=== PATIENT | male | born 1990 | race Asian ===

== ENCOUNTER 2022-02-07 11:39 | Emergency (ER) | payer MEDICARE, SELFPAY ==
--- NOTE | ~2022-02-07 | XR_ITS ---
EXAMINATION: XR CHEST CLINICAL INFORMATION: [place]. COMPARISON: 11/11/2019 chest radiograph. TECHNIQUE: 2 views of the chest were obtained. FINDINGS: No significant abnormality is noted involving the heart, lungs, mediastinum, bony thorax or soft tissues. XR/XR chest 2V IMPRESSION: No acute cardiopulmonary process.
[2022-02-07 11:44] VITALS: BP 101/69; PULSE 67; RESP 18; TEMP 36.8; O2SAT 98; BMI 16.4
--- NOTE | 2022-02-07 11:44 | ED_ITS ---
HPI - General Adult General Chief complaint: Upper Respiratory Symptoms <SALLY Coppola - Last Filed: 02/07/22 11:50> Stated complaint: fever, cough, headache <SALLY Coppola - Last Filed: 02/07/22 11:50> Time Seen by Provider: 02/07/22 12:08 <SALLY Coppola - Last Filed: 02/07/22 11:50> Source: patient and family <Chelsie Stover CNP - Last Filed: 02/07/22 14:05> Mode of arrival: wheelchair <Chelsie Stover CNP - Last Filed: 02/07/22 14:05> Limitations: physical limitation <Chelsie Stover CNP - Last Filed: 02/07/22 1 4:05> History of Present Illness HPI narrative: Patient is a 31-year-old male wheelchair bound nonverbal patient presenting for evaluation of intermittent fevers, cough, chest congestion over the past week. He was evaluated by primary care provider 2 days ago and prescribed Bactrim and benzonatate. Father reporting that he does not have the strength or ability to cough out phlegm. After coughing spells other ports that he has a small amount of emesis, is described as clear/yellow in nature. Reports that he has been urinating and moving his bowels normally. Was seen at urgent care and advised to come to the emergency department to rule out aspiration pneumonia. States for past 2 days patient has been prescribed Bactrim and benzonatate without significant improvement. <Chelsie Stover CNP - Last Filed: 02/07/22 14:05> Related Data Home medications: Previous Rx's Medication Instructions Recorded guaifenesin 1,200 mg tablet, 1,200 mg PO Q12H #14 tabs 02/07/22 extended release 12 hr (Mucus Relief ER) <SALLY Coppola Last Filed: 02/07/22 11:50> Allergies/adverse reactions: Allergies Allergy/AdvReac Type Severity Reaction Status Date / Time No Known Allergies Allergy Unverified 12/07/19 18:07 <SALLY Coppola Last Filed: 02/07/22 11:50> Review of Systems Review of Systems: Yes Unobtainable due to mental status <Chelsie Stover CNP - Last Filed: 02/07/22 14:05> [facility] Past Medical History Attestation statement: The following information was validated with the patient. <Chelsie Stover CNP - Last Filed: 02/07/22 14:05> Source: old records reviewed <Chelsie Stover CNP - Last Filed: 02/07/22 14:05> Social History Social History: Social History Advance Directives: No Advance Directives Information Provided: No <SALLY Coppola - Last Filed: 02/07/22 11:50> Physical Exam ED Vital Signs: Vital Signs - 24 hr 02/07/22 11:44 Temperature 98.2 F Pulse Rate 67 Respiratory Rate 18 Blood Pressure 101/69 Pulse Oximetry 98 Oxygen Delivery Method Room Air BMI result Body Mass Index 16.4 <SALLY Coppola - Last Filed: 02/07/22 11:50> Vital Signs - 24 hr 02/07/22 11:44 Temperature 98.2 F Pulse Rate 67 Respiratory Rate 18 Blood Pressure 101/69 Pulse Oximetry 98 Oxygen Delivery Method Room Air BMI result Body Mass Index 16.4 <Chelsie Stover CNP - Last Filed: 02/07/22 14:05> Appearance: Alert.? Unable to assess orientation, nonverbal. ?Normal affect. Eyes: Pupils equal, round and reactive to light.? ENT: Pharynx normal.?? Neck: Normal inspection.? Neck supple.?? CVS: Heart sounds normal. Normal heart rate and rhythm.? Pulses normal.?? Respiratory: No respiratory distress.? Lung sounds with rhonchi bilaterally, congested cough Abdomen: Soft and non-tender. Normoactive bowel sounds. ? Skin: Skin warm and dry.? Normal skin color.? Extremities: No lower extremity edema.? Neuro: No focal neuro deficits. Nonambulatory. Noted to be moving all extremities spontaneously. <Chelsie Stover CNP - Last Filed: 02/07/22 14:05> Course Course Course Narrative: RME--31yo wheelchair bound, nonverbal, sent in from for ?aspiration PNA, pt c/o cough and fever x 1 week with post tussive emesis. Denies recent travel. Afebrile, nontoxic appearing. EKG, Labs, Lactic/Blood Cx, CXR, COVID-19/influenza/RSV testing ordered in triage <SALLY Coppola - Last Filed: 02/07/22 11:50> Reevaluation(s) Reevaluation #1: Patient is a 31-year-old male with a past medical history of neuromuscular disorder, father is unable to tell me what condition he has, he is wheelchair bound nonverbal. Was evaluated at urgent care and advised to come to the emerg ency department to rule out aspiration pneumonia. COVID-19, influenza, and RSV testing are all negative. CBC reveals no leukocytosis, no anemia. CMP is overall unremarkable. BNP not detectable. Lactic acid 0.7. EKG reveals normal sinus rhythm, no acute ischemic findings. Chest x-ray with no acute cardiopulmonary process. Patient is well-appearing, nontoxic, afebrile without tachycardia tachypnea or hypoxia. Abdominal examination is benign. No apparent respiratory distress. Discussed plan of care with father, patient to be discharged home, continued use of benzonatate, and Bactrim as previously prescribed, will additionally sent prescription to pharmacy for Mucinex to aid in expectorant. Discussed worrisome signs and symptoms to return back to the emergency department for. Advised outpatient follow-up with primary care provider within 3 days. All questions answered. Discharged in stable condition with father. <Chelsie Stover CNP - Last Filed: 02/07/22 14:05> Time: 14:01 <Chelsie Stover CNP - Last Filed: 02/07/22 14:05> Medical Decision Making Medical Records Medical records reviewed: Yes I reviewed the patient's medical records. <Chelsie Stover CNP - Last Filed: 02/07/22 14:05> Lab Data Lab results reviewed: Yes I reviewed the patient's lab results. <Chelsie Stover CNP - Last Filed: 02/07/22 14:05> Result diagrams: : 02/07/22 12:05 02/07/22 12:05 <SALLY Coppola - Last Filed: 02/07/22 11:50> Labs: Lab Results 02/07/22 02/07/22 02/07/22 Range/Units 11:52 12:04 12:05 WBC 5.4 (4.8-10.8) X10*3/uL RBC 5.66 (4.60-5.80) X10*6/uL Hgb 14.5 (14.0-18.0) g/dl Hct 44.2 (42.0-52.0) % MCV 78.1 L (80.0-98.0) fL MCH 25.6 L (27.0-33.0) pg MCHC 32.8 (31.0-36.0) g/dl RDW 13.1 (11.0-16.0) % Plt Count 302 (160-400) X10*3/uL MPV 9.2 L (9.4-12.4) fL Immature Gran % (Auto) 0.2 (0.0-0.4) % Neut % (Auto) 51.9 (45-73) % Lymph % (Auto) 38.1 (20-40) % Trigg % (Auto) 5.9 (2-11) % Eos % (Auto) 3.5 (0-4) % Baso % (Auto) 0.4 (0-2) % Lymph # (Auto) 2.1 (1.2-4.9) X10*3/uL Trigg # (Auto) 0.3 (0.1-1.2) X10*3/uL Eos # (Auto) 0.2 (0.0-0.4) X10*3/uL Baso # (Auto) 0.0 (0.0-0.2) X10*3/uL Abs Immat Gran (auto) 0.01 (0.00-0.03) X10*3/uL Absolute Neuts (auto) 2.8 (2.0-8.3) x10*3/uL Absolute Nucleated RBC 0.000 (0.0-0.012) X10*3/uL Nucleated RBC % (auto) 0.0 (0.0-0.2) /100WBC Sodium (135-145) mmol/L Potassium (3.3-5.1) mmol/L Chloride (96-108) mmol/L Carbon Dioxide (22-29) mmol/L Anion Gap (12-20) BUN (9-16) mg/dL Creatinine (0.5-1.4) mg/dL Estim Creat Clear Calc Estimated GFR Random Glucose (60-115) mg/dL Lactic Acid 0.7 (0.5-2.0) mmol/L Calcium (8.4-10.2) mg/dL Magnesium (1.6-2.6) mg/dL Total Bilirubin (0.0-1.0) mg/dL Direct Bilirubin (0.0-0.5) mg/dL AST (5-37) U/L ALT (0-40) U/L Alkaline Phosphatase (39-117) U/L B-Natriuretic Peptide (<100) pg/mL Total Protein (6.5-8.0) g/dL Albumin (3.5-5.0) g/dL Influenza Type A (PCR) NEGATIVE (Negative) Influenza Type B (PCR) NEGATIVE (Negative) RSV RNA Qual (PCR) NEGATIVE (Negative) SARS-CoV-2 RNA (RT-PCR) NEGATIVE (Negative) 02/07/22 02/07/22 Range/Units 12:05 12:05 WBC (4.8-10.8) X10*3/uL RBC (4.60-5.80) X10*6/uL Hgb (14.0-18.0) g/dl Hct (42.0-52.0) % MCV (80.0-98.0) fL MCH (27.0-33.0) pg MCHC (31.0-36.0) g/dl RDW (11.0-16.0) % Plt Count (160-400) X10*3/uL MPV (9.4-12.4) fL Immature Gran % (Auto) (0.0-0.4) % Neut % (Auto) (45-73) % Lymph % (Auto) (20-40) % Trigg % (Auto) (2-11) % Eos % (Auto) (0-4) % Baso % (Auto) (0-2) % Lymph # (Auto) (1.2-4.9) X10*3/uL Trigg # (Auto) (0.1-1.2) X10*3/uL Eos # (Auto) (0.0-0.4) X10*3/uL Baso # (Auto) (0.0-0.2) X10*3/uL Abs Immat Gran (auto) (0.00-0.03) X10*3/uL Absolute Neuts (auto) (2.0-8.3) x10*3/uL Absolute Nucleated RBC (0.0-0.012) X10*3/uL Nucleated RBC % (auto) (0.0-0.2) /100WBC Sodium 139 (135-145) mmol/L Potassium 4.1 (3.3-5.1) mmol/L Chloride 105 (96-108) mmol/L Carbon Dioxide 22 (22-29) mmol/L Anion Gap 16 (12-20) BUN 14 (9-16) mg/dL Creatinine 0.98 (0.5-1.4) mg/dL Estim Creat Clear Calc 72.8 Estimated GFR > 60 Random Glucose 82 (60-115) mg/dL Lactic Acid (0.5-2.0) mmol/L Calcium 9.7 (8.4-10.2) mg/dL Magnesium 2.1 (1.6-2.6) mg/dL Total Bilirubin 0.5 (0.0-1.0) mg/dL Direct Bilirubin 0.2 (0.0-0.5) mg/dL AST 23 (5-37) U/L ALT 19 (0-40) U/L Alkaline Phosphatase 86 (39-117) U/L B-Natriuretic Peptide < 10 (<100) pg/mL Total Protein 8.7 H (6.5-8.0) g/dL Albumin 4.6 (3.5-5.0) g/dL Influenza Type A (PCR) (Negative) Influenza Type B (PCR) (Negative) RSV RNA Qual (PCR) (Negative) SARS-CoV-2 RNA (RT-PCR) (Negative) <SALLY Coppola - Last Filed: 02/07/22 11:50> Lab Results 02/07/22 02/07/22 02/07/22 Range/Units 11:52 12:04 12:05 WBC 5.4 (4.8-10.8) X10*3/uL RBC 5.66 (4.60-5.80) X10*6/uL Hgb 14.5 (14.0-18.0) g/dl Hct 44.2 (42.0-52.0) % MCV 78.1 L (80.0-98.0) fL MCH 25.6 L (27.0-33.0) pg MCHC 32.8 (31.0-36.0) g/dl RDW 13.1 (11.0-16.0) % Plt Count 302 (160-400) X10*3/uL MPV 9.2 L (9.4-12.4) fL Immature Gran % (Auto) 0.2 (0.0-0.4) % Neut % (Auto) 51.9 (45-73) % Lymph % (Auto) 38.1 (20-40) % Trigg % (Auto) 5.9 (2-11) % Eos % (Auto) 3.5 (0-4) % Baso % (Auto) 0.4 (0-2) % Lymph # (Auto) 2.1 (1.2-4.9) X10*3/uL Trigg # (Auto) 0.3 (0.1-1.2) X10*3/uL Eos # (Auto) 0.2 (0.0-0.4) X10*3/uL Baso # (Auto) 0.0 (0.0-0.2) X10*3/uL Abs Immat Gran (auto) 0.01 (0.00-0.03) X10*3/uL Absolute Neuts (auto) 2.8 (2.0-8.3) x10*3/uL Absolute Nucleated RBC 0.000 (0.0-0.012) X10*3/uL Nucleated RBC % (auto) 0.0 (0.0-0.2) /100WBC Sodium (135-145) mmol/L Potassium (3.3-5.1) mmol/L Chloride (96-108) mmol/L Carbon Dioxide (22-29) mmol/L Anion Gap (12-20) BUN (9-16) mg/dL Creatinine (0.5-1.4) mg/dL Estim Creat Clear Calc Estimated GFR Random Glucose (60-115) mg/dL Lactic Acid 0.7 (0.5-2.0) mmol/L Calcium (8.4-10.2) mg/dL Magnesium (1.6-2.6) mg/dL Total Bilirubin (0.0-1.0) mg/dL Direct Bilirubin (0.0-0.5) mg/dL AST (5-37) U/L ALT (0-40) U/L Alkaline Phosphatase (39-117) U/L B-Natriuretic Peptide (<100) pg/mL Total Protein (6.5-8.0) g/dL Albumin (3.5-5.0) g/dL Influenza Type A (PCR) NEGATIVE (Negative) Influenza Type B (PCR) NEGATIVE (Negative) RSV RNA Qual (PCR) NEGATIVE (Negative) SARS-CoV-2 RNA (RT-PCR) NEGATIVE (Negative) 02/07/22 02/07/22 Range/Units 12:05 12:05 WBC (4.8-10.8) X10*3/uL RBC (4.60-5.80) X10*6/uL Hgb (14.0-18.0) g/dl Hct (42.0-52.0) % MCV (80.0-98.0) fL MCH (27.0-33.0) pg MCHC (31.0-36.0) g/dl RDW (11.0-16.0) % Plt Count (160-400) X10*3/uL MPV (9.4-12.4) fL Immature Gran % (Auto) (0.0-0.4) % Neut % (Auto) (45-73) % Lymph % (Auto) (20-40) % Trigg % (Auto) (2-11) % Eos % (Auto) (0-4) % Baso % (Auto) (0-2) % Lymph # (Auto) (1.2-4.9) X10*3/uL Trigg # (Auto) (0.1-1.2) X10*3/uL Eos # (Auto) (0.0-0.4) X10*3/uL Baso # (Auto) (0.0-0.2) X10*3/uL Abs Immat Gran (auto) (0.00-0.03) X10*3/uL Absolute Neuts (auto) (2.0-8.3) x10*3/uL Absolute Nucleated RBC (0.0-0.012) X10*3/uL Nucleated RBC % (auto) (0.0-0.2) /100WBC Sodium 139 (135-145) mmol/L Potassium 4.1 (3.3-5.1) mmol/L Chloride 105 (96-108) mmol/L Carbon Dioxide 22 (22-29) mmol/L Anion Gap 16 (12-20) BUN 14 (9-16) mg/dL Creatinine 0.98 (0.5-1.4) mg/dL Estim Creat Clear Calc 72.8 Estimated GFR > 60 Random Glucose 82 (60-115) mg/dL Lactic Acid (0.5-2.0) mmol/L Calcium 9.7 (8.4-10.2) mg/dL Magnesium 2.1 (1.6-2.6) mg/dL Total Bilirubin 0.5 (0.0-1.0) mg/dL Direct Bilirubin 0.2 (0.0-0.5) mg/dL AST 23 (5-37) U/L ALT 19 (0-40) U/L Alkaline Phosphatase 86 (39-117) U/L B-Natriuretic Peptide < 10 (<100) pg/mL Total Protein 8.7 H (6.5-8.0) g/dL Albumin 4.6 (3.5-5.0) g/dL Influenza Type A (PCR) (Negative) Influenza Type B (PCR) (Negative) RSV RNA Qual (PCR) (Negative) SARS-CoV-2 RNA (RT-PCR) (Negative) <Chelsie Stover CNP - Last Filed: 02/07/22 14:05> Imaging Data Chest x-ray: Radiologist's impression: XR/XR chest 2V IMPRESSION: No acute cardiopulmonary process. <Chelsie Stover CNP - Last Filed: 02/07/22 14:05> ECG Data Attestation: I personally reviewed and interpreted this ECG as follows: <Chelsie Stover CNP - Last Filed: 02/07/22 14:05> Prior ECG tracings: available for review <Chelsie Stover CNP - Last Filed: 02/07/22 14:05> Interpretation: Rate: 68 Rhythm:? Normal sinus rhythm [place]:? Normal Normal P waves.? Normal [place].?? Normal QRS complex.?? ST T wave :??No ST elevation, no ST depression, no T-wave inversion qTC: 401 prior studies:? October 2019 The study has been interpreted contemporaneously by me. <Chelsie Stover CNP - Last Filed: 02/07/22 14:05> Discharge Plan Discharge Clinical Impression: Upper respiratory infection <SALLY Coppola - Last Filed: 02/07/22 11:50> Patient Disposition: Home, Self-Care <SALLY Coppola - Last Filed: 02/07/22 11:50> Instructions: Upper Respiratory Infection (ED) <SALLY Coppola - Last Filed: 02/07/22 11:50> Additional Instructions: Be sure to encourage lots of oral fluids Continue taking medications as prescribed by primary care provider In addition, take Mucinex to help expectorate the phlegm Return to the emergency department any new or worsening symptoms or concerns. Tylenol/ibuprofen may be used as needed for fever or signs of pain Follow-up with primary care provider within 3 days. <SALLY Coppola - Last Filed: 02/07/22 11:50> Prescriptions: New Mucus Relief ER 1,200 mg tablet extended release 12hr 1,200 mg PO Q12H Qty: 14 0RF <SALLY Coppola - Last Filed: 02/07/22 11:50> Referrals: Physician,Unknown J [Primary Care Provider] - <SALLY Coppola - Last Filed: 02/07/22 11:50>
--- NOTE | 2022-02-07 11:47 | ECG_ITS ---
Test Reason : CHEST CONGESTION Blood Pressure : / mmHG Vent. Rate : 068 BPM Atrial Rate : 068 BPM P-R Int : 172 ms QRS Dur : 080 ms QT Int : 378 ms P-R-T Axes : 077 061 072 degrees QTc Int : 401 ms Normal sinus rhythm with sinus arrhythmia Normal ECG When compared with ECG of 11-NOV-2019 16:48, No significant change was found Referred By: Malka Rascon Electronically Signed By:STEPH VALLADARES MD
[2022-02-07 12:12] LABS: MANUAL DIFF FLAG NO
[2022-02-07 12:21] LABS: Basophils Percent Auto 0.4 % (0-2); Eosinophils Absolute Auto 0.2 X10*3/uL (0.0-0.4); Eosinophils Percent Auto 3.5 % (0-4); Hematocrit 44.2 % (42.0-52.0); Hemoglobin 14.5 g/dl (14.0-18.0); Imm Gran Abs Auto 0.01 X10*3/uL (0.00-0.03); Imm Gran Pct Auto 0.2 % (0.0-0.4); Lymphocytes Absolute Auto 2.1 X10*3/uL (1.2-4.9); Lymphocytes Percent Auto 38.1 % (20-40); Mean Corpuscular HGB Conc 32.8 g/dl (31.0-36.0); Mean Corpuscular Hemoglobin 25.6 pg (27.0-33.0); Mean Corpuscular Volume 78.1 fL (80.0-98.0); Mean Platelet Volume 9.2 fL (9.4-12.4); Monocytes Absolute Auto 0.3 X10*3/uL (0.1-1.2); Monocytes Percent Auto 5.9 % (2-11); Neutrophils Absolute Auto 2.8 x10*3/uL (2.0-8.3); Neutrophils Percent Auto 51.9 % (45-73); Platelet Count 302 X10*3/uL (160-400); Red Blood Count 5.66 X10*6/uL (4.60-5.80); Red Cell Distribution Width 13.1 % (11.0-16.0); White Blood Count 5.4 X10*3/uL (4.8-10.8)
[2022-02-07 12:26] LABS: Lactic Acid 0.7 mmol/L (0.5-2.0)
[2022-02-07 12:30] LABS: Alanine Aminotransferase 19 U/L (0-40); Albumin Level 4.6 g/dL (3.5-5.0); Alkaline Phosphatase 86 U/L (39-117); Anion Gap 16 (12-20); Aspartate Amino Transferase 23 U/L (5-37); Bilirubin Direct 0.2 mg/dL (0.0-0.5); Bilirubin Total 0.5 mg/dL (0.0-1.0); Blood Urea Nitrogen 14 mg/dL (9-16); Calcium 9.7 mg/dL (8.4-10.2); Carbon Dioxide 22 mmol/L (22-29); Chloride 105 mmol/L (96-108); Creatinine Clr Calc Pharmacy 72.8; Estimated Glomerular Filt Rate > 60; Glucose Random 82 mg/dL (60-115); Magnesium 2.1 mg/dL (1.6-2.6); Potassium 4.1 mmol/L (3.3-5.1); Sodium 139 mmol/L (135-145); Total Protein 8.7 g/dL (6.5-8.0)
[2022-02-07 12:36] LABS: B Type Natriuretic Peptide < 10 pg/mL (<100)
[2022-02-07 12:58] LABS: Influenza A PCR NEGATIVE (Negative); Influenza B PCR NEGATIVE (Negative); Resp Syncy Virus RNA Qual PCR NEGATIVE (Negative); SARS COV2 PCR INHOUSE NEGATIVE (Negative)
== END 2022-02-07 14:10 | disposition home or self-care (01) ==
PROVIDERS: Physician Assistant; Emergency Provider Emergency Medicine Emergency Medical Services
DX: J06.9 Acute upper respiratory infection, unspecified (principal); R50.9 Fever, unspecified; Z20.822 Contact with and (suspected) exposure to COVID-19
CPT/HCPCS: 0241U; 36415; 71046; 80048; 80076; 83605; 83735; 83880; 85025; 87040; 93005; 99283

== ENCOUNTER 2024-01-20 15:06 | Inpatient (IN) | payer MEDICARE, SELFPAY ==
[2024-01-20] VITALS (13 sets, daily range): BP systolic 94–121; BP diastolic 66–83; PULSE 96–165; RESP 12–26; TEMP 37.8–40.5; O2SAT 76–98; BMI 23.9
--- NOTE | ~2024-01-20 | CT_ITS ---
EXAMINATION: CT ANGIOGRAM CHEST CLINICAL INFORMATION: Hypoxia COMPARISON: None available. TECHNIQUE: Multiple axial images were obtained through the chest after the administration of 50 mL of Omnipaque 350 intravenous contrast. Extensive vascular post-processing including two-dimensional and three-dimensional reformatted images were created and reviewed on an independent workstation. This CT examination was performed using dose optimization techniques as appropriate, variously including the following: *Automated exposure control *Adjustment of mA and/or kV according to patient size (this includes techniques or standardized protocols for targeted exams where dose is matched to indication/reason for exam; i.e. extremities or head) *Use of iterative reconstruction technique DLP: 258 mGy-cm FINDINGS: Bibasilar broncho-pneumonia pattern. No parapneumonic effusion. No central endobronchial lesion. Imaging of the pulmonary arteries demonstrate no evidence of any pulmonary emboli. No evidence of a right heart strain. No mediastinal mass or lymphadenopathy. Thoracic aorta grossly normal. Reactive appearing bilateral hilar lymph nodes. Mild subcarinal adenopathy likely reactive. The visualized upper upper abdominal organs are notable for hepatomegaly. CT/CT angio chest PE protocol IMPRESSION: No evidence for acute or chronic pulmonary embolism. Bilateral lower lobe pneumonia. Fleischner guidelines were followed. Electronically signed by: Emir Olmos MD 01/20/2024 06:50 PM EDT
--- NOTE | ~2024-01-20 | XR_ITS ---
EXAMINATION: XR CHEST CLINICAL INFORMATION: Hypoxia. COMPARISON: February 07, 2022. TECHNIQUE: Portable AP view of the chest was obtained. FINDINGS: The study is limited by portable technique. Examination demonstrates mild, diffuse, bilateral, predominantly perihilar interstitial prominence with possible minimal [place] B lines, raising the possibility of mild pulmonary edema. Findings suggest superimposed left basilar focal airspace disease, suggesting focal infiltrate (for example, pneumonia) and/or atelectasis. No effusion or pneumothorax is seen. The cardiovascular structures, mediastinum, diaphragm, bones, and soft tissues appear unremarkable. XR/XR chest 1V IMPRESSION: Findings as above. Electronically signed by: Delvin Esposito MD 01/20/2024 05:50 PM EDT
--- NOTE | 2024-01-20 15:23 | ED.GENADULT ---
HPI - General Adult General Chief complaint: Dyspnea Stated complaint: fever-mouth infection-unable to eat or drink Time Seen by Provider: 01/20/24 15:28 Related Data Home Medications ?Medication ?Instructions ?Recorded ?Confirmed acetaminophen 160 mg/5 mL oral 480 mg PO Q6H PRN fever 01/20/24 01/20/24 liquid (Children's Acetaminophen) Previous Rx's ?Medication ?Instructions ?Recorded amoxicillin 400 mg-potassium 10 ml PO BID #100 mL 01/25/24 clavulanate 57 mg/5 mL oral suspension fluconazole 100 mg tablet 100 mg feeding tube BEDTIME #10 01/25/24 tabs Allergies Allergy/AdvReac Type Severity Reaction Status Date / Time No Known Allergies Allergy Unverified 01/20/24 15:31 [facility] Social History Social History Household Members: Family Housing: House Are you a primary auto care center manager to a significant other at home: No Do you presently have visiting nurse or other home services: Yes Comment: Family member bedside Patient Tobacco Use Status: Never used Tobacco Smoked in Last 30 Days: No Second Hand Smoke Exposure: No Use of substances other than those prescribed or required for medical reasons: No Currently Displaying Signs/Symptoms of Drug Intoxication Withdrawal: No Have you been hit, kicked, punched, or otherwise hurt by someone within the past year? If so, by whom?: No Do you feel safe in your current relationship?: No Current Relationship Is there a partner from a previous relationship who is making you feel unsafe now?: No Are you made to feel afraid or neglected: No Are you DNR?: No Advance Directives: Yes Advance Directives Information Provided: No Advance Directives on File: Yes Advance Directives Date on File: 01/20/24 Do you have a plan to hurt others: No Plan Recently lost weight without trying: Unsure Eating poorly because of decreased appetite: No Nutrition Risks: Dental problems and On aspiration precautions Poor oral hygiene: Yes service: No Physical Exam ED Vital Signs: Vital Signs - 24 hr 01/20/24 15:22 01/20/24 15:30 01/20/24 15:53 Temperature 105 F H Pulse Rate 165 H 145 H 144 H Respiratory Rate 26 H 21 H 25 H Blood Pressure 121/83 110/77 113/80 Pulse Oximetry 76 L 88 L 89 L Oxygen Delivery Method Room Air Oxymask Oxymask Oxygen Flow Rate 10 10 01/20/24 16:10 Temperature 103.3 F H Pulse Rate 133 H Respiratory Rate 20 Blood Pressure 119/78 Pulse Oximetry 89 L Oxygen Delivery Method Oxymask Oxygen Flow Rate 10 BMI result Body Mass Index 23.9 Course Course Course Narrative: RME, this is a rapid medical exam performed by Real [place] please refer to primary provider for complete H&P- 33-year-old male with history of cerebral palsy, wheelchair-bound presents for evaluation of a mouth infection. He is nonverbal. He is hypoxic a 70% in triage with a heart rate of 160, patient brought straight back to the ER, blood cultures, lactic acid ordered, EKG ordered. Medications Administered Generic Name Dose Route Start Last Admin Trade Name Freq PRN Reason Stop Dose Admin Enoxaparin Sodium 40 mg 01/20/24 21:00 01/22/24 21:12 Enoxaparin Sodium 40 Mg/0.4 Ml Syringe SUBCUT 40 mg Q24H SHARLA Administration Fluconazole 100 mg 01/25/24 21:00 01/26/24 19:58 Fluconazole 100 Mg Tablet G-TUBE 100 mg BEDTIME SHARLA Administration Piperacillin Sod/Tazobactam 100 mls @ 200 mls/hr 01/21/24 08:15 01/27/24 01:30 Sod 4.5 gm/ Sodium Chloride IV 200 mls/hr Q6H SHARLA Administration Dextrose 250 mls @ 750 mls/hr 01/22/24 07:53 01/25/24 07:05 D10 IV Infused Q15M PRN Infusion per Hypoglycemia Standing Ord. Sodium Chloride 3 ml 01/21/24 00:00 01/26/24 19:58 0.9 % Sodium Chloride Flush 3 Ml Syringe IVFLUSH 3 ml QSHIFT SHARLA Administration Discontinued Medications Generic Name Dose Route Start Last Admin Trade Name Freq PRN Reason Stop Dose Admin Acetaminophen 650 mg 01/20/24 15:33 01/20/24 15:40 Acetaminophen Supp 650 Mg Supp.Rect MA 01/20/24 15:34 650 mg ONCE ONE Administration Sodium Chloride 1,000 mls @ 999 mls/hr 01/20/24 15:30 01/20/24 17:30 Ns IV 01/20/24 16:30 Infused .Q1H1M SHARLA Infusion Sodium Chloride 1,000 mls @ 999 mls/hr 01/20/24 15:30 01/20/24 17:45 Ns IV 01/20/24 16:30 Infused .Q1H1M SHARLA Infusion Cefepime HCl 1 gm/ Sodium 50 mls @ 100 mls/hr 01/20/24 15:30 01/20/24 16:36 Chloride IV 01/20/24 15:59 Infused ONCE ONE Infusion Vancomycin HCl 1,000 mg/ 270 mls @ 270 mls/hr 01/20/24 15:33 01/20/24 17:32 Sodium Chloride IV 01/20/24 16:32 Infused ONCE ONE Infusion Cefepime HCl 2 gm in 50 mls @ 100 mls/hr 01/21/24 04:00 01/21/24 06:07 Maxipime IV Infused Q12H SHARLA Infusion Lactated Ringer's 1,000 mls @ 100 mls/hr 01/20/24 21:00 01/22/24 07:53 Lr IVCONT Infused .Q10H SHARLA Infusion Fluconazole 100 mg/ IV 50 mls @ 50 mls/hr 01/20/24 21:30 01/24/24 23:50 Miscellaneous Supplies IV Infused Q24H SHARLA Infusion Vancomycin HCl 750 mg/ Sodium 265 mls @ 265 mls/hr 01/21/24 04:00 01/21/24 06:07 Chloride IV Infused Q12H SHARLA Infusion Lactated Ringer's 1,000 mls @ 999 mls/hr 01/21/24 08:15 01/21/24 10:41 Lr IV 01/21/24 09:15 Infused .Q1H1M SHARLA Infusion Vancomycin HCl 750 mg/ Sodium 265 mls @ 265 mls/hr 01/21/24 16:00 01/23/24 10:51 Chloride IV Infused Q8H SHARLA Infusion Acetaminophen 1,000 mg in 100 mls @ 400 mls/hr 01/22/24 04:45 01/22/24 23:43 Ofirmev IV 01/22/24 22:59 Infused Q6H SHARLA Infusion Dextrose/Lactated Ringer's 1,000 mls @ 80 mls/hr 01/22/24 08:00 01/23/24 08:42 D5lr IVCONT Infused .[id number] SHARLA Infusion Potassium Chloride 10 meq in 100 mls @ 100 mls/hr 01/23/24 07:45 01/23/24 11:16 Potassium Chloride/H20 IV 01/23/24 09:44 Infused Q1H SHARLA Infusion Lactated Ringer's 1,000 mls @ 80 mls/hr 01/23/24 07:45 01/25/24 07:19 Lr IVCONT Infused .[id number] SHARLA Infusion Lactated Ringer's 1,000 mls @ 50 mls/hr 01/24/24 13:15 01/24/24 13:45 Lr IVCONT Not Given .Q20H SHARLA Dextrose/Sodium Chloride 1,000 mls @ 100 mls/hr 01/25/24 06:30 01/25/24 13:13 D5ns IVCONT Infused .Q10H SHARLA Infusion Iohexol 100 ml 01/20/24 18:26 01/20/24 18:27 Iohexol 350 Mg/Ml 100 Ml Infus..Btl IV 01/20/24 18:27 65 ml ONCE ONE Administration Ketorolac Tromethamine 30 mg 01/20/24 20:42 01/20/24 20:47 Ketorolac Tromethamine 30 Mg/Ml Vial IVPUSH 01/20/24 20:43 30 mg ONCE STA Administration Morphine Sulfate 1 mg 01/21/24 17:07 01/25/24 20:51 Morphine Sulfate 2 Mg/Ml Cartridge IVPUSH 1 mg Q4H PRN Administration Pain, Severe (Pain Scale 7-10) Protocol Medical Decision Making Lab Data 01/26/24 05:41 01/26/24 05:41 Labs: Lab Results 01/20/24 01/20/24 01/20/24 Range/Units 15:53 16:00 16:04 WBC 16.9 H (4.8-10.8) X10*3/uL RBC 5.39 (4.60-5.80) X10*6/uL Hgb 14.0 (14.0-18.0) g/dl Hct 43.1 (42.0-52.0) % MCV 80.0 (80.0-98.0) fL MCH 26.0 L (27.0-33.0) pg MCHC 32.5 (31.0-36.0) g/dl RDW 14.5 (11.0-16.0) % Plt Count 334 (160-400) X10*3/uL MPV 10.8 (9.4-12.4) fL Immature Gran % (Auto) 0.4 (0.0-0.4) % Neut % (Auto) 88.7 H (45-73) % Lymph % (Auto) 5.7 L (20-40) % [place] % (Auto) 4.0 (2-11) % Eos % (Auto) 0.5 (0-4) % Baso % (Auto) 0.7 (0-2) % Lymph # (Auto) 1.0 L (1.2-4.9) X10*3/uL [place] # (Auto) 0.7 (0.1-1.2) X10*3/uL Eos # (Auto) 0.1 (0.0-0.4) X10*3/uL Baso # (Auto) 0.1 (0.0-0.2) X10*3/uL Abs Immat Gran (auto) 0.07 H (0.00-0.03) X10*3/uL Absolute Neuts (auto) 15.0 H (2.0-8.3) x10*3/uL Absolute Nucleated RBC 0.000 (0.0-0.012) X10*3/uL Nucleated RBC % (auto) 0.0 (0.0-0.2) /100WBC Neutrophils % (Manual) (45-73) % Band Neutrophils % (3-5) % Lymphocytes % (Manual) (20-40) % Monocytes % (Manual) (2-11) % Metamyelocytes % % Myelocytes % % Abs Neuts (Manual) (2.0-8.3) X10*3/uL Lymphocytes # (Manual) (1.2-4.9) X10*3/uL Monocytes # (Manual) (0.1-1.2) X10*3/uL Metamyelocytes # X10*3/uL Myelocytes # X10*/uL Toxic Granulation Toxic Vacuolation Dohle Bodies Platelet Estimate (NORMAL) Plt Morphology Comment RBC Morphology Polychromasia /OIF PT (10.9-12.4) SEC INR (0.9-1.1) D-Dimer High Sensitivty NG/ML VBG pH 7.53 H (7.32-7.43) VBG pCO2 25 mmHg VBG pO2 100 mmHg VBG HCO3 21 L (22-26) mmol/L VBG O2 Saturation 98.0 % VBG Base Excess 0.8 mmol/L Sodium (135-145) mmol/L Potassium (3.3-5.1) mmol/L Chloride (96-108) mmol/L Carbon Dioxide (22-29) mmol/L Anion Gap (12-20) BUN (9-16) mg/dL Creatinine (0.5-1.4) mg/dL Estim Creat Clear Calc Estimated GFR Random Glucose (60-115) mg/dL Lactic Acid 2.8 H* (0.5-2.0) mmol/L Lactic Acid F/U @ 2Hr (0.5-2.0) mmol/L Calcium (8.4-10.2) mg/dL Total Bilirubin Cancelled Direct Bilirubin Cancelled AST Cancelled ALT Cancelled Alkaline Phosphatase Cancelled Troponin I High Sens 11.7 (<3.5-35.0) ng/L B-Natriuretic Peptide 46 (<100) pg/mL Total Protein Cancelled Albumin Cancelled Lipase (8-78) U/L Urine Color Dark Yellow Urine Appearance Cloudy Urine pH 5.5 (5.0-9.0) Ur Specific [place] >= 1.030 H (1.005-1.025) Urine Protein 300 (3+) H (Neg-Trace) mg/dL Urine Glucose (UA) Negative (Negative) mg/dL Urine Ketones 15 (Negative) mg/dL Urine Blood Large (3+) H (Negative) Urine Nitrite Negative (Negative) Ur Leukocyte Esterase Trace H (Negative) Urine RBC >20 H (0-2) /HPF Urine WBC 21-50 H (0-5) /HPF Ur Squamous Epith Cells 11-20 (0-2) /HPF Urine Bacteria 1+ (None Seen) Hyaline Casts 11-20 (0-2) /LPF Influenza Type A (PCR) NEGATIVE (Negative) Influenza Type B (PCR) NEGATIVE (Negative) RSV RNA Qual (PCR) NEGATIVE (Negative) SARS-CoV-2 RNA (RT-PCR) NEGATIVE (Negative) S. pyogenes GrpA RYAN Negative (Negative) 01/20/24 01/20/24 01/20/24 Range/Units 17:00 17:28 18:11 WBC 11.7 H (4.8-10.8) X10*3/uL RBC 4.89 (4.60-5.80) X10*6/uL Hgb 12.7 L (14.0-18.0) g/dl Hct 39.1 L (42.0-52.0) % MCV 80.0 (80.0-98.0) fL MCH 26.0 L (27.0-33.0) pg MCHC 32.5 (31.0-36.0) g/dl RDW 14.1 (11.0-16.0) % Plt Count 294 (160-400) X10*3/uL MPV 9.8 (9.4-12.4) fL Immature Gran % (Auto) Cancelled (0.0-0.4) % Neut % (Auto) Cancelled (45-73) % Lymph % (Auto) Cancelled (20-40) % [place] % (Auto) Cancelled (2-11) % Eos % (Auto) Cancelled (0-4) % Baso % (Auto) Cancelled (0-2) % Lymph # (Auto) Cancelled (1.2-4.9) X10*3/uL [place] # (Auto) Cancelled (0.1-1.2) X10*3/uL Eos # (Auto) Cancelled (0.0-0.4) X10*3/uL Baso # (Auto) Cancelled (0.0-0.2) X10*3/uL Abs Immat Gran (auto) Cancelled (0.00-0.03) X10*3/uL Absolute Neuts (auto) Cancelled (2.0-8.3) x10*3/uL Absolute Nucleated RBC 0.000 (0.0-0.012) X10*3/uL Nucleated RBC % (auto) 0.0 (0.0-0.2) /100WBC Neutrophils % (Manual) 70 (45-73) % Band Neutrophils % 22 H (3-5) % Lymphocytes % (Manual) 3 L (20-40) % Monocytes % (Manual) 3 (2-11) % Metamyelocytes % 1 % Myelocytes % 1 % Abs Neuts (Manual) 10.8 H (2.0-8.3) X10*3/uL Lymphocytes # (Manual) 0.4 L (1.2-4.9) X10*3/uL Monocytes # (Manual) 0.4 (0.1-1.2) X10*3/uL Metamyelocytes # 0.1 X10*3/uL Myelocytes # 0.1 X10*/uL Toxic Granulation PRESENT Toxic Vacuolation PRESENT Dohle Bodies PRESENT Platelet Estimate NORMAL (NORMAL) Plt Morphology Comment NORMAL RBC Morphology NOTED Polychromasia 1+ (0-2) /OIF PT 17.6 H (10.9-12.4) SEC INR 1.5 H (0.9-1.1) D-Dimer High Sensitivty 1034 NG/ML VBG pH (7.32-7.43) VBG pCO2 mmHg VBG pO2 mmHg VBG HCO3 (22-26) mmol/L VBG O2 Saturation % VBG Base Excess mmol/L Sodium 145 (135-145) mmol/L Potassium 3.8 (3.3-5.1) mmol/L Chloride 117 H (96-108) mmol/L Carbon Dioxide 19 L (22-29) mmol/L Anion Gap 13 (12-20) BUN 23 H (9-16) mg/dL Creatinine 0.81 (0.5-1.4) mg/dL Estim Creat Clear Calc 50.2 Estimated GFR > 60 Random Glucose 115 (60-115) mg/dL Lactic Acid (0.5-2.0) mmol/L Lactic Acid F/U @ 2Hr 1.6 (0.5-2.0) mmol/L Calcium 8.3 L D (8.4-10.2) mg/dL Total Bilirubin 0.8 Direct Bilirubin 0.3 AST 22 ALT 6 Alkaline Phosphatase 57 Troponin I High Sens (<3.5-35.0) ng/L B-Natriuretic Peptide (<100) pg/mL Total Protein 7.2 Albumin 3.1 L Lipase 9 (8-78) U/L Urine Color Yellow Urine Appearance Cloudy Urine pH 5.5 (5.0-9.0) Ur Specific [place] >= 1.030 H (1.005-1.025) Urine Protein 100 (2+) H (Neg-Trace) mg/dL Urine Glucose (UA) Negative (Negative) mg/dL Urine Ketones Trace (Negative) mg/dL Urine Blood Moderate (2+) H (Negative) Urine Nitrite Negative (Negative) Ur Leukocyte Esterase Negative (Negative) Urine RBC 6-10 H (0-2) /HPF Urine WBC 0-5 (0-5) /HPF Ur Squamous Epith Cells 6-10 (0-2) /HPF Urine Bacteria None Seen (None Seen) Hyaline Casts 3-5 (0-2) /LPF Influenza Type A (PCR) (Negative) Influenza Type B (PCR) (Negative) RSV RNA Qual (PCR) (Negative) SARS-CoV-2 RNA (RT-PCR) (Negative) S. pyogenes GrpA RYAN (Negative) Discharge Plan Discharge Clinical Impression: Multifocal pneumonia, Hypoxia Patient Disposition: Admitted As Inpatient Interventions: Admission Worksheet (ED) Last Done: 01/21/24 02:49 Discharge Date/Time: 01/21/24 03:47
--- NOTE | 2024-01-20 15:29 | ECG_ITS ---
Test Reason : sob Blood Pressure : / mmHG Vent. Rate : 120 BPM Atrial Rate : 120 BPM P-R Int : 144 ms QRS Dur : 064 ms QT Int : 302 ms P-R-T Axes : 081 065 085 degrees QTc Int : 426 ms Sinus tachycardia Anteroseptal infarct (cited on or before 20-JAN-2024) Abnormal ECG When compared with ECG of 20-JAN-2024 16:21, No significant changes seen Referred By: Cristela James Electronically Signed By:DEWAYNE PINEDA
[2024-01-20] MEDS: 0.9 % Sodium Chloride 1,000 ML 999 ML IV ×2 (15:35→16:01)
--- NOTE | 2024-01-20 15:37 | ED_ITS ---
HPI - SOB/Dyspnea General Chief Complaint: Dyspnea Stated Complaint: fever-mouth infection-unable to eat or drink Time Seen by Provider: 01/20/24 15:28 History of Present Illness ED Provider: Dr. Cristela James HPI Narrative: Patient is a 33-year-old male with a history of cerebral palsy. Presented today with decreased p.o. intake generalized malaise. Having soreness to the throat. Unable to take p.o.. Has a history of aspiration in the past. Baseline nonverbal. Patient baseline contracted. He is a full code. Was at [facility] a few months ago at that time had aspiration. Related Data Previous Rx's ?Medication ?Instructions ?Recorded guaifenesin 1,200 mg tablet, 1,200 mg PO Q12H #14 tabs 02/07/22 extended release 12 hr (Mucus Relief ER) Allergies Allergy/AdvReac Type Severity Reaction Status Date / Time No Known Allergies Allergy Unverified 01/20/24 15:31 Review of Systems 2 Review of Systems: Positive decreased p.o. intake Unable to obtain full review of systems secondary to patient's condition. What is obtained is through patient's father. COUNT INCLUDES THE [facility] Past Medical History Attestation statement: The following information was validated with the patient. Medical History (Updated 01/20/24 @ 21:22 by Cristela James MD) Cerebral palsy Social History Social History Smoked in Last 30 Days: No Use of substances other than those prescribed or required for medical reasons: No Advance Directives: No Advance Directives Information Provided: No Do you have a plan to hurt others: No Plan Physical Exam 2 Vital Signs: Vital Signs: Last Vital Signs Temp 101.5 F H 01/20/24 20:41 Pulse 107 H 01/20/24 20:41 Resp 21 H 01/20/24 20:41 BP 105/69 01/20/24 20:41 Pulse Ox 95 01/20/24 20:41 O2 Del Method Oxymask 01/20/24 20:41 O2 Flow Rate 15 01/20/24 20:41 BMI result Body Mass Index 23.9 Appearance: Sick appearing male staring into space Eyes: Pupils equal, round and reactive to light. ENT: Mucous membrane is extremely dry. In the posterior pharynx there is what seems like fungal material. Neck: Trachea is midline there is no retraction noted CVS: Tachycardic but regular Respiratory: Increased work of breathing Abdomen: Soft nontender Skin: Skin warm and dry. Normal skin color. Normal skin turgor. Extremities: No lower extremity edema. Neurovascular intact to all extremities. No Lacerations. No Rash Neuro: Contracted nonverbal Medications Administered Generic Name Dose Route Start Last Admin Trade Name Freq PRN Reason Stop Dose Admin Enoxaparin Sodium 40 mg 01/20/24 21:00 01/20/24 21:07 Enoxaparin Sodium 40 Mg/0.4 Ml Syringe SUBCUT 40 mg Q24H SHARLA Administration Lactated Ringer's 1,000 mls @ 150 mls/hr 01/20/24 21:00 01/20/24 21:05 Lr IVCONT 150 mls/hr .Q6H40M SHARLA Administration Discontinued Medications Generic Name Dose Route Start Last Admin Trade Name Freq PRN Reason Stop Dose Admin Acetaminophen 650 mg 01/20/24 15:33 01/20/24 15:40 Acetaminophen Supp 650 Mg Supp.Rect [place] 01/20/24 15:34 650 mg ONCE ONE Administration Sodium Chloride 1,000 mls @ 999 mls/hr 01/20/24 15:30 01/20/24 17:30 Ns IV 01/20/24 16:30 Infused .Q1H1M SHARLA Infusion Sodium Chloride 1,000 mls @ 999 mls/hr 01/20/24 15:30 01/20/24 17:45 Ns IV 01/20/24 16:30 Infused .Q1H1M SHARLA Infusion Cefepime HCl 1 gm/ Sodium 50 mls @ 100 mls/hr 01/20/24 15:30 01/20/24 16:36 Chloride IV 01/20/24 15:59 Infused ONCE ONE Infusion Vancomycin HCl 1,000 mg/ 270 mls @ 270 mls/hr 01/20/24 15:33 01/20/24 17:32 Sodium Chloride IV 01/20/24 16:32 Infused ONCE ONE Infusion Iohexol 100 ml 01/20/24 18:26 01/20/24 18:27 Iohexol 350 Mg/Ml 100 Ml Infus..Btl IV 01/20/24 18:27 65 ml ONCE ONE Administration Ketorolac Tromethamine 30 mg 01/20/24 20:42 01/20/24 20:47 Ketorolac Tromethamine 30 Mg/Ml Vial IVPUSH 01/20/24 20:43 30 mg ONCE STA Administration Medical Decision Making Medical Decision Making [facility] Narrative: Patient had a temperature 105 degrees. Had a heart rate of 160. Grossly appear septic. Septic workup was ordered. Patient ordered over 30 cc/kilos of IV fluids. Lactate culture, COVID was ordered. VBG was ordered. Mcgee was ordered to monitor patient's urine output. Will start patient on cefepime and vancomycin as patient appears emaciated. In critical condition placed on monitor. Will require admission. Discussed with family. Patient is a full code. -my interpretation of labs: Patient's white blood cell count 16.9, after IV fluids 11.7. However, patient looks significantly ill. As mentioned above, patient already got treated with 2 L of fluid, vancomycin and ceftazidime. D- dimer 1034. Venous blood gases show a pCO2 25, slightly elevated pH 7.53. Lactic acid 1.6. Patient febrile, tachycardic, no episodes of hypotension. -my interpretation of chest x-ray, left lower lobe pneumonia. Even though the patient does have pneumonia, patient is bed-bound, significantly hypoxic. Using up to 10-15 L of oxygen on OxyMask to keep an oxygen saturation in the low 90s. Pulmonary embolism needs to be ruled out. D-dimer was elevated -a CT scan was done to rule out a pulmonary embolism, negative, CT shows bilateral pneumonia. -I discussed the patient with Dr. Carrington, patient being admitted. Differential Diagnosis Differential Diagnoses: The differential diagnosis associated with the presentation includes Sepsis, urinary tract infection, pneumonia Admission/Observation Consideration of admission/observation: Escalation of care including admission/observation considered Patient will require admission Lab Data [facility] Lab Attestation statement: I reviewed the patient's lab results. 01/20/24 17:00 01/20/24 17:00 Labs: Lab Results 01/20/24 01/20/24 01/20/24 Range/Units 15:53 16:00 16:04 WBC 16.9 H (4.8-10.8) X10*3/uL RBC 5.39 (4.60-5.80) X10*6/uL Hgb 14.0 (14.0-18.0) g/dl Hct 43.1 (42.0-52.0) % MCV 80.0 (80.0-98.0) fL MCH 26.0 L (27.0-33.0) pg MCHC 32.5 (31.0-36.0) g/dl RDW 14.5 (11.0-16.0) % Plt Count 334 (160-400) X10*3/uL MPV 10.8 (9.4-12.4) fL Immature Gran % (Auto) 0.4 (0.0-0.4) % Neut % (Auto) 88.7 H (45-73) % Lymph % (Auto) 5.7 L (20-40) % [place] % (Auto) 4.0 (2-11) % Eos % (Auto) 0.5 (0-4) % Baso % (Auto) 0.7 (0-2) % Lymph # (Auto) 1.0 L (1.2-4.9) X10*3/uL [place] # (Auto) 0.7 (0.1-1.2) X10*3/uL Eos # (Auto) 0.1 (0.0-0.4) X10*3/uL Baso # (Auto) 0.1 (0.0-0.2) X10*3/uL Abs Immat Gran (auto) 0.07 H (0.00-0.03) X10*3/uL Absolute Neuts (auto) 15.0 H (2.0-8.3) x10*3/uL Absolute Nucleated RBC 0.000 (0.0-0.012) X10*3/uL Nucleated RBC % (auto) 0.0 (0.0-0.2) /100WBC Neutrophils % (Manual) (45-73) % Band Neutrophils % (3-5) % Lymphocytes % (Manual) (20-40) % Monocytes % (Manual) (2-11) % Metamyelocytes % % Myelocytes % % Abs Neuts (Manual) (2.0-8.3) X10*3/uL Lymphocytes # (Manual) (1.2-4.9) X10*3/uL Monocytes # (Manual) (0.1-1.2) X10*3/uL Metamyelocytes # X10*3/uL Myelocytes # X10*/uL Toxic Granulation Toxic Vacuolation Dohle Bodies Platelet Estimate (NORMAL) Plt Morphology Comment RBC Morphology Polychromasia /OIF PT (10.9-12.4) SEC INR (0.9-1.1) D-Dimer High Sensitivty NG/ML VBG pH 7.53 H (7.32-7.43) VBG pCO2 25 mmHg VBG pO2 100 mmHg VBG HCO3 21 L (22-26) mmol/L VBG O2 Saturation 98.0 % VBG Base Excess 0.8 mmol/L Sodium (135-145) mmol/L Potassium (3.3-5.1) mmol/L Chloride (96-108) mmol/L Carbon Dioxide (22-29) mmol/L Anion Gap (12-20) BUN (9-16) mg/dL Creatinine (0.5-1.4) mg/dL Estim Creat Clear Calc Estimated GFR Random Glucose (60-115) mg/dL Lactic Acid 2.8 H* (0.5-2.0) mmol/L Lactic Acid F/U @ 2Hr (0.5-2.0) mmol/L Calcium (8.4-10.2) mg/dL Total Bilirubin Cancelled Direct Bilirubin Cancelled AST Cancelled ALT Cancelled Alkaline Phosphatase Cancelled Troponin I High Sens 11.7 (<3.5-35.0) ng/L B-Natriuretic Peptide 46 (<100) pg/mL Total Protein Cancelled Albumin Cancelled Lipase (8-78) U/L Urine Color Dark Yellow Urine Appearance Cloudy Urine pH 5.5 (5.0-9.0) Ur Specific [place] >= 1.030 H (1.005-1.025) Urine Protein 300 (3+) H (Neg-Trace) mg/dL Urine Glucose (UA) Negative (Negative) mg/dL Urine Ketones 15 (Negative) mg/dL Urine Blood Large (3+) H (Negative) Urine Nitrite Negative (Negative) Ur Leukocyte Esterase Trace H (Negative) Urine RBC >20 H (0-2) /HPF Urine WBC 21-50 H (0-5) /HPF Ur Squamous Epith Cells 11-20 (0-2) /HPF Urine Bacteria 1+ (None Seen) Hyaline Casts 11-20 (0-2) /LPF Influenza Type A (PCR) NEGATIVE (Negative) Influenza Type B (PCR) NEGATIVE (Negative) RSV RNA Qual (PCR) NEGATIVE (Negative) SARS-CoV-2 RNA (RT-PCR) NEGATIVE (Negative) S. pyogenes GrpA RYAN Negative (Negative) 01/20/24 01/20/24 01/20/24 Range/Units 17:00 17:28 18:11 WBC 11.7 H (4.8-10.8) X10*3/uL RBC 4.89 (4.60-5.80) X10*6/uL Hgb 12.7 L (14.0-18.0) g/dl Hct 39.1 L (42.0-52.0) % MCV 80.0 (80.0-98.0) fL MCH 26.0 L (27.0-33.0) pg MCHC 32.5 (31.0-36.0) g/dl RDW 14.1 (11.0-16.0) % Plt Count 294 (160-400) X10*3/uL MPV 9.8 (9.4-12.4) fL Immature Gran % (Auto) Cancelled (0.0-0.4) % Neut % (Auto) Cancelled (45-73) % Lymph % (Auto) Cancelled (20-40) % [place] % (Auto) Cancelled (2-11) % Eos % (Auto) Cancelled (0-4) % Baso % (Auto) Cancelled (0-2) % Lymph # (Auto) Cancelled (1.2-4.9) X10*3/uL [place] # (Auto) Cancelled (0.1-1.2) X10*3/uL Eos # (Auto) Cancelled (0.0-0.4) X10*3/uL Baso # (Auto) Cancelled (0.0-0.2) X10*3/uL Abs Immat Gran (auto) Cancelled (0.00-0.03) X10*3/uL Absolute Neuts (auto) Cancelled (2.0-8.3) x10*3/uL Absolute Nucleated RBC 0.000 (0.0-0.012) X10*3/uL Nucleated RBC % (auto) 0.0 (0.0-0.2) /100WBC Neutrophils % (Manual) 70 (45-73) % Band Neutrophils % 22 H (3-5) % Lymphocytes % (Manual) 3 L (20-40) % Monocytes % (Manual) 3 (2-11) % Metamyelocytes % 1 % Myelocytes % 1 % Abs Neuts (Manual) 10.8 H (2.0-8.3) X10*3/uL Lymphocytes # (Manual) 0.4 L (1.2-4.9) X10*3/uL Monocytes # (Manual) 0.4 (0.1-1.2) X10*3/uL Metamyelocytes # 0.1 X10*3/uL Myelocytes # 0.1 X10*/uL Toxic Granulation PRESENT Toxic Vacuolation PRESENT Dohle Bodies PRESENT Platelet Estimate NORMAL (NORMAL) Plt Morphology Comment NORMAL RBC Morphology NOTED Polychromasia 1+ (0-2) /OIF PT 17.6 H (10.9-12.4) SEC INR 1.5 H (0.9-1.1) D-Dimer High Sensitivty 1034 NG/ML VBG pH (7.32-7.43) VBG pCO2 mmHg VBG pO2 mmHg VBG HCO3 (22-26) mmol/L VBG O2 Saturation % VBG Base Excess mmol/L Sodium 145 (135-145) mmol/L Potassium 3.8 (3.3-5.1) mmol/L Chloride 117 H (96-108) mmol/L Carbon Dioxide 19 L (22-29) mmol/L Anion Gap 13 (12-20) BUN 23 H (9-16) mg/dL Creatinine 0.81 (0.5-1.4) mg/dL Estim Creat Clear Calc 50.2 Estimated GFR > 60 Random Glucose 115 (60-115) mg/dL Lactic Acid (0.5-2.0) mmol/L Lactic Acid F/U @ 2Hr 1.6 (0.5-2.0) mmol/L Calcium 8.3 L D (8.4-10.2) mg/dL Total Bilirubin 0.8 Direct Bilirubin 0.3 AST 22 ALT 6 Alkaline Phosphatase 57 Troponin I High Sens (<3.5-35.0) ng/L B-Natriuretic Peptide (<100) pg/mL Total Protein 7.2 Albumin 3.1 L Lipase 9 (8-78) U/L Urine Color Yellow Urine Appearance Cloudy Urine pH 5.5 (5.0-9.0) Ur Specific [place] >= 1.030 H (1.005-1.025) Urine Protein 100 (2+) H (Neg-Trace) mg/dL Urine Glucose (UA) Negative (Negative) mg/dL Urine Ketones Trace (Negative) mg/dL Urine Blood Moderate (2+) H (Negative) Urine Nitrite Negative (Negative) Ur Leukocyte Esterase Negative (Negative) Urine RBC 6-10 H (0-2) /HPF Urine WBC 0-5 (0-5) /HPF Ur Squamous Epith Cells 6-10 (0-2) /HPF Urine Bacteria None Seen (None Seen) Hyaline Casts 3-5 (0-2) /LPF Influenza Type A (PCR) (Negative) Influenza Type B (PCR) (Negative) RSV RNA Qual (PCR) (Negative) SARS-CoV-2 RNA (RT-PCR) (Negative) S. pyogenes GrpA RYAN (Negative) Critical Care Time Critical Care Time Critical Care Time: Yes Total Critical Care Time: 60 Attestation: I have personally provided critical care time. Time includes review of lab data, radiology results, discussion with consultants, and monitoring for potential decompensation. Intervention performed as documented. Discharge Plan Discharge Clinical Impression: Multifocal pneumonia, Hypoxia Patient Disposition: Home, Self-Care Instructions: Hypoxia (ED), Pneumonia (ED) Prescriptions: No Action Mucus Relief ER 1,200 mg tablet extended release 12hr 1,200 mg PO Q12H Qty: 14 0RF Print Language: Divehi
[2024-01-20] MEDS: Acetaminophen Supp 650 MG SUPP.RECT PR (15:40)
[2024-01-20] MEDS: cefEPime HCl 1 GM in 0.9 % Sodium Chloride 50 ML IV (15:57)
[2024-01-20 16:05] LABS: MANUAL DIFF FLAG NO
[2024-01-20] MEDS: vancomycin HCL 1,000 MG in 0.9 % Sodium Chloride 250 ML 270 MG IV (16:07)
[2024-01-20 16:09] LABS: VBG Base Excess 0.8 mmol/L; VBG HCO3 21 mmol/L (22-26); VBG pCO2 25 mmHg; VBG pH 7.53 (7.32-7.43); VBG pO2 100 mmHg
[2024-01-20 16:10] LABS: Basophils Absolute Auto 0.1 X10*3/uL (0.0-0.2); Basophils Percent Auto 0.7 % (0-2); Eosinophils Absolute Auto 0.1 X10*3/uL (0.0-0.4); Eosinophils Percent Auto 0.5 % (0-4); Hematocrit 43.1 % (42.0-52.0); Imm Gran Abs Auto 0.07 X10*3/uL (0.00-0.03); Imm Gran Pct Auto 0.4 % (0.0-0.4); Lymphocytes Percent Auto 5.7 % (20-40); Mean Corpuscular HGB Conc 32.5 g/dl (31.0-36.0); Mean Platelet Volume 10.8 fL (9.4-12.4); Monocytes Absolute Auto 0.7 X10*3/uL (0.1-1.2); Neutrophils Percent Auto 88.7 % (45-73); Platelet Count 334 X10*3/uL (160-400); Red Blood Count 5.39 X10*6/uL (4.60-5.80); Red Cell Distribution Width 14.5 % (11.0-16.0); Venous Blood Gas Refer to POC result; White Blood Count 16.9 X10*3/uL (4.8-10.8)
[2024-01-20 16:15] LABS: Appearance Urine Cloudy; Color Urine Dark Yellow; Glucose Urine UA Negative (Negative); Leukocyte Esterase Urine Trace (Negative); Nitrite Urine Negative (Negative); PH 5.5 (5.0-9.0); Specific Gravity - Urine >= 1.030 (1.005-1.025); UMIC TRIGGER UACC YES; Urine Blood Large (3+) (Negative); Urine Ketones 15 mg/dL (Negative); Urine Protein 300 (3+) mg/dL (Neg-Trace)
--- NOTE | 2024-01-20 16:16 | PC.NURSE ---
patient continues to be hypoxic on 10L oxymask, made aware, patient sat up in bed, per MD vital O2 saturation is OK
--- NOTE | 2024-01-20 16:17 | PC.NURSE ---
late charting due to patient care, patient brought back immediately from triage with cc of feeling unwell, upon doing VS in triage patient was noted to be hypoxic and tachycardic. upon putting patient on monitor patient noted to be at 78% on room air, placed on 10L oxymask with improvement to 88%, MD aware of saturation, no additional intervention for oxygen at this time, patient also noted to be tachycardic in the 160s. patient rolled to inspect skin, skin felt hot to touch, rectal temp read 105, MD dick aware, patient medicated with rectal tylenol. 18g PIV placed in right forearm, second 18g IV placed in RAC, third 18g IV placed in R bicep. patient to recieve 2L NS per MAR and IV abx. temp sensing hackett catheter placed, with small amount of urine draining. family states pt with hx of cerebral palsy, is a full code, and he noticed the patient started not feeling well today, denies cough, or recent sick contacts. plan of care is ongoing for pt.
[2024-01-20 16:27] LABS: IDNOW Serial# 58CA691E; Strep A Nucleic Acid Negative (Negative)
[2024-01-20 16:35] LABS: B Type Natriuretic Peptide 46 pg/mL (<100)
[2024-01-20 16:36] LABS: Lactic Acid 2.8 mmol/L (0.5-2.0); Troponin-I High Sensitivity 11.7 ng/L (<3.5-35.0)
[2024-01-20 16:40] LABS: Bacteria Urine 1+ (None Seen); RBC Urine >20 /HPF (0-2); UACC Culture Trigger YES; WBC Urine 21-50 /HPF (0-5)
[2024-01-20 16:52] LABS: Influenza A PCR NEGATIVE (Negative); Influenza B PCR NEGATIVE (Negative); Resp Syncy Virus RNA Qual PCR NEGATIVE (Negative); SARS COV2 PCR INHOUSE NEGATIVE (Negative)
[2024-01-20 17:16] LABS: Hematocrit 39.1 % (42.0-52.0); Hemoglobin 12.7 g/dl (14.0-18.0); Mean Corpuscular HGB Conc 32.5 g/dl (31.0-36.0); Mean Platelet Volume 9.8 fL (9.4-12.4); Platelet Count 294 X10*3/uL (160-400); Red Blood Count 4.89 X10*6/uL (4.60-5.80); Red Cell Distribution Width 14.1 % (11.0-16.0); White Blood Count 11.7 X10*3/uL (4.8-10.8)
[2024-01-20 17:21] LABS: INTERNATIONAL NORM RATIO 1.5 (0.9-1.1); Prothrombin Time 17.6 SEC (10.9-12.4)
[2024-01-20 17:24] LABS: Alanine Aminotransferase 6 U/L (0-40); Albumin Level 3.1 g/dL (3.5-5.0); Alkaline Phosphatase 57 U/L (39-117); Anion Gap 13 (12-20); Aspartate Amino Transferase 22 U/L (5-37); Bilirubin Direct 0.3 mg/dL (0.0-0.5); Bilirubin Total 0.8 mg/dL (0.0-1.0); Blood Urea Nitrogen 23 mg/dL (9-16); Calcium 8.3 mg/dL (8.4-10.2); Carbon Dioxide 19 mmol/L (22-29); Chloride 117 mmol/L (96-108); Creatinine Clr Calc Pharmacy 50.2; Estimated Glomerular Filt Rate > 60; Glucose Random 115 mg/dL (60-115); Lipase 9 U/L (8-78); Potassium 3.8 mmol/L (3.3-5.1); Sodium 145 mmol/L (135-145); Total Protein 7.2 g/dL (6.5-8.0)
--- NOTE | 2024-01-20 17:33 | PC.NURSE ---
delay in IV fluids due to patient being contracted, slow flowing, IV sites changed and fluid bolus almost complete, IV abx completed at this time xray at bedside
[2024-01-20 17:35] LABS: Appearance Urine Cloudy; Color Urine Yellow; Glucose Urine UA Negative (Negative); Leukocyte Esterase Urine Negative (Negative); Nitrite Urine Negative (Negative); PH 5.5 (5.0-9.0); Specific Gravity - Urine >= 1.030 (1.005-1.025); UMIC TRIGGER UACC YES; Urine Blood Moderate (2+) (Negative); Urine Ketones Trace mg/dL (Negative); Urine Protein 100 (2+) mg/dL (Neg-Trace)
[2024-01-20 17:38] LABS: Venous Blood Gas Refer to POC result
[2024-01-20 18:00] LABS: Neutrophils Percent Manual 70 % (45-73)
[2024-01-20 18:03] LABS: Reflex Lactate? Lactic Acid Added
[2024-01-20 18:04] LABS: Band Neutrophils Percent 22 % (3-5); Lymphocytes Absolute Manual 0.4 X10*3/uL (1.2-4.9); Lymphocytes Percent Manual 3 % (20-40); Metamyelocytes Absolute 0.1 X10*3/uL; Metamyelocytes Percent 1 %; Monocytes Absolute Manual 0.4 X10*3/uL (0.1-1.2); Monocytes Percent Manual 3 % (2-11); Myelocytes Absolute 0.1 X10*/uL; Myelocytes Percent 1 %; Neutrophils Absolute Manual 10.8 X10*3/uL (2.0-8.3)
[2024-01-20 18:06] LABS: Dohle Bodies PRESENT; Platelet Estimate NORMAL (NORMAL); Platelet Morphology Comment NORMAL; Polychromasia 1+ (0-2) /OIF; RBC Morphology NOTED
[2024-01-20 18:07] LABS: Toxic Granulation PRESENT; Toxic Vacuolation PRESENT
--- NOTE | 2024-01-20 18:15 | PC.NURSE ---
repeat lactic drawn and sent to lab by this RN
[2024-01-20 18:21] LABS: Bacteria Urine None Seen (None Seen); WBC Urine 0-5 /HPF (0-5)
[2024-01-20 18:26] LABS: ~Lactic Acid-LAB USE ONLY 1.6 mmol/L (0.5-2.0)
[2024-01-20] MEDS: iohexoL 350 MG/ML 100 ML INFUS..BTL IV (18:27)
[2024-01-20 18:29] LABS: D Dimer High Sensitivity 1034 NG/ML
--- NOTE | 2024-01-20 19:17 | MHC.EDTECH ---
This tech took over care of patient at 1900,rounded and introduced self to patient,vitals taken, patient's core temp is 101.5, HR 116,RN made aware,patient repositioned to comfort,family at bedside call hogan in reach
--- NOTE | 2024-01-20 20:43 | MHC.EDTECH ---
Vitals taken,RN aware
[2024-01-20] MEDS: Ketorolac Tromethamine 30 MG/ML VIAL IVPUSH (20:47)
--- NOTE | 2024-01-20 20:48 | P.HPHOSP_ITS ---
History of Present Illness Date of Service: 01/20/24 Attending physician on admission: Aury Garcia Chief Complaint: Poor appetite Anthony Morales this is a 33 years old man with past medical history significant for cerebral palsy, nonverbal and aspiration who was brought to the emergency department via EMS accompanied by his father who was at bedside due to poor appetite over the last 3 days. His father is a poor historian walked mentioned that he noted that patient has some sort infection in his throat and has been having problem swallowing. No vomiting or diarrhea noted. In the ED, he was found to have tachycardia fever and tachypnea. He is currently requiring supplemental oxygen via mask 15 L/min. Blood workup was remarkable for leukocytosis of 16.9 with a lactic acidosis. Differential showed toxic vacuolation, toxic granulation and bandemia of 22%. Urinalysis consistent with urinary tract infection. Viral testing for COVID-19, RSV and influenza is negative. Chest CTA showed no evidence of PE but showed bilateral lower lobe pneumonia. ECG showed sinus tachycardia with a heart rate 120 bpm without concern for ischemic changes. ED tx: NS 2 L bolus, Cefepime 1 g IV, vancomycin 1 g IV, acetaminophen 650 mg RI Review of Systems 2 Review of Systems: Yes Unobtainable due to mental condition [facility] Medical History (Updated 01/20/24 @ 21:19 by Aury Garcia MD) Cerebral palsy Social History Smoked in Last 30 Days: No Use of substances other than those prescribed or required for medical reasons: No Advance Directives: No Advance Directives Information Provided: No Do you have a plan to hurt others: No Plan Meds Allergies Allergy/AdvReac Type Severity Reaction Status Date / Time No Known Allergies Allergy Unverified 01/20/24 15:31 Active Medications: Current Medications Acetaminophen (Acetaminophen Supp 650 Mg Supp.Rect) 650 mg RI Q6H PRN PRN Reason: Fever >100.4 Enoxaparin Sodium (Enoxaparin Sodium 40 Mg/0.4 Ml Syringe) 40 mg SUBCUT Q24H SHARLA Cefepime HCl (Maxipime) 2 gm in 50 mls @ 100 mls/hr IV Q8H SHARLA Lactated Ringer's (Lr) 1,000 mls @ 150 mls/hr IVCONT .Q6H40M [facility] Pharmacy Consult (Consult Rx Vancomycin Dosing) 1 each MISCELLANE DAILY PRN PRN Reason: Consult order Sodium Chloride (0.9 % Sodium Chloride Flush 3 Ml Syringe) 3 ml IVFLUSH QSHIFT [facility] Physical Exam 2 Vital Signs and Narrative: Vital Signs: Last Vital Signs Temp 101.5 F H 01/20/24 20:41 Pulse 107 H 01/20/24 20:41 Resp 21 H 01/20/24 20:41 BP 105/69 01/20/24 20:41 Pulse Ox 95 01/20/24 20:41 O2 Del Method Oxymask 01/20/24 20:41 O2 Flow Rate 15 01/20/24 20:41 BMI result Body Mass Index 23.9 Constitutional - Lethargic, open eyes spontaneously. Febrile, acutely ill. HEENT - PERRL. Dry oral mucosa, oropharyx thrush. Heart - Tachycardic. Normal rhythm. No murmurs. Lungs - Normal lung expansion, Normal respiratory effort, No respiratory distress. Tachypneic. Bibasilar crackles. No wheezing or rhonchi. Abdomen - NT / ND; +BS; No rebound or guarding Extremities - no calf tenderness bilaterally, no swelling Musculoskeletal - Generalized atrophic muscles. Skin - Warm/Dry Neurological - Lethargic. Psychological - No agitation. Results Labs 01/20/24 17:00 01/20/24 17:00 Labs: Laboratory Results - last 24 hr 01/20/24 01/20/24 01/20/24 15:53 16:00 16:04 MCV 80.0 MCH 26.0 L MCHC 32.5 RDW 14.5 Plt Count 334 MPV 10.8 Immature Gran % (Auto) 0.4 Neut % (Auto) 88.7 H Lymph % (Auto) 5.7 L Kay % (Auto) 4.0 Eos % (Auto) 0.5 Baso % (Auto) 0.7 Lymph # (Auto) 1.0 L Kay # (Auto) 0.7 Eos # (Auto) 0.1 Baso # (Auto) 0.1 Abs Immat Gran (auto) 0.07 H Absolute Neuts (auto) 15.0 H Absolute Nucleated RBC 0.000 Nucleated RBC % (auto) 0.0 Neutrophils % (Manual) Band Neutrophils % Lymphocytes % (Manual) Monocytes % (Manual) Metamyelocytes % Myelocytes % Abs Neuts (Manual) Lymphocytes # (Manual) Monocytes # (Manual) Metamyelocytes # Myelocytes # Toxic Granulation Toxic Vacuolation Dohle Bodies Platelet Estimate Plt Morphology Comment RBC Morphology Polychromasia PT INR D-Dimer High Sensitivty VBG pH 7.53 H VBG pCO2 25 VBG pO2 100 VBG HCO3 21 L VBG O2 Saturation 98.0 VBG Base Excess 0.8 Anion Gap Estim Creat Clear Calc Estimated GFR Random Glucose Lactic Acid 2.8 H* Lactic Acid F/U @ 2Hr Calcium Total Bilirubin Cancelled Direct Bilirubin Cancelled AST Cancelled ALT Cancelled Alkaline Phosphatase Cancelled Troponin I High Sens 11.7 B-Natriuretic Peptide 46 Total Protein Cancelled Albumin Cancelled Lipase Urine Color Dark Yellow Urine Appearance Cloudy Urine pH 5.5 Ur Specific [place] >= 1.030 H Urine Protein 300 (3+) H Urine Glucose (UA) Negative Urine Ketones 15 Urine Blood Large (3+) H Urine Nitrite Negative Ur Leukocyte Esterase Trace H Urine RBC >20 H Urine WBC 21-50 H Ur Squamous Epith Cells 11-20 Urine Bacteria 1+ Hyaline Casts 11-20 Influenza Type A (PCR) NEGATIVE Influenza Type B (PCR) NEGATIVE RSV RNA Qual (PCR) NEGATIVE SARS-CoV-2 RNA (RT-PCR) NEGATIVE S. pyogenes GrpA RYAN Negative 01/20/24 01/20/24 01/20/24 17:00 17:28 18:11 MCV 80.0 MCH 26.0 L MCHC 32.5 RDW 14.1 Plt Count 294 MPV 9.8 Immature Gran % (Auto) Cancelled Neut % (Auto) Cancelled Lymph % (Auto) Cancelled Kay % (Auto) Cancelled Eos % (Auto) Cancelled Baso % (Auto) Cancelled Lymph # (Auto) Cancelled Kay # (Auto) Cancelled Eos # (Auto) Cancelled Baso # (Auto) Cancelled Abs Immat Gran (auto) Cancelled Absolute Neuts (auto) Cancelled Absolute Nucleated RBC 0.000 Nucleated RBC % (auto) 0.0 Neutrophils % (Manual) 70 Band Neutrophils % 22 H Lymphocytes % (Manual) 3 L Monocytes % (Manual) 3 Metamyelocytes % 1 Myelocytes % 1 Abs Neuts (Manual) 10.8 H Lymphocytes # (Manual) 0.4 L Monocytes # (Manual) 0.4 Metamyelocytes # 0.1 Myelocytes # 0.1 Toxic Granulation PRESENT Toxic Vacuolation PRESENT Dohle Bodies PRESENT Platelet Estimate NORMAL Plt Morphology Comment NORMAL RBC Morphology NOTED Polychromasia 1+ (0-2) PT 17.6 H INR 1.5 H D-Dimer High Sensitivty 1034 VBG pH VBG pCO2 VBG pO2 VBG HCO3 VBG O2 Saturation VBG Base Excess Anion Gap 13 Estim Creat Clear Calc 50.2 Estimated GFR > 60 Random Glucose 115 Lactic Acid Lactic Acid F/U @ 2Hr 1.6 Calcium 8.3 L D Total Bilirubin 0.8 Direct Bilirubin 0.3 AST 22 ALT 6 Alkaline Phosphatase 57 Troponin I High Sens B-Natriuretic Peptide Total Protein 7.2 Albumin 3.1 L Lipase 9 Urine Color Yellow Urine Appearance Cloudy Urine pH 5.5 Ur Specific [place] >= 1.030 H Urine Protein 100 (2+) H Urine Glucose (UA) Negative Urine Ketones Trace Urine Blood Moderate (2+) H Urine Nitrite Negative Ur Leukocyte Esterase Negative Urine RBC 6-10 H Urine WBC 0-5 Ur Squamous Epith Cells 6-10 Urine Bacteria None Seen Hyaline Casts 3-5 Influenza Type A (PCR) Influenza Type B (PCR) RSV RNA Qual (PCR) SARS-CoV-2 RNA (RT-PCR) S. pyogenes GrpA RYAN Imaging Radiologist's Impressions: Impressions Chest X-Ray 01/20/24 15:24 IMPRESSION: Findings as above. Electronically signed by: Delvin Esposito MD 01/20/2024 05:50 PM EDT RP Chest CTA 01/20/24 18:26 IMPRESSION: No evidence for acute or chronic pulmonary embolism. Bilateral lower lobe pneumonia. Fleischner guidelines were followed. Electronically signed by: Emir Olmos MD 01/20/2024 06:50 PM EDT RP Assessment and Plan (1) Acute hypoxic respiratory failure: Status: Acute (2) Bilateral pneumonia: Qualifiers: Pneumonia type: aspiration pneumonia Lung location: lower lobe of lung Aspiration pneumonia type: unspecified Qualified Code(s): J69.0 - Pneumonitis due to inhalation of food and vomit Status: Acute (3) Aspiration into airway: Qualifiers: Encounter type: initial encounter Qualified Code(s): T17.908A - Unspecified foreign body in respiratory tract, part unspecified causing other injury, initial encounter Status: Acute Plan Anthony Morales this is a 33 y/o man admitted with: * Acute hypoxic respiratory failure secondary to bilateral pneumonia due to aspiration ---> sepsis criteria without severe sepsis criteria. Admit to hospitalist service. Aspiration precautions. NPO. Supplemental O2 to keep O2 sats > 90%. Continue empiric IV antibiotic therapy with vancomycin and cefepime. * Oropharynx candidiasis. Fluconazole 100 mg IV daily DVT prophylaxis: Lovenox Code status: Full (dw in details with patient's father). Patient will need hospitalization for at least 2 midnights for hypoxic respiratory failure secondary to bilateral pneumonia due to aspiration treatment with supplemental oxygen and IV antibiotic therapy. Quality Stroke Does the patient have a stroke diagnosis?: No VTE Prior VTE?: No VTE Risk Level:: Medical - moderate - high VTE Device Contraindication: Treatment Not Indicated VTE Drug Contraindication: N/A - Med Ordered
[2024-01-20] MEDS: Lactated Ringers 1,000 ML 150 ML IVCONT (21:05)
[2024-01-20] MEDS: Enoxaparin Sodium 40 MG/0.4 ML SYRINGE SUBCUT (21:07)
--- NOTE | 2024-01-20 21:17 | PHA.PROG ---
Admission Date/Time: Indication: Sepsis Weight in k.5 kg Adjusted body weight in Kg: [place] body weight in Kg: Obesity Dosing Indication % IBW: Serum Creatinine - Last 168 Hours 01/20/24 17:00 Creatinine 0.81 Estimated CrCl and GFR - Last 168 Hours 01/20/24 17:00 Estim Creat Clear Calc 50.2 Estimated GFR > 60 Vancomycin Loading Dose: 1000mg x 1 Current Vancomycin Dosing Regimen: 750mg Q12H Vancomycin Monitoring using AUC goal of 400 - 600 range with trough as surrogate marker: 539mg/L Date and Time for next Vancomycin Level to be drawn: 01/21/24 @1400 Pharmacist Comments on Vancomycin Plan: Predicted trough of 15.9 mg/L; will continue to monitor Vancomycin dosing will take advantage of [employer] as a clinical decision support tool that uses Bayesian modeling to calculate individual patient's pharmacokinetic parameters and forecast the patient's drug concentration time course with the target goal AUC 24 range of 400 - 600 mg/L/hr.
--- NOTE | 2024-01-20 21:34 | MHC.EDTECH ---
Vitals taken and belongings list completed,copy placed in chart.
[2024-01-20] MEDS: Fluconazole in NaCl,Iso-Osm 100 MG in Container,Empty 0 ML 50 MG IV (21:35)
--- NOTE | 2024-01-20 21:41 | PHA.MEDREC ---
Addendum entered by Martin Hollingsworth 01/20/24 21:45: reviewed Original Note: Pharmacy Consult ? Medication Reconciliation Pharmacy has completed the medication reconciliation. Spoke to patients father at bedside to confirm med list. Father sates patient only takes Tylenol liquid because patient can't swallow.
--- NOTE | 2024-01-20 22:02 | MHC.EDTECH ---
Rounded and emptied 150MLS of yellow urine from [facility].
[2024-01-21] VITALS (7 sets, daily range): BP systolic 92–107; BP diastolic 50–69; PULSE 65–87; RESP 14–22; TEMP 36.4–37.1; O2SAT 95–98; BMI 25.6
--- NOTE | 2024-01-21 | ECG_ITS ---
Test Reason : SESPSIS ALERT Blood Pressure : / mmHG Vent. Rate : 129 BPM Atrial Rate : 000 BPM P-R Int : 000 ms QRS Dur : 048 ms QT Int : 374 ms P-R-T Axes : 000 023 080 degrees QTc Int : 547 ms Artifact in tracing Sinus tachycardia Anteroseptal infarct , age undetermined Abnormal ECG When compared with ECG of 07-FEB-2022 12:33, Sinus tachycardia has replaced sinus rhythm Vent. rate has increased BY 61 BPM Anteroseptal infarct is now Present Referred By: Maryse Okeefe Electronically Signed By:DEWAYNE PINEDA
--- NOTE | 2024-01-21 00:10 | MHC.EDTECH ---
Hourly rounded and vitals completed,BP is 99/69,RN was made aware,patient appears to be comfortably,sister at bedside
[2024-01-21] MEDS: 0.9 % Sodium Chloride Flush 3 ML SYRINGE IVFLUSH (01:18)
--- NOTE | 2024-01-21 01:23 | MHC.EDTECH ---
Patient placed in hospital bed for comfort,patient was incont.X2 of a moderate amount of soft brown stool, parker-care given.Patient had a Mcgee cath. placed from previous shift ,patient was urinating around the catheter large amounts of urine X2,RN removed catheter and attempted to replace,was unsuccessful, [place] cath,placed at this time,patient is draining urine at this time,pt tolerated well, recliner given to sister,call hogan in reach
--- NOTE | 2024-01-21 01:57 | PC.NURSE ---
Previous hackett catheter did not have balloon inflated and fell out. Order for new hackett, unable to place and patient was in significant pain, MD notified and condom catheter was placed.
[2024-01-21] MEDS: Lactated Ringers 1,000 ML 150 ML IVCONT (03:07)
[2024-01-21] MEDS: cefEPime HCl/D5W 2 GM/50 ML PIGGYBACK IV (04:31)
[2024-01-21] MEDS: vancomycin HCL 750 MG in 0.9 % Sodium Chloride 250 ML 265 MG IV ×2 (04:32→16:57)
[2024-01-21 06:14] LABS: MANUAL DIFF FLAG NO
[2024-01-21 06:51] LABS: Alanine Aminotransferase 12 U/L (0-40); Albumin Level 2.8 g/dL (3.5-5.0); Alkaline Phosphatase 54 U/L (39-117); Anion Gap 12 (12-20); Aspartate Amino Transferase 40 U/L (5-37); Bilirubin Total 0.7 mg/dL (0.0-1.0); Blood Urea Nitrogen 24 mg/dL (9-16); Calcium 8.8 mg/dL (8.4-10.2); Carbon Dioxide 21 mmol/L (22-29); Chloride 117 mmol/L (96-108); Creatinine Clr Calc Pharmacy 58.5; Estimated Glomerular Filt Rate > 60; Glucose Random 94 mg/dL (60-115); Magnesium 2.1 mg/dL (1.6-2.6); Sodium 146 mmol/L (135-145); Total Protein 6.4 g/dL (6.5-8.0)
[2024-01-21 07:02] LABS: Basophils Percent Auto 0.2 % (0-2); Hematocrit 33.3 % (42.0-52.0); Hemoglobin 10.9 g/dl (14.0-18.0); Imm Gran Abs Auto 0.05 X10*3/uL (0.00-0.03); Imm Gran Pct Auto 0.4 % (0.0-0.4); Lymphocytes Absolute Auto 1.5 X10*3/uL (1.2-4.9); Lymphocytes Percent Auto 11.1 % (20-40); Mean Corpuscular HGB Conc 32.7 g/dl (31.0-36.0); Mean Corpuscular Hemoglobin 26.3 pg (27.0-33.0); Mean Corpuscular Volume 80.4 fL (80.0-98.0); Mean Platelet Volume 10.6 fL (9.4-12.4); Monocytes Absolute Auto 0.7 X10*3/uL (0.1-1.2); Monocytes Percent Auto 5.1 % (2-11); Neutrophils Percent Auto 83.2 % (45-73); Platelet Count 243 X10*3/uL (160-400); Red Blood Count 4.14 X10*6/uL (4.60-5.80); Red Cell Distribution Width 14.4 % (11.0-16.0); White Blood Count 13.2 X10*3/uL (4.8-10.8)
--- NOTE | 2024-01-21 09:00 | MHC.CM.PN ---
CM met with Patient and his Father/Moy, at bedside. Patient has Cerebral Palsy; he is total care and non-verbal. IMM was addressed with Father and original was given to him and a copy has been placed on the chart. Patient lives in a house with his Parents/Guardians (Moy agrees to provide [facility] with a copy of the Guardianship), and he uses a w/c for mobility. Patient has a [employer] 6 hours/day and home/resume said services is the goal. CM has initiated and will follow for dc planning. PCP/CREATIVE RECRUITER is Mila Vazquez and Father will transport to home.
[2024-01-21 09:04] LABS: Lactic Acid 0.8 mmol/L (0.5-2.0)
[2024-01-21] MEDS: Piperacillin Sodium/Tazobactam 4.5 GM in 0.9 % Sodium Chloride 100 ML IV ×3 (09:29→20:19)
[2024-01-21] MEDS: Lactated Ringers 1,000 ML 999 ML IV (09:37)
[2024-01-21] MEDS: Lactated Ringers 1,000 ML 100 ML IVCONT ×2 (10:41→20:19)
--- NOTE | 2024-01-21 11:19 | P.CONGS_ITS ---
History of Present Illness Consult details Consult date: 01/21/24 Narrative: 33-year-old male with cerebral palsy admitted last night because of shortness of breath. He has been diagnosed to have bilateral lower lobe pneumonia based on imaging studies According to the father, he has had poor oral intake for several days. He has been noticed to have had poor appetite which has been progressive for a few months now. His overall health seems to have been declining as well He was admitted with impression of a pneumonia secondary to aspiration. He had lactic acidosis and leukocytosis. His primary care physician and had actually recommended getting a PEG tube for the patient in view of his progressive decline in health. According to his father, he has never had any abdominal surgeries in the past. The patient apparently had been developing this more weakness and memory difficulties since he was in high school. This had been progressively getting worse over the years. The father says that even with swallowing, he often ?chokes? on food. Review of Systems 2 Review of Systems: Yes Unobtainable due to mental status Constitutional: Constitutional: Denies chills and Denies fever(s) ENT: Reports dysphagia Cardiovascular: Cardiovascular: Reports dyspnea Respiratory: Respiratory: Reports dyspnea Gastrointestinal: Gastrointestinal: Reports dysphagia Comments: Poor appetite PMFSH Social History Social History Household Members: Family Housing: House Are you a primary team primary care physician to a significant other at home: No Do you presently have visiting nurse or other home services: Yes Patient Tobacco Use Status: Never used Tobacco Smoked in Last 30 Days: No Second Hand Smoke Exposure: No Use of substances other than those prescribed or required for medical reasons: No Currently Displaying Signs/Symptoms of Drug Intoxication Withdrawal: No Have you been hit, kicked, punched, or otherwise hurt by someone within the past year? If so, by whom?: No Do you feel safe in your current relationship?: No Current Relationship Is there a partner from a previous relationship who is making you feel unsafe now?: No Are you made to feel afraid or neglected: No Are you DNR?: No Advance Directives: Yes Advance Directives Information Provided: No Advance Directives on File: Yes Advance Directives Date on File: 01/20/24 Do you have a plan to hurt others: No Plan Recently lost weight without trying: Unsure Eating poorly because of decreased appetite: No Nutrition Risks: Dental problems and On aspiration precautions Poor oral hygiene: Yes service: No Meds Allergies Allergy/AdvReac Type Severity Reaction Status Date / Time No Known Allergies Allergy Unverified 01/20/24 15:31 Active Medications: Current Medications Acetaminophen (Acetaminophen Supp 650 Mg Supp.Rect) 650 mg VT Q6H PRN PRN Reason: Fever >100.4 Enoxaparin Sodium (Enoxaparin Sodium 40 Mg/0.4 Ml Syringe) 40 mg SUBCUT Q24H [facility] Last Admin: 01/20/24 21:07 Dose: 40 mg Lactated Ringer's (Lr) 1,000 mls @ 100 mls/hr IVCONT .Q10H [facility] Last Admin: 01/21/24 10:41 Dose: 100 mls/hr Fluconazole 100 mg/ IV (Miscellaneous Supplies) 50 mls @ 50 mls/hr IV Q24H [facility] Last Infusion: 01/20/24 22:29 Dose: Infused Vancomycin HCl 750 mg/ Sodium (Chloride) 265 mls @ 265 mls/hr IV Q12H [facility] Last Infusion: 01/21/24 06:07 Dose: Infused Piperacillin Sod/Tazobactam (Sod 4.5 gm/ Sodium Chloride) 100 mls @ 200 mls/hr IV Q6H [facility] Last Infusion: 01/21/24 10:35 Dose: Infused Pharmacy Consult (Consult Rx Vancomycin Dosing) 1 each MISCELLANE DAILY PRN PRN Reason: Consult order Sodium Chloride (0.9 % Sodium Chloride Flush 3 Ml Syringe) 3 ml IVFLUSH QSHIFT [facility] Last Admin: 01/21/24 07:36 Dose: Not Given Home Medications ?Medication ?Instructions ?Recorded ?Confirmed ?Last Taken ?Type acetaminophen 160 mg/5 mL oral 480 mg PO Q6H PRN fever 01/20/24 01/20/24 Unknown History liquid (Children's Acetaminophen) Physical Exam 2 Vital Signs: Vital Signs: Last Vital Signs Temp 98.4 F 01/21/24 07:17 Pulse 87 01/21/24 07:17 Resp 20 01/21/24 07:17 BP 92/50 L 01/21/24 07:17 Pulse Ox 97 01/21/24 07:17 O2 Del Method Oxymask 01/21/24 07:17 O2 Flow Rate 13 01/21/24 07:17 BMI result Body Mass Index 25.6 Const: Other: Very frail looking,cachectic, eyes opening but does not have verbal output currently Resp: Other: Some shortness of breath Cardio: Rate: tachycardic GI: Other: No surgical scars Palpation (GI): Soft to palpation, not firm, nontender and no guarding Results Labs 01/24/24 05:41 01/24/24 05:41 Labs: Abnormal lab results 01/20/24 01/20/24 01/20/24 Range/Units 15:53 16:00 16:04 WBC 16.9 H (4.8-10.8) X10*3/uL RBC (4.60-5.80) X10*6/uL Hgb (14.0-18.0) g/dl Hct (42.0-52.0) % MCH 26.0 L (27.0-33.0) pg Neut % (Auto) 88.7 H (45-73) % Lymph % (Auto) 5.7 L (20-40) % Lymph # (Auto) 1.0 L (1.2-4.9) X10*3/uL Abs Immat Gran (auto) 0.07 H (0.00-0.03) X10*3/uL Absolute Neuts (auto) 15.0 H (2.0-8.3) x10*3/uL Band Neutrophils % (3-5) % Lymphocytes % (Manual) (20-40) % Abs Neuts (Manual) (2.0-8.3) X10*3/uL Lymphocytes # (Manual) (1.2-4.9) X10*3/uL PT (10.9-12.4) SEC INR (0.9-1.1) VBG pH 7.53 H (7.32-7.43) VBG HCO3 21 L (22-26) mmol/L Sodium (135-145) mmol/L Chloride (96-108) mmol/L Carbon Dioxide (22-29) mmol/L BUN (9-16) mg/dL Lactic Acid 2.8 H* (0.5-2.0) mmol/L Calcium (8.4-10.2) mg/dL AST (5-37) U/L Total Protein (6.5-8.0) g/dL Albumin (3.5-5.0) g/dL Ur Specific [place] >= 1.030 H (1.005-1.025) Urine Protein 300 (3+) H (Neg-Trace) mg/dL Urine Blood Large (3+) H (Negative) Ur Leukocyte Esterase Trace H (Negative) Urine RBC >20 H (0-2) /HPF Urine WBC 21-50 H (0-5) /HPF 01/20/24 01/20/24 01/21/24 Range/Units 17:00 17:28 06:00 WBC 11.7 H 13.2 H (4.8-10.8) X10*3/uL RBC 4.14 L (4.60-5.80) X10*6/uL Hgb 12.7 L 10.9 L (14.0-18.0) g/dl Hct 39.1 L 33.3 L (42.0-52.0) % MCH 26.0 L 26.3 L (27.0-33.0) pg Neut % (Auto) 83.2 H (45-73) % Lymph % (Auto) 11.1 L (20-40) % Lymph # (Auto) (1.2-4.9) X10*3/uL Abs Immat Gran (auto) 0.05 H (0.00-0.03) X10*3/uL Absolute Neuts (auto) 11.0 H (2.0-8.3) x10*3/uL Band Neutrophils % 22 H (3-5) % Lymphocytes % (Manual) 3 L (20-40) % Abs Neuts (Manual) 10.8 H (2.0-8.3) X10*3/uL Lymphocytes # (Manual) 0.4 L (1.2-4.9) X10*3/uL PT 17.6 H (10.9-12.4) SEC INR 1.5 H (0.9-1.1) VBG pH (7.32-7.43) VBG HCO3 (22-26) mmol/L Sodium 146 H (135-145) mmol/L Chloride 117 H 117 H (96-108) mmol/L Carbon Dioxide 19 L 21 L (22-29) mmol/L BUN 23 H 24 H (9-16) mg/dL Lactic Acid (0.5-2.0) mmol/L Calcium 8.3 L D (8.4-10.2) mg/dL AST 40 H (5-37) U/L Total Protein 6.4 L (6.5-8.0) g/dL Albumin 3.1 L 2.8 L (3.5-5.0) g/dL Ur Specific [place] >= 1.030 H (1.005-1.025) Urine Protein 100 (2+) H (Neg-Trace) mg/dL Urine Blood Moderate (2+) H (Negative) Ur Leukocyte Esterase (Negative) Urine RBC 6-10 H (0-2) /HPF Urine WBC (0-5) /HPF Short CBC 01/20/24 01/20/24 01/21/24 Range/Units 15:53 17:00 06:00 WBC 16.9 H 11.7 H 13.2 H (4.8-10.8) X10*3/uL Hgb 14.0 12.7 L 10.9 L (14.0-18.0) g/dl Hct 43.1 39.1 L 33.3 L (42.0-52.0) % Plt Count 334 294 243 (160-400) X10*3/uL BMP 01/20/24 01/21/24 17:00 06:00 Sodium 145 146 H Potassium 3.8 4.0 Chloride 117 H 117 H Carbon Dioxide 19 L 21 L BUN 23 H 24 H Creatinine 0.81 0.72 Calcium 8.3 L D 8.8 D Liver Function 01/20/24 01/20/24 01/21/24 Range/Units 15:53 17:00 06:00 Total Bilirubin Cancelled 0.8 0.7 Direct Bilirubin Cancelled 0.3 AST Cancelled 22 40 H ALT Cancelled 6 12 Alkaline Phosphatase Cancelled 57 54 Albumin Cancelled 3.1 L 2.8 L Urine 01/20/24 01/20/24 Range/Units 16:00 17:28 Urine Color Dark Yellow Yellow Urine Appearance Cloudy Cloudy Urine pH 5.5 5.5 (5.0-9.0) Ur Specific [place] >= 1.030 H >= 1.030 H (1.005-1.025) Urine Protein 300 (3+) H 100 (2+) H (Neg-Trace) mg/dL Urine Glucose (UA) Negative Negative (Negative) mg/dL All other labs normal. Laboratory Results WBC 13.2 X10*3/uL (4.8-10.8) H 01/21/24 06:00 RBC 4.14 X10*6/uL (4.60-5.80) L 01/21/24 06:00 Hgb 10.9 g/dl (14.0-18.0) L 01/21/24 06:00 Hct 33.3 % (42.0-52.0) L 01/21/24 06:00 MCV 80.4 fL (80.0-98.0) 01/21/24 06:00 MCH 26.3 pg (27.0-33.0) L 01/21/24 06:00 MCHC 32.7 g/dl (31.0-36.0) 01/21/24 06:00 RDW 14.4 % (11.0-16.0) 01/21/24 06:00 Plt Count 243 X10*3/uL (160-400) 01/21/24 06:00 MPV 10.6 fL (9.4-12.4) 01/21/24 06:00 Immature Gran % (Auto) 0.4 % (0.0-0.4) 01/21/24 06:00 Neut % (Auto) 83.2 % (45-73) H 01/21/24 06:00 Lymph % (Auto) 11.1 % (20-40) L 01/21/24 06:00 [place] % (Auto) 5.1 % (2-11) 01/21/24 06:00 Eos % (Auto) 0.0 % (0-4) 01/21/24 06:00 Baso % (Auto) 0.2 % (0-2) 01/21/24 06:00 Lymph # (Auto) 1.5 X10*3/uL (1.2-4.9) 01/21/24 06:00 [place] # (Auto) 0.7 X10*3/uL (0.1-1.2) 01/21/24 06:00 Eos # (Auto) 0.0 X10*3/uL (0.0-0.4) 01/21/24 06:00 Baso # (Auto) 0.0 X10*3/uL (0.0-0.2) 01/21/24 06:00 Abs Immat Gran (auto) 0.05 X10*3/uL (0.00-0.03) H 01/21/24 06:00 Absolute Neuts (auto) 11.0 x10*3/uL (2.0-8.3) H 01/21/24 06:00 Absolute Nucleated RBC 0.000 X10*3/uL (0.0-0.012) 01/21/24 06:00 Nucleated RBC % (auto) 0.0 /100WBC (0.0-0.2) 01/21/24 06:00 Neutrophils % (Manual) 70 % (45-73) 01/20/24 17:00 Band Neutrophils % 22 % (3-5) H 01/20/24 17:00 Lymphocytes % (Manual) 3 % (20-40) L 01/20/24 17:00 Monocytes % (Manual) 3 % (2-11) 01/20/24 17:00 Metamyelocytes % 1 % 01/20/24 17:00 Myelocytes % 1 % 01/20/24 17:00 Abs Neuts (Manual) 10.8 X10*3/uL (2.0-8.3) H 01/20/24 17:00 Lymphocytes # (Manual) 0.4 X10*3/uL (1.2-4.9) L 01/20/24 17:00 Monocytes # (Manual) 0.4 X10*3/uL (0.1-1.2) 01/20/24 17:00 Metamyelocytes # 0.1 X10*3/uL 01/20/24 17:00 Myelocytes # 0.1 X10*/uL 01/20/24 17:00 Toxic Granulation PRESENT 01/20/24 17:00 Toxic Vacuolation PRESENT 01/20/24 17:00 Dohle Bodies PRESENT 01/20/24 17:00 Platelet Estimate NORMAL (NORMAL) 01/20/24 17:00 Plt Morphology Comment NORMAL 01/20/24 17:00 RBC Morphology NOTED 01/20/24 17:00 Polychromasia 1+ (0-2) /OIF 01/20/24 17:00 PT 17.6 SEC (10.9-12.4) H 01/20/24 17:00 INR 1.5 (0.9-1.1) H 01/20/24 17:00 D-Dimer High Sensitivty 1034 NG/ML 01/20/24 17:00 VBG pH 7.53 (7.32-7.43) H 01/20/24 16:04 VBG pCO2 25 mmHg 01/20/24 16:04 VBG pO2 100 mmHg 01/20/24 16:04 VBG HCO3 21 mmol/L (22-26) L 01/20/24 16:04 VBG O2 Saturation 98.0 % 01/20/24 16:04 VBG Base Excess 0.8 mmol/L 01/20/24 16:04 Sodium 146 mmol/L (135-145) H 01/21/24 06:00 Potassium 4.0 mmol/L (3.3-5.1) 01/21/24 06:00 Chloride 117 mmol/L (96-108) H 01/21/24 06:00 Carbon Dioxide 21 mmol/L (22-29) L 01/21/24 06:00 Anion Gap 12 (12-20) 01/21/24 06:00 BUN 24 mg/dL (9-16) H 01/21/24 06:00 Creatinine 0.72 mg/dL (0.5-1.4) 01/21/24 06:00 Estim Creat Clear Calc 58.5 01/21/24 06:00 Estimated GFR > 60 01/21/24 06:00 Random Glucose 94 mg/dL (60-115) 01/21/24 06:00 Lactic Acid 0.8 mmol/L (0.5-2.0) 01/21/24 08:39 Lactic Acid F/U @ 2Hr 1.6 mmol/L (0.5-2.0) 01/20/24 18:11 Calcium 8.8 mg/dL (8.4-10.2) D 01/21/24 06:00 Magnesium 2.1 mg/dL (1.6-2.6) 01/21/24 06:00 Total Bilirubin 0.7 mg/dL (0.0-1.0) 01/21/24 06:00 Direct Bilirubin 0.3 mg/dL (0.0-0.5) 01/20/24 17:00 AST 40 U/L (5-37) H 01/21/24 06:00 ALT 12 U/L (0-40) 01/21/24 06:00 Alkaline Phosphatase 54 U/L (39-117) 01/21/24 06:00 Troponin I High Sens 11.7 ng/L (<3.5-35.0) 01/20/24 15:53 B-Natriuretic Peptide 46 pg/mL (<100) 01/20/24 15:53 Total Protein 6.4 g/dL (6.5-8.0) L 01/21/24 06:00 Albumin 2.8 g/dL (3.5-5.0) L 01/21/24 06:00 Lipase 9 U/L (8-78) 01/20/24 17:00 Urine Color Yellow 01/20/24 17:28 Urine Appearance Cloudy 01/20/24 17:28 Urine pH 5.5 (5.0-9.0) 01/20/24 17:28 Ur Specific [place] >= 1.030 (1.005-1.025) H 01/20/24 17:28 Urine Protein 100 (2+) mg/dL (Neg-Trace) H 01/20/24 17:28 Urine Glucose (UA) Negative mg/dL (Negative) 01/20/24 17: Urine Ketones Trace mg/dL (Negative) 01/20/24 17:28 Urine Blood Moderate (2+) (Negative) H 01/20/24 17:28 Urine Nitrite Negative (Negative) 01/20/24 17:28 Ur Leukocyte Esterase Negative (Negative) 01/20/24 17:28 Urine RBC 6-10 /HPF (0-2) H 01/20/24 17:28 Urine WBC 0-5 /HPF (0-5) 01/20/24 17:28 Ur Squamous Epith Cells 6-10 /HPF (0-2) 01/20/24 17:28 Urine Bacteria None Seen (None Seen) 01/20/24 17:28 Hyaline Casts 3-5 /LPF (0-2) 01/20/24 17:28 Influenza Type A (PCR) NEGATIVE (Negative) 01/20/24 16:00 Influenza Type B (PCR) NEGATIVE (Negative) 01/20/24 16:00 RSV RNA Qual (PCR) NEGATIVE (Negative) 01/20/24 16:00 SARS-CoV-2 RNA (RT-PCR) NEGATIVE (Negative) 01/20/24 16:00 S. pyogenes GrpA RYAN Negative (Negative) 01/20/24 16:00 Impressions Chest X-Ray 01/20/24 15:24 IMPRESSION: Findings as above. Electronically signed by: Delvin Esposito MD 01/20/2024 05:50 PM EDT RP Chest CTA 01/20/24 18:26 IMPRESSION: No evidence for acute or chronic pulmonary embolism. Bilateral lower lobe pneumonia. Fleischner guidelines were followed. Electronically signed by: Emir Olmos MD 01/20/2024 06:50 PM EDT RP Assessment and Plan (1) Progressive neurological disorder: Status: Acute The patient has had recurrent aspiration, with progression of his neurologic disease causing poor motor functions, muscle wasting and difficulties with swallowing. I have been asked to place a PEG tube for nutrition. This had been planned as well by his primary care physician for a while I explained to the father Abdur the technique of PEG tube placement. I reviewed extensively the risks including but not limited to bleeding, infections, loss of airway, bowel injury, injury to other organs, tube dislodgement, tube leak, as well as the benefits and alternatives He wants to proceed. Procedures Date of Service Date of Service: 01/24/24
--- NOTE | 2024-01-21 12:42 | P.PNIM_ITS ---
Subjective Subjective Date of Service: 01/21/24 Interval History: seen and evaluated this morning non-verbal on 12L O2 father at bedside no other evnets Review of Systems Review of Systems: Yes Unobtainable due to mental status Physical Exam 2 Vital Signs: Vital Signs: Last Vital Signs Temp 98.8 F 01/21/24 11:38 Pulse 67 01/21/24 11:38 Resp 20 01/21/24 11:38 BP 92/50 L 01/21/24 07:17 Pulse Ox 97 01/21/24 07:17 O2 Del Method Oxymask 01/21/24 07:17 O2 Flow Rate 13 01/21/24 07:17 BMI result Body Mass Index 25.6 Const: Other: Constitutional : Awake, makes eye contact, not much interactive, not in distress Neck : Normal inspection, Supple Cardiovascular : RRR, no JVP, no lower extremity edema Respiratory : good bilateral air entry, no crackles, wheezes or rhonchi Gastrointestinal: soft, lax, Normal bowel sounds, Non tender Skin : Warm, Dry Neurological : Alert , non-verbal, spastic, Objective Data Active Medications Acetaminophen (Acetaminophen Supp 650 Mg Supp.Rect) 650 mg [place] Q6H PRN PRN Reason: Fever >100.4 Enoxaparin Sodium (Enoxaparin Sodium 40 Mg/0.4 Ml Syringe) 40 mg SUBCUT Q24H [facility] Last Admin: 01/20/24 21:07 Dose: 40 mg Documented By: JONAH Lactated Ringer's (Lr) 1,000 mls @ 100 mls/hr IVCONT .Q10H [facility] Last Admin: 01/21/24 10:41 Dose: 100 mls/hr Documented By: MOREINTA Fluconazole 100 mg/ IV (Miscellaneous Supplies) 50 mls @ 50 mls/hr IV Q24H [facility] Last Infusion: 01/20/24 22:29 Dose: Infused Documented By: JONAH Vancomycin HCl 750 mg/ Sodium (Chloride) 265 mls @ 265 mls/hr IV Q12H [facility] Last Infusion: 01/21/24 06:07 Dose: Infused Documented By: DAVID Piperacillin Sod/Tazobactam (Sod 4.5 gm/ Sodium Chloride) 100 mls @ 200 mls/hr IV Q6H [facility] Last Infusion: 01/21/24 10:35 Dose: Infused Documented By: MORENITA Pharmacy Consult (Consult Rx Vancomycin Dosing) 1 each MISCELLANE DAILY PRN PRN Reason: Consult order Sodium Chloride (0.9 % Sodium Chloride Flush 3 Ml Syringe) 3 ml IVFLUSH QSHIFT [facility] Last Admin: 01/21/24 07:36 Dose: Not Given Documented By: MORENITA Non-Admin Reason: IV Running Labs 01/21/24 06:00 01/21/24 06:00 Labs: Laboratory Results - last 24 hr 01/20/24 01/20/24 01/20/24 15:53 16:00 16:04 MCV 80.0 MCH 26.0 L MCHC 32.5 RDW 14.5 Plt Count 334 MPV 10.8 Immature Gran % (Auto) 0.4 Neut % (Auto) 88.7 H Lymph % (Auto) 5.7 L [place] % (Auto) 4.0 Eos % (Auto) 0.5 Baso % (Auto) 0.7 Lymph # (Auto) 1.0 L [place] # (Auto) 0.7 Eos # (Auto) 0.1 Baso # (Auto) 0.1 Abs Immat Gran (auto) 0.07 H Absolute Neuts (auto) 15.0 H Absolute Nucleated RBC 0.000 Nucleated RBC % (auto) 0.0 Neutrophils % (Manual) Band Neutrophils % Lymphocytes % (Manual) Monocytes % (Manual) Metamyelocytes % Myelocytes % Abs Neuts (Manual) Lymphocytes # (Manual) Monocytes # (Manual) Metamyelocytes # Myelocytes # Toxic Granulation Toxic Vacuolation Dohle Bodies Platelet Estimate Plt Morphology Comment RBC Morphology Polychromasia PT INR D-Dimer High Sensitivty VBG pH 7.53 H VBG pCO2 25 VBG pO2 100 VBG HCO3 21 L VBG O2 Saturation 98.0 VBG Base Excess 0.8 Anion Gap Estim Creat Clear Calc Estimated GFR Random Glucose Lactic Acid 2.8 H* Lactic Acid F/U @ 2Hr Calcium Magnesium Total Bilirubin Cancelled Direct Bilirubin Cancelled AST Cancelled ALT Cancelled Alkaline Phosphatase Cancelled Troponin I High Sens 11.7 B-Natriuretic Peptide 46 Total Protein Cancelled Albumin Cancelled Lipase Urine Color Dark Yellow Urine Appearance Cloudy Urine pH 5.5 Ur Specific [place] >= 1.030 H Urine Protein 300 (3+) H Urine Glucose (UA) Negative Urine Ketones 15 Urine Blood Large (3+) H Urine Nitrite Negative Ur Leukocyte Esterase Trace H Urine RBC >20 H Urine WBC 21-50 H Ur Squamous Epith Cells 11-20 Urine Bacteria 1+ Hyaline Casts 11-20 Influenza Type A (PCR) NEGATIVE Influenza Type B (PCR) NEGATIVE RSV RNA Qual (PCR) NEGATIVE SARS-CoV-2 RNA (RT-PCR) NEGATIVE S. pyogenes GrpA RYAN Negative 01/20/24 01/20/24 01/20/24 17:00 17:28 18:11 MCV 80.0 MCH 26.0 L MCHC 32.5 RDW 14.1 Plt Count 294 MPV 9.8 Immature Gran % (Auto) Cancelled Neut % (Auto) Cancelled Lymph % (Auto) Cancelled [place] % (Auto) Cancelled Eos % (Auto) Cancelled Baso % (Auto) Cancelled Lymph # (Auto) Cancelled [place] # (Auto) Cancelled Eos # (Auto) Cancelled Baso # (Auto) Cancelled Abs Immat Gran (auto) Cancelled Absolute Neuts (auto) Cancelled Absolute Nucleated RBC 0.000 Nucleated RBC % (auto) 0.0 Neutrophils % (Manual) 70 Band Neutrophils % 22 H Lymphocytes % (Manual) 3 L Monocytes % (Manual) 3 Metamyelocytes % 1 Myelocytes % 1 Abs Neuts (Manual) 10.8 H Lymphocytes # (Manual) 0.4 L Monocytes # (Manual) 0.4 Metamyelocytes # 0.1 Myelocytes # 0.1 Toxic Granulation PRESENT Toxic Vacuolation PRESENT Dohle Bodies PRESENT Platelet Estimate NORMAL Plt Morphology Comment NORMAL RBC Morphology NOTED Polychromasia 1+ (0-2) PT 17.6 H INR 1.5 H D-Dimer High Sensitivty 1034 VBG pH VBG pCO2 VBG pO2 VBG HCO3 VBG O2 Saturation VBG Base Excess Anion Gap 13 Estim Creat Clear Calc 50.2 Estimated GFR > 60 Random Glucose 115 Lactic Acid Lactic Acid F/U @ 2Hr 1.6 Calcium 8.3 L D Magnesium Total Bilirubin 0.8 Direct Bilirubin 0.3 AST 22 ALT 6 Alkaline Phosphatase 57 Troponin I High Sens B-Natriuretic Peptide Total Protein 7.2 Albumin 3.1 L Lipase 9 Urine Color Yellow Urine Appearance Cloudy Urine pH 5.5 Ur Specific [place] >= 1.030 H Urine Protein 100 (2+) H Urine Glucose (UA) Negative Urine Ketones Trace Urine Blood Moderate (2+) H Urine Nitrite Negative Ur Leukocyte Esterase Negative Urine RBC 6-10 H Urine WBC 0-5 Ur Squamous Epith Cells 6-10 Urine Bacteria None Seen Hyaline Casts 3-5 Influenza Type A (PCR) Influenza Type B (PCR) RSV RNA Qual (PCR) SARS-CoV-2 RNA (RT-PCR) S. pyogenes GrpA RYAN 01/21/24 01/21/24 06:00 08:39 MCV 80.4 MCH 26.3 L MCHC 32.7 RDW 14.4 Plt Count 243 MPV 10.6 Immature Gran % (Auto) 0.4 Neut % (Auto) 83.2 H Lymph % (Auto) 11.1 L [place] % (Auto) 5.1 Eos % (Auto) 0.0 Baso % (Auto) 0.2 Lymph # (Auto) 1.5 [place] # (Auto) 0.7 Eos # (Auto) 0.0 Baso # (Auto) 0.0 Abs Immat Gran (auto) 0.05 H Absolute Neuts (auto) 11.0 H Absolute Nucleated RBC 0.000 Nucleated RBC % (auto) 0.0 Neutrophils % (Manual) Band Neutrophils % Lymphocytes % (Manual) Monocytes % (Manual) Metamyelocytes % Myelocytes % Abs Neuts (Manual) Lymphocytes # (Manual) Monocytes # (Manual) Metamyelocytes # Myelocytes # Toxic Granulation Toxic Vacuolation Dohle Bodies Platelet Estimate Plt Morphology Comment RBC Morphology Polychromasia PT INR D-Dimer High Sensitivty VBG pH VBG pCO2 VBG pO2 VBG HCO3 VBG O2 Saturation VBG Base Excess Anion Gap 12 Estim Creat Clear Calc 58.5 Estimated GFR > 60 Random Glucose 94 Lactic Acid 0.8 Lactic Acid F/U @ 2Hr Calcium 8.8 D Magnesium 2.1 Total Bilirubin 0.7 Direct Bilirubin AST 40 H ALT 12 Alkaline Phosphatase 54 Troponin I High Sens B-Natriuretic Peptide Total Protein 6.4 L Albumin 2.8 L Lipase Urine Color Urine Appearance Urine pH Ur Specific [place] Urine Protein Urine Glucose (UA) Urine Ketones Urine Blood Urine Nitrite Ur Leukocyte Esterase Urine RBC Urine WBC Ur Squamous Epith Cells Urine Bacteria Hyaline Casts Influenza Type A (PCR) Influenza Type B (PCR) RSV RNA Qual (PCR) SARS-CoV-2 RNA (RT-PCR) S. pyogenes GrpA RYAN Assessment and Plan (1) Hypoxia: Status: Acute (2) Multifocal pneumonia: Status: Acute (3) Aspiration into airway: Status: Acute (4) Bilateral pneumonia: Status: Acute (5) Acute hypoxic respiratory failure: Status: Acute Plan Anthony Morales this is a 33 y/o man admitted with: Acute hypoxic respiratory failure secondary to bilateral pneumonia due to aspiration sepsis resolved Hypotension from dehydration and decrease PO intake not due to severe sepsis LA normalized Aspiration precautions. NPO. MANAGER COLLEGE eval Supplemental O2 to keep O2 sats > 90%. empiric IV antibiotic therapy with vancomycin and Zosyn (01/19) Surgery to eval for PEG tube placement Oropharynx candidiasis. Fluconazole 100 mg IV daily DVT prophylaxis: Lovenox Code status: Full code Patient will need hospitalization overnight for hypoxic respiratory failure secondary to bilateral pneumonia due to aspiration treatment with supplemental oxygen and IV antibiotic therapy. Quality Stroke Does the patient have a stroke diagnosis?: No VTE Prior VTE?: No VTE Risk Level:: Medical - moderate - high VTE Device Contraindication: Treatment Not Indicated VTE Drug Contraindication: N/A - Med Ordered
[2024-01-21 14:33] LABS: Vancomycin Random 9.6 mcg/mL (15-20)
--- NOTE | 2024-01-21 18:43 | MHC.SL.SWA ---
Speech Pathologist Impression: Risk of Aspiration, Oropharyngeal Dysphagia Risk of Aspiration Due to:Neurology, Poor PO intake Dysphasia Diet Status: Start NDD1/HTL Liquid Consistency and Strategies for Safe Swallow: Liquid Intake Recommendation: Honey Thick Liquid Intake Strategies: Small Sips No Straws Liquids by Teaspoon Only Solid Food Consistency: Dietary Recommendations: Pureed (NDD1) Additional Modifications to Solid Foods: Patient with immediate cough on small amount of thin liquid. No overt s/s of aspiration observed with trials of honey thick and pureed textures administered by teaspoon. Patient with moderate oropharyngeal dysphagia, characterized by repetitive tongue pumping behavior, mildly to moderately delayed oral transit, moderately delayed swallow trigger, and incomplete laryngeal elevation. There is concern for patient's ability to maintain adequate nutrition and hydration through PO intake. He is scheduled for PEG placement 01/23. Oral Medication Intake: Crushed with Puree Please contact the pharmacy regarding appropriate crushable or liquid drug formulations that are available whenever modified delivery is recommended. Compensatory Strategies and Precautions to be Taken for Safe Swallow: Sitting Upright (90 deg) No Straw Liquids from Spoon Small Bites and Sips Rate of Ingestion Change Oral Check Supervision While Eating and Drinking for Safe Swallow: Total Assistance (1:1) Swallowing Recommended Treatments: Compens. Strategy Educat. Recommendation for Speech: Inpatient Speech Therapy Speech Therapy through [facility] Timeline to reassess: Head Of Drama Clinican/Clinical Fellow: No Supervisory Statement: I have reviewed and agree with the student/clinical fellow's documentation: N/A Speech Language Pathologist: Charlotte Garzon M.A., CCC-MAKEUP ARTIST
[2024-01-21] MEDS: Enoxaparin Sodium 40 MG/0.4 ML SYRINGE SUBCUT (20:19)
[2024-01-21] MEDS: Fluconazole in NaCl,Iso-Osm 100 MG in Container,Empty 0 ML 50 MG IV (20:58)
[2024-01-22] VITALS (7 sets, daily range): BP systolic 85–111; BP diastolic 53–67; PULSE 58–79; RESP 16–20; TEMP 36.4–37.1; O2SAT 96–100
[2024-01-22] MEDS: vancomycin HCL 750 MG in 0.9 % Sodium Chloride 250 ML 265 MG IV ×3 (00:23→15:45)
[2024-01-22] MEDS: Piperacillin Sodium/Tazobactam 4.5 GM in 0.9 % Sodium Chloride 100 ML IV ×4 (03:13→21:12)
[2024-01-22] MEDS: Acetaminophen 1,000 MG/100 ML PIGGYBACK 400 MG IV ×4 (04:58→23:27)
[2024-01-22 06:56] LABS: Hematocrit 34.8 % (42.0-52.0); Hemoglobin 11.2 g/dl (14.0-18.0); Mean Corpuscular HGB Conc 32.2 g/dl (31.0-36.0); Mean Corpuscular Volume 80.7 fL (80.0-98.0); Mean Platelet Volume 10.2 fL (9.4-12.4); Platelet Count 266 X10*3/uL (160-400); Red Blood Count 4.31 X10*6/uL (4.60-5.80); Red Cell Distribution Width 14.3 % (11.0-16.0); White Blood Count 15.3 X10*3/uL (4.8-10.8)
[2024-01-22 07:27] LABS: Anion Gap 15 (12-20); Blood Urea Nitrogen 17 mg/dL (9-16); Calcium 8.2 mg/dL (8.4-10.2); Carbon Dioxide 19 mmol/L (22-29); Chloride 112 mmol/L (96-108); Creatinine Clr Calc Pharmacy 72.6; Estimated Glomerular Filt Rate > 60; Potassium 3.6 mmol/L (3.3-5.1); Sodium 142 mmol/L (135-145)
[2024-01-22 07:33] LABS: Glucose Random 56 mg/dL (60-115)
[2024-01-22 07:45] LABS: Glucose, Whole Blood 52 mg/dL (60-115)
--- NOTE | 2024-01-22 07:52 | PC.NURSE ---
informed MD of pt's low sugars this AM and low BP
[2024-01-22] MEDS: Dextrose 5 % and Lactated Ring 1,000 ML 80 ML IVCONT ×2 (08:12→21:12)
[2024-01-22] MEDS: Dextrose 10 % 250 ML 750 ML IV (08:21)
[2024-01-22 08:34] LABS: Glucose, Whole Blood 189 mg/dL (60-115)
--- NOTE | 2024-01-22 13:41 | HO.PM.IMPN ---
Subjective Subjective Date of Service: 01/22/24 Interval History: seen and evaluated this morning improving weaning down O2 tolerating diet father at bedside no other evnets Review of Systems Review of Systems: Yes Unobtainable due to mental condition Physical Exam Vital Signs: Vital Signs: Last Vital Signs Temp 98.7 F 01/22/24 12:00 Pulse 78 01/22/24 12:00 Resp 18 01/22/24 12:00 BP 94/54 L 01/22/24 12:00 Pulse Ox 96 01/22/24 12:00 O2 Del Method Nasal Cannula 01/22/24 12:00 O2 Flow Rate 2 01/22/24 12:00 BMI result Body Mass Index 25.6 Const: Other: Constitutional : Awake, makes eye contact, not much interactive, not in distress Neck : Normal inspection, Supple Cardiovascular : RRR, no JVP, no lower extremity edema Respiratory : good bilateral air entry, basal fine crackles, wheezes or rhonchi Gastrointestinal: soft, lax, Normal bowel sounds, Non tender Skin : Warm, Dry Neurological : Alert , non-verbal, spastic, Objective Data Active Medications Enoxaparin Sodium (Enoxaparin Sodium 40 Mg/0.4 Ml Syringe) 40 mg SUBCUT Q24H [facility] Last Admin: 01/21/24 20:19 Dose: 40 mg Documented By: DELISA Glucose (Glucose Gel 15 Gm Gel..Gram.) 15 gm PO Q15M PRN PRN Reason: per Hypoglycemia Standing Ord. Fluconazole 100 mg/ IV (Miscellaneous Supplies) 50 mls @ 50 mls/hr IV Q24H [facility] Last Infusion: 01/21/24 21:58 Dose: Infused Documented By: DELISA Piperacillin Sod/Tazobactam (Sod 4.5 gm/ Sodium Chloride) 100 mls @ 200 mls/hr IV Q6H [facility] Last Infusion: 01/22/24 09:03 Dose: Infused Documented By: MICHELL Vancomycin HCl 750 mg/ Sodium (Chloride) 265 mls @ 265 mls/hr IV Q8H [facility] Last Infusion: 01/22/24 09:14 Dose: Infused Documented By: MICHELL Acetaminophen (Ofirmev) 1,000 mg in 100 mls @ 400 mls/hr IV Q6H [facility] Stop: 01/22/24 22:59 Last Infusion: 01/22/24 10:31 Dose: Infused Documented By: MICHELL Dextrose/Lactated Ringer's (D5lr) 1,000 mls @ 80 mls/hr IVCONT .[id number] [facility] Last Admin: 01/22/24 08:12 Dose: 80 mls/hr Documented By: MICHELL Dextrose (D10) 250 mls @ 750 mls/hr IV Q15M PRN PRN Reason: per Hypoglycemia Standing Ord. Last Infusion: 01/22/24 09:04 Dose: Infused Documented By: MICHELL Morphine Sulfate (Morphine Sulfate 2 Mg/Ml Cartridge) 1 mg IVPUSH Q4H PRN; Protocol PRN Reason: Pain, Severe (Pain Scale 7-10) Pharmacy Consult (Consult Rx Vancomycin Dosing) 1 each MISCELLANE DAILY PRN PRN Reason: Consult order Sodium Chloride (0.9 % Sodium Chloride Flush 3 Ml Syringe) 3 ml IVFLUSH QSHIFT [facility] Last Admin: 01/22/24 07:22 Dose: Not Given Documented By: MICHELL Non-Admin Reason: Previously Administered Labs 01/22/24 06:17 01/22/24 06:17 Labs: Laboratory Results - last 24 hr 01/21/24 01/22/24 01/22/24 14:13 06:17 07:42 MCV 80.7 MCH 26.0 L MCHC 32.2 RDW 14.3 Plt Count 266 MPV 10.2 Absolute Nucleated RBC 0.000 Nucleated RBC % (auto) 0.0 Anion Gap 15 Estim Creat Clear Calc 72.6 Estimated GFR > 60 POC Glucose 52 L* Random Glucose 56 L* Calcium 8.2 L D Random Vancomycin 9.6 L 01/22/24 08:30 MCV MCH MCHC RDW Plt Count MPV Absolute Nucleated RBC Nucleated RBC % (auto) Anion Gap Estim Creat Clear Calc Estimated GFR POC Glucose 189 H Random Glucose Calcium Random Vancomycin Microbiology Microbiology Results: Microbiology 01/20/24 17:28 Urine Culture - Final Urine clean catch - Clean Catch Midstream No growth. 01/20/24 15:53 Blood Culture - Preliminary Blood - Venous No growth after 24 hours. 01/20/24 15:53 Blood Culture - Preliminary Blood - Venous No growth after 24 hours. Assessment and Plan (1) Hypoxia: Status: Acute (2) Multifocal pneumonia: Status: Acute (3) Acute hypoxic respiratory failure: Status: Acute (4) Bilateral pneumonia: Status: Acute (5) Cerebral palsy: Status: Deleted (6) Progressive neurological disorder: Status: Acute Plan Anthony Morales this is a 33 y/o man admitted with: Acute hypoxic respiratory failure secondary to bilateral pneumonia due to aspiration in setting of progressive neurological disorder sepsis resolved Hypotension is chronic from FTT, dehydration and decrease PO intake not due to severe sepsis LA normalized Aspiration precautions. CTO eval, start NDD1 w honey thick Supplemental O2 to keep O2 sats > 90%. continue IV antibiotic therapy with vancomycin and Zosyn (01/19) Surgery to eval for PEG tube placement by Wednesday Oropharynx candidiasis. Fluconazole 100 mg IV daily DVT prophylaxis: Lovenox Code status: Full code Patient will need hospitalization overnight for hypoxic respiratory failure secondary to bilateral pneumonia due to aspiration treatment with supplemental oxygen and IV antibiotic therapy. Quality Stroke Does the patient have a stroke diagnosis?: No VTE Prior VTE?: No VTE Risk Level:: Medical - moderate - high VTE Device Contraindication: Treatment Not Indicated VTE Drug Contraindication: N/A - Med Ordered
[2024-01-22 14:34] LABS: Vancomycin Random 16.3 mcg/mL (15-20)
[2024-01-22 14:56] LABS: Glucose, Whole Blood 194 mg/dL (60-115)
[2024-01-22] MEDS: Enoxaparin Sodium 40 MG/0.4 ML SYRINGE SUBCUT (21:12)
[2024-01-22] MEDS: Fluconazole in NaCl,Iso-Osm 100 MG in Container,Empty 0 ML 50 MG IV (22:22)
[2024-01-23] MEDS: vancomycin HCL 750 MG in 0.9 % Sodium Chloride 250 ML 265 MG IV ×2 (00:54→09:27)
[2024-01-23] MEDS: 0.9 % Sodium Chloride Flush 3 ML SYRINGE IVFLUSH ×3 (00:55→23:08)
[2024-01-23] MEDS: Piperacillin Sodium/Tazobactam 4.5 GM in 0.9 % Sodium Chloride 100 ML IV ×4 (02:59→20:42)
[2024-01-23 03:30] VITALS: BP 92/60; PULSE 53; RESP 18; TEMP 36.4; O2SAT 99
[2024-01-23 06:37] LABS: Hematocrit 33.6 % (42.0-52.0); Hemoglobin 11.2 g/dl (14.0-18.0); Mean Corpuscular HGB Conc 33.3 g/dl (31.0-36.0); Mean Corpuscular Hemoglobin 26.2 pg (27.0-33.0); Mean Corpuscular Volume 78.5 fL (80.0-98.0); Platelet Count 236 X10*3/uL (160-400); Red Blood Count 4.28 X10*6/uL (4.60-5.80); White Blood Count 8.4 X10*3/uL (4.8-10.8)
[2024-01-23 06:49] LABS: Anion Gap 9 (12-20); Blood Urea Nitrogen 7 mg/dL (9-16); Calcium 8.1 mg/dL (8.4-10.2); Carbon Dioxide 24 mmol/L (22-29); Chloride 106 mmol/L (96-108); Creatinine Clr Calc Pharmacy 69.1; Estimated Glomerular Filt Rate > 60; Glucose Random 127 mg/dL (60-115); Potassium 3.1 mmol/L (3.3-5.1); Sodium 136 mmol/L (135-145)
[2024-01-23 08:00] VITALS: BP 92/68; PULSE 62; RESP 20; TEMP 36.4; O2SAT 94
[2024-01-23] MEDS: Lactated Ringers 1,000 ML 80 ML IVCONT ×2 (08:29→20:43)
[2024-01-23] MEDS: Potassium Chloride/H20 10 MEQ/100 ML PIGGYBACK 100 MEQ IV ×2 (08:35→10:05)
[2024-01-23 10:56] VITALS: BP 106/74; PULSE 68; RESP 20; TEMP 36.7; O2SAT 99
--- NOTE | 2024-01-23 14:05 | P.PNIM_ITS ---
Subjective Subjective Date of Service: 01/23/24 Interval History: seen and evaluated this morning improving weaning down O2 tolerating diet no other evnets Review of Systems Review of Systems: Yes all other systems are reviewed and are negative Physical Exam 2 Vital Signs: Vital Signs: Last Vital Signs Temp 98.0 F 01/23/24 10:56 Pulse 68 01/23/24 10:56 Resp 20 01/23/24 10:56 BP 106/74 01/23/24 10:56 Pulse Ox 99 01/23/24 10:56 O2 Del Method Nasal Cannula 01/23/24 10:56 O2 Flow Rate 2 01/23/24 10:56 BMI result Body Mass Index 25.6 Const: Other: Constitutional : Awake, makes eye contact, not much interactive, not in distress Neck : Normal inspection, Supple Cardiovascular : RRR, no JVP, no lower extremity edema Respiratory : good bilateral air entry, basal fine crackles, wheezes or rhonchi Gastrointestinal: soft, lax, Normal bowel sounds, Non tender Skin : Warm, Dry Neurological : Alert , non-verbal, spastic, Objective Data Active Medications Enoxaparin Sodium (Enoxaparin Sodium 40 Mg/0.4 Ml Syringe) 40 mg SUBCUT Q24H [facility] Last Admin: 01/22/24 21:12 Dose: 40 mg Documented By: JUAN Glucose (Glucose Gel 15 Gm Gel..Gram.) 15 gm PO Q15M PRN PRN Reason: per Hypoglycemia Standing Ord. Fluconazole 100 mg/ IV (Miscellaneous Supplies) 50 mls @ 50 mls/hr IV Q24H [facility] Last Infusion: 01/22/24 23:34 Dose: Infused Documented By: JUAN Piperacillin Sod/Tazobactam (Sod 4.5 gm/ Sodium Chloride) 100 mls @ 200 mls/hr IV Q6H [facility] Last Infusion: 01/23/24 09:28 Dose: Infused Documented By: TAMIKA Vancomycin HCl 750 mg/ Sodium (Chloride) 265 mls @ 265 mls/hr IV Q8H [facility] Last Infusion: 01/23/24 10:51 Dose: Infused Documented By: TAMIKA Dextrose (D10) 250 mls @ 750 mls/hr IV Q15M PRN PRN Reason: per Hypoglycemia Standing Ord. Last Infusion: 01/22/24 09:04 Dose: Infused Documented By: MICHELL Lactated Ringer's (Lr) 1,000 mls @ 80 mls/hr IVCONT .[id number] [facility] Last Admin: 01/23/24 08:29 Dose: 80 mls/hr Documented By: TAMIKA Morphine Sulfate (Morphine Sulfate 2 Mg/Ml Cartridge) 1 mg IVPUSH Q4H PRN; Protocol PRN Reason: Pain, Severe (Pain Scale 7-10) Pharmacy Consult (Consult Rx Vancomycin Dosing) 1 each MISCELLANE DAILY PRN PRN Reason: Consult order Sodium Chloride (0.9 % Sodium Chloride Flush 3 Ml Syringe) 3 ml IVFLUSH QSHIFT [facility] Last Admin: 01/23/24 08:42 Dose: 3 ml Documented By: TAMIKA Labs 01/23/24 06:05 01/23/24 06:05 Labs: Laboratory Results - last 24 hr 01/23/24 06:05 MCV 78.5 L MCH 26.2 L MCHC 33.3 RDW 14.0 Plt Count 236 MPV 10.0 Absolute Nucleated RBC 0.000 Nucleated RBC % (auto) 0.0 Anion Gap 9 L Estim Creat Clear Calc 69.1 Estimated GFR > 60 Random Glucose 127 H Calcium 8.1 L Microbiology Microbiology Results: Microbiology 01/20/24 15:53 Blood Culture - Preliminary Blood - Venous No growth after 48 hours. 01/20/24 15:53 Blood Culture - Preliminary Blood - Venous No growth after 48 hours. Assessment and Plan (1) Progressive neurological disorder: Status: Acute (2) Multifocal pneumonia: Status: Acute (3) Hypoxia: Status: Acute (4) Failure to thrive in adult: Status: Acute Plan [facility] this is a 33 y/o man admitted with: Acute hypoxic respiratory failure secondary to bilateral pneumonia due to aspiration in setting of progressive neurological disorder Hypotension is chronic from FTT, dehydration and decrease PO intake not due to severe sepsis Aspiration precautions. LAP REGULATOR eval, start NDD1 w honey thick Supplemental O2 to keep O2 sats > 90%. Negative blood cultures continue Zosyn (01/19), DC Vancomycin Surgery planning for PEG tube placement by Wednesday NPO post midnight Oropharynx candidiasis. Fluconazole 100 mg IV daily DVT prophylaxis: Lovenox Code status: Full code Patient will need hospitalization overnight for hypoxic respiratory failure secondary to bilateral pneumonia due to aspiration treatment with supplemental oxygen and IV antibiotic therapy. Quality Stroke Does the patient have a stroke diagnosis?: No VTE Prior VTE?: No VTE Risk Level:: Medical - moderate - high VTE Device Contraindication: Treatment Not Indicated VTE Drug Contraindication: N/A - Med Ordered
[2024-01-23 14:42] LABS: Vancomycin Random 22.3 mcg/mL (15-20)
[2024-01-23 16:00] VITALS: BP 102/68; PULSE 74; RESP 20; TEMP 36.9; O2SAT 92
[2024-01-23 20:00] VITALS: BP 112/76; PULSE 70; RESP 16; TEMP 36.4; O2SAT 96
[2024-01-23] MEDS: Fluconazole in NaCl,Iso-Osm 100 MG in Container,Empty 0 ML 50 MG IV (23:05)
[2024-01-23 23:29] VITALS: BP 99/66; PULSE 69; RESP 18; TEMP 36.4; O2SAT 100
[2024-01-24] VITALS (12 sets, daily range): BP systolic 90–112; BP diastolic 50–70; PULSE 50–90; RESP 16–20; TEMP 35.7–37.3; O2SAT 96–100; BMI 25.6
[2024-01-24] MEDS: Piperacillin Sodium/Tazobactam 4.5 GM in 0.9 % Sodium Chloride 100 ML IV ×4 (04:01→19:59)
[2024-01-24 05:51] LABS: Hematocrit 35.5 % (42.0-52.0); Hemoglobin 11.9 g/dl (14.0-18.0); Mean Corpuscular HGB Conc 33.5 g/dl (31.0-36.0); Mean Corpuscular Hemoglobin 25.9 pg (27.0-33.0); Mean Corpuscular Volume 77.3 fL (80.0-98.0); Mean Platelet Volume 9.5 fL (9.4-12.4); Platelet Count 244 X10*3/uL (160-400); Red Blood Count 4.59 X10*6/uL (4.60-5.80); Red Cell Distribution Width 13.6 % (11.0-16.0); White Blood Count 7.6 X10*3/uL (4.8-10.8)
[2024-01-24 06:08] LABS: Anion Gap 13 (12-20); Blood Urea Nitrogen 7 mg/dL (9-16); Calcium 8.4 mg/dL (8.4-10.2); Carbon Dioxide 24 mmol/L (22-29); Chloride 103 mmol/L (96-108); Creatinine Clr Calc Pharmacy 63.8; Estimated Glomerular Filt Rate > 60; Glucose Random 73 mg/dL (60-115); Potassium 3.2 mmol/L (3.3-5.1); Sodium 137 mmol/L (135-145)
--- NOTE | 2024-01-24 08:25 | PM.PNGS ---
Subjective Subjective Date of Service: 01/24/24 Interval history: No events over the weekend O2 requirements have decreased significantly No fever this morning Physical Exam Vital Signs: Vital Signs: Last Vital Signs Temp 97.7 F 01/24/24 07:29 Pulse 70 01/24/24 07:29 Resp 20 01/24/24 07:29 BP 100/64 01/24/24 07:29 Pulse Ox 96 01/24/24 07:29 O2 Del Method Nasal Cannula 01/24/24 07:29 O2 Flow Rate 2 01/24/24 07:29 BMI result Body Mass Index 25.6 Const: Other: Cachectic, very frail looking General: no acute distress Resp: Other: Mildly short of breath Cardio: Rate: regular rate GI: Other: No surgical scars Palpation (GI): Soft to palpation, not firm and nontender Objective Data Active Medications Enoxaparin Sodium (Enoxaparin Sodium 40 Mg/0.4 Ml Syringe) 40 mg SUBCUT Q24H [facility] Last Admin: 01/22/24 21:12 Dose: 40 mg Documented By: JUAN Glucose (Glucose Gel 15 Gm Gel..Gram.) 15 gm PO Q15M PRN PRN Reason: per Hypoglycemia Standing Ord. Fluconazole 100 mg/ IV (Miscellaneous Supplies) 50 mls @ 50 mls/hr IV Q24H [facility] Last Infusion: 01/24/24 00:05 Dose: Infused Documented By: SANJUANITA Piperacillin Sod/Tazobactam (Sod 4.5 gm/ Sodium Chloride) 100 mls @ 200 mls/hr IV Q6H [facility] Last Admin: 01/24/24 08:07 Dose: 200 mls/hr Documented By: ALIRIO Dextrose (D10) 250 mls @ 750 mls/hr IV Q15M PRN PRN Reason: per Hypoglycemia Standing Ord. Last Infusion: 01/22/24 09:04 Dose: Infused Documented By: MICHELL Lactated Ringer's (Lr) 1,000 mls @ 80 mls/hr IVCONT .[id number] [facility] Last Admin: 01/23/24 20:43 Dose: 80 mls/hr Documented By: SANJUANITA Morphine Sulfate (Morphine Sulfate 2 Mg/Ml Cartridge) 1 mg IVPUSH Q4H PRN; Protocol PRN Reason: Pain, Severe (Pain Scale 7-10) Sodium Chloride (0.9 % Sodium Chloride Flush 3 Ml Syringe) 3 ml IVFLUSH QSHIFT [facility] Last Admin: 01/24/24 07:46 Dose: Not Given Documented By: ALIRIO Non-Admin Reason: IV Running Labs 01/24/24 05:41 01/24/24 05:41 Labs: Laboratory Results - last 24 hr 01/23/24 01/24/24 14:10 05:41 MCV 77.3 L MCH 25.9 L MCHC 33.5 RDW 13.6 Plt Count 244 MPV 9.5 Absolute Nucleated RBC 0.000 Nucleated RBC % (auto) 0.0 Anion Gap 13 Estim Creat Clear Calc 63.8 Estimated GFR > 60 Random Glucose 73 Calcium 8.4 Random Vancomycin 22.3 H Procedures Date of Service Date of Service: 01/24/24 Progress Note: A&P Assessment and plan (1) Failure to thrive in adult: Status: Acute Assessment and Plan: With progressive neurologic disease Has had problems with swallowing according to the father For PEG tube placement today I reviewed with his father the technique of this procedure I explained the risks, benefits, and alternatives The father is the healthcare proxy has given consent Discussed with the hospitalist today Time Spent With Patient Time: Total time managing care of this patient today ____ minutes. Quality Stroke Does the patient have a stroke diagnosis?: No VTE Prior VTE?: No VTE Risk Level:: Medical - moderate - high VTE Device Contraindication: Treatment Not Indicated VTE Drug Contraindication: N/A - Med Ordered
[2024-01-24] MEDS: Lactated Ringers 1,000 ML 80 ML IVCONT (09:52)
--- NOTE | 2024-01-24 10:30 | MHC.CM.PN ---
Per ROUNDS discussion, Patient is not yet medically cleared for dc (getting a Gtube today), home with new [facility] and resumed services is the goal. CM will follow.
--- NOTE | 2024-01-24 11:05 | HO.PM.IMPN ---
Subjective Subjective Date of Service: 01/24/24 Interval History: seen and evaluated this morning improving weaning down O2 tolerating diet NPO for PEG tube placement today no other evnets Review of Systems Review of Systems: Yes all other systems are reviewed and are negative Physical Exam Vital Signs: Vital Signs: Last Vital Signs Temp 99.2 F 01/24/24 10:41 Pulse 68 01/24/24 10:41 Resp 16 01/24/24 10:41 BP 96/65 01/24/24 10:41 Pulse Ox 98 01/24/24 10:41 O2 Del Method Room Air 01/24/24 10:41 O2 Flow Rate 2 01/24/24 07:29 BMI result Body Mass Index 25.6 Const: Other: Constitutional : Awake, makes eye contact, not much interactive, not in distress Neck : Normal inspection, Supple Cardiovascular : RRR, no JVP, no lower extremity edema Respiratory : good bilateral air entry, basal fine crackles, wheezes or rhonchi Gastrointestinal: soft, lax, Normal bowel sounds, Non tender Skin : Warm, Dry Neurological : Alert , non-verbal, spastic, Objective Data Active Medications Enoxaparin Sodium (Enoxaparin Sodium 40 Mg/0.4 Ml Syringe) 40 mg SUBCUT Q24H [facility] Last Admin: 01/22/24 21:12 Dose: 40 mg Documented By: JUAN Glucose (Glucose Gel 15 Gm Gel..Gram.) 15 gm PO Q15M PRN PRN Reason: per Hypoglycemia Standing Ord. Fluconazole 100 mg/ IV (Miscellaneous Supplies) 50 mls @ 50 mls/hr IV Q24H [facility] Last Infusion: 01/24/24 00:05 Dose: Infused Documented By: SANJUANITA Piperacillin Sod/Tazobactam (Sod 4.5 gm/ Sodium Chloride) 100 mls @ 200 mls/hr IV Q6H [facility] Last Infusion: 01/24/24 08:37 Dose: Infused Documented By: ALIRIO Dextrose (D10) 250 mls @ 750 mls/hr IV Q15M PRN PRN Reason: per Hypoglycemia Standing Ord. Last Infusion: 01/22/24 09:04 Dose: Infused Documented By: MICHELL Lactated Ringer's (Lr) 1,000 mls @ 80 mls/hr IVCONT .[id number] [facility] Last Admin: 01/24/24 09:52 Dose: 80 mls/hr Documented By: ALIRIO Morphine Sulfate (Morphine Sulfate 2 Mg/Ml Cartridge) 1 mg IVPUSH Q4H PRN; Protocol PRN Reason: Pain, Severe (Pain Scale 7-10) Sodium Chloride (0.9 % Sodium Chloride Flush 3 Ml Syringe) 3 ml IVFLUSH QSHIFT [facility] Last Admin: 01/24/24 07:46 Dose: Not Given Documented By: ALIRIO Non-Admin Reason: IV Running Labs 01/24/24 05:41 01/24/24 05:41 Labs: Laboratory Results - last 24 hr 01/23/24 01/24/24 14:10 05:41 MCV 77.3 L MCH 25.9 L MCHC 33.5 RDW 13.6 Plt Count 244 MPV 9.5 Absolute Nucleated RBC 0.000 Nucleated RBC % (auto) 0.0 Anion Gap 13 Estim Creat Clear Calc 63.8 Estimated GFR > 60 Random Glucose 73 Calcium 8.4 Random Vancomycin 22.3 H Assessment and Plan (1) Failure to thrive in adult: Status: Acute (2) Progressive neurological disorder: Status: Acute (3) Multifocal pneumonia: Status: Acute (4) Aspiration into airway: Status: Acute (5) Acute hypoxic respiratory failure: Status: Acute Plan Anthony Morales this is a 33 y/o man admitted with: Acute hypoxic respiratory failure secondary to bilateral pneumonia due to aspiration in setting of progressive neurological disorder Hypotension is chronic from FTT, dehydration and decrease PO intake not due to severe sepsis Aspiration precautions. EXTERMINATOR eval, start NDD1 w honey thick Supplemental O2 to keep O2 sats > 90%. Negative blood cultures continue Zosyn (01/19), DC Vancomycin' Surgery following NPO for PEG tube placement today Customer Business Manager consult Oropharynx candidiasis. Fluconazole 100 mg IV daily, switch to PO DVT prophylaxis: Lovenox Code status: Full code Patient will need hospitalization overnight for hypoxic respiratory failure secondary to bilateral pneumonia due to aspiration treatment with supplemental oxygen and IV antibiotic therapy. Quality Stroke Does the patient have a stroke diagnosis?: No VTE Prior VTE?: No VTE Risk Level:: Medical - moderate - high VTE Device Contraindication: Treatment Not Indicated VTE Drug Contraindication: N/A - Med Ordered
--- NOTE | 2024-01-24 11:45 | MHC.CLN ---
RE: CONSULT PT WITH BILAT PNA, HX ASPIRATION, CURRENTLY WITH ORAL THRUSH AND FTT PENDING PEG PLACEMENT TODAY CURRENTLY NPO FOR PROCEDURE RECOMMEND TF JEVITY 1.0 AT MAX GOAL RATE 45ML/HR WITH 120ML FREE WATER FLUSHES Q 8 HRS TO PROVIDE 1145KCALS (30KCALS/KG), 48G PROTEIN (1.3G/KG), 1281ML TOTAL WATER FROM FORMULA AND FLUSHES (33.7ML/KG) START TF AT 20ML/HR AND INCREASE BY 10ML UNTIL MAX GOAL IS ACHIEVED MONITOR TOLERANCE AND LYTES SEE ALSO FULL CLINICAL NUTRITION ASSESSMENT
--- NOTE | 2024-01-24 11:52 | P.CONAN_ITS ---
HPI - Anesthesia Eval Consult details Narrative: 33 yo male patient with Cerebral palsy, recurrent aspiration, bilateral Lower lobe pneumonia, dysphagia, failure to thrive. For PEG tube placement PMFSH Active Problems Active Problems: All Active Problems Failure to thrive in adult (Acute) Progressive neurological disorder (Acute) Hypoxia (Acute) Multifocal pneumonia (Acute) Aspiration into airway (Acute) Bilateral pneumonia (Acute) Acute hypoxic respiratory failure (Acute) Oral infection Family History Family history of problems with anesthesia: No Surgical History History of Problems with Anesthesia: No Social History Social History Household Members: Family Housing: House Are you a primary health care manager to a significant other at home: No Do you presently have visiting nurse or other home services: Yes Patient Tobacco Use Status: Never used Tobacco Smoked in Last 30 Days: No Second Hand Smoke Exposure: No Use of substances other than those prescribed or required for medical reasons: No Currently Displaying Signs/Symptoms of Drug Intoxication Withdrawal: No Have you been hit, kicked, punched, or otherwise hurt by someone within the past year? If so, by whom?: No Do you feel safe in your current relationship?: No Current Relationship Is there a partner from a previous relationship who is making you feel unsafe now?: No Are you made to feel afraid or neglected: No Are you DNR?: No Advance Directives: Yes Advance Directives Information Provided: No Advance Directives on File: Yes Advance Directives Date on File: 01/20/24 Do you have a plan to hurt others: No Plan Recently lost weight without trying: Unsure Eating poorly because of decreased appetite: No Nutrition Risks: Dental problems and On aspiration precautions Poor oral hygiene: Yes service: No Meds Allergies Allergy/AdvReac Type Severity Reaction Status Date / Time No Known Allergies Allergy Unverified 01/20/24 15:31 Active Medications: Current Medications Enoxaparin Sodium (Enoxaparin Sodium 40 Mg/0.4 Ml Syringe) 40 mg SUBCUT Q24H [facility] Last Admin: 01/22/24 21:12 Dose: 40 mg Glucose (Glucose Gel 15 Gm Gel..Gram.) 15 gm PO Q15M PRN PRN Reason: per Hypoglycemia Standing Ord. Fluconazole 100 mg/ IV (Miscellaneous Supplies) 50 mls @ 50 mls/hr IV Q24H [facility] Last Infusion: 01/24/24 00:05 Dose: Infused Piperacillin Sod/Tazobactam (Sod 4.5 gm/ Sodium Chloride) 100 mls @ 200 mls/hr IV Q6H [facility] Last Infusion: 01/24/24 08:37 Dose: Infused Dextrose (D10) 250 mls @ 750 mls/hr IV Q15M PRN PRN Reason: per Hypoglycemia Standing Ord. Last Infusion: 01/22/24 09:04 Dose: Infused Lactated Ringer's (Lr) 1,000 mls @ 80 mls/hr IVCONT .[id number] [facility] Last Admin: 01/24/24 09:52 Dose: 80 mls/hr Morphine Sulfate (Morphine Sulfate 2 Mg/Ml Cartridge) 1 mg IVPUSH Q4H PRN; Protocol PRN Reason: Pain, Severe (Pain Scale 7-10) Sodium Chloride (0.9 % Sodium Chloride Flush 3 Ml Syringe) 3 ml IVFLUSH QSHIFT [facility] Last Admin: 01/24/24 07:46 Dose: Not Given Home Medications ?Medication ?Instructions ?Recorded ?Confirmed ?Last Taken ?Type acetaminophen 160 mg/5 mL oral 480 mg PO Q6H PRN fever 01/20/24 01/20/24 Unknown History liquid (Children's Acetaminophen) Exam Height,Weight and Vital Signs: Height 4 ft Weight 38 kg Last Vital Signs Temp 99.2 F 01/24/24 10:41 Pulse 68 01/24/24 10:41 Resp 16 01/24/24 10:41 BP 96/65 01/24/24 10:41 Pulse Ox 98 01/24/24 10:41 O2 Del Method Room Air 01/24/24 10:41 O2 Flow Rate 2 01/24/24 07:29 Pertinent Lab Results Pertinent Lab Results: Laboratory Tests 01/20/24 01/20/24 01/20/24 15:53 16:00 16:04 WBC 16.9 H RBC 5.39 Hgb 14.0 Hct 43.1 MCV 80.0 MCH 26.0 L MCHC 32.5 RDW 14.5 Plt Count 334 MPV 10.8 Immature Gran % (Auto) 0.4 Neut % (Auto) 88.7 H Lymph % (Auto) 5.7 L [place] % (Auto) 4.0 Eos % (Auto) 0.5 Baso % (Auto) 0.7 Lymph # (Auto) 1.0 L [place] # (Auto) 0.7 Eos # (Auto) 0.1 Baso # (Auto) 0.1 Abs Immat Gran (auto) 0.07 H Absolute Neuts (auto) 15.0 H Absolute Nucleated RBC 0.000 Nucleated RBC % (auto) 0.0 Neutrophils % (Manual) Band Neutrophils % Lymphocytes % (Manual) Monocytes % (Manual) Metamyelocytes % Myelocytes % Abs Neuts (Manual) Lymphocytes # (Manual) Monocytes # (Manual) Metamyelocytes # Myelocytes # Toxic Granulation Toxic Vacuolation Dohle Bodies Platelet Estimate Plt Morphology Comment RBC Morphology Polychromasia PT INR D-Dimer High Sensitivty VBG pH 7.53 H VBG pCO2 25 VBG pO2 100 VBG HCO3 21 L VBG O2 Saturation 98.0 VBG Base Excess 0.8 Sodium Potassium Chloride Carbon Dioxide Anion Gap BUN Creatinine Estim Creat Clear Calc Estimated GFR POC Glucose Random Glucose Lactic Acid 2.8 H* Lactic Acid F/U @ 2Hr Calcium Magnesium Total Bilirubin Cancelled Direct Bilirubin Cancelled AST Cancelled ALT Cancelled Alkaline Phosphatase Cancelled Troponin I High Sens 11.7 B-Natriuretic Peptide 46 Total Protein Cancelled Albumin Cancelled Lipase Urine Color Dark Yellow Urine Appearance Cloudy Urine pH 5.5 Ur Specific [place] >= 1.030 H Urine Protein 300 (3+) H Urine Glucose (UA) Negative Urine Ketones 15 Urine Blood Large (3+) H Urine Nitrite Negative Ur Leukocyte Esterase Trace H Urine RBC >20 H Urine WBC 21-50 H Ur Squamous Epith Cells 11-20 Urine Bacteria 1+ Hyaline Casts 11-20 Random Vancomycin Influenza Type A (PCR) NEGATIVE Influenza Type B (PCR) NEGATIVE RSV RNA Qual (PCR) NEGATIVE SARS-CoV-2 RNA (RT-PCR) NEGATIVE S. pyogenes GrpA RYAN Negative 01/20/24 01/20/24 01/20/24 17:00 17:28 18:11 WBC 11.7 H RBC 4.89 Hgb 12.7 L Hct 39.1 L MCV 80.0 MCH 26.0 L MCHC 32.5 RDW 14.1 Plt Count 294 MPV 9.8 Immature Gran % (Auto) Cancelled Neut % (Auto) Cancelled Lymph % (Auto) Cancelled [place] % (Auto) Cancelled Eos % (Auto) Cancelled Baso % (Auto) Cancelled Lymph # (Auto) Cancelled [place] # (Auto) Cancelled Eos # (Auto) Cancelled Baso # (Auto) Cancelled Abs Immat Gran (auto) Cancelled Absolute Neuts (auto) Cancelled Absolute Nucleated RBC 0.000 Nucleated RBC % (auto) 0.0 Neutrophils % (Manual) 70 Band Neutrophils % 22 H Lymphocytes % (Manual) 3 L Monocytes % (Manual) 3 Metamyelocytes % 1 Myelocytes % 1 Abs Neuts (Manual) 10.8 H Lymphocytes # (Manual) 0.4 L Monocytes # (Manual) 0.4 Metamyelocytes # 0.1 Myelocytes # 0.1 Toxic Granulation PRESENT Toxic Vacuolation PRESENT Dohle Bodies PRESENT Platelet Estimate NORMAL Plt Morphology Comment NORMAL RBC Morphology NOTED Polychromasia 1+ (0-2) PT 17.6 H INR 1.5 H D-Dimer High Sensitivty 1034 VBG pH VBG pCO2 VBG pO2 VBG HCO3 VBG O2 Saturation VBG Base Excess Sodium 145 Potassium 3.8 Chloride 117 H Carbon Dioxide 19 L Anion Gap 13 BUN 23 H Creatinine 0.81 Estim Creat Clear Calc 50.2 Estimated GFR > 60 POC Glucose Random Glucose 115 Lactic Acid Lactic Acid F/U @ 2Hr 1.6 Calcium 8.3 L D Magnesium Total Bilirubin 0.8 Direct Bilirubin 0.3 AST 22 ALT 6 Alkaline Phosphatase 57 Troponin I High Sens B-Natriuretic Peptide Total Protein 7.2 Albumin 3.1 L Lipase 9 Urine Color Yellow Urine Appearance Cloudy Urine pH 5.5 Ur Specific [place] >= 1.030 H Urine Protein 100 (2+) H Urine Glucose (UA) Negative Urine Ketones Trace Urine Blood Moderate (2+) H Urine Nitrite Negative Ur Leukocyte Esterase Negative Urine RBC 6-10 H Urine WBC 0-5 Ur Squamous Epith Cells 6-10 Urine Bacteria None Seen Hyaline Casts 3-5 Random Vancomycin Influenza Type A (PCR) Influenza Type B (PCR) RSV RNA Qual (PCR) SARS-CoV-2 RNA (RT-PCR) S. pyogenes GrpA RYAN 01/21/24 01/21/24 01/21/24 06:00 08:39 14:13 WBC 13.2 H RBC 4.14 L Hgb 10.9 L Hct 33.3 L MCV 80.4 MCH 26.3 L MCHC 32.7 RDW 14.4 Plt Count 243 MPV 10.6 Immature Gran % (Auto) 0.4 Neut % (Auto) 83.2 H Lymph % (Auto) 11.1 L [place] % (Auto) 5.1 Eos % (Auto) 0.0 Baso % (Auto) 0.2 Lymph # (Auto) 1.5 [place] # (Auto) 0.7 Eos # (Auto) 0.0 Baso # (Auto) 0.0 Abs Immat Gran (auto) 0.05 H Absolute Neuts (auto) 11.0 H Absolute Nucleated RBC 0.000 Nucleated RBC % (auto) 0.0 Neutrophils % (Manual) Band Neutrophils % Lymphocytes % (Manual) Monocytes % (Manual) Metamyelocytes % Myelocytes % Abs Neuts (Manual) Lymphocytes # (Manual) Monocytes # (Manual) Metamyelocytes # Myelocytes # Toxic Granulation Toxic Vacuolation Dohle Bodies Platelet Estimate Plt Morphology Comment RBC Morphology Polychromasia PT INR D-Dimer High Sensitivty VBG pH VBG pCO2 VBG pO2 VBG HCO3 VBG O2 Saturation VBG Base Excess Sodium 146 H Potassium 4.0 Chloride 117 H Carbon Dioxide 21 L Anion Gap 12 BUN 24 H Creatinine 0.72 Estim Creat Clear Calc 58.5 Estimated GFR > 60 POC Glucose Random Glucose 94 Lactic Acid 0.8 Lactic Acid F/U @ 2Hr Calcium 8.8 D Magnesium 2.1 Total Bilirubin 0.7 Direct Bilirubin AST 40 H ALT 12 Alkaline Phosphatase 54 Troponin I High Sens B-Natriuretic Peptide Total Protein 6.4 L Albumin 2.8 L Lipase Urine Color Urine Appearance Urine pH Ur Specific [place] Urine Protein Urine Glucose (UA) Urine Ketones Urine Blood Urine Nitrite Ur Leukocyte Esterase Urine RBC Urine WBC Ur Squamous Epith Cells Urine Bacteria Hyaline Casts Random Vancomycin 9.6 L Influenza Type A (PCR) Influenza Type B (PCR) RSV RNA Qual (PCR) SARS-CoV-2 RNA (RT-PCR) S. pyogenes GrpA RYAN 01/22/24 01/22/24 01/22/24 06:17 07:42 08:30 WBC 15.3 H RBC 4.31 L Hgb 11.2 L Hct 34.8 L MCV 80.7 MCH 26.0 L MCHC 32.2 RDW 14.3 Plt Count 266 MPV 10.2 Immature Gran % (Auto) Neut % (Auto) Lymph % (Auto) [place] % (Auto) Eos % (Auto) Baso % (Auto) Lymph # (Auto) [place] # (Auto) Eos # (Auto) Baso # (Auto) Abs Immat Gran (auto) Absolute Neuts (auto) Absolute Nucleated RBC 0.000 Nucleated RBC % (auto) 0.0 Neutrophils % (Manual) Band Neutrophils % Lymphocytes % (Manual) Monocytes % (Manual) Metamyelocytes % Myelocytes % Abs Neuts (Manual) Lymphocytes # (Manual) Monocytes # (Manual) Metamyelocytes # Myelocytes # Toxic Granulation Toxic Vacuolation Dohle Bodies Platelet Estimate Plt Morphology Comment RBC Morphology Polychromasia PT INR D-Dimer High Sensitivty VBG pH VBG pCO2 VBG pO2 VBG HCO3 VBG O2 Saturation VBG Base Excess Sodium 142 Potassium 3.6 Chloride 112 H Carbon Dioxide 19 L Anion Gap 15 BUN 17 H Creatinine 0.58 Estim Creat Clear Calc 72.6 Estimated GFR > 60 POC Glucose 52 L* 189 H Random Glucose 56 L* Lactic Acid Lactic Acid F/U @ 2Hr Calcium 8.2 L D Magnesium Total Bilirubin Direct Bilirubin AST ALT Alkaline Phosphatase Troponin I High Sens B-Natriuretic Peptide Total Protein Albumin Lipase Urine Color Urine Appearance Urine pH Ur Specific [place] Urine Protein Urine Glucose (UA) Urine Ketones Urine Blood Urine Nitrite Ur Leukocyte Esterase Urine RBC Urine WBC Ur Squamous Epith Cells Urine Bacteria Hyaline Casts Random Vancomycin Influenza Type A (PCR) Influenza Type B (PCR) RSV RNA Qual (PCR) SARS-CoV-2 RNA (RT-PCR) S. pyogenes GrpA RYAN 01/22/24 01/22/24 01/23/24 13:44 14:52 06:05 WBC 8.4 RBC 4.28 L Hgb 11.2 L Hct 33.6 L MCV 78.5 L MCH 26.2 L MCHC 33.3 RDW 14.0 Plt Count 236 MPV 10.0 Immature Gran % (Auto) Neut % (Auto) Lymph % (Auto) [place] % (Auto) Eos % (Auto) Baso % (Auto) Lymph # (Auto) [place] # (Auto) Eos # (Auto) Baso # (Auto) Abs Immat Gran (auto) Absolute Neuts (auto) Absolute Nucleated RBC 0.000 Nucleated RBC % (auto) 0.0 Neutrophils % (Manual) Band Neutrophils % Lymphocytes % (Manual) Monocytes % (Manual) Metamyelocytes % Myelocytes % Abs Neuts (Manual) Lymphocytes # (Manual) Monocytes # (Manual) Metamyelocytes # Myelocytes # Toxic Granulation Toxic Vacuolation Dohle Bodies Platelet Estimate Plt Morphology Comment RBC Morphology Polychromasia PT INR D-Dimer High Sensitivty VBG pH VBG pCO2 VBG pO2 VBG HCO3 VBG O2 Saturation VBG Base Excess Sodium 136 Potassium 3.1 L Chloride 106 Carbon Dioxide 24 Anion Gap 9 L BUN 7 L Creatinine 0.61 Estim Creat Clear Calc 69.1 Estimated GFR > 60 POC Glucose 194 H Random Glucose 127 H Lactic Acid Lactic Acid F/U @ 2Hr Calcium 8.1 L Magnesium Total Bilirubin Direct Bilirubin AST ALT Alkaline Phosphatase Troponin I High Sens B-Natriuretic Peptide Total Protein Albumin Lipase Urine Color Urine Appearance Urine pH Ur Specific [place] Urine Protein Urine Glucose (UA) Urine Ketones Urine Blood Urine Nitrite Ur Leukocyte Esterase Urine RBC Urine WBC Ur Squamous Epith Cells Urine Bacteria Hyaline Casts Random Vancomycin 16.3 Influenza Type A (PCR) Influenza Type B (PCR) RSV RNA Qual (PCR) SARS-CoV-2 RNA (RT-PCR) S. pyogenes GrpA RYAN 01/23/24 01/24/24 14:10 05:41 WBC 7.6 RBC 4.59 L Hgb 11.9 L Hct 35.5 L MCV 77.3 L MCH 25.9 L MCHC 33.5 RDW 13.6 Plt Count 244 MPV 9.5 Immature Gran % (Auto) Neut % (Auto) Lymph % (Auto) [place] % (Auto) Eos % (Auto) Baso % (Auto) Lymph # (Auto) [place] # (Auto) Eos # (Auto) Baso # (Auto) Abs Immat Gran (auto) Absolute Neuts (auto) Absolute Nucleated RBC 0.000 Nucleated RBC % (auto) 0.0 Neutrophils % (Manual) Band Neutrophils % Lymphocytes % (Manual) Monocytes % (Manual) Metamyelocytes % Myelocytes % Abs Neuts (Manual) Lymphocytes # (Manual) Monocytes # (Manual) Metamyelocytes # Myelocytes # Toxic Granulation Toxic Vacuolation Dohle Bodies Platelet Estimate Plt Morphology Comment RBC Morphology Polychromasia PT INR D-Dimer High Sensitivty VBG pH VBG pCO2 VBG pO2 VBG HCO3 VBG O2 Saturation VBG Base Excess Sodium 137 Potassium 3.2 L Chloride 103 Carbon Dioxide 24 Anion Gap 13 BUN 7 L Creatinine 0.66 Estim Creat Clear Calc 63.8 Estimated GFR > 60 POC Glucose Random Glucose 73 Lactic Acid Lactic Acid F/U @ 2Hr Calcium 8.4 Magnesium Total Bilirubin Direct Bilirubin AST ALT Alkaline Phosphatase Troponin I High Sens B-Natriuretic Peptide Total Protein Albumin Lipase Urine Color Urine Appearance Urine pH Ur Specific [place] Urine Protein Urine Glucose (UA) Urine Ketones Urine Blood Urine Nitrite Ur Leukocyte Esterase Urine RBC Urine WBC Ur Squamous Epith Cells Urine Bacteria Hyaline Casts Random Vancomycin 22.3 H Influenza Type A (PCR) Influenza Type B (PCR) RSV RNA Qual (PCR) SARS-CoV-2 RNA (RT-PCR) S. pyogenes GrpA RYAN Airway Mallampati Class: IV TM Dist: >3cm Loose/Missing/Broken Teeth: No Heart: RRR Lungs: ? crackles bases Assessment and Plan Assessment Anesthesia Assessment: Anesthesia Plan Discussed and Chart Reviewed Final Anesthetic Review Family History of Problems with Anesthesia: No History of Problems with Anesthesia: No NPO: Yes ASA Class: IV Final Preanesthetic Review: No Changes in Pt Med Stat, Meds/Allgs Chart Reviewed, Consent Obtained/Reviewed and Anes Risks/Benef Reviewed Patient Risk: High Procedure Risk: Low Assessment/Block/Sedation in SS: Assess/Block/Sedation-SS Anesthetic Plan Anesthetic Plan: MAC: Disposition: Standard PACU and Inp. Admit - Standard Bed
--- NOTE | 2024-01-24 12:49 | P.OP_ITS ---
Operative Note Operative Note Date of Service: 01/24/24 Narrative: Preop diagnosis: Progressive neurological disorder with dysphagia Postop diagnosis: The same Procedure: PEG tube placement Surgeon: Laci Finnegan MD wet process assistant head miller: SALLY Hale The patient is a 33-year-old male with a progressive disorder with subsequent dysphagia. I was requested to place a PEG tube. The father had given consent. He understood the technique of the procedure as well as the risks, benefits, and alternatives. The patient was brought to the operating room and placed supine under monitored anesthesia care. A bite block was in position. A surgical time-out was done. The patient was receiving scheduled IV antibiotics I inserted the Olympus endoscope through the bite block into the oropharynx. The vocal cords were visualized. The esophageal slit was seen posterior to this. The esophageal slit was intubated. The scope was gently advanced through the entire length of the esophagus all the stomach lumen. The stomach was insufflated. Transillumination was easily seen in the epigastric area. Indentation on the anterior stomach wall was also clearly seen with pressure on the area with the finger This area and the skin was infiltrated and prepped. Lidocaine 1%had been used. A short stab incision was made. The large bore needle with the catheter sheath was inserted. This was seen in the lumen. The needle was removed. The guidewire was inserted through the catheter sheath. The guidewire was grasped with a snare. We pulled the guidewire through the entire length of the esophagus out through the oral orifice. The guidewire was looped onto the feed ing tube. The guidewire was then pulled from the abdominal wall along with the feeding tube until this felt snug anterior stomach wall. I reinserted the endoscope into the stomach lumen. The inner bolster of the G-tube was visualized. This appeared to be in good position. There was no bleeding. I therefore the entire endoscope out. The external bolster was positioned to make this snug on the skin. The procedure was then completed. There were no immediate complications. The patient was then transferred to the recovery room with stable vital signs
--- NOTE | 2024-01-24 14:05 | MHC.SLORD ---
Speech Language Pathology Order Status: Pt not seen today d/t procedure, PATIENT OBSERVATION ASSISTANT to continue with dysphagia tx as appropriate.
--- NOTE | 2024-01-24 14:18 | PM.EVENT ---
Event Note Date of Service: 01/24/24 Event Note: Seen postop Status post PEG tube placement earlier Seems to have good pain control Stable vital signs Abdomen soft Dressings dry Okay to start tube feeds tomorrow Discussed with father at bedside Pain management Time Spent With Patient Time: Total time managing care of this patient today ____ minutes.
[2024-01-24] MEDS: Morphine Sulfate 2 MG/ML CARTRIDGE 1 MG IVPUSH ×2 (15:14→20:49)
[2024-01-24] MEDS: 0.9 % Sodium Chloride Flush 3 ML SYRINGE IVFLUSH (20:01)
[2024-01-24] MEDS: Fluconazole in NaCl,Iso-Osm 100 MG in Container,Empty 0 ML 50 MG IV (22:14)
[2024-01-25] VITALS (9 sets, daily range): BP systolic 81–110; BP diastolic 53–62; PULSE 56–62; RESP 16–20; TEMP 36.2–37.1; O2SAT 95–98
[2024-01-25] MEDS: Piperacillin Sodium/Tazobactam 4.5 GM in 0.9 % Sodium Chloride 100 ML IV ×4 (02:59→20:18)
[2024-01-25 06:23] LABS: Anion Gap 17 (12-20); Blood Urea Nitrogen 8 mg/dL (9-16); Calcium 8.1 mg/dL (8.4-10.2); Carbon Dioxide 20 mmol/L (22-29); Chloride 101 mmol/L (96-108); Creatinine Clr Calc Pharmacy 63.8; Estimated Glomerular Filt Rate > 60; Glucose Random 49 mg/dL (60-115); Potassium 3.6 mmol/L (3.3-5.1); Sodium 134 mmol/L (135-145)
[2024-01-25] MEDS: Dextrose 10 % 250 ML 750 ML IV (06:31)
--- NOTE | 2024-01-25 06:36 | PC.NURSE ---
Critical blood sugar reported at 0622 from lab. Provider notified in alert via [email or web address]. D10 started as ordered blood sugar recheck 137
[2024-01-25 07:06] LABS: Glucose, Whole Blood 137 mg/dL (60-115)
[2024-01-25] MEDS: Dextrose 5 % and 0.9 % NaCl 1,000 ML 100 ML IVCONT (07:15)
[2024-01-25] MEDS: 0.9 % Sodium Chloride Flush 3 ML SYRINGE IVFLUSH ×3 (07:18→20:21)
--- NOTE | 2024-01-25 09:58 | PM.PNGS ---
Subjective Subjective Date of Service: 01/25/24 <Alee Hale PA-C - Last Filed: 01/25/24 10:01> 01/25/24 <Laci Finnegan MD - Last Filed: 01/25/24 12:35> Interval history: No events overnight. <Alee Hale PA-C - Last Filed: 01/25/24 10:01> Physical Exam Vital Signs: Vital Signs: Last Vital Signs Temp 98.3 F 01/25/24 07:10 Pulse 60 01/25/24 07:10 Resp 18 01/25/24 07:10 BP 93/55 L 01/25/24 06:55 Pulse Ox 98 01/25/24 07:10 O2 Del Method Nasal Cannula 01/25/24 07:10 O2 Flow Rate 2 01/25/24 07:10 BMI result Body Mass Index 25.6 <Alee Hale PA-C - Last Filed: 01/25/24 10:01> Const: General: no acute distress and alert <Alee Hale PA-C - Last Filed: 01/25/24 10:01> GI: Other: PEG tube intact, bolster snug dressing dry and in place <Alee Hale PA-C - Last Filed: 01/25/24 10:01> Inspection: No distended <Alee Hale PA-C - Last Filed: 01/25/24 10:01> Palpation (GI): Soft to palpation <Alee Hale PA-C - Last Filed: 01/25/24 10:01> Skin: General skin exam: no rashes or lesions noted <LV Arteaga Last Filed: 01/25/24 10:01> Objective Data Active Medications Enoxaparin Sodium (Enoxaparin Sodium 40 Mg/0.4 Ml Syringe) 40 mg SUBCUT Q24H [facility] Last Admin: 01/22/24 21:12 Dose: 40 mg Documented By: JUAN Glucose (Glucose Gel 15 Gm Gel..Gram.) 15 gm PO Q15M PRN PRN Reason: per Hypoglycemia Standing Ord. Glucose (Glucose Gel 15 Gm Gel..Gram.) 15 gm PO Q15M PRN; Protocol PRN Reason: per Hypoglycemia Standing Ord. Fluconazole 100 mg/ IV (Miscellaneous Supplies) 50 mls @ 50 mls/hr IV Q24H [facility] Last Infusion: 01/24/24 23:50 Dose: Infused Documented By: JATINDER Piperacillin Sod/Tazobactam (Sod 4.5 gm/ Sodium Chloride) 100 mls @ 200 mls/hr IV Q6H [facility] Last Infusion: 01/25/24 08:08 Dose: Infused Documented By: ALIRIO Dextrose (D10) 250 mls @ 750 mls/hr IV Q15M PRN PRN Reason: per Hypoglycemia Standing Ord. Last Infusion: 01/25/24 07:05 Dose: Infused Documented By: JATINDER Lactated Ringer's (Lr) 1,000 mls @ 80 mls/hr IVCONT .[id number] [facility] Last Infusion: 01/25/24 07:19 Dose: Infused Documented By: ALIRIO Lactated Ringer's (Lr) 1,000 mls @ 50 mls/hr IVCONT .Q20H [facility] Last Admin: 01/24/24 13:45 Dose: Not Given Documented By: ALIRIO Non-Admin Reason: MD dougherty to keep LR 80ml/hr Dextrose (D10) 250 mls @ 750 mls/hr IV Q15M PRN; Protocol PRN Reason: per Hypoglycemia Standing Ord. Dextrose/Sodium Chloride (D5ns) 1,000 mls @ 100 mls/hr IVCONT .Q10H [facility] Last Admin: 01/25/24 07:15 Dose: 100 mls/hr Documented By: ALIRIO Morphine Sulfate (Morphine Sulfate 2 Mg/Ml Cartridge) 1 mg IVPUSH Q4H PRN; Protocol PRN Reason: Pain, Severe (Pain Scale 7-10) Last Admin: 01/24/24 20:49 Dose: 1 mg Documented By: JATINDER Sodium Chloride (0.9 % Sodium Chloride Flush 3 Ml Syringe) 3 ml IVFLUSH QSHIFT [facility] Last Admin: 01/25/24 07:18 Dose: 3 ml Documented By: ALIRIO <Alee Hale PA-C - Last Filed: 01/25/24 10:01> Labs CBC & Chem 7: 01/24/24 05:41 01/25/24 05:54 <Alee Hale PA-C - Last Filed: 01/25/24 10:01> Labs: Laboratory Results - last 24 hr 01/25/24 01/25/24 05:54 07:03 Anion Gap 17 Estim Creat Clear Calc 63.8 Estimated GFR > 60 POC Glucose 137 H Random Glucose 49 L* Calcium 8.1 L <Alee Hale PA-C - Last Filed: 01/25/24 10:01> Procedures Date of Service Date of Service: 01/25/24 <Alee Hale PA-C - Last Filed: 01/25/24 10:01> 01/25/24 <Laci Finnegan MD - Last Filed: 01/25/24 12:35> Progress Note: A&P Assessment and plan (1) Failure to thrive in adult: Status: Acute <Alee Hale PA-C - Last Filed: 01/25/24 10:01> Assessment and Plan: Looks comfortable Abdomen is soft Peg tube in place Okay to start tube feeds today Seen and examined independently Father at bedside updated <Laci Finnegan MD - Last Filed: 01/25/24 12:35> (2) S/P percutaneous endoscopic gastrostomy (PEG) tube placement: Status: Acute <Alee Hale PA-C - Last Filed: 01/25/24 10:01> (3) Progressive neurological disorder: Status: Acute <Alee Hale PA-C - Last Filed: 01/25/24 10:01> Assessment and Plan: POD #1 s/p PEG tube placement for acute hypoxic respiratory failure secondary to bilateral aspiration pneumonia in setting of progressive neurological disorder and FTT. No post operative issues, PEG tube intact, bolster snug. Abd benign. Can benign tube feeds as tolerated. <LV Arteaga Last Filed: 01/25/24 10:01> Time Spent With Patient Time: Total time managing care of this patient today ____ minutes. <Alee Hale PA-C - Last Filed: 01/25/24 10:01> Quality Stroke Does the patient have a stroke diagnosis?: No <Alee Hale PA-C - Last Filed: 01/25/24 10:01> VTE Prior VTE?: No <Alee Hale PA-C - Last Filed: 01/25/24 10:01> VTE Risk Level:: Medical - moderate - high <LV Arteaga Last Filed: 01/25/24 10:01> VTE Device Contraindication: Treatment Not Indicated <LV Arteaga Last Filed: 01/25/24 10:01> VTE Drug Contraindication: N/A - Med Ordered <LV Arteaga Last Filed: 01/25/24 10:01>
--- NOTE | 2024-01-25 10:38 | MHC.CLN ---
F/U SPOKE WITH PT'S FATHER REGARDING PEG AND TF ANSWERED ALL QUESTIONS PT'S FATHER INQUIRING ABOUT TEACHING UPON DISCHARGE CM AWARE AND [facility] IS HOME CARE AGENGY FOR TF RECOMMEND TF JEVITY 1.0 AT MAX GOAL RATE 45ML/HR WITH 120ML FREE WATER FLUSHES Q 8 HRS TO PROVIDE 1145KCALS (30KCALS/KG), 48G PROTEIN (1.3G/KG), 1281ML TOTAL WATER FROM FORMULA AND FLUSHES (33.7ML/KG) START TF AT 20ML/HR AND INCREASE BY 10ML UNTIL MAX GOAL IS ACHIEVED MONITOR TOLERANCE AND LYTES CAN CHANGE TF TO BOLUS AFTER DISCHARGE CAN ALSO USE EQUIVALENT FORMULA IF JEVITY 1.0 IS NOT AVAILABLE
--- NOTE | 2024-01-25 10:49 | HO.POSTANES ---
Post Anesthesia Evaluation Post Anesthesia Evaluation Date of Service: 01/24/24 Vital Signs: Vital Signs Temp Pulse Resp BP Pulse Ox O2 Del Method O2 Flow Rate 01/25/24 07:10 98.3 F 60 18 98 Nasal Cannula 2 01/25/24 06:55 93/55 L 01/25/24 03:50 97.2 F 60 18 81/53 L 98 Nasal Cannula 2 01/24/24 23:00 96.2 F L 50 18 95/50 L 96 Nasal Cannula 2 Anesthesia: Monitored Mental Status: Awake Pain Control: Satisfactory Nausea/Vomiting: None Hydration: Adequate Anesthesia-Related Issues: No Anes. Related Issues
--- NOTE | 2024-01-25 11:21 | P.PNIM_ITS ---
Subjective Subjective Date of Service: 01/25/24 Interval History: seen and evaluated this morning improving tolerating PO NDD1 diet starting Tube feed via PEG tube today no other evnets Review of Systems Review of Systems: Yes all other systems are reviewed and are negative Physical Exam 2 Vital Signs: Vital Signs: Last Vital Signs Temp 98.3 F 01/25/24 07:10 Pulse 60 01/25/24 07:10 Resp 18 01/25/24 07:10 BP 93/55 L 01/25/24 06:55 Pulse Ox 98 01/25/24 07:10 O2 Del Method Nasal Cannula 01/25/24 07:10 O2 Flow Rate 2 01/25/24 07:10 BMI result Body Mass Index 25.6 Const: Other: Constitutional : Awake, makes eye contact, not much interactive, not in distress Neck : Normal inspection, Supple Cardiovascular : RRR, no JVP, no lower extremity edema Respiratory : good bilateral air entry, basal fine crackles, wheezes or rhonchi Gastrointestinal: soft, lax, Normal bowel sounds, Non tender Skin : Warm, Dry Neurological : Alert , non-verbal, spastic, Objective Data Active Medications Enoxaparin Sodium (Enoxaparin Sodium 40 Mg/0.4 Ml Syringe) 40 mg SUBCUT Q24H [facility] Last Admin: 01/22/24 21:12 Dose: 40 mg Documented By: JUAN Glucose (Glucose Gel 15 Gm Gel..Gram.) 15 gm PO Q15M PRN PRN Reason: per Hypoglycemia Standing Ord. Glucose (Glucose Gel 15 Gm Gel..Gram.) 15 gm PO Q15M PRN; Protocol PRN Reason: per Hypoglycemia Standing Ord. Fluconazole 100 mg/ IV (Miscellaneous Supplies) 50 mls @ 50 mls/hr IV Q24H [facility] Last Infusion: 01/24/24 23:50 Dose: Infused Documented By: JATINDER Piperacillin Sod/Tazobactam (Sod 4.5 gm/ Sodium Chloride) 100 mls @ 200 mls/hr IV Q6H [facility] Last Infusion: 01/25/24 08:08 Dose: Infused Documented By: ALIRIO Dextrose (D10) 250 mls @ 750 mls/hr IV Q15M PRN PRN Reason: per Hypoglycemia Standing Ord. Last Infusion: 01/25/24 07:05 Dose: Infused Documented By: JATINDER Lactated Ringer's (Lr) 1,000 mls @ 80 mls/hr IVCONT .[id number] [facility] Last Infusion: 01/25/24 07:19 Dose: Infused Documented By: ALIRIO Lactated Ringer's (Lr) 1,000 mls @ 50 mls/hr IVCONT .Q20H [facility] Last Admin: 01/24/24 13:45 Dose: Not Given Documented By: ALIRIO Non-Admin Reason: MD dougherty to keep LR 80ml/hr Dextrose (D10) 250 mls @ 750 mls/hr IV Q15M PRN; Protocol PRN Reason: per Hypoglycemia Standing Ord. Dextrose/Sodium Chloride (D5ns) 1,000 mls @ 100 mls/hr IVCONT .Q10H [facility] Last Admin: 01/25/24 07:15 Dose: 100 mls/hr Documented By: ALIRIO Morphine Sulfate (Morphine Sulfate 2 Mg/Ml Cartridge) 1 mg IVPUSH Q4H PRN; Protocol PRN Reason: Pain, Severe (Pain Scale 7-10) Last Admin: 01/24/24 20:49 Dose: 1 mg Documented By: JATINDER Sodium Chloride (0.9 % Sodium Chloride Flush 3 Ml Syringe) 3 ml IVFLUSH QSHIFT [facility] Last Admin: 01/25/24 07:18 Dose: 3 ml Documented By: ALIRIO Labs 01/24/24 05:41 01/25/24 05:54 Labs: Laboratory Results - last 24 hr 01/25/24 01/25/24 05:54 07:03 Anion Gap 17 Estim Creat Clear Calc 63.8 Estimated GFR > 60 POC Glucose 137 H Random Glucose 49 L* Calcium 8.1 L Assessment and Plan (1) Failure to thrive in adult: Status: Acute (2) S/P percutaneous endoscopic gastrostomy (PEG) tube placement: Status: Acute (3) Progressive neurological disorder: Status: Acute (4) Multifocal pneumonia: Status: Acute (5) Hypoxia: Status: Acute Plan Anthony Morales this is a 33 y/o man admitted with: Acute hypoxic respiratory failure secondary to bilateral pneumonia due to aspiration in setting of progressive neurological disorder complicated with FTT in adult starting G-tube feeding Hypotension is chronic from FTT, dehydration and decrease PO intake not due to severe sepsis Negative blood cultures Aspiration precautions. continue Zosyn (01/19), DC Vancomycin Supplemental O2 to keep O2 sats > 90%. G-tube placed 01/[address] Kain galdamez, start NDD1 w honey thick PEG tube placement, starting tube feed and trending up as tolerated eventually to go home with bolus feeding rather than continues ([facility] will take care of that, infusion papers signed) Supervisor Cartography consulted to follow on tube feed and adjust it as needed Oropharynx candidiasis. Fluconazole 100 mg IV daily, switch to PO tonight DVT prophylaxis: Lovenox Code status: Full code Patient will need hospitalization overnight for hypoxic respiratory failure secondary to bilateral pneumonia due to aspiration treatment with supplemental oxygen and IV antibiotic therapy. Quality Stroke Does the patient have a stroke diagnosis?: No VTE Prior VTE?: No VTE Risk Level:: Medical - moderate - high VTE Device Contraindication: Treatment Not Indicated VTE Drug Contraindication: N/A - Med Ordered
--- NOTE | 2024-01-25 11:41 | P.CDIM_ITS ---
PROVIDER RESPONSE TEXT: To clarify, the appropriate diagnosis supported by the clinical indicators: Urinary tract infection: ruled out QUERY TEXT: PHYSICIAN'S DOCUMENTATION REQUEST Date of Query: 01/24/2024 09:10 AM EST Patient Name: Anthony Asher Admit Date: 01/21/2024 Dear Maryse Okeefe MD, A review of the medical record indicates additional documentation may be needed. Please review below and update the documentation accordingly. Current documentation includes a diagnosis of UTI. H&P 01/19 - Urinalysis consistent with urinary tract infection. Cefepime, vancomycin, IV fluids. UA - cloudy, urine rbc 6-10 H, urine wbc 21-50 H, trace leukocyte esterase, nitrite normal Dehydration, decreased in PO intake. Please provide further specificity regarding the site and etiology, if treating: Urinary tract infection ruled out, possible, probable, suspected etc. Other (explain) Clinically unable to determine (explain) Thank you, Amy Norton, CCS, CDIS Use of terms such as suspected, likely, concern for, or probable (associated with a specific diagnosi s that is being evaluated, monitored, or treated as if it exists) are acceptable and can be coded in the inpatient se tting, when documented at the time of discharge. Please use your independent medical judgment in providing your response. THIS QUERY IS PART OF THE PERMANENT MEDICAL RECORD
--- NOTE | 2024-01-25 12:03 | MHC.SPEECHCO ---
Pt is cleared to start Tube Feeding, but has not started yet. Per RN awaiting fluids from the kitchen. Recommend HEALTHCARE REPRESENTATIVE evaluation after demonstrated toleration of TF's. If no issue before morning, then can attempt supplemental PO for breakfast.
--- NOTE | 2024-01-25 14:19 | MHC.CM.PN ---
[facility] Rep was here today and will be in again tomorrow morning for teaching session with family, regarding Patient's new Gtube feedings. CM will follow.
[2024-01-25] MEDS: Morphine Sulfate 2 MG/ML CARTRIDGE 1 MG IVPUSH (20:51)
[2024-01-25] MEDS: Fluconazole 100 MG TABLET G-TUBE (21:14)
[2024-01-26] VITALS (7 sets, daily range): BP systolic 90–104; BP diastolic 54–70; PULSE 68–77; RESP 17–20; TEMP 36.3–36.8; O2SAT 93–97
[2024-01-26] MEDS: Piperacillin Sodium/Tazobactam 4.5 GM in 0.9 % Sodium Chloride 100 ML IV ×4 (03:29→19:58)
[2024-01-26 05:55] LABS: Hematocrit 33.5 % (42.0-52.0); Hemoglobin 11.3 g/dl (14.0-18.0); Mean Corpuscular HGB Conc 33.7 g/dl (31.0-36.0); Mean Corpuscular Hemoglobin 25.7 pg (27.0-33.0); Mean Corpuscular Volume 76.3 fL (80.0-98.0); Mean Platelet Volume 9.3 fL (9.4-12.4); Platelet Count 264 X10*3/uL (160-400); Red Blood Count 4.39 X10*6/uL (4.60-5.80); Red Cell Distribution Width 13.7 % (11.0-16.0); White Blood Count 7.1 X10*3/uL (4.8-10.8)
[2024-01-26 06:09] LABS: Creatinine Clr Calc Pharmacy 69.1; Estimated Glomerular Filt Rate > 60
[2024-01-26 06:13] LABS: Anion Gap 10 (12-20); Blood Urea Nitrogen 5 mg/dL (9-16); Calcium 8.2 mg/dL (8.4-10.2); Carbon Dioxide 27 mmol/L (22-29); Chloride 106 mmol/L (96-108); Creatinine Clr Calc Pharmacy 69.1; Estimated Glomerular Filt Rate > 60; Glucose Random 135 mg/dL (60-115); Potassium 3.4 mmol/L (3.3-5.1); Sodium 140 mmol/L (135-145)
[2024-01-26] MEDS: 0.9 % Sodium Chloride Flush 3 ML SYRINGE IVFLUSH ×3 (08:31→19:58)
--- NOTE | 2024-01-26 10:29 | MHC.CM.PN ---
Patient is not yet medically cleared for dc (needs overnight oximetry r/t ? of new home O2 needed); home with services is the goal and CM will continue to follow.
--- NOTE | 2024-01-26 10:58 | MHC.CLN ---
F/U REVIEWED LABS PT RECEIVING PUREED DIET WITH HT LIQ PER MD 25% X2 MEALS CONSUMED PT STARTED ON TF AND SLOWLY ADVANCING TO GOAL RECOMMENDED TF JEVITY 1.0 AT MAX GOAL RATE 45ML/HR WITH 120ML FREE WATER FLUSHES Q 8 HRS TO PROVIDE 1145KCALS (30KCALS/KG), 48G PROTEIN (1.3G/KG), 1281ML TOTAL WATER FROM FORMULA AND FLUSHES (33.7ML/KG) MONITOR TOLERANCE AND LYTES PT'S FATHER INQUIRING ABOUT TEACHING UPON DISCHARGE-CM AWARE AND [facility] IS HOME CARE AGENCY FOR TF CAN CHANGE TF TO BOLUS AFTER DISCHARGE CAN ALSO USE EQUIVALENT FORMULA IF JEVITY 1.0 IS NOT AVAILABLE
--- NOTE | 2024-01-26 12:20 | MHC.CM.PN ---
[facility] RN, spoke with [facility] RN (Kait @ [phone]), when Patient is dc'd, [facility] will need to send Patient home with a 2 day supply of formula, sterile water bottles and syringes. RN, MD and Dietitian are aware.
--- NOTE | 2024-01-26 12:48 | P.PNIM_ITS ---
Subjective Subjective Date of Service: 01/26/24 Interval History: Patient nonverbal with history of cerebral palsy admitted due to aspiration pneumonia. Patient nonverbal, parents at bedside, offers no acute complaints, patient tolerated tube feeds with no residuals, on oxygen 2 L, since admission noted to have hypoxia as per nurse oxygenation drops at night , although not documented. Review of Systems Unable to obtain due to mental status Physical Exam 2 Vital Signs: Vital Signs: Last Vital Signs Temp 97.8 F 01/26/24 11:09 Pulse 74 01/26/24 11:09 Resp 20 01/26/24 11:09 BP 94/54 L 01/26/24 11:09 Pulse Ox 96 01/26/24 11:09 O2 Del Method Room Air 01/26/24 11:09 O2 Flow Rate 2 01/26/24 07:23 Oxygen Flow Rate 2 01/25/24 13:03 BMI result Body Mass Index 25.6 Const: Other: Constitutional : Awake, makes eye contact, not much interactive, not in distress Neck : Normal inspection, Supple Oral mucosa moist, no oral thrush, tongue clean Cardiovascular : RRR, no JVP, no lower extremity edema Respiratory : good bilateral air entry, basal fine crackles, wheezes or rhonchi Gastrointestinal: soft, Normal bowel sounds, Non tender, peg tube intact, dry dressing in place Skin : Warm, Dry Neurological : Alert , non-verbal, spastic, Objective Data Active Medications Enoxaparin Sodium (Enoxaparin Sodium 40 Mg/0.4 Ml Syringe) 40 mg SUBCUT Q24H [facility] Last Admin: 01/22/24 21:12 Dose: 40 mg Documented By: JUAN Fluconazole (Fluconazole 100 Mg Tablet) 100 mg G-TUBE BEDTIME [facility] Last Admin: 01/25/24 21:14 Dose: 100 mg Documented By: JATINDER Glucose (Glucose Gel 15 Gm Gel..Gram.) 15 gm PO Q15M PRN PRN Reason: per Hypoglycemia Standing Ord. Glucose (Glucose Gel 15 Gm Gel..Gram.) 15 gm PO Q15M PRN; Protocol PRN Reason: per Hypoglycemia Standing Ord. Piperacillin Sod/Tazobactam (Sod 4.5 gm/ Sodium Chloride) 100 mls @ 200 mls/hr IV Q6H [facility] Last Infusion: 01/26/24 09:00 Dose: Infused Documented By: ALIRIO Dextrose (D10) 250 mls @ 750 mls/hr IV Q15M PRN PRN Reason: per Hypoglycemia Standing Ord. Last Infusion: 01/25/24 07:05 Dose: Infused Documented By: JATINDER Lactated Ringer's (Lr) 1,000 mls @ 80 mls/hr IVCONT .[id number] [facility] Last Infusion: 01/25/24 07:19 Dose: Infused Documented By: ALIRIO Lactated Ringer's (Lr) 1,000 mls @ 50 mls/hr IVCONT .Q20H [facility] Last Admin: 01/24/24 13:45 Dose: Not Given Documented By: ALIRIO Non-Admin Reason: MD dougherty to keep LR 80ml/hr Dextrose (D10) 250 mls @ 750 mls/hr IV Q15M PRN; Protocol PRN Reason: per Hypoglycemia Standing Ord. Morphine Sulfate (Morphine Sulfate 2 Mg/Ml Cartridge) 1 mg IVPUSH Q4H PRN; Protocol PRN Reason: Pain, Severe (Pain Scale 7-10) Last Admin: 01/25/24 20:51 Dose: 1 mg Documented By: JATINDER Comments: DR. Zavala instructed to give pt Sodium Chloride (0.9 % Sodium Chloride Flush 3 Ml Syringe) [facility] Last Admin: 01/26/24 08:31 Dose: 3 ml Documented By: ALIRIO Labs 01/26/24 05:41 01/26/24 05:41 Labs: Laboratory Results - last 24 hr 01/26/24 01/26/24 01/26/24 05:41 05:41 05:41 MCV 76.3 L MCH 25.7 L MCHC 33.7 RDW 13.7 Plt Count 264 MPV 9.3 L Absolute Nucleated RBC 0.000 Nucleated RBC % (auto) 0.0 Anion Gap 10 L Estim Creat Clear Calc 69.1 69.1 Estimated GFR > 60 > 60 Random Glucose 135 H Calcium 8.2 L Microbiology Microbiology Results: Microbiology 01/20/24 15:53 Blood Culture - Final Blood - Venous No growth after 5 days. 01/20/24 15:53 Blood Culture - Final Blood - Venous No growth after 5 days. Assessment and Plan (1) S/P percutaneous endoscopic gastrostomy (PEG) tube placement: Status: Acute (2) Failure to thrive in adult: Status: Acute (3) Progressive neurological disorder: Status: Acute (4) Hypoxia: Status: Acute (5) Aspiration into airway: Status: Acute (6) Acute hypoxic respiratory failure: Status: Acute Plan Anthony Morales this is a 33 y/o man admitted with: Acute hypoxic respiratory failure secondary to bilateral pneumonia due to aspiration in setting of progressive neurological disorder complicated with FTT in adult Sepsis resolved, normal WBC no fever, Chronic hypotension from FTT, dehydration and decrease PO intake and not due to severe sepsis Negative blood cultures continue Zosyn (01/19), day 6 status post IV vanco, will discharge home on no further antibiotics. G-tube placed 01/[address] Finnegan, tolerating tube feeds with no residual, seen by speech therapy they recommend NPO and outpatient speech monitoring DC home with [facility]/home infusion and speech therapy at a.m. Supplemental O2 to keep O2 sats > 90% Not on home oxygen, will obtain Overnight finger oximetry for hypoxia. Family aware of discharge plan at a.m. Oropharynx candidiasis. Normal oral examination Fluconazole 100 mg daily, started on for total 10 days DVT prophylaxis: Lovenox Code status: Full code Patient will need hospitalization overnight for hypoxic respiratory failure secondary to bilateral pneumonia due to aspiration treatment with supplemental oxygen and IV antibiotic therapy and for overnight sleep study.. Quality Stroke Does the patient have a stroke diagnosis?: No VTE Prior VTE?: No VTE Risk Level:: Medical - moderate - high VTE Device Contraindication: Treatment Not Indicated VTE Drug Contraindication: N/A - Med Ordered
--- NOTE | 2024-01-26 14:16 | MHC.SL.SWA ---
Speech Pathologist Impression: Risk of Aspiration Due to: Dysphasia Diet Status: INSTRUCTIONAL WRITER will continue to follow to evaluate for supplemental PO feedings, dysphagia treatment. Liquid Consistency and Strategies for Safe Swallow: Liquid Intake Recommendation: Honey Thick Liquid Intake Strategies: Small Sips No Straws Liquids by Teaspoon Only Solid Food Consistency: Dietary Recommendations: NPO Oral Medication Intake: NPO Please contact the pharmacy regarding appropriate crushable or liquid drug formulations that are available whenever modified delivery is recommended. Compensatory Strategies and Precautions to be Taken for Safe Swallow: Sitting Upright (90 deg) Supervision While Eating and Drinking for Safe Swallow: PO with INSTRUCTIONAL WRITER Foods to Avoid: Swallowing Recommended Treatments: Oral Motor Exercises Base of Tongue Exercises Thermal Stimulation Gustatory Stimulation Compens. Strategy Educat. Recommendation for Speech: Inpatient Speech Therapy Speech Therapy through [facility] Comment: NPO strict d/t absence of anterior to posterior oral transit upon intake of 1/2 tsp trial of cold, sour bolus. Recc skilled ST to address rehabilitation of functional swallow. Prognosis guarded for resumption of safe PO intake given nature and severity of pt dysphagia. Frequency/Duration: Date Range for Service Req: Timeline to reassess: Button Breaker Clinican/Clinical Fellow: No Supervisory Statement: I have reviewed and agree with the student/clinical fellow's documentation: N/A Speech Language Pathologist: Clau Dumont M.S., CCC-INSTRUCTIONAL WRITER
[2024-01-26] MEDS: Fluconazole 100 MG TABLET G-TUBE (19:58)
--- NOTE | 2024-01-26 23:10 | PC.RT ---
Addendum entered by Ar House 01/27/24 04:23: Taken off NOC Oximetry 0410 Original Note: Started NOC Oximetry at 2300 pt on RA
[2024-01-27] MEDS: Piperacillin Sodium/Tazobactam 4.5 GM in 0.9 % Sodium Chloride 100 ML IV ×2 (01:30→08:48)
[2024-01-27 03:19] VITALS: BP 97/56; PULSE 62; RESP 18; TEMP 36.4; O2SAT 97
[2024-01-27 06:44] LABS: Creatinine Clr Calc Pharmacy 70.2; Estimated Glomerular Filt Rate > 60
[2024-01-27 07:49] VITALS: BP 80/55; PULSE 75; RESP 18; TEMP 36.6; O2SAT 97
[2024-01-27] MEDS: 0.9 % Sodium Chloride 500 ML 250 ML IVCONT (08:49)
[2024-01-27 10:39] LABS: Lactic Acid 1.4 mmol/L (0.5-2.0)
--- NOTE | 2024-01-27 11:55 | MHC.CM.PN ---
Patient qualifies for 3L of home O2 @ night, to be set up by RT. CM will follow.
[2024-01-27 12:00] VITALS: BP 94/69; PULSE 65; RESP 17; TEMP 36.6; O2SAT 97
--- NOTE | 2024-01-27 12:31 | MHC.SL.SWA ---
Speech Pathologist Impression: Risk of Aspiration Due to: Dysphasia Diet Status: FLORAL DESIGN TEACHER will continue to follow to evaluate for supplemental PO feedings, dysphagia treatment. Liquid Consistency and Strategies for Safe Swallow: Liquid Intake Recommendation: NPO Liquid Intake Strategies: Solid Food Consistency: Dietary Recommendations: NPO Additional Modifications to Solid Foods: Oral Medication Intake: NPO Please contact the pharmacy regarding appropriate crushable or liquid drug formulations that are available whenever modified delivery is recommended. Compensatory Strategies and Precautions to be Taken for Safe Swallow: Sitting Upright (90 deg) Supervision While Eating and Drinking for Safe Swallow: PO with FLORAL DESIGN TEACHER Foods to Avoid: Swallowing Recommended Treatments: Oral Motor Exercises Base of Tongue Exercises Thermal Stimulation Gustatory Stimulation Compens. Strategy Educat. Recommendation for Speech: Inpatient Speech Therapy Speech Therapy through [facility] Comment: Pt seen for dysphagia tx. Pt parents at bedside. Pt was alert, responsive to directions, appeared to be attempting to verbally communicate at times. FLORAL DESIGN TEACHER recommended strict NPO yesterday after trial of puree that patient was unable to propel, required suctioning to remove from mouth. Patient when directed smiled to spread lips, closed mouth to purse, and was able to partially protrude tongue from mouth with slowed movement. Patient given oral care by swab/mouthwash, with tongue noted to respond to swab. Patient when prompted was able to produce swallow on residual mouthwash in mouth. On second trial, patient noted to cough vigorously after swallow. Patient then given swab that had been dipped in ice with trace amount of water, again with good response from tongue to swab in mouth. Patient noted to spontaneously swallow three to four times during session. Father with ? about dysphagia, how food or liquid gets into airway, mechanism of swallowing. expressed concern that his son might forget how to swallow if he is not eating. FLORAL DESIGN TEACHER explained rational for TX, with parents agreeing. Frequency/Duration: Date Range for Service Req: Timeline to reassess: Paper Reclaiming Machine Operator Clinican/Clinical Fellow: No Supervisory Statement: I have reviewed and agree with the student/clinical fellow's documentation: N/A Speech Language Pathologist: Krista Butler M.A., [facility]-FLORAL DESIGN TEACHER
--- NOTE | 2024-01-27 12:31 | W.MHC.F2F ---
Service Date Service Date: 01/27/24 Encounter Date of encounter: 01/27/24 Reasons for Services Signs and symptoms assessed: tube feeding oxygen administration Reason for [facility]: teach disease management and other (tube feedings) Reason for speech therapy: swallowing impairment, speech impairment and cognitive impairment Overseeing Care: Mila Vazquez Homebound: Leaving the home is medically contraindicated at this time without the asist of a device and/or another person due th the listed conditions above and below. Reason homebound: leg weakness, cognitively impaired / unsafe and weakness related to hospital stay Certification: Based on the above findings, I certify that this patient is confined to the home and needs intermittent [facility] care, physical therapy and/or speech therapy, or continues to need occupational therapy. The patient is under my care, and I have initiated the establishment of the plan of care. The patient will be followed by a physician who will periodically review the plan of care. Time Spent With Patient Time: Total time managing care of this patient today ____ minutes.
--- NOTE | 2024-01-27 12:35 | P.DS_ITS ---
DS: Providers Provider Date of Service: 01/27/24 Date of admission: 01/20/24 20:43 Primary care physician: Mila Vazquez NP Consults: 01/21/24 10:28 Consult to General Surgery [place]ine Consulting [place] [facility] [place] Reason for consultation: Need of PEG tube placement DS: Diagnosis Discharge Diagnosis (1) S/P percutaneous endoscopic gastrostomy (PEG) tube placement: Status: Acute (2) Failure to thrive in adult: Status: Acute (3) Progressive neurological disorder: Status: Acute (4) Acute hypoxic respiratory failure: Status: Acute (5) Aspiration pneumonia: Status: Acute (6) Sepsis: Status: Acute (7) Oropharyngeal candidiasis: Status: Acute (8) Cerebral palsy: Status: Acute DS: Summary Hospital Course Hospital Course: From the history and physical by the admitting hospitalist, Aury Garcia MD, 01/20/24: Anthony Coellosriramradha this is a 33 years old man with past medical history significant for cerebral palsy, nonverbal and aspiration who was brought to the emergency department via EMS accompanied by his father who was at bedside due to poor appetite over the last 3 days. His father is a poor historian walked mentioned that he noted that patient has some sort infection in his throat and has been having problem swallowing. No vomiting or diarrhea noted. In the ED, he was found to have tachycardia fever and tachypnea. He is currently requiring supplemental oxygen via mask 15 L/min. Blood workup was remarkable for leukocytosis of 16.9 with a lactic acidosis. Differential showed toxic vacuolation, toxic granulation and bandemia of 22%. Urinalysis consistent with urinary tract infection. Viral testing for COVID-19, RSV and influenza is negative. Chest CTA showed no evidence of PE but showed bilateral lower lobe pneumonia. ECG showed sinus tachycardia with a heart rate 120 bpm without concern for ischemic changes. ED tx: NS 2 L bolus, Cefepime 1 g IV, vancomycin 1 g IV, acetaminophen 650 mg [place] He was admitted to the hospitalist service and treated with IV piperacillin- tazobactam. He was kept strictly NPO. Due to overt aspiration, General Surgery was consulted and he underwent PEG placement on 01/24/24. Tube feeds were started and advanced to goal [Jevity 1.0 at 45 mL/hr with 120 mL free water flushes q8h]. Oxygen was weaned but he did qualify for 3L of home oxygen. He was treated with fluconazole for oropharyngeal candidiasis. He was discharged on amoxicillin-clavaulanate and fluconazole and will need ongoing speech therapy. Time Attestation Discharge Coordination Time (in mins): 45 Quality: Safe Use of Opioids Does Pt have an Active Cancer Diagnosis on the Problem List?: No Quality: Stroke Does the patient have a stroke diagnosis?: No Physical Exam Vital Signs: Vital Signs: Last Vital Signs Temp 97.9 F 01/27/24 12:00 Pulse 65 01/27/24 12:00 Resp 17 01/27/24 12:00 BP 94/69 01/27/24 12:00 Pulse Ox 97 01/27/24 12:00 O2 Del Method Room Air 01/27/24 12:00 O2 Flow Rate 2 01/26/24 07:23 Oxygen Flow Rate 2 01/25/24 13:03 BMI result Body Mass Index 25.6 Gen: in no acute distress, nonverbal HEENT: sclera anicteric, moist mucus membranes Neck: supple Lungs: clear to auscultation bilaterally Heart: regular rate and rhythm, no murmurs Abd: soft, non-tender, non-distended, PEG tube in place without leakage or infection Ext: no edema Skin: warm/well-perfused Neuro: alert, non-verbal, spastic DS: Data Data Completed and Pending Completed studies during hospitalization [Text1]: Laboratory Results WBC 7.1 X10*3/uL (4.8-10.8) 01/26/24 05:41 RBC 4.39 X10*6/uL (4.60-5.80) L 01/26/24 05:41 Hgb 11.3 g/dl (14.0-18.0) L 01/26/24 05:41 Hct 33.5 % (42.0-52.0) L 01/26/24 05:41 MCV 76.3 fL (80.0-98.0) L 01/26/24 05:41 MCH 25.7 pg (27.0-33.0) L 01/26/24 05:41 MCHC 33.7 g/dl (31.0-36.0) 01/26/24 05:41 RDW 13.7 % (11.0-16.0) 01/26/24 05:41 Plt Count 264 X10*3/uL (160-400) 01/26/24 05:41 MPV 9.3 fL (9.4-12.4) L 01/26/24 05:41 Immature Gran % (Auto) 0.4 % (0.0-0.4) 01/21/24 06:00 Neut % (Auto) 83.2 % (45-73) H 01/21/24 06:00 Lymph % (Auto) 11.1 % (20-40) L 01/21/24 06:00 [place] % (Auto) 5.1 % (2-11) 01/21/24 06:00 Eos % (Auto) 0.0 % (0-4) 01/21/24 06:00 Baso % (Auto) 0.2 % (0-2) 01/21/24 06:00 Lymph # (Auto) 1.5 X10*3/uL (1.2-4.9) 01/21/24 06:00 [place] # (Auto) 0.7 X10*3/uL (0.1-1.2) 01/21/24 06:00 Eos # (Auto) 0.0 X10*3/uL (0.0-0.4) 01/21/24 06:00 Baso # (Auto) 0.0 X10*3/uL (0.0-0.2) 01/21/24 06:00 Abs Immat Gran (auto) 0.05 X10*3/uL (0.00-0.03) H 01/21/24 06:00 Absolute Neuts (auto) 11.0 x10*3/uL (2.0-8.3) H 01/21/24 06:00 Absolute Nucleated RBC 0.000 X10*3/uL (0.0-0.012) 01/26/24 05:41 Nucleated RBC % (auto) 0.0 /100WBC (0.0-0.2) 01/26/24 05:41 Neutrophils % (Manual) 70 % (45-73) 01/20/24 17:00 Band Neutrophils % 22 % (3-5) H 01/20/24 17:00 Lymphocytes % (Manual) 3 % (20-40) L 01/20/24 17:00 Monocytes % (Manual) 3 % (2-11) 01/20/24 17:00 Metamyelocytes % 1 % 01/20/24 17:00 Myelocytes % 1 % 01/20/24 17:00 Abs Neuts (Manual) 10.8 X10*3/uL (2.0-8.3) H 01/20/24 17:00 Lymphocytes # (Manual) 0.4 X10*3/uL (1.2-4.9) L 01/20/24 17:00 Monocytes # (Manual) 0.4 X10*3/uL (0.1-1.2) 01/20/24 17:00 Metamyelocytes # 0.1 X10*3/uL 01/20/24 17:00 Myelocytes # 0.1 X10*/uL 01/20/24 17:00 Toxic Granulation PRESENT 01/20/24 17:00 Toxic Vacuolation PRESENT 01/20/24 17:00 Dohle Bodies PRESENT 01/20/24 17:00 Platelet Estimate NORMAL (NORMAL) 01/20/24 17:00 Plt Morphology Comment NORMAL 01/20/24 17:00 RBC Morphology NOTED 01/20/24 17:00 Polychromasia 1+ (0-2) /OIF 01/20/24 17:00 PT 17.6 SEC (10.9-12.4) H 01/20/24 17:00 INR 1.5 (0.9-1.1) H 01/20/24 17:00 D-Dimer High Sensitivty 1034 NG/ML 01/20/24 17:00 VBG pH 7.53 (7.32-7.43) H 01/20/24 16:04 VBG pCO2 25 mmHg 01/20/24 16:04 VBG pO2 100 mmHg 01/20/24 16:04 VBG HCO3 21 mmol/L (22-26) L 01/20/24 16:04 VBG O2 Saturation 98.0 % 01/20/24 16:04 VBG Base Excess 0.8 mmol/L 01/20/24 16:04 Sodium 140 mmol/L (135-145) 01/26/24 05:41 Potassium 3.4 mmol/L (3.3-5.1) 01/26/24 05:41 Chloride 106 mmol/L (96-108) 01/26/24 05:41 Carbon Dioxide 27 mmol/L (22-29) 01/26/24 05:41 Anion Gap 10 (12-20) L 01/26/24 05:41 BUN 5 mg/dL (9-16) L 01/26/24 05:41 Creatinine 0.60 mg/dL (0.5-1.4) 01/27/24 05:55 Estim Creat Clear Calc 70.2 01/27/24 05:55 Estimated GFR > 60 01/27/24 05:55 POC Glucose 137 mg/dL (60-115) H 01/25/24 07:03 Random Glucose 135 mg/dL (60-115) H 01/26/24 05:41 Lactic Acid 1.4 mmol/L (0.5-2.0) 01/27/24 10:00 Lactic Acid F/U @ 2Hr 1.6 mmol/L (0.5-2.0) 01/20/24 18:11 Calcium 8.2 mg/dL (8.4-10.2) L 01/26/24 05:41 Magnesium 2.1 mg/dL (1.6-2.6) 01/21/24 06:00 Total Bilirubin 0.7 mg/dL (0.0-1.0) 01/21/24 06:00 Direct Bilirubin 0.3 mg/dL (0.0-0.5) 01/20/24 17:00 AST 40 U/L (5-37) H 01/21/24 06:00 ALT 12 U/L (0-40) 01/21/24 06:00 Alkaline Phosphatase 54 U/L (39-117) 01/21/24 06:00 Troponin I High Sens 11.7 ng/L (<3.5-35.0) 01/20/24 15:53 B-Natriuretic Peptide 46 pg/mL (<100) 01/20/24 15:53 Total Protein 6.4 g/dL (6.5-8.0) L 01/21/24 06:00 Albumin 2.8 g/dL (3.5-5.0) L 01/21/24 06:00 Lipase 9 U/L (8-78) 01/20/24 17:00 Urine Color Yellow 01/20/24 17:28 Urine Appearance Cloudy 01/20/24 17:28 Urine pH 5.5 (5.0-9.0) 01/20/24 17:28 Ur Specific [place] >= 1.030 (1.005-1.025) H 01/20/24 17:28 Urine Protein 100 (2+) mg/dL (Neg-Trace) H 01/20/24 17:28 Urine Glucose (UA) Negative mg/dL (Negative) 01/20/24 17:28 Urine Ketones Trace mg/dL (Negative) 01/20/24 17:28 Urine Blood Moderate (2+) (Negative) H 01/20/24 17:28 Urine Nitrite Negative (Negative) 01/20/24 17:28 Ur Leukocyte Esterase Negative (Negative) 01/20/24 17:28 Urine RBC 6-10 /HPF (0-2) H 01/20/24 17:28 Urine WBC 0-5 /HPF (0-5) 01/20/24 17:28 Ur Squamous Epith Cells 6-10 /HPF (0-2) 01/20/24 17:28 Urine Bacteria None Seen (None Seen) 01/20/24 17:28 Hyaline Casts 3-5 /LPF (0-2) 01/20/24 17:28 Random Vancomycin 22.3 mcg/mL (15-20) H 01/23/24 14:10 Influenza Type A (PCR) NEGATIVE (Negative) 01/20/24 16:00 Influenza Type B (PCR) NEGATIVE (Negative) 01/20/24 16:00 RSV RNA Qual (PCR) NEGATIVE (Negative) 01/20/24 16:00 SARS-CoV-2 RNA (RT-PCR) NEGATIVE (Negative) 01/20/24 16:00 S. pyogenes GrpA RYAN Negative (Negative) 01/20/24 16:00 Impressions Chest X-Ray 01/20/24 15:24 IMPRESSION: Findings as above. Electronically signed by: Delvin Esposito MD 01/20/2024 05:50 PM EDT RP Chest CTA 01/20/24 18:26 IMPRESSION: No evidence for acute or chronic pulmonary embolism. Bilateral lower lobe pneumonia. Fleischner guidelines were followed. Electronically signed by: Emir Olmos MD 01/20/2024 06:50 PM EDT RP Discharge Plan Discharge Anticipated Discharge Date/Time: 01/27/24 12:28 Patient Disposition: Home Health Service Discharge Diagnosis: Aspiration pneumonia Failure to thrive in adult Referrals: [facility] [Other] - 1 Week [facility] [Outside] - 1 Week Mila Vazquez NP [Primary Care Provider] - 1 Week Discharge Medications: New fluconazole 100 mg Tablet 100 mg feeding tube BEDTIME Qty: 10 0RF amoxicillin-pot clavulanate 400-57 mg/5 mL suspension for reconstitution 10 ml PO BID Qty: 100 0RF Continued acetaminophen [Children's Acetaminophen] 160 mg/5 mL liquid 480 mg PO Q6H PRN (Reason: fever) Discharge Orders: Discharge Order (Routine); Ordered 01/27/24 Ordered By: Lianet Aguila Diet: Tube feed Activity on Discharge: As tolerated Stand Alone Forms: Patient Portal Discharge page Print Language: Persian Care Plan Goals: treat pneumonia, prevent aspiration Health Concerns: Pneumonia Aspiration Plan of Treatment: Tube-feeding: JEVITY 1.0 AT MAX GOAL RATE 45ML/HR WITH 120ML FREE WATER FLUSHES Q 8 HRS Continue amoxicillin-clavulanate for 5 days Continue fluconazole for 10 days Keep head elevated 1-2 hours after feeding Assessment: As above Patient Instructions: Hypoxia (ED), Pneumonia (ED)
--- NOTE | 2024-01-27 12:39 | MHC.CM.PN ---
Per MD, Patient is medically cleared for dc to home today, with services. [facility] & [facility] have been notified of today's dc. O2 has been set up by RT and RN has given Patient's Parents a 2 day supply of all gtube supplies (formula, syringes, sterile H20). CM met with Patient and his Parents at bedside and provided Patient's Father with the original IMM and a copy has been placed on the chart (along with a copy of the Guardianship).
--- NOTE | 2024-01-27 12:46 | MHC.CM.PN ---
CURT informed Brown Riggs) of the dc plan via [employer] and detailed message @ [phone].
--- NOTE | 2024-01-27 13:03 | PC.NURSE ---
Pt d/c home with parents at ~1300. IVs removed with catheter tips intact, no s/s infection noted. Provided with 2 day supply of tube feed, sringes and sterile water per [facility] RN. All teaching done yesterday by [facility] and family continued to verbalize understanding today. Scripts sent to pts pharmacy
== END 2024-01-27 13:05 | disposition home health service (06) | DRG 871 ==
LOC: HO.ED 21:22 → HO.EDOVER 21:43 → HO.IMC 01-21 02:42
PROVIDERS: Emergency Medicine Emergency Medical Services; Physician Assistant; Student in an Organized Health Care Education/Training Program; Surgery; Admitting Provider Internal Medicine; Emergency Provider Emergency Medicine; PCP Nurse Practitioner Family; Visit Provider Family Medicine
PROC: 0DH63UZ Insertion of Feeding Device into Stomach, Percutaneous Approach (ICD-10-PCS; CPT 43246; principal; 2024-01-24 11:00)
DX: A41.9 Sepsis, unspecified organism (principal); J69.0 Pneumonitis due to inhalation of food and vomit; J96.01 Acute respiratory failure with hypoxia; B37.81 Candidal esophagitis; G80.9 Cerebral palsy, unspecified; E86.0 Dehydration; R62.7 Adult failure to thrive; Z68.25 Body mass index [BMI] 25.0-25.9, adult; Z20.822 Contact with and (suspected) exposure to COVID-19
CPT/HCPCS: 0241U; 36415; 71045; 71275; 80048; 80053; 80202; 81001; 82248; 82565; 82803; 82947; 83605; 83690; 83735; 83880; 84484; 85007; 85025; 85027; 85379; 85610; 87040; 87086; 87651; 92610; 93005; 99285; J0131; J0692; J1450; J1596; J1650; J1885; J2003; J2250; J2270; J2543; J2704; J3010; J3370; J3480; J7120; Q9967

== ENCOUNTER → 2024-01-20 15:29 | Outpatient (BNV) | payer MEDICARE, SELFPAY | PROVIDERS: Admitting Provider Internal Medicine; Emergency Provider Emergency Medicine; PCP Nurse Practitioner Family; Visit Provider Internal Medicine | DX: R94.31 Abnormal electrocardiogram [ECG] [EKG] (principal) | CPT/HCPCS: 93010 ==

== ENCOUNTER → 2024-01-20 15:38 | Outpatient (BNV) | payer MEDICARE, SELFPAY | PROVIDERS: Emergency Provider Emergency Medicine; PCP Nurse Practitioner Family; Visit Provider Internal Medicine | DX: J96.01 Acute respiratory failure with hypoxia (principal); J69.0 Pneumonitis due to inhalation of food and vomit; R62.7 Adult failure to thrive; Z93.1 Gastrostomy status; R29.818 Other symptoms and signs involving the nervous system | CPT/HCPCS: 99223; 99232; 99233; 99239; G0180 ==

== ENCOUNTER 2024-01-20 20:43 | Outpatient (BNV) | payer MEDICARE, SELFPAY | END 2024-01-21 | PROVIDERS: Admitting Provider Internal Medicine; Emergency Provider Emergency Medicine; PCP Nurse Practitioner Family; Visit Provider Internal Medicine | DX: R94.31 Abnormal electrocardiogram [ECG] [EKG] (principal) | CPT/HCPCS: 93010 ==

== ENCOUNTER → 2024-01-20 20:43 | Outpatient (BNV) | payer MEDICARE, SELFPAY | PROVIDERS: Admitting Provider Internal Medicine; Emergency Provider Emergency Medicine; PCP Nurse Practitioner Family; Visit Provider Surgery | DX: R62.7 Adult failure to thrive (principal); Z93.1 Gastrostomy status; R29.818 Other symptoms and signs involving the nervous system | CPT/HCPCS: 43246; 99222; 99232; 99499 ==

== ENCOUNTER 2024-01-31 13:18 | Emergency (ER) | payer MEDICARE, SELFPAY ==
--- NOTE | ~2024-01-31 | XR_ITS ---
EXAMINATION: XR CHEST CLINICAL INFORMATION: Shortness of breath COMPARISON: Chest x-ray 01/20/2024. CT angiogram chest 01/20/2024 TECHNIQUE: Frontal view of the chest was obtained. FINDINGS: Lungs and pleural spaces: Previously noted lower lung opacities no longer visualized. Lungs appear clear. Cardiomediastinal silhouette normal. XR/XR chest 1V IMPRESSION: No acute disease. Previously noted opacities best seen on CT examination not conspicuous on this x-ray. Electronically signed by: Pradeep Cheatham MD 01/31/2024 04:05 PM LOIS
[2024-01-31 13:46] VITALS: BP 108/62; PULSE 102; RESP 20; TEMP 37.2; O2SAT 90; BMI 14.1
--- NOTE | 2024-01-31 13:46 | ED.GENADULT ---
HPI - General Adult General Chief complaint: Dyspnea Stated complaint: pneumonia ? Time Seen by Provider: 01/31/24 14:33 History of Present Illness ED Provider: Jerzy SOLOMON narrative: The patient is a 33-year-old male with severe disabilities related to cerebral palsy. He lives at home in his cared for primarily by his family. He has a occasional visiting nurses. He comes to the emergency room because he has been having worsening shortness of breath since last night. He has had a cough. His parents think he may have had a fever. Related Data Home Medications ?Medication ?Instructions ?Recorded ?Confirmed acetaminophen 160 mg/5 mL oral 480 mg PO Q6H PRN fever 01/20/24 01/20/24 liquid (Children's Acetaminophen) Previous Rx's ?Medication ?Instructions ?Recorded amoxicillin 400 mg-potassium 10 ml PO BID #100 mL 01/25/24 clavulanate 57 mg/5 mL oral suspension fluconazole 100 mg tablet 100 mg feeding tube BEDTIME #10 01/25/24 tabs acetaminophen 160 mg/5 mL oral 480 mg (15 mL) PO Q6H PRN fever 01/31/24 liquid #473 mL Allergies Allergy/AdvReac Type Severity Reaction Status Date / Time No Known Allergies Allergy Unverified 01/31/24 13:49 Review of Systems Review of Systems: Yes Unobtainable due to mental status PMFSH Social History Social History Household Members: Family Housing: House Are you a primary nurse healthcare manager to a significant other at home: No Do you presently have visiting nurse or other home services: Yes Comment: Family member bedside Patient Tobacco Use Status: Never used Tobacco Second Hand Smoke Exposure: No Advance Directives: Yes Advance Directives on File: Yes Advance Directives Date on File: 01/20/24 Do you have a plan to hurt others: No Plan service: No Physical Exam ED Vital Signs: Vital Signs - 24 hr 01/31/24 13:46 01/31/24 17:51 Temperature 98.9 F 98.8 F Pulse Rate 102 H 92 Respiratory Rate 20 18 Blood Pressure 108/62 151/65 H Pulse Oximetry 90 L 96 Oxygen Delivery Method Room Air Room Air BMI result Body Mass Index 14.1 Const Other: The patient is a chronically ill 33-year-old male. He is nonverbal at baseline. his eyes were open but he did not respond significantly to interaction otherwise. He was not showing any signs of increased work of breathing or respiratory distress however. HENMT Other: Airway was clear. Mucous membranes moist. Face is symmetrical. Eyes Other: The patient open his eyes spontaneously. Pupils were round equal. Conjunctivae clear. Extraocular movements seem to be intact. Neck Other: No nuchal rigidity. No stridor. No adenopathy. Resp Other: No increased work of breathing. Patient's respiratory effort was very quiet. however I do not appreciate any wheezes or crackles. Cardio Rate: regular rate Rhythm: regular rhythm Heart sounds: S1 normal heart sound present and S2 normal heart sound present GI Other: The abdomen is flat and soft. There is a feeding tube present. There is no apparent tenderness. No distension. Skin Other: Skin is pale and dry. Neuro Other: The patient seems awake but is not significantly interactive. The patient is nonverbal. Pupils were round equal. No obvious facial asymmetry. He had poor tone throughout and did not exhibit any purposeful movements. Extrem Other: The patient has atrophied extremities. No asymmetry or swelling. Course Course Course Narrative: RME performed by Nova Carr PA-C. Patient is a 33 year old assigned male at presenting to the emergency department with worsening cough. Patient's father states that the patient has had a much worse cough that is yellowish. Detailed physical exam and review of systems are deferred to the admissions clinician. Labs, imaging, and swabs ordered. Patient placed back in the waiting room pending room availability and results. Medical Decision Making Medical Decision Making [facility] Narrative: The patient is a significantly disabled 33-year-old with cerebral palsy who lives at home with his parents. He is on oxygen at home. He recently had a feeding tube after hospitalization for aspiration pneumonia. The patient presents with a 1 day history of worsening cough and shortness of breath at home. His family thought he probably had a fever. He apparently had been exhibiting signs of respiratory distress before having his airway suction by respiratory therapy. This occurred prior to my evaluation. At the time that I saw the patient he was on his usual home oxygen. He did not seem to be exhibiting any respiratory distress. Lungs seemed clear. The patient's workup in the emergency room is significant for a clear chest x-ray and a positive RSV swab. The patient's father was at the bedside. I explained that the patient seems to have RSV for which there is no specific treatment. The patient had been observed for many hours after being suctioned and did not have any recurrence of respiratory distress. I felt the patient was appropriate for discharge home with recommendation for acetaminophen for fever control. Lab Data 01/31/24 14:41 01/31/24 14:41 Labs: Lab Results 01/31/24 01/31/24 Range/Units 14:41 15:29 WBC 10.3 (4.8-10.8) X10*3/uL RBC 4.97 (4.60-5.80) X10*6/uL Hgb 12.8 L (14.0-18.0) g/dl Hct 38.6 L (42.0-52.0) % MCV 77.7 L (80.0-98.0) fL MCH 25.8 L (27.0-33.0) pg MCHC 33.2 (31.0-36.0) g/dl RDW 14.9 (11.0-16.0) % Plt Count 386 D (160-400) X10*3/uL MPV 9.2 L (9.4-12.4) fL Immature Gran % (Auto) 0.3 (0.0-0.4) % Neut % (Auto) 85.6 H (45-73) % Lymph % (Auto) 8.3 L (20-40) % [place] % (Auto) 4.7 (2-11) % Eos % (Auto) 0.8 (0-4) % Baso % (Auto) 0.3 (0-2) % Lymph # (Auto) 0.9 L (1.2-4.9) X10*3/uL [place] # (Auto) 0.5 (0.1-1.2) X10*3/uL Eos # (Auto) 0.1 (0.0-0.4) X10*3/uL Baso # (Auto) 0.0 (0.0-0.2) X10*3/uL Abs Immat Gran (auto) 0.03 (0.00-0.03) X10*3/uL Absolute Neuts (auto) 8.8 H (2.0-8.3) x10*3/uL Absolute Nucleated RBC 0.000 (0.0-0.012) X10*3/uL Nucleated RBC % (auto) 0.0 (0.0-0.2) /100WBC Sodium 135 (135-145) mmol/L Potassium 3.9 (3.3-5.1) mmol/L Chloride 102 (96-108) mmol/L Carbon Dioxide 25 (22-29) mmol/L Anion Gap 12 (12-20) BUN 15 (9-16) mg/dL Creatinine 0.69 (0.5-1.4) mg/dL Estim Creat Clear Calc 82.2 Estimated GFR > 60 Random Glucose 134 H (60-115) mg/dL Calcium 9.5 D (8.4-10.2) mg/dL Magnesium 2.3 (1.6-2.6) mg/dL Total Bilirubin 0.4 (0.0-1.0) mg/dL AST 31 (5-37) U/L ALT 45 H (0-40) U/L Alkaline Phosphatase 61 (39-117) U/L C-Reactive Protein 2.32 H (< or = 0.50) mg/dL Total Protein 9.1 H (6.5-8.0) g/dL Albumin 3.8 (3.5-5.0) g/dL Influenza Type A (PCR) NEGATIVE (Negative) Influenza Type B (PCR) NEGATIVE (Negative) RSV RNA Qual (PCR) POSITIVE A (Negative) SARS-CoV-2 RNA (RT-PCR) NEGATIVE (Negative) Discharge Plan Discharge Clinical Impression: RSV infection Patient Disposition: Home, Self-Care Additional Instructions: He has tested positive for RSV, a virus that causes cough and other respiratory symptoms. The symptoms of RSV are essentially the symptoms have a bad cold. There is no specific treatment for RSV infections. I have sent a prescription for acetaminophen that you may use every 6 hours as needed for fevers or discomfort. Please give the medicine through the feeding tube. Please stay in touch with your visiting nurse and your regular doctor. Return to the emergency room if significantly worse. Prescriptions: New acetaminophen 160 mg/5 mL liquid 480 mg PO Q6H PRN (Reason: fever) Qty: 473 0RF No Action acetaminophen [Children's Acetaminophen] 160 mg/5 mL liquid 480 mg PO Q6H PRN (Reason: fever) fluconazole 100 mg Tablet 100 mg feeding tube BEDTIME Qty: 10 0RF amoxicillin-pot clavulanate 400-57 mg/5 mL suspension for reconstitution 10 ml PO BID Qty: 100 0RF Referrals: Mila Vazquez NP [Primary Care Provider] - (RSV) Interventions: ED Discharge Assessment Last Done: 01/31/24 17:51 Discharge Date/Time: 01/31/24 17:52 Print Language: Icelandic
--- NOTE | 2024-01-31 13:52 | PC.NURSE ---
Ot has had recent Gtube placement, is tolerating tube feeds at this time. Dad stated that they do it tube feeds while he is sitting up.
[2024-01-31 14:45] LABS: MANUAL DIFF FLAG NO
[2024-01-31 14:51] LABS: Basophils Percent Auto 0.3 % (0-2); Eosinophils Absolute Auto 0.1 X10*3/uL (0.0-0.4); Eosinophils Percent Auto 0.8 % (0-4); Hematocrit 38.6 % (42.0-52.0); Hemoglobin 12.8 g/dl (14.0-18.0); Imm Gran Abs Auto 0.03 X10*3/uL (0.00-0.03); Imm Gran Pct Auto 0.3 % (0.0-0.4); Lymphocytes Absolute Auto 0.9 X10*3/uL (1.2-4.9); Lymphocytes Percent Auto 8.3 % (20-40); Mean Corpuscular HGB Conc 33.2 g/dl (31.0-36.0); Mean Corpuscular Hemoglobin 25.8 pg (27.0-33.0); Mean Corpuscular Volume 77.7 fL (80.0-98.0); Mean Platelet Volume 9.2 fL (9.4-12.4); Monocytes Absolute Auto 0.5 X10*3/uL (0.1-1.2); Monocytes Percent Auto 4.7 % (2-11); Neutrophils Absolute Auto 8.8 x10*3/uL (2.0-8.3); Neutrophils Percent Auto 85.6 % (45-73); Platelet Count 386 X10*3/uL (160-400); Red Blood Count 4.97 X10*6/uL (4.60-5.80); Red Cell Distribution Width 14.9 % (11.0-16.0); White Blood Count 10.3 X10*3/uL (4.8-10.8)
[2024-01-31 15:04] LABS: Alanine Aminotransferase 45 U/L (0-40); Albumin Level 3.8 g/dL (3.5-5.0); Alkaline Phosphatase 61 U/L (39-117); Anion Gap 12 (12-20); Aspartate Amino Transferase 31 U/L (5-37); Bilirubin Total 0.4 mg/dL (0.0-1.0); Blood Urea Nitrogen 15 mg/dL (9-16); Calcium 9.5 mg/dL (8.4-10.2); Carbon Dioxide 25 mmol/L (22-29); Chloride 102 mmol/L (96-108); Creatinine Clr Calc Pharmacy 82.2; Estimated Glomerular Filt Rate > 60; Glucose Random 134 mg/dL (60-115); Magnesium 2.3 mg/dL (1.6-2.6); Potassium 3.9 mmol/L (3.3-5.1); Sodium 135 mmol/L (135-145); Total Protein 9.1 g/dL (6.5-8.0)
--- NOTE | 2024-01-31 15:30 | MHC.CM.ED ---
Received notification from [facility] that patient is active with their agency. Return referral for [facility] made in [facility] so agency can follow for d/c needs.
[2024-01-31 16:12] LABS: C Reactive Protein 2.32 mg/dL (< or = 0.50)
[2024-01-31 16:15] LABS: Influenza A PCR NEGATIVE (Negative); Influenza B PCR NEGATIVE (Negative); Resp Syncy Virus RNA Qual PCR POSITIVE (Negative); SARS COV2 PCR INHOUSE NEGATIVE (Negative)
[2024-01-31 17:51] VITALS: BP 151/65; PULSE 92; RESP 18; TEMP 37.1; O2SAT 96
== END 2024-01-31 17:52 | disposition home or self-care (01) ==
PROVIDERS: Physician Assistant Medical; Emergency Provider Emergency Medicine; PCP Nurse Practitioner Family
DX: J06.9 Acute upper respiratory infection, unspecified (principal); B97.4 Respiratory syncytial virus as the cause of diseases classified elsewhere; R06.00 Dyspnea, unspecified; Z03.818 Encounter for observation for suspected exposure to other biological agents ruled out; Z79.899 Other long term (current) drug therapy
CPT/HCPCS: 0241U; 71045; 80053; 83735; 85025; 86140; 99283

== ENCOUNTER 2024-02-07 19:12 | Inpatient (IN) | payer OTHER, SELFPAY ==
[2024-02-07] VITALS (10 sets, daily range): BP systolic 92–142; BP diastolic 57–87; PULSE 90–150; RESP 16–28; TEMP 38.5–40.2; O2SAT 80–100; BMI 12.1
--- NOTE | ~2024-02-07 | XR_ITS ---
EXAMINATION: XR CHEST CLINICAL INFORMATION: increased oxygen requirement COMPARISON: X-ray dated February 09, 2024. TECHNIQUE: Frontal view of the chest was obtained. FINDINGS: Haziness in the mid to lower left hemithorax. Multifocal patchy opacities involving mostly the lower hemithoraces. No pneumothorax. Cardiomediastinal silhouette is normal in size. XR/XR chest 1V IMPRESSION: Multifocal pneumonia with likely left-sided pleural effusion, moderate volume. Electronically signed by: John Salvador MD 02/10/2024 11:21 AM LOIS
--- NOTE | ~2024-02-07 | XR_ITS ---
EXAMINATION: XR CHEST CLINICAL INFORMATION: Central line placement. COMPARISON: Most recent chest radiograph done earlier the same day. TECHNIQUE: Frontal view of the chest was obtained. FINDINGS: Right-sided central venous catheter with the tip in the region of the SVC. Stable layering left-sided pleural effusion. No right-sided pleural effusion. No pneumothorax. Patchy right basilar opacities are unchanged. No increasing airspace consolidation. Stable cardiomediastinal silhouette. XR/XR chest 1V IMPRESSION: 1. Right-sided central venous catheter with the tip in the region of the SVC. 2. Stable layering left-sided pleural effusion and patchy right basilar opacities. No increasing airspace consolidation. Electronically signed by: Emigdio Glass MD 02/10/2024 08:36 PM LOIS
--- NOTE | ~2024-02-07 | XR_ITS ---
EXAMINATION: XR CHEST CLINICAL INFORMATION: Sudden resp distress/ desat COMPARISON: Most recent CT chest dated 02/08/2024. TECHNIQUE: Frontal view of the chest was obtained. FINDINGS: Patchy bilateral lower lobe airspace opacities are similar when compared to the prior CT. No pleural effusion or pneumothorax. Stable cardiomediastinal silhouette. XR/XR chest 1V IMPRESSION: Patchy bilateral lower lobe airspace opacities, similar when compared to the prior CT. Electronically signed by: Emigdio Glass MD 02/09/2024 04:25 PM EST
--- NOTE | ~2024-02-07 | XR_ITS ---
EXAMINATION: XR CHEST CLINICAL INFORMATION: cp COMPARISON: Chest radiograph 01/31/2024. CT chest 01/20/2024. TECHNIQUE: Frontal view of the chest was obtained. FINDINGS: Normal appearance of the cardiomediastinal structures. Pleura no focal pulmonary consolidation. Normal pattern of pulmonary vasculature. No suspicious skeletal abnormalities identified. XR/XR chest 1V IMPRESSION: No acute cardiopulmonary abnormalities. Electronically signed by: Tony Norman MD 02/08/2024 12:15 AM LOIS
--- NOTE | ~2024-02-07 | XR_ITS ---
EXAMINATION: XR CHEST CLINICAL INFORMATION: Follow up on pneumonia COMPARISON: 02/10/2024 TECHNIQUE: Portable 9:37 AM view of the chest was obtained. FINDINGS: Central line similar. Retrocardiac infiltrate slightly improved but persistent. Right lung clear. No other change. XR/XR chest 1V IMPRESSION: Improving but persistent retrocardiac infiltrate. Electronically signed by: Emir Olmos MD 02/12/2024 12:00 PM LOIS
--- NOTE | ~2024-02-07 | CT_ITS ---
EXAMINATION: CT CHEST WITH CONTRAST CLINICAL INFORMATION: Hypoxia. Aspiration COMPARISON: CT injured chest PE protocol dated January 20, 2024. TECHNIQUE: Multidetector volumetric CT imaging of the chest was obtained after the administration of 65 mL of Omnipaque 350 intravenous contrast without reported immediate adverse reactions. Axial MIP volume rendering provided. Sagittal and coronal reformatted images were obtained. This CT examination was performed using dose optimization techniques as appropriate, variously including the following: *Automated exposure control *Adjustment of mA and/or kV according to patient size (this includes techniques or standardized protocols for targeted exams where dose is matched to indication/reason for exam; i.e. extremities or head) *Use of iterative reconstruction technique DLP: 173 mGy-cm FINDINGS: Limited by patient's breathing motion artifact. Multifocal patchy peribronchial vascular bundle groundglass in nodularity, both lower lung lobes. No pleural effusion. No pneumothorax. No bronchiectasis. No honeycombing. No mediastinal lymphadenopathy. No pericardial effusion. No aneurysm or dissection, thoracic aorta. Edema pattern in the fat planes soft tissues of the chest. No acute fracture or listhesis in the axial skeleton. Thyroid gland is not enlarged. . CT/CT chest w IV con IMPRESSION: Multifocal pneumonia, lower lung lobes. Mycobacterium etiology should be considered. Fleischner guidelines were followed. Electronically signed by: John Salvador MD 02/08/2024 07:06 AM LOIS
--- NOTE | 2024-02-07 19:15 | ECG_ITS ---
Test Reason : SOB Blood Pressure : / mmHG Vent. Rate : 145 BPM Atrial Rate : 145 BPM P-R Int : 140 ms QRS Dur : 064 ms QT Int : 344 ms P-R-T Axes : 073 -50 060 degrees QTc Int : 534 ms Sinus tachycardia Left anterior fascicular block Anterior infarct (cited on or before 20-JAN-2024) Abnormal ECG When compared with ECG of 20-JAN-2024 17:00, Left anterior fascicular block is now Present Questionable change in initial forces of Septal leads T wave amplitude has increased in Inferior leads Nonspecific T wave abnormality, improved in Lateral leads Referred By: Adriana Carver Electronically Signed By:MEL BRADY MD
[2024-02-07] MEDS: 0.9 % Sodium Chloride 1,000 ML 999 ML IV ×2 (19:22→19:23)
--- NOTE | 2024-02-07 19:24 | ED_ITS ---
HPI - Fever General Chief Complaint: Dyspnea Stated Complaint: sob Time Seen by Provider: 02/07/24 19:15 History of Present Illness HPI Narrative: Patient is a 33-year-old male with a history of cerebral palsy history of aspiration pneumonia history of having a PEG tube was in the hospital about 2 weeks ago at that time had aspiration pneumonia. Presents today with having increasing fever altered mental status question aspiration requiring increased amount of oxygen baseline is on 3-1/2 L of oxygen at home. EMS noted 5 L of oxygen patient was in the 70s. Was placed on CPAP. Sent to the ED for further evaluation. Patient unable to give details. He is a full code. Related Data Home Medications ?Medication ?Instructions ?Recorded ?Confirmed acetaminophen 160 mg/5 mL oral 480 mg PO Q6H PRN fever 01/20/24 01/20/24 liquid (Children's Acetaminophen) Previous Rx's ?Medication ?Instructions ?Recorded amoxicillin 400 mg-potassium 10 ml PO BID #100 mL 01/25/24 clavulanate 57 mg/5 mL oral suspension fluconazole 100 mg tablet 100 mg feeding tube BEDTIME #10 01/25/24 tabs acetaminophen 160 mg/5 mL oral 480 mg (15 mL) PO Q6H PRN fever 01/31/24 liquid #473 mL Allergies Allergy/AdvReac Type Severity Reaction Status Date / Time No Known Allergies Allergy Verified 02/07/24 19:46 Review of Systems 2 Review of Systems: Unable to obtain full review of systems secondary to patient's condition PMFSH Past Medical History Attestation statement: The following information was validated with the patient. Medical History 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 Surgical History S/P percutaneous endoscopic gastrostomy (PEG) tube placement Social History Social History Household Members: Family Housing: House Are you a primary career transition specialist to a significant other at home: No Do you presently have visiting nurse or other home services: Yes Comment: Family member bedside Patient Tobacco Use Status: Never used Tobacco Second Hand Smoke Exposure: No Advance Directives: Yes Advance Directives on File: Yes Advance Directives Date on File: 01/20/24 service: No Physical Exam 2 Vital Signs: Vital Signs: Last Vital Signs Temp 101.7 F H 02/07/24 21:00 Pulse 125 H 02/07/24 21:00 Resp 20 02/07/24 21:00 BP 142/87 H 02/07/24 21:00 Pulse Ox 100 02/07/24 21:00 O2 Del Method High Flow Nasal C annula 02/07/24 21:00 BMI result Body Mass Index 12.1 Appearance: Sick appearing contracted male Eyes: Pupils equal, round and reactive to light. ENT: Pharynx normal. Neck: Normal inspection. Neck supple. No lymph nodes noted. No crepitus CVS: Tachycardic regular Respiratory: Rhonchi bilaterally. Moving air increased work of breathing Abdomen: Soft nontender Skin: Skin warm and dry. Normal skin color. Normal skin turgor. Extremities: No lower extremity edema. Neurovascular intact to all extremities. No Lacerations. No Rash Neuro: Contracted oriented times 0 Medications Administered Discontinued Medications Generic Name Dose Route Start Last Admin Trade Name Freq PRN Reason Stop Dose Admin Acetaminophen 650 mg 02/07/24 19:17 02/07/24 19:37 Acetaminophen Supp 650 Mg Supp.Rect TX 02/07/24 19:18 650 mg ONCE ONE Administration Cefepime HCl 2 gm in 50 mls @ 100 mls/hr 02/07/24 19:18 02/07/24 20:11 Maxipime IV 02/07/24 19:47 Infused ONCE ONE Infusion Sodium Chloride 1,000 mls @ 999 mls/hr 02/07/24 19:30 02/07/24 20:59 Ns IV 02/07/24 20:30 Infused .Q1H1M SHARLA Infusion Sodium Chloride 1,000 mls @ 999 mls/hr 02/07/24 19:30 02/07/24 20:59 Ns IV 02/07/24 20:30 Infused .Q1H1M SHARLA Infusion Vancomycin HCl 750 mg/ Sodium 265 mls @ 265 mls/hr 02/07/24 20:30 02/07/24 21:04 Chloride IV 02/07/24 21:29 265 mls/hr ONCE ONE Administration Medical Decision Making Medical Decision Making MDM Narrative: Very high fever of 103. Positive generalized malaise weakness. Altered mental status. Blood gas was ordered. Septic protocol ordered. IV fluid antibiotics started. 30 cc/kilos of IV fluid was given. Patient placed on high-flow O2 maintaining a sat of 90% on 30 L of high flow O2. Patient cultures obtained. White count was 10. Significant left shift. ABG showed no acute CO2 retention by my interpretation it shows hypoxia. Patient's electrolytes showed an significant lactic acidosis of 4.3. 30 cc/kilos of IV fluid was given. Cultures obtained. Patient started on cefepime and vancomycin. My interpretation of patient's chest x-ray showed no gross focal infiltrate. No pneumothorax. No rib fracture. Repeat focal exam for sepsis was done. Patient is improving. Had a long discussion with family patient is a full code. Case discussed with hospitalist team. Patient to be admitted. Differential Diagnosis Differential Diagnoses: The differential diagnosis associated with the presentation includes Pneumonia, sepsis Admission/Observation Consideration of admission/observation: Escalation of care including admission/observation considered Consult Healthcare Provider Management of the patient was discussed with: Hospitalist Lab Data MDM Lab Attestation statement: I reviewed the patient's lab results. 02/07/24 19:33 02/07/24 19:33 Labs: Lab Results 02/07/24 02/07/24 02/07/24 Range/Units 19:33 19:34 19:59 WBC 9.8 (4.8-10.8) X10*3/uL RBC 5.19 (4.60-5.80) X10*6/uL Hgb 13.5 L (14.0-18.0) g/dl Hct 41.7 L (42.0-52.0) % MCV 80.3 (80.0-98.0) fL MCH 26.0 L (27.0-33.0) pg MCHC 32.4 (31.0-36.0) g/dl RDW 14.4 (11.0-16.0) % Plt Count 333 (160-400) X10*3/uL MPV 9.6 (9.4-12.4) fL Immature Gran % (Auto) 0.2 (0.0-0.4) % Neut % (Auto) 91.0 H (45-73) % Lymph % (Auto) 7.3 L (20-40) % [place] % (Auto) 1.2 L (2-11) % Eos % (Auto) 0.1 (0-4) % Baso % (Auto) 0.2 (0-2) % Lymph # (Auto) 0.7 L (1.2-4.9) X10*3/uL [place] # (Auto) 0.1 (0.1-1.2) X10*3/uL Eos # (Auto) 0.0 (0.0-0.4) X10*3/uL Baso # (Auto) 0.0 (0.0-0.2) X10*3/uL Abs Immat Gran (auto) 0.02 (0.00-0.03) X10*3/uL Absolute Neuts (auto) 8.9 H (2.0-8.3) x10*3/uL Absolute Nucleated RBC 0.000 (0.0-0.012) X10*3/uL Nucleated RBC % (auto) 0.0 (0.0-0.2) /100WBC Smear Tech's Comments VERIFIED Hold Blue Top SEE NOTE O2 Saturation 95.0 % ABG pH at Pt Temp 7.43 (7.35-7.45) ABG pCO2 at Pt Temp 36 (32-45) mmHg ABG pO2 at Pt Temp 74 L (83-108) mmHg ABG HCO3 24 (22-26) mmol/L ABG Base Excess (Actual) 0.9 mmol/L Sodium 139 (135-145) mmol/L Potassium 4.0 (3.3-5.1) mmol/L Chloride 101 (96-108) mmol/L Carbon Dioxide 27 (22-29) mmol/L Anion Gap 15 (12-20) BUN 14 (9-16) mg/dL Creatinine 0.88 (0.5-1.4) mg/dL Estim Creat Clear Calc 55.0 Estimated GFR > 60 Random Glucose 153 H (60-115) mg/dL Lactic Acid 4.3 H* (0.5-2.0) mmol/L Calcium 9.3 (8.4-10.2) mg/dL Total Bilirubin 0.4 (0.0-1.0) mg/dL Direct Bilirubin 0.1 (0.0-0.5) mg/dL AST 45 H (5-37) U/L ALT 49 H (0-40) U/L Alkaline Phosphatase 81 (39-117) U/L Troponin I High Sens < 2.7 D (<3.5-35.0) ng/L Total Protein 9.7 H (6.5-8.0) g/dL Albumin 4.1 (3.5-5.0) g/dL Independent Interpretation I performed an independent interpretation of an: EKG (My interpretation of patient's EKG showed a sinus tachycardia heart rate was 130) and Plain X-Ray (Chest x-ray grossly showed no acute infiltrate) Radiology Impression Discussion of test interpretation with radiology: I have reviewed the radiologist's reading. Independent Historian Case discussed with family External Record Review External record reviewed: Inpatient record (Previous inpatient records reviewed) Critical Care Time Critical Care Time Critical Care Time: Yes Total Critical Care Time: 40 Attestation: I have personally provided 40 minutes of critical care time exclusive of time spent on separately billable procedures. ?Time includes review of lab data, radiology results, discussion with consultants, and monitoring for potential decompensation. ?Interventions were performed as documented above Discharge Plan Discharge Clinical Impression: Aspiration pneumonia Patient Disposition: Admitted As Inpatient Prescriptions: No Action acetaminophen [Children's Acetaminophen] 160 mg/5 mL liquid 480 mg PO Q6H PRN (Reason: fever) fluconazole 100 mg Tablet 100 mg feeding tube BEDTIME Qty: 10 0RF amoxicillin-pot clavulanate 400-57 mg/5 mL suspension for reconstitution 10 ml PO BID Qty: 100 0RF acetaminophen 160 mg/5 mL liquid 480 mg PO Q6H PRN (Reason: fever) Qty: 473 0RF Print Language: Maltese
[2024-02-07] MEDS: cefEPime HCl/D5W 2 GM/50 ML PIGGYBACK IV (19:35)
[2024-02-07] MEDS: Acetaminophen Supp 650 MG SUPP.RECT PR (19:37)
[2024-02-07 19:43] LABS: Basophils Percent Auto 0.2 % (0-2); Eosinophils Percent Auto 0.1 % (0-4); Hematocrit 41.7 % (42.0-52.0); Hemoglobin 13.5 g/dl (14.0-18.0); Imm Gran Abs Auto 0.02 X10*3/uL (0.00-0.03); Imm Gran Pct Auto 0.2 % (0.0-0.4); Lymphocytes Absolute Auto 0.7 X10*3/uL (1.2-4.9); Lymphocytes Percent Auto 7.3 % (20-40); MANUAL DIFF FLAG SCAN; Mean Corpuscular HGB Conc 32.4 g/dl (31.0-36.0); Mean Corpuscular Volume 80.3 fL (80.0-98.0); Mean Platelet Volume 9.6 fL (9.4-12.4); Monocytes Absolute Auto 0.1 X10*3/uL (0.1-1.2); Monocytes Percent Auto 1.2 % (2-11); Neutrophils Absolute Auto 8.9 x10*3/uL (2.0-8.3); Platelet Count 333 X10*3/uL (160-400); Red Blood Count 5.19 X10*6/uL (4.60-5.80); Red Cell Distribution Width 14.4 % (11.0-16.0); SCAN SMEAR FLAG 1; White Blood Count 9.8 X10*3/uL (4.8-10.8)
--- NOTE | 2024-02-07 19:54 | MHC.EDTECH ---
Patient BIBA,changed into hospital attire,continuous rectal probe placed,pt tolerated well,temp is 104.4 at this time,ice applied to groin/underarms/and back of neck,EKG taken per order and signed by provider,pillows placed in between legs for comfort,patient was incont. urine and stool,parker-care given,family at bedside
[2024-02-07 19:59] LABS: Alanine Aminotransferase 49 U/L (0-40); Albumin Level 4.1 g/dL (3.5-5.0); Alkaline Phosphatase 81 U/L (39-117); Anion Gap 15 (12-20); Aspartate Amino Transferase 45 U/L (5-37); Bilirubin Direct 0.1 mg/dL (0.0-0.5); Bilirubin Total 0.4 mg/dL (0.0-1.0); Blood Urea Nitrogen 14 mg/dL (9-16); Calcium 9.3 mg/dL (8.4-10.2); Carbon Dioxide 27 mmol/L (22-29); Chloride 101 mmol/L (96-108); Estimated Glomerular Filt Rate > 60; Glucose Random 153 mg/dL (60-115); Sodium 139 mmol/L (135-145); Total Protein 9.7 g/dL (6.5-8.0)
[2024-02-07 20:04] LABS: Lactic Acid 4.3 mmol/L (0.5-2.0)
[2024-02-07 20:10] LABS: ABG Base Excess 0.9 mmol/L; ABG HCO3 24 mmol/L (22-26); ABG pCO2 36 mmHg (32-45); ABG pH 7.43 (7.35-7.45); ABG pO2 74 mmHg (83-108)
[2024-02-07 20:12] LABS: Troponin-I High Sensitivity < 2.7 ng/L (<3.5-35.0)
--- NOTE | 2024-02-07 20:12 | MHC.EDTECH ---
Meaghan Cath,placed to keep pt clean and dry
[2024-02-07 20:16] LABS: SLIDE REVIEW VERIFIED
[2024-02-07 20:29] LABS: ABG Refer to POC result
[2024-02-07] MEDS: vancomycin HCL 750 MG in 0.9 % Sodium Chloride 250 ML 265 MG IV (21:04)
--- NOTE | 2024-02-07 21:18 | PM.IMHP ---
History of Present Illness Date of Service: 02/07/24 Chief Complaint: AMS This is a 33-year-old male with pertinent history of cerebral palsy who is nonverbal at baseline, chronic hypoxemic respiratory failure due to recurrent aspiration on 2.5 L supplemental oxygen who was brought to the emergency department for evaluation of lethargy and increasing oxygen requirements. History obtained with the help of father and sister at bedside. Patient was using 2-1/2 L supplemental oxygen but he was found to be satting 70% on the day of presentation. The sister increased O2 to 4 L but the patient's oxygen saturation was still low. Also he was drowsy and less interactive on the day of presentation so he was brought to the hospital. The father noticed that every time the patient has tube feeding, he coughs. They only gave him p.o. feeding once maybe and he was coughing and choking with it. Unable to obtain review of systems. 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 Pertinent family history: Unable to obtain Surgical History S/P percutaneous endoscopic gastrostomy (PEG) tube placement Social History Household Members: Family Housing: House Are you a primary progressive care manager to a significant other at home: No Do you presently have visiting nurse or other home services: Yes Comment: Family member bedside Patient Tobacco Use Status: Never used Tobacco Second Hand Smoke Exposure: No Advance Directives: Yes Advance Directives on File: Yes Advance Directives Date on File: 01/20/24 service: No Meds Allergies Allergy/AdvReac Type Severity Reaction Status Date / Time No Known Allergies Allergy Verified 02/07/24 19:46 Active Medications: Current Medications Vancomycin HCl 750 mg/ Sodium (Chloride) 265 mls @ 265 mls/hr IV ONCE ONE Stop: 02/07/24 21:29 Last Admin: 02/07/24 21:04 Dose: 265 mls/hr Home Medications ?Medication ?Instructions ?Recorded ?Confirmed ?Last Taken ?Type acetaminophen 160 mg/5 mL oral 480 mg PO Q6H PRN Fever/Pain 02/07/24 02/07/24 2 Days Ago History liquid ~02/05/24 Physical Exam Vital Signs and Narrative: Vital Signs: Last Vital Signs Temp 101.7 F H 02/07/24 21:00 Pulse 125 H 02/07/24 21:00 Resp 20 02/07/24 21:00 BP 142/87 H 02/07/24 21:00 Pulse Ox 100 02/07/24 21:00 O2 Del Method High Flow Nasal C annula 02/07/24 21:00 BMI result Body Mass Index 12.1 Middle-aged male lying in bed in distress on supplemental oxygen Neck supple, no JVD Regular rate and rhythm, S1-S2 heard Bilateral crackles present Abdomen soft nontender, no guarding, no rigidity, feeding tube in place Patient is awake, alert and oriented to self, place, time and person ; no focal motor deficit Psych: Normal mood No pedal edema Results Labs 02/07/24 19:33 02/07/24 19:33 Labs: Laboratory Results - last 24 hr 02/07/24 02/07/24 02/07/24 19:33 19:34 19:59 MCV 80.3 MCH 26.0 L MCHC 32.4 RDW 14.4 Plt Count 333 MPV 9.6 Immature Gran % (Auto) 0.2 Neut % (Auto) 91.0 H Lymph % (Auto) 7.3 L [place] % (Auto) 1.2 L Eos % (Auto) 0.1 Baso % (Auto) 0.2 Lymph # (Auto) 0.7 L [place] # (Auto) 0.1 Eos # (Auto) 0.0 Baso # (Auto) 0.0 Abs Immat Gran (auto) 0.02 Absolute Neuts (auto) 8.9 H Absolute Nucleated RBC 0.000 Nucleated RBC % (auto) 0.0 Smear Tech's Comments VERIFIED Hold Blue Top SEE NOTE O2 Saturation 95.0 ABG pH at Pt Temp 7.43 ABG pCO2 at Pt Temp 36 ABG pO2 at Pt Temp 74 L ABG HCO3 24 ABG Base Excess (Actual) 0.9 Anion Gap 15 Estim Creat Clear Calc 55.0 Estimated GFR > 60 Random Glucose 153 H Lactic Acid 4.3 H* Calcium 9.3 Total Bilirubin 0.4 Direct Bilirubin 0.1 AST 45 H ALT 49 H Alkaline Phosphatase 81 Troponin I High Sens < 2.7 D Total Protein 9.7 H Albumin 4.1 Assessment and Plan (1) Aspiration pneumonia: Status: Acute (2) Sepsis: Status: Acute (3) Hypoxia: Status: Acute Plan This is a 33-year-old male with pertinent history of cerebral palsy who is nonverbal at baseline, chronic hypoxemic respiratory failure due to recurrent aspiration on 2.5 L supplemental oxygen who was brought to the emergency department for evaluation of lethargy and increasing oxygen requirements. #. Severe sepsis and acute on chronic hypoxic respiratory failure due to aspiration pneumonia in a patient with cerebral palsy: Will admit patient with supplemental oxygen. Resuscitated with IV crystalloids. Lactic acid and blood culture obtained. Initiating IV vancomycin and Zosyn. Monitor oxygen saturation and wean as tolerated. Chest x-ray pending #. Acute lactic acidosis due to sepsis and hypoxia DVT prophylaxis: Lovenox Full code. Discussed with family at bedside Admit as inpatient and will require two night minimum hospital stay for supplemental oxygen, IV antibiotics (as above), which is not possible in a lesser acute setting. Quality Stroke Does the patient have a stroke diagnosis?: No VTE Prior VTE?: No VTE Risk Level:: Medical - moderate - high VTE Device Contraindication: Treatment Not Indicated VTE Drug Contraindication: N/A - Med Ordered
--- NOTE | 2024-02-07 21:33 | PHA.PROG ---
Admission Date/Time: Indication: respiratory Weight in k.9 kg Adjusted body weight in Kg: [place] body weight in Kg: Obesity Dosing Indication % IBW: BMI 12.1 Serum Creatinine - Last 168 Hours 02/07/24 19:33 Creatinine 0.88 Estimated CrCl and GFR - Last 168 Hours 02/07/24 19:33 Estim Creat Clear Calc 55.0 Estimated GFR > 60 Vancomycin Loading Dose: 750 mg X1 Current Vancomycin Dosing Regimen: 500mg Q12H Vancomycin Monitoring using AUC goal of 400 - 600 range with trough as surrogate marker: 406 Date and Time for next Vancomycin Level to be drawn: 02/07 @1900 Pharmacist Comments on Vancomycin Plan: Patient weight is VERY low, trying to be careful with dosing as CrCl might not be fully accurate. Predicted trough with current dosing 12.3, but getting trough after 2 doses per weight and BMI of patient. Vancomycin dosing will take advantage of [employer] as a clinical decision support tool that uses Bayesian modeling to calculate individual patient's pharmacokinetic parameters and forecast the patient's drug concentration time course with the target goal AUC 24 range of 400 - 600 mg/L/hr.
[2024-02-07 21:40] LABS: Reflex Lactate? Lactic Acid Added
--- NOTE | 2024-02-07 21:56 | MHC.EDTECH ---
Assisted with this pt, repeat lactic drawn and sent to lab,vitals taken,temp is elevated,RN is aware
--- NOTE | 2024-02-07 21:58 | PHA.MEDREC ---
Pharmacy Consult ? Medication Reconciliation Pharmacy has completed the medication reconciliation. Confirmed medications with patient father at bedside. Patients father confirmed he is only taking the Children Acetaminophen 160mg/5mL and does it 15ml Q6H as needed for Pain/Fevers and the last time they gave that to the patient was about 2-3 days ago.
--- NOTE | 2024-02-07 22:04 | MHC.EDTECH ---
patient belongings list completed and signed by family and placed in patient chart
[2024-02-07 22:19] LABS: ~Lactic Acid-LAB USE ONLY 3.9 mmol/L (0.5-2.0)
[2024-02-07] MEDS: Acetaminophen 1,000 MG/100 ML PIGGYBACK 400 MG IV (22:23)
[2024-02-07] MEDS: Enoxaparin Sodium 40 MG/0.4 ML SYRINGE SUBCUT (22:24)
--- NOTE | 2024-02-07 22:37 | PC.NURSE ---
Hospitalist aware of BP trend. new order maintenance IVF
[2024-02-07] MEDS: Lactated Ringers 1,000 ML 125 ML IVCONT (22:49)
[2024-02-07 23:55] LABS: Reflex Lactate? 2 Y
[2024-02-08] VITALS (31 sets, daily range): BP systolic 76–113; BP diastolic 40–81; PULSE 51–110; RESP 13–29; TEMP 36.7–38; O2SAT 86–100; BMI 16.3
[2024-02-08 01:14] LABS: ~Lactic Acid-LAB USE ONLY 2.4 mmol/L (0.5-2.0)
--- NOTE | 2024-02-08 01:22 | PC.NURSE ---
mask off again, 87%... mask replaced, 94%
[2024-02-08] MEDS: Piperacillin Sodium/Tazobactam 4.5 GM in 0.9 % Sodium Chloride 100 ML IV ×4 (02:54→20:08)
[2024-02-08] MEDS: Lactated Ringers 1,000 ML 999 ML IV (03:13)
[2024-02-08] MEDS: Albumin Human 25 % 100 ML IV ×2 (03:14→04:26)
[2024-02-08 05:39] LABS: Hematocrit 26.5 % (42.0-52.0); Hemoglobin 8.7 g/dl (14.0-18.0); Mean Corpuscular HGB Conc 32.8 g/dl (31.0-36.0); Mean Corpuscular Hemoglobin 26.4 pg (27.0-33.0); Mean Corpuscular Volume 80.3 fL (80.0-98.0); Mean Platelet Volume 9.8 fL (9.4-12.4); Platelet Count 189 X10*3/uL (160-400); Red Cell Distribution Width 14.3 % (11.0-16.0); White Blood Count 13.2 X10*3/uL (4.8-10.8)
--- NOTE | 2024-02-08 05:51 | PM.EVENT ---
Event Note Date of Service: 02/08/24 Event Note: Patient continues to be hypotensive after multiple IV crystalloid and colloid resuscitation. Discussed with sister at bedside regarding code status who wants everything to be done. Discussed with mounting machine operator, Dr. Wright and patient to be transferred to ICU for management of septic shock. Ordered Levophed. CT chest pending Time Spent With Patient Time: Total time managing care of this patient today ____ minutes.
[2024-02-08 05:53] LABS: Anion Gap 13 (12-20); Blood Urea Nitrogen 10 mg/dL (9-16); Calcium 8.5 mg/dL (8.4-10.2); Carbon Dioxide 23 mmol/L (22-29); Chloride 107 mmol/L (96-108); Creatinine Clr Calc Pharmacy 74.5; Estimated Glomerular Filt Rate > 60; Glucose Random 92 mg/dL (60-115); Potassium 3.9 mmol/L (3.3-5.1); Sodium 139 mmol/L (135-145)
[2024-02-08] MEDS: iohexoL 350 MG/ML 100 ML INFUS..BTL 65 ML IV (06:25)
--- NOTE | 2024-02-08 06:34 | PC.NURSE ---
pt transported to CT then ICU, report/handover to RN
[2024-02-08] MEDS: Lactated Ringers 1,000 ML 125 ML IVCONT ×2 (06:37→17:51)
[2024-02-08] MEDS: Norepinephrine Bitartrate/D5W 8 MG/250 ML PLAST..BAG 3.08 MG IVCONT (06:47)
[2024-02-08] MEDS: 0.9 % Sodium Chloride Flush 3 ML SYRINGE IVFLUSH ×3 (07:43→23:11)
--- NOTE | 2024-02-08 08:35 | P.PNCC_ITS ---
Subjective Subjective Date of Service: 02/08/24 Critical Care Time (minutes): 38 Comment: 33-year-old male with past medical history of cerebral palsy, chronic respiratory failure on home oxygen about 2-2.5 liters/minute presented to the hospital due to increase in oxygen requirement and worsening mental status. He has been drowsy and coughing up more mucus with tube feeds so he is brought into the ED. In the ED he was admitted under hospitalist service for possible aspiration pneumonia but overnight patient became hypotensive despite multiple fluid boluses so transferred to MICU for vasopressor support Physical Exam 2 Vital Signs: Vital Signs: Last Vital Signs Temp 98.2 F 02/08/24 08:00 Pulse 61 02/08/24 08:00 Resp 19 02/08/24 08:00 BP 102/71 02/08/24 08:00 Pulse Ox 100 02/08/24 08:00 O2 Del Method High Flow Nasal C annula 02/08/24 08:00 O2 Flow Rate 40 02/08/24 08:00 FiO2 40 02/08/24 08:00 BMI result Body Mass Index 12.1 General: ill appearing and tired appearing Nutritional Appearance: Malnourished and underweight Eyes: appearance normal, both eyes and all related structures; Alignment and Position: alignment normal and position normal Neck: No lymphadenopathy, no thyromegaly Resp: bilateral air entry equal, occasional added sounds present Cardio: Regular rate, regular rhythm; Heart sounds: S1 normal heart sound present and S2 normal heart sound present GI: soft, nontender, no guarding, no hepatosplenomegaly : bladder normal to inspection, bladder normal to palpation, no renal angle tenderness Skin: no rashes or lesions noted and elasticity normal Neuro: Emaciated, follows commands moves extremities upon asking, opens his eyes and looks at me Objective Data Labs 02/08/24 05:06 02/08/24 05:06 Labs: Laboratory Results - last 24 hr 02/07/24 02/07/24 02/07/24 19:33 19:34 19:59 WBC 9.8 RBC 5.19 Hgb 13.5 L Hct 41.7 L MCV 80.3 MCH 26.0 L MCHC 32.4 RDW 14.4 Plt Count 333 MPV 9.6 Immature Gran % (Auto) 0.2 Neut % (Auto) 91.0 H Lymph % (Auto) 7.3 L [place] % (Auto) 1.2 L Eos % (Auto) 0.1 Baso % (Auto) 0.2 Lymph # (Auto) 0.7 L [place] # (Auto) 0.1 Eos # (Auto) 0.0 Baso # (Auto) 0.0 Abs Immat Gran (auto) 0.02 Absolute Neuts (auto) 8.9 H Absolute Nucleated RBC 0.000 Nucleated RBC % (auto) 0.0 Smear Tech's Comments VERIFIED Hold Blue Top SEE NOTE O2 Saturation 95.0 ABG pH at Pt Temp 7.43 ABG pCO2 at Pt Temp 36 ABG pO2 at Pt Temp 74 L ABG HCO3 24 ABG Base Excess (Actual) 0.9 Sodium 139 Potassium 4.0 Chloride 101 Carbon Dioxide 27 Anion Gap 15 BUN 14 Creatinine 0.88 Estim Creat Clear Calc 55.0 Estimated GFR > 60 Random Glucose 153 H Lactic Acid 4.3 H* Lactic Acid F/U @ 2Hr Lactic Acid F/U @ 4Hr Calcium 9.3 Total Bilirubin 0.4 Direct Bilirubin 0.1 AST 45 H ALT 49 H Alkaline Phosphatase 81 Troponin I High Sens < 2.7 D Total Protein 9.7 H Albumin 4.1 02/07/24 02/08/24 02/08/24 21:50 00:29 05:06 WBC 13.2 H RBC 3.30 L D Hgb 8.7 L D Hct 26.5 L D MCV 80.3 MCH 26.4 L MCHC 32.8 RDW 14.3 Plt Count 189 D MPV 9.8 Immature Gran % (Auto) Neut % (Auto) Lymph % (Auto) [place] % (Auto) Eos % (Auto) Baso % (Auto) Lymph # (Auto) [place] # (Auto) Eos # (Auto) Baso # (Auto) Abs Immat Gran (auto) Absolute Neuts (auto) Absolute Nucleated RBC 0.000 Nucleated RBC % (auto) 0.0 Smear Tech's Comments Hold Blue Top O2 Saturation ABG pH at Pt Temp ABG pCO2 at Pt Temp ABG pO2 at Pt Temp ABG HCO3 ABG Base Excess (Actual) Sodium 139 Potassium 3.9 Chloride 107 Carbon Dioxide 23 Anion Gap 13 BUN 10 Creatinine 0.65 Estim Creat Clear Calc 74.5 Estimated GFR > 60 Random Glucose 92 Lactic Acid Lactic Acid F/U @ 2Hr 3.9 H* Lactic Acid F/U @ 4Hr 2.4 H* Calcium 8.5 D Total Bilirubin Direct Bilirubin AST ALT Alkaline Phosphatase Troponin I High Sens Total Protein Albumin Progress Note: A&P Assessment and plan (1) Sepsis: Status: Acute (2) Oropharyngeal candidiasis: Status: Acute (3) Aspiration pneumonia: Status: Acute (4) Cerebral palsy: Status: Acute (5) Septic shock: Status: Acute Plan Septic shock: Received multiple fluid boluses despite which his blood pressures remained low so started on Levophed support. His weight is too low, and he has received adequate amount of fluid boluses. Lactate trended which decreased from 4.3-2.4 with fluid boluses Blood cultures has been sent He has been started on vancomycin and Zosyn due to recent hospitalization and discharged on 01/28/2024 We will get MRSA nares if negative we will discontinue vancomycin Chronic respiratory failure: possible due to poor muscle mass and recurrent aspiration currently stable on nasal canula recent admission for RSV Acute Anemia: Acute drop in hemoglobin from 13.2-8.7 No obvious source of bleeding, received multiple boluses We will repeat a CBC this afternoon Chronic malnourishment: We will improved diet as tolerated Has G-tube, he will be on G-tube feeds Leukocytosis: Secondary to infection Prophylaxis: Lovenox Quality Stroke Does the patient have a stroke diagnosis?: No VTE Prior VTE?: No VTE Risk Level:: Medical - moderate - high VTE Device Contraindication: Treatment Not Indicated VTE Drug Contraindication: N/A - Med Ordered
[2024-02-08 09:41] LABS: Lactic Acid 1.7 mmol/L (0.5-2.0)
[2024-02-08] MEDS: vancomycin HCL 750 MG in 0.9 % Sodium Chloride 250 ML 265 MG IV (10:03)
[2024-02-08] MEDS: Albumin Human 25 % 100 ML 133.33 ML IV ×2 (10:03→11:38)
--- NOTE | 2024-02-08 10:11 | MHC.CM.PN ---
Addendum entered by Marcella Aponte 02/08/24 10:31: Pt has [employer] for home O2 and Peg tube vendor is [facility]. Will refer back Original Note: Met with pt and his sister Krista. Pt is nonverbal and unable to participate in CM assessment. Per Krista, pt resides with his parents who are his legal guardians - forms in EMR. Family assists with 24/7 care and pt is active with [facility] for RN and [employer] care. Pt has all needed DME at home. Family transports pt into a vehicle for appointments. Referred back to [facility]: Will inquire on Peg tube feed vendor. BLS transfer back to home. PCP Dr. Lyons from [facility].
--- NOTE | 2024-02-08 10:38 | MHC.CLN ---
PT IS MODERATELY MALNOURISHED PT WITH MILDLY DEPLETED SUBCUTANEOUS FAT AND MUSCLE MASS WITH 31% NONSIGNIFICANT WT LOSS X 2 YEARS AND CHRONIC POOR PO INTAKE R/T FREQUENT ASPIRATIONS AND ACUTE ILLNESS CURRENTLY NPO REVIEWED LABS DISCUSSED AT ROUNDS WITH MD RECOMMEND TF JEVITY 1.0 AT MAX GOAL RATE 45ML/HR WITH 120ML FREE WATER FLUSHES Q 8 HRS TO PROVIDE 1145KCALS (35KCALS/KG), 48G PROTEIN (1.45G/KG), 1281ML TOTAL WATER FROM FORMULA AND FLUSHES (39ML/KG) START TF AT 20ML/HR AND INCREASE BY 10ML UNTIL MAX GOAL IS ACHIEVED MONITOR TOLERANCE, RESIDUALS, AND LYTES SEE ALSO FULL CLINICAL NUTRITION ASSESSMENT
--- NOTE | 2024-02-08 11:39 | PC.RT ---
Pt transitioned to zuluaga n/c 4 lpm and dhara well. Family at bedside, Nurse aware. [facility] on standby.
[2024-02-08 12:13] LABS: Adenovirus PCR Not Detected (Not Detect.); Bordetella parapertussis PCR Not Detected (Not Detect.); Bordetella pertussis PCR Not Detected (Not Detect.); Chlamydia pneumoniae PCR Not Detected (Not Detect.); Coronavirus 229E PCR Not Detected (Not Detect.); Coronavirus HKU1 PCR Not Detected (Not Detect.); Coronavirus NL63 PCR Not Detected (Not Detect.); Coronavirus OC43 PCR Not Detected (Not Detect.); Human metapneumovirus PCR Not Detected (Not Detect.); Influenza A PCR Not Detected (Not Detect.); Influenza B PCR Not Detected (Not Detect.); Mycoplasma pneumoniae PCR Not Detected (Not Detect.); Parainfluenza 1 PCR Not Detected (Not Detect.); Parainfluenza 2 PCR Not Detected (Not Detect.); Parainfluenza 3 PCR Not Detected (Not Detect.); Parainfluenza 4 PCR Not Detected (Not Detect.); RSV PCR Not Detected (Not Detect.); Rhino/Enterovirus PCR Not Detected (Not Detect.)
[2024-02-08 12:35] LABS: SARS-CoV-2 PCR Detected (Not Detect.)
[2024-02-08 12:55] LABS: Hematocrit 25.5 % (42.0-52.0); Hemoglobin 8.5 g/dl (14.0-18.0); Mean Corpuscular HGB Conc 33.3 g/dl (31.0-36.0); Mean Corpuscular Hemoglobin 26.2 pg (27.0-33.0); Mean Corpuscular Volume 78.5 fL (80.0-98.0); Mean Platelet Volume 10.2 fL (9.4-12.4); Platelet Count 200 X10*3/uL (160-400); Red Blood Count 3.25 X10*6/uL (4.60-5.80); Red Cell Distribution Width 14.6 % (11.0-16.0); White Blood Count 16.1 X10*3/uL (4.8-10.8)
[2024-02-08 13:43] LABS: MRSA Nasal PCR POSITIVE (Negative); SA Nasal PCR POSITIVE (Negative)
[2024-02-08] MEDS: Midodrine HCl 10 MG TABLET PO (13:52)
[2024-02-08] MEDS: Furosemide 20 MG/2 ML VIAL IVPUSH (19:42)
[2024-02-08 19:46] LABS: Vancomycin Random 10.7 mcg/mL (15-20)
[2024-02-08] MEDS: vancomycin HCL 1,000 MG in 0.9 % Sodium Chloride 250 ML 270 MG IV (20:59)
[2024-02-08] MEDS: Enoxaparin Sodium 40 MG/0.4 ML SYRINGE SUBCUT (21:16)
[2024-02-09] VITALS (36 sets, daily range): BP systolic 82–127; BP diastolic 44–74; PULSE 44–116; RESP 12–26; TEMP 36.8–37.9; O2SAT 89–100
[2024-02-09] MEDS: Piperacillin Sodium/Tazobactam 4.5 GM in 0.9 % Sodium Chloride 100 ML IV ×4 (02:55→20:38)
[2024-02-09 04:33] LABS: Venous Blood Gas Refer to POC result
[2024-02-09 04:33] LABS: VBG Base Excess 2.4 mmol/L; VBG HCO3 25 mmol/L (22-26); VBG pCO2 31 mmHg; VBG pO2 137 mmHg
[2024-02-09 04:58] LABS: MANUAL DIFF FLAG NO
[2024-02-09 05:00] LABS: Basophils Percent Auto 0.3 % (0-2); Eosinophils Absolute Auto 0.1 X10*3/uL (0.0-0.4); Eosinophils Percent Auto 0.4 % (0-4); Hematocrit 31.4 % (42.0-52.0); Hemoglobin 10.4 g/dl (14.0-18.0); Imm Gran Abs Auto 0.07 X10*3/uL (0.00-0.03); Imm Gran Pct Auto 0.4 % (0.0-0.4); Lymphocytes Absolute Auto 2.1 X10*3/uL (1.2-4.9); Lymphocytes Percent Auto 13.6 % (20-40); Mean Corpuscular HGB Conc 33.1 g/dl (31.0-36.0); Mean Corpuscular Hemoglobin 25.9 pg (27.0-33.0); Mean Corpuscular Volume 78.3 fL (80.0-98.0); Mean Platelet Volume 10.1 fL (9.4-12.4); Monocytes Absolute Auto 0.5 X10*3/uL (0.1-1.2); Monocytes Percent Auto 3.2 % (2-11); Neutrophils Absolute Auto 12.9 x10*3/uL (2.0-8.3); Neutrophils Percent Auto 82.1 % (45-73); Platelet Count 255 X10*3/uL (160-400); Red Blood Count 4.01 X10*6/uL (4.60-5.80); Red Cell Distribution Width 14.6 % (11.0-16.0); White Blood Count 15.7 X10*3/uL (4.8-10.8)
[2024-02-09 05:17] LABS: Alanine Aminotransferase 19 U/L (0-40); Alkaline Phosphatase 48 U/L (39-117); Anion Gap 18 (12-20); Aspartate Amino Transferase 27 U/L (5-37); Bilirubin Total 1.1 mg/dL (0.0-1.0); Blood Urea Nitrogen 11 mg/dL (9-16); Calcium 9.7 mg/dL (8.4-10.2); Carbon Dioxide 23 mmol/L (22-29); Chloride 100 mmol/L (96-108); Creatinine Clr Calc Pharmacy 63.7; Estimated Glomerular Filt Rate > 60; Glucose Random 63 mg/dL (60-115); Magnesium 1.7 mg/dL (1.6-2.6); Potassium 3.3 mmol/L (3.3-5.1); Sodium 138 mmol/L (135-145); Total Protein 7.6 g/dL (6.5-8.0)
[2024-02-09] MEDS: Potassium Chloride Packet 20 MEQ PACKET 40 MEQ PO (06:15)
[2024-02-09] MEDS: Magnesium Sulfate/D5W 1 GM/100 ML PIGGYBACK IV (06:16)
--- NOTE | 2024-02-09 08:31 | P.CDIM_ITS ---
PROVIDER RESPONSE TEXT: To clarify, the appropriate diagnosis supported by the clinical indicators: Malnutrition: severe malnutrition QUERY TEXT: PHYSICIAN'S DOCUMENTATION REQUEST Date of Query: 02/09/2024 07:54 AM EST Patient Name: Anthony Asher Admit Date: 02/08/2024 Dear Jomar Wright MD, A review of the medical record indicates additional documentation may be needed. Please review below and update the documentation accordingly. Clinical Indicators: Height: 4ft 8in Weight: 32.9kg BMI: 16.3 Other Clinical Notes Supporting Significance of the BMI: Clinical nutrition notes patient is moderate ly malnourished with BMI 16.3. Pt with mildly depleted subcutaneous fat and muscle mass with 31% nonsignificant wt loss x 2 years. Chronic poor PO intake. Recommend with TF Jevity 1.0 at max goal rate 45ML/HR with 120ML free water flushes- peg tube. If possible, please provide an associated diagnosis related to the abnormal BMI, such as: Underweight Malnutrition mild, moderate, severe Other (explain) Clinically unable to determine (explain) Thank you, Amy Norton, CCS, CDIS Use of terms such as suspected, likely, concern for, or probable (associated with a specific diagnosi s that is being evaluated, monitored, or treated as if it exists) are acceptable and can be coded in the inpatient se tting, when documented at the time of discharge. Please use your independent medical judgment in providing your response. THIS QUERY IS PART OF THE PERMANENT MEDICAL RECORD
--- NOTE | 2024-02-09 08:37 | P.PNCC_ITS ---
Subjective Subjective Date of Service: 02/09/24 Critical Care Time (minutes): 35 Comment: Was off off Levophed since 14:00 yesterday but had to be restarted overnight after diuresis for cough Tested positive for COVID, rest of the workup negative Physical Exam 2 Vital Signs: Vital Signs: Last Vital Signs Temp 99.0 F 02/09/24 08:00 Pulse 75 02/09/24 08:00 Resp 18 02/09/24 08:00 BP 93/65 02/09/24 08:00 Pulse Ox 91 L 02/09/24 08:00 O2 Del Method Nasal Cannula 02/09/24 08:00 O2 Flow Rate 4 02/09/24 08:00 FiO2 30 02/08/24 11:00 BMI result Body Mass Index 16.3 General: ill appearing and tired appearing Nutritional Appearance: Chronically malnourished and underweight Eyes: appearance normal, both eyes and all related structures; Alignment and Position: alignment normal and position normal Neck: No lymphadenopathy, no thyromegaly Resp: bilateral air entry equal, bilateral lung base crackles heard Cardio: Regular rate, regular rhythm; Heart sounds: S1 normal heart sound present and S2 normal heart sound present GI: soft, nontender, no guarding, no hepatosplenomegaly : bladder normal to inspection, bladder normal to palpation, no renal angle tenderness Skin: no rashes or lesions noted and elasticity normal Neuro: Opens eyes, follows some commands Objective Data Labs 02/09/24 04:22 02/09/24 04:22 Labs: Laboratory Results - last 24 hr 02/08/24 02/08/24 02/08/24 09:17 10:54 12:30 WBC 16.1 H RBC 3.25 L Hgb 8.5 L Hct 25.5 L MCV 78.5 L MCH 26.2 L MCHC 33.3 RDW 14.6 Plt Count 200 MPV 10.2 Immature Gran % (Auto) Neut % (Auto) Lymph % (Auto) [place] % (Auto) Eos % (Auto) Baso % (Auto) Lymph # (Auto) [place] # (Auto) Eos # (Auto) Baso # (Auto) Abs Immat Gran (auto) Absolute Neuts (auto) Absolute Nucleated RBC 0.000 Nucleated RBC % (auto) 0.0 VBG pH VBG pCO2 VBG pO2 VBG HCO3 VBG O2 Saturation VBG Base Excess Sodium Potassium Chloride Carbon Dioxide Anion Gap BUN Creatinine Estim Creat Clear Calc Estimated GFR Random Glucose Lactic Acid 1.7 Calcium Phosphorus Magnesium Total Bilirubin AST ALT Alkaline Phosphatase Total Protein Albumin Nasal Screen MRSA (PCR) POSITIVE A Nasal S. aureus Screen POSITIVE A Nasal MRSA/S.aureus Interp SEE NOTE Random Vancomycin Respiratory Panel [place] See Note Adenovirus (Rapid PCR) Not Detected B.pert (TEM-PCR) Not Detected B.parapertussis DNA PCR Not Detected C. pneumoniae DNA (PCR) Not Detected Coronavirus OC43 (PCR) Not Detected Coronavirus HKU1 (PCR) Not Detected Coronavirus 229E (PCR) Not Detected Coronavirus NL63 (PCR) Not Detected Human Metapneumovir PCR Not Detected Influenza A (RT-PCR) Not Detected Influenza B (RT-PCR) Not Detected M. pneumoniae (PCR) Not Detected Parainfluenza 1 (PCR) Not Detected Parainfluenza 2 (PCR) Not Detected Parainfluenza 3 (PCR) Not Detected Parainfluenza 4 (PCR) Not Detected RSV (PCR) Not Detected Entero/Rhino (PCR) Not Detected SARS-CoV-2 RNA (RT-PCR) Detected A 02/08/24 02/09/24 02/09/24 19:09 04:22 04:29 WBC 15.7 H RBC 4.01 L D Hgb 10.4 L D Hct 31.4 L D MCV 78.3 L MCH 25.9 L MCHC 33.1 RDW 14.6 Plt Count 255 D MPV 10.1 Immature Gran % (Auto) 0.4 Neut % (Auto) 82.1 H Lymph % (Auto) 13.6 L [place] % (Auto) 3.2 Eos % (Auto) 0.4 Baso % (Auto) 0.3 Lymph # (Auto) 2.1 [place] # (Auto) 0.5 Eos # (Auto) 0.1 Baso # (Auto) 0.0 Abs Immat Gran (auto) 0.07 H Absolute Neuts (auto) 12.9 H Absolute Nucleated RBC 0.000 Nucleated RBC % (auto) 0.0 VBG pH 7.50 H VBG pCO2 31 VBG pO2 137 VBG HCO3 25 VBG O2 Saturation 100.0 VBG Base Excess 2.4 Sodium 138 Potassium 3.3 Chloride 100 Carbon Dioxide 23 Anion Gap 18 BUN 11 Creatinine 0.76 Estim Creat Clear Calc 63.7 Estimated GFR > 60 Random Glucose 63 Lactic Acid Calcium 9.7 D Phosphorus 3.0 Magnesium 1.7 Total Bilirubin 1.1 H AST 27 ALT 19 Alkaline Phosphatase 48 Total Protein 7.6 Albumin 4.0 Nasal Screen MRSA (PCR) Nasal S. aureus Screen Nasal MRSA/S.aureus Interp Random Vancomycin 10.7 L Respiratory Panel [place] Adenovirus (Rapid PCR) B.pert (TEM-PCR) B.parapertussis DNA PCR C. pneumoniae DNA (PCR) Coronavirus OC43 (PCR) Coronavirus HKU1 (PCR) Coronavirus 229E (PCR) Coronavirus NL63 (PCR) Human Metapneumovir PCR Influenza A (RT-PCR) Influenza B (RT-PCR) M. pneumoniae (PCR) Parainfluenza 1 (PCR) Parainfluenza 2 (PCR) Parainfluenza 3 (PCR) Parainfluenza 4 (PCR) RSV (PCR) Entero/Rhino (PCR) SARS-CoV-2 RNA (RT-PCR) Microbiology Microbiology Results: Microbiology 02/07/24 19:34 Blood - Venous Blood Culture - Preliminary No growth after 24 hours. 02/07/24 19:33 Blood - Venous Blood Culture - Preliminary No growth after 24 hours. Progress Note: A&P Assessment and plan (1) Sepsis: Status: Acute (2) Oropharyngeal candidiasis: Status: Acute (3) Septic shock: Status: Acute (4) Cerebral palsy: Status: Acute (5) Aspiration pneumonia: Status: Acute (6) Hypoxia: Status: Acute Plan Septic shock: Currently on Levophed support, titrate to keep the map above 65 mm Hg; we will give 200 mL of albumin bolus to see if that improves the blood pressures. Continue midodrine Blood cultures negative so far. CT chest showing bilateral pneumonia, tested positive for COVID He has been started on vancomycin and Zosyn due to recent hospitalization and discharged on 01/28/2024; MRSA nares negative Chronic respiratory failure: possible due to poor muscle mass and recurrent aspiration currently stable on nasal canula recent admission for RSV Acute Anemia: Hemoglobin increased to 10.8 today possibly due to volume constriction No obvious source of bleeding, received multiple boluses Chronic malnourishment: We will improved diet as tolerated Has G-tube, he will be on G-tube feeds restarted tube feeds at lower rate 10ml/hr due to complains of cough with higher 45ml/hr. Leukocytosis: Secondary to infection Prophylaxis: Lovenox Quality Stroke Does the patient have a stroke diagnosis?: No VTE Prior VTE?: No VTE Risk Level:: Medical - moderate - high VTE Device Contraindication: Treatment Not Indicated VTE Drug Contraindication: N/A - Med Ordered
[2024-02-09] MEDS: Midodrine HCl 10 MG TABLET PO ×3 (08:48→15:47)
[2024-02-09] MEDS: Albumin Human 25 % 100 ML 133.33 ML IV ×2 (08:49→11:47)
[2024-02-09] MEDS: Acetaminophen 325 MG TABLET 650 MG PO (08:49)
[2024-02-09] MEDS: 0.9 % Sodium Chloride Flush 3 ML SYRINGE IVFLUSH ×2 (08:57→16:39)
--- NOTE | 2024-02-09 10:24 | MHC.CLN ---
F/U PT IS MODERATELY MALNOURISHED SEE FULL CLINICAL NUTRITION ASSESSMENT DATED 02/08/24 REVIEWED LABS DISCUSSED AT ROUNDS WITH MD PT WAS RECEIVING BOLUS TF AT HOME AFTER DISCHARGE AND FAMILY NOTED POOR TOLERANCE AND PT WITH INCREASED COUGHING FAMILY IS EXPRESSING CONCERN ABOUT RE-STARTING FEEDING-MD TO RE-START AT 10ML/HR AND INCREASE TO GOAL SLOWLY RECOMMEND TF JEVITY 1.0 AT MAX GOAL RATE 45ML/HR WITH 120ML FREE WATER FLUSHES Q 8 HRS TO PROVIDE 1145KCALS (35KCALS/KG), 48G PROTEIN (1.45G/KG), 1281ML TOTAL WATER FROM FORMULA AND FLUSHES (39ML/KG) START TF AT 10ML/HR AND INCREASE BY 10ML UNTIL MAX GOAL IS ACHIEVED MONITOR TOLERANCE, RESIDUALS, AND LYTES
[2024-02-09] MEDS: vancomycin HCL 1,000 MG in 0.9 % Sodium Chloride 250 ML 270 MG IV (10:47)
[2024-02-09] MEDS: Norepinephrine Bitartrate/D5W 8 MG/250 ML PLAST..BAG 1.85 MG IVCONT (11:43)
--- NOTE | 2024-02-09 14:25 | MHC.CM.PN ---
Pt remains in ICU on Levophed for BP support in the setting of shock. Pt is +COVID. Plans for the day include Albumin administration and restarting slow Peg feeds. Pt is from home w family support. CM to follow for finalization of d/c planning.
[2024-02-09] MEDS: HYDROmorphone HCl 0.5 MG/0.5 ML SYRINGE IVPUSH (15:35)
[2024-02-09] MEDS: Albuterol Sulfate (0.083%) 2.5 MG/3 ML VIAL.NEB 5 MG INHALE (16:00)
[2024-02-09] MEDS: Acetylcysteine 10 % 400 MG/4 ML VIAL INHALE (16:00)
[2024-02-09] MEDS: Norepinephrine Bitartrate/D5W 8 MG/250 ML PLAST..BAG 3.08 MG IVCONT (16:34)
--- NOTE | 2024-02-09 18:10 | PC.RT ---
Rt post svn sxn pt via #6 trumpet placed in L nare for mod pale yellow sec. Sample obtained and given to nursing. Pt dhara well.
[2024-02-09] MEDS: vancomycin HCL 750 MG in 0.9 % Sodium Chloride 250 ML 265 MG IV (21:20)
[2024-02-09] MEDS: Enoxaparin Sodium 40 MG/0.4 ML SYRINGE SUBCUT (21:21)
--- NOTE | 2024-02-09 22:10 | PC.RT ---
RT called for O2 sats in low 80s; Pt Nasal sx for Large amounts of clear secretions
[2024-02-10] VITALS (40 sets, daily range): BP systolic 85–125; BP diastolic 45–81; PULSE 46–94; RESP 12–23; TEMP 37.2–38.2; O2SAT 94–100
[2024-02-10] MEDS: 0.9 % Sodium Chloride Flush 3 ML SYRINGE IVFLUSH ×3 (01:51→15:29)
[2024-02-10] MEDS: Piperacillin Sodium/Tazobactam 4.5 GM in 0.9 % Sodium Chloride 100 ML IV ×4 (01:52→19:57)
[2024-02-10 04:39] LABS: VBG Base Excess -0.6 mmol/L; VBG HCO3 22 mmol/L (22-26); VBG pCO2 29 mmHg; VBG pH 7.47 (7.32-7.43); VBG pO2 77 mmHg
[2024-02-10 04:42] LABS: Venous Blood Gas Refer to POC result
[2024-02-10 05:08] LABS: MANUAL DIFF FLAG NO
[2024-02-10 05:12] LABS: Basophils Percent Auto 0.2 % (0-2); Eosinophils Percent Auto 0.2 % (0-4); Hematocrit 31.4 % (42.0-52.0); Hemoglobin 10.2 g/dl (14.0-18.0); Imm Gran Pct Auto 0.5 % (0.0-0.4); Lymphocytes Absolute Auto 1.8 X10*3/uL (1.2-4.9); Lymphocytes Percent Auto 8.5 % (20-40); Mean Corpuscular HGB Conc 32.5 g/dl (31.0-36.0); Mean Corpuscular Hemoglobin 25.8 pg (27.0-33.0); Mean Corpuscular Volume 79.3 fL (80.0-98.0); Mean Platelet Volume 10.2 fL (9.4-12.4); Monocytes Absolute Auto 0.7 X10*3/uL (0.1-1.2); Monocytes Percent Auto 3.4 % (2-11); Neutrophils Absolute Auto 18.3 x10*3/uL (2.0-8.3); Neutrophils Percent Auto 87.2 % (45-73); Platelet Count 295 X10*3/uL (160-400); Red Blood Count 3.96 X10*6/uL (4.60-5.80); Red Cell Distribution Width 14.7 % (11.0-16.0); White Blood Count 20.9 X10*3/uL (4.8-10.8)
[2024-02-10 05:31] LABS: Alanine Aminotransferase 14 U/L (0-40); Albumin Level 4.3 g/dL (3.5-5.0); Alkaline Phosphatase 47 U/L (39-117); Anion Gap 18 (12-20); Aspartate Amino Transferase 20 U/L (5-37); Blood Urea Nitrogen 11 mg/dL (9-16); Calcium 9.5 mg/dL (8.4-10.2); Carbon Dioxide 22 mmol/L (22-29); Chloride 103 mmol/L (96-108); Creatinine Clr Calc Pharmacy 68.2; Estimated Glomerular Filt Rate > 60; Glucose Random 91 mg/dL (60-115); Phosphorus 2.8 mg/dL (2.7-4.5); Sodium 139 mmol/L (135-145); Total Protein 7.6 g/dL (6.5-8.0)
[2024-02-10] MEDS: Acetylcysteine 10 % 400 MG/4 ML VIAL INHALE ×2 (07:45→18:40)
--- NOTE | 2024-02-10 08:23 | P.PNCC_ITS ---
Subjective Subjective Date of Service: 02/10/24 Critical Care Time (minutes): 35 Comment: Episodes of hypoxia last evening and overnight, currently on high-flow oxygen Needing Levophed for vasopressor support on and off Physical Exam 2 Vital Signs: Vital Signs: Last Vital Signs Temp 100.4 F 02/10/24 08:00 Pulse 72 02/10/24 08:00 Resp 18 02/10/24 08:00 BP 104/71 02/10/24 08:00 Pulse Ox 100 02/10/24 08:00 O2 Del Method High Flow Nasal C annula 02/10/24 08:00 O2 Flow Rate 50 02/10/24 08:00 FiO2 100 02/10/24 08:00 BMI result Body Mass Index 16.3 General: ill appearing and tired appearing Nutritional Appearance: Malnourished and underweight, emaciated Eyes: appearance normal, both eyes and all related structures; Alignment and Position: alignment normal and position normal Neck: No lymphadenopathy, no thyromegaly Resp: bilateral air entry equal, bilateral crackles heard in the inframammary and axillary areas Cardio: Regular rate, regular rhythm; Heart sounds: S1 normal heart sound present and S2 normal heart sound present GI: soft, nontender, no guarding, no hepatosplenomegaly : bladder normal to inspection, bladder normal to palpation, no renal angle tenderness Skin: no rashes or lesions noted and elasticity normal Neuro: Follows some commands, moves all extremities Objective Data Labs 02/10/24 04:31 02/10/24 04:31 Labs: Laboratory Results - last 24 hr 02/09/24 02/10/24 02/10/24 18:57 04:29 04:31 WBC 20.9 H RBC 3.96 L Hgb 10.2 L Hct 31.4 L MCV 79.3 L MCH 25.8 L MCHC 32.5 RDW 14.7 Plt Count 295 MPV 10.2 Immature Gran % (Auto) 0.5 H Neut % (Auto) 87.2 H Lymph % (Auto) 8.5 L [place] % (Auto) 3.4 Eos % (Auto) 0.2 Baso % (Auto) 0.2 Lymph # (Auto) 1.8 [place] # (Auto) 0.7 Eos # (Auto) 0.0 Baso # (Auto) 0.0 Abs Immat Gran (auto) 0.10 H Absolute Neuts (auto) 18.3 H Absolute Nucleated RBC 0.000 Nucleated RBC % (auto) 0.0 VBG pH 7.47 H VBG pCO2 29 VBG pO2 77 VBG HCO3 22 VBG O2 Saturation 97.0 VBG Base Excess -0.6 Sodium 139 Potassium 4.0 D Chloride 103 Carbon Dioxide 22 Anion Gap 18 BUN 11 Creatinine 0.71 Estim Creat Clear Calc 68.2 Estimated GFR > 60 Random Glucose 91 Calcium 9.5 Phosphorus 2.8 Magnesium 2.0 Total Bilirubin 1.0 AST 20 ALT 14 Alkaline Phosphatase 47 Total Protein 7.6 Albumin 4.3 Random Vancomycin 20.0 Microbiology Microbiology Results: Microbiology 02/07/24 19:34 Blood - Venous Blood Culture - Preliminary No growth after 48 hours. 02/07/24 19:33 Blood - Venous Blood Culture - Preliminary No growth after 48 hours. Progress Note: A&P Assessment and plan (1) Septic shock: Status: Acute (2) Oropharyngeal candidiasis: Status: Acute (3) Sepsis: Status: Acute (4) Aspiration pneumonia: Status: Acute (5) Cerebral palsy: Status: Acute (6) Hypoxia: Status: Acute Plan Septic shock: Currently on Levophed support, titrate to keep the map above 65 mm Hg; hypovolemic, fluid replacement as tolerated. Continue midodrine Blood cultures negative so far. CT chest showing bilateral pneumonia, tested positive for COVID He has been started on vancomycin and Zosyn due to recent hospitalization and discharged on 01/28/2024; MRSA nares positive Chronic respiratory failure: possible due to poor muscle mass and recurrent aspiration Episodes of mucus plugging leading to hypoxia; we will do aggressive chest percussion therapy and cough assist currently stable on nasal canula recent admission for RSV Chronic Anemia: Hemoglobin increased to 10.2 No obvious source of bleeding, received multiple boluses Chronic malnourishment: We will improved diet as tolerated Has G-tube, he will be on G-tube feeds restarted tube feeds at lower rate 10ml/hr due to complains of cough with higher 45ml/hr. Leukocytosis: Secondary to infection Prophylaxis: Lovenox Quality Stroke Does the patient have a stroke diagnosis?: No VTE Prior VTE?: No VTE Risk Level:: Medical - moderate - high VTE Device Contraindication: Treatment Not Indicated VTE Drug Contraindication: N/A - Med Ordered
[2024-02-10] MEDS: vancomycin HCL 750 MG in 0.9 % Sodium Chloride 250 ML 265 MG IV (10:10)
--- NOTE | 2024-02-10 10:12 | MHC.CLN ---
F/U PT IS MODERATELY MALNOURISHED REVIEWED LABS DISCUSSED WITH MD AND PHARMACY PT NOT MEETING NUTRITION NEEDS WITH TUBE FEEDING-FAMILY REQUESTING TF BE TURNED OFF WHEN PT COUGHS NOTED COVID POSITIVE TO START PPN FOR NUTRITION SUPPORT RECOMMEND PPN AT 30ML/HR TO PROVIDE 367KCALS, 72G DEXTROSE, 31G PROTEIN CHECK TRIGS, REPLETE LYTES NEEDED
[2024-02-10] MEDS: Midodrine HCl 10 MG TABLET PO ×3 (10:18→17:48)
[2024-02-10 10:34] LABS: Triglycerides 146 mg/dL (<150)
[2024-02-10 12:46] LABS: ABG Base Excess -0.6 mmol/L; ABG HCO3 24 mmol/L (22-26); ABG pCO2 38 mmHg (32-45); ABG pH 7.39 (7.35-7.45); ABG pO2 406 mmHg (83-108)
--- NOTE | 2024-02-10 13:28 | MHC.CM.PN ---
Pt continues care in ICU: requiring hi flow O2 and Levophed for BP support. Pt COVID +. Peg tube feeds adjusted. Pt from home w family support and [employer] O2 with [employer] [facility] for peg supplies/feedings
--- NOTE | 2024-02-10 17:56 | W.PM.CCHP ---
Procedures Date of Service Date of Service: 02/10/24 Arterial Line Consent: Elective - informed consent obtained Sterile Technique Used: Yes Time out performed: Yes Size (Gauge): 20 Technique used: modified Seldinger technique Post-Procedure: line sutured into place Patient tolerated procedure: well and no complications Central Line Placement Right IJ: Consent for Procedure: Elective - informed consent obtained Time out performed: Yes Sterile Technique Used: Yes Patient placed on monitor/pulse ox: Yes MD prep: mask, gown and gloves Central line prep: Povidone-Iodine 1% Local anesthesia used: lidocaine 1% Amount of anesthesia used (ml): 10 Ultrasound used for placement: Yes Central line lumen inserted: triple Post procedure: sutured in place, good blood return, all ports aspirated, flushed, capped and sterile dressing applied Post procedure x-ray: tip of catheter in good position and no pneumothorax seen Patient tolerated procedure: well and no complications Complications: none
[2024-02-10] MEDS: HYDROmorphone HCl 0.5 MG/0.5 ML SYRINGE 0.25 MG IVPUSH ×2 (18:40→22:36)
[2024-02-10] MEDS: Albumin Human 25 % 100 ML 133.33 ML IV ×2 (18:41→19:57)
[2024-02-10 19:39] LABS: Vancomycin Random 7.3 mcg/mL (15-20)
--- NOTE | 2024-02-10 19:45 | HE.PHANOTE ---
RE: VANCO DOSING Random came back as 7.3 which is lower than the predicted 10.6. Since renal function is also improving, dose is increased to 1000 mg q12h, starting @2100 02/10/24. Next random is scheduled for 02/11/24 @1900
[2024-02-10] MEDS: vancomycin HCL 1,000 MG in 0.9 % Sodium Chloride 250 ML 270 MG IV (21:13)
[2024-02-10] MEDS: Parenteral Nutrition 720 ML 30 ML IV (21:13)
[2024-02-10] MEDS: Enoxaparin Sodium 40 MG/0.4 ML SYRINGE SUBCUT (21:14)
[2024-02-10 21:31] LABS: ABG Refer to POC result
[2024-02-11] VITALS (24 sets, daily range): BP systolic 92–136; BP diastolic 50–85; PULSE 54–95; RESP 11–21; TEMP 36.4–37.7; O2SAT 89–100
[2024-02-11] MEDS: Piperacillin Sodium/Tazobactam 4.5 GM in 0.9 % Sodium Chloride 100 ML IV ×4 (02:12→20:34)
[2024-02-11 04:22] LABS: VBG Base Excess 2.8 mmol/L; VBG HCO3 26 mmol/L (22-26); VBG pCO2 38 mmHg; VBG pH 7.44 (7.32-7.43); VBG pO2 100 mmHg
[2024-02-11 04:48] LABS: Venous Blood Gas Refer to POC result
[2024-02-11 04:55] LABS: MANUAL DIFF FLAG NO
[2024-02-11 04:58] LABS: Basophils Percent Auto 0.2 % (0-2); Eosinophils Absolute Auto 0.1 X10*3/uL (0.0-0.4); Eosinophils Percent Auto 1.2 % (0-4); Hematocrit 26.3 % (42.0-52.0); Hemoglobin 8.6 g/dl (14.0-18.0); Imm Gran Abs Auto 0.03 X10*3/uL (0.00-0.03); Imm Gran Pct Auto 0.5 % (0.0-0.4); Lymphocytes Absolute Auto 1.5 X10*3/uL (1.2-4.9); Lymphocytes Percent Auto 24.2 % (20-40); Mean Corpuscular HGB Conc 32.7 g/dl (31.0-36.0); Mean Corpuscular Hemoglobin 25.9 pg (27.0-33.0); Mean Corpuscular Volume 79.2 fL (80.0-98.0); Mean Platelet Volume 10.1 fL (9.4-12.4); Monocytes Absolute Auto 0.5 X10*3/uL (0.1-1.2); Monocytes Percent Auto 7.4 % (2-11); Neutrophils Percent Auto 66.5 % (45-73); Platelet Count 207 X10*3/uL (160-400); Red Blood Count 3.32 X10*6/uL (4.60-5.80); White Blood Count 6.1 X10*3/uL (4.8-10.8)
[2024-02-11 05:14] LABS: Creatinine Clr Calc Pharmacy 72.2; Estimated Glomerular Filt Rate > 60
[2024-02-11 05:16] LABS: Alanine Aminotransferase 13 U/L (0-40); Albumin Level 4.5 g/dL (3.5-5.0); Alkaline Phosphatase 33 U/L (39-117); Anion Gap 15 (12-20); Aspartate Amino Transferase 22 U/L (5-37); Bilirubin Total 1.2 mg/dL (0.0-1.0); Blood Urea Nitrogen 11 mg/dL (9-16); Calcium 9.6 mg/dL (8.4-10.2); Carbon Dioxide 23 mmol/L (22-29); Chloride 105 mmol/L (96-108); Creatinine Clr Calc Pharmacy 72.2; Estimated Glomerular Filt Rate > 60; Glucose Random 97 mg/dL (60-115); Potassium 3.5 mmol/L (3.3-5.1); Sodium 139 mmol/L (135-145); Total Protein 7.2 g/dL (6.5-8.0)
[2024-02-11] MEDS: Potassium Phosphate/NS 15 MMOL/250 ML PLAST..BAG 62.5 MMOL IV ×2 (06:12→11:32)
[2024-02-11] MEDS: Acetylcysteine 10 % 400 MG/4 ML VIAL INHALE ×3 (07:30→20:29)
[2024-02-11] MEDS: Midodrine HCl 10 MG TABLET PO ×2 (07:50→11:33)
[2024-02-11] MEDS: 0.9 % Sodium Chloride Flush 3 ML SYRINGE IVFLUSH ×2 (07:51)
--- NOTE | 2024-02-11 08:42 | P.PNCC_ITS ---
Subjective Subjective Date of Service: 02/11/24 Critical Care Time (minutes): 35 Comment: Off vasopressor support since yesterday afternoon Still on high-flow oxygen with slightly increase in the oxygen need this to 40% Physical Exam 2 Vital Signs: Vital Signs: Last Vital Signs Temp 99.5 F 02/11/24 07:00 Pulse 85 02/11/24 07:30 Resp 14 02/11/24 07:30 BP 106/66 02/11/24 07:00 Pulse Ox 97 02/11/24 07:00 O2 Del Method High Flow Nasal C annula 02/11/24 07:00 O2 Flow Rate 40 02/11/24 07:00 FiO2 40 02/11/24 07:00 BMI result Body Mass Index 16.3 General: Emaciated, malnourished, ill appearing and tired appearing Nutritional Appearance: Underweight and malnourished Eyes: appearance normal, both eyes and all related structures; Alignment and Position: alignment normal and position normal Neck: No lymphadenopathy, no thyromegaly Resp: bilateral air entry equal, lung base crackles heard Cardio: Regular rate, regular rhythm; Heart sounds: S1 normal heart sound present and S2 normal heart sound present GI: soft, nontender, no guarding, no hepatosplenomegaly : bladder normal to inspection, bladder normal to palpation, no renal angle tenderness Skin: no rashes or lesions noted and elasticity normal Neuro: Moves all the extremities Objective Data Labs 02/11/24 04:05 02/11/24 04:13 Labs: Laboratory Results - last 24 hr 02/10/24 02/10/24 02/10/24 04:31 12:36 19:06 WBC RBC Hgb Hct MCV MCH MCHC RDW Plt Count MPV Immature Gran % (Auto) Neut % (Auto) Lymph % (Auto) [place] % (Auto) Eos % (Auto) Baso % (Auto) Lymph # (Auto) [place] # (Auto) Eos # (Auto) Baso # (Auto) Abs Immat Gran (auto) Absolute Neuts (auto) Absolute Nucleated RBC Nucleated RBC % (auto) O2 Saturation 100.0 ABG pH at Pt Temp 7.39 ABG pCO2 at Pt Temp 38 ABG pO2 at Pt Temp 406 H ABG HCO3 24 ABG Base Excess (Actual) -0.6 VBG pH VBG pCO2 VBG pO2 VBG HCO3 VBG O2 Saturation VBG Base Excess Sodium Potassium Chloride Carbon Dioxide Anion Gap BUN Creatinine Estim Creat Clear Calc Estimated GFR Random Glucose Calcium Phosphorus Magnesium Total Bilirubin AST ALT Alkaline Phosphatase Total Protein Albumin Triglycerides 146 Random Vancomycin 7.3 L 02/11/24 02/11/24 02/11/24 04:05 04:10 04:13 WBC 6.1 RBC 3.32 L Hgb 8.6 L Hct 26.3 L MCV 79.2 L MCH 25.9 L MCHC 32.7 RDW 15.0 Plt Count 207 D MPV 10.1 Immature Gran % (Auto) 0.5 H Neut % (Auto) 66.5 Lymph % (Auto) 24.2 [place] % (Auto) 7.4 Eos % (Auto) 1.2 Baso % (Auto) 0.2 Lymph # (Auto) 1.5 [place] # (Auto) 0.5 Eos # (Auto) 0.1 Baso # (Auto) 0.0 Abs Immat Gran (auto) 0.03 Absolute Neuts (auto) 4.0 Absolute Nucleated RBC 0.000 Nucleated RBC % (auto) 0.0 O2 Saturation ABG pH at Pt Temp ABG pCO2 at Pt Temp ABG pO2 at Pt Temp ABG HCO3 ABG Base Excess (Actual) VBG pH 7.44 H VBG pCO2 38 VBG pO2 100 VBG HCO3 26 VBG O2 Saturation 100.0 VBG Base Excess 2.8 Sodium 139 Potassium 3.5 Chloride 105 Carbon Dioxide 23 Anion Gap 15 BUN 11 Creatinine 0.67 0.67 Estim Creat Clear Calc 72.2 72.2 Estimated GFR > 60 > 60 Random Glucose 97 Calcium 9.6 Phosphorus 2.0 L Magnesium 2.0 Total Bilirubin 1.2 H AST 22 ALT 13 Alkaline Phosphatase 33 L Total Protein 7.2 Albumin 4.5 Triglycerides Random Vancomycin Microbiology Microbiology Results: Microbiology 02/09/24 17:26 Sputum - Suctioned Gram Stain - Final 02/09/24 17:26 Sputum - Suctioned Sputum Culture - Preliminary 02/07/24 19:34 Blood - Venous Blood Culture - Preliminary No growth after 48 hours. 02/07/24 19:33 Blood - Venous Blood Culture - Preliminary No growth after 48 hours. Progress Note: A&P Assessment and plan (1) Sepsis: Status: Acute (2) Oropharyngeal candidiasis: Status: Acute (3) Septic shock: Status: Acute (4) Cerebral palsy: Status: Acute (5) Aspiration pneumonia: Status: Acute (6) Hypoxia: Status: Acute Plan Septic shock: Off Levophed since yesterday afternoon. Continue midodrine. Cuff pressures are about 10 mm Hg lower than arterial line pressure. Hypovolemic on bedside US, will start on LR at 75cc/hr. Blood cultures negative so far. CT chest showing bilateral pneumonia, tested positive for COVID He has been started on vancomycin (MRSA nares positive) and Zosyn due to recent hospitalization and discharged on 01/28/2024; MRSA nares positive Chronic respiratory failure: possible due to poor muscle mass and recurrent aspiration Episodes of mucus plugging leading to hypoxia; continue aggressive chest percussion therapy and cough assist; mucomyst nebulization twice daily Chest CT showed bilateral lower lobe pneumonia most likely aspiration pneumonia but the report said rule out TB so sputum for AFB has been sent out. recent admission for RSV, COVID positive this admission. will start on dexamethasone 6mg daily Chronic Anemia: Hemoglobin increased to 10.2 No obvious source of bleeding, received multiple boluses Chronic malnourishment: Started on TPN Has G-tube, he will be on G-tube feeds G-tube feeds has been held due to increased cough with tube feeding Leukocytosis: Secondary to infection, improving down to normal today Prophylaxis: Lovenox Quality Stroke Does the patient have a stroke diagnosis?: No VTE Prior VTE?: No VTE Risk Level:: Medical - moderate - high VTE Device Contraindication: Treatment Not Indicated VTE Drug Contraindication: N/A - Med Ordered
--- NOTE | 2024-02-11 08:58 | P.CDIM_ITS ---
PROVIDER RESPONSE TEXT: To clarify, the appropriate diagnosis supported by the clinical indicators: Acute on chronic hypoxic respiratory failure: possible QUERY TEXT: PHYSICIAN'S DOCUMENTATION REQUEST Date of Query: 02/11/2024 08:43 AM EST Patient Name: Anthony Asher Admit Date: 02/08/2024 Dear Jomar Wright MD, A review of the medical record indicates additional documentation may be needed. Please review below and update the documentation accordingly. Clinical Indicators: H&P dated 02/06 - PMH chronic hypoxemic respiratory failure due to recurrent aspiration on 2.5 L supp lemental oxygen increased oxygen requirements to 4L NC. Plan: Severe sepsis and Acute on chronic hypoxic respiratory failure RR 25, ABG's completed, pulse ox 89 L, high flow oxygen/NC. ICU progress notes 02/07, 02/08, 02/09 within the Plan: Chronic hypoxic respiratory failure possible due to poor muscle mass and recurrent aspirations. Currently stable on NC. In your clinical judgement, do you agree with the acuity of the respiratory failure documented within the medical record for this patient: Acute on chronic hypoxic respiratory failure suspected, probable, possible etc. Chronic hypoxic respiratory failure possible, suspected etc. Other (explain) Clinically unable to determine (explain) Thank you, Amy Norton, CCS, CDIS Use of terms such as suspected, likely, concern for, or probable (associated with a specific diagnosi s that is being evaluated, monitored, or treated as if it exists) are acceptable and can be coded in the inpatient se tting, when documented at the time of discharge. Please use your independent medical judgment in providing your response. THIS QUERY IS PART OF THE PERMANENT MEDICAL RECORD
[2024-02-11] MEDS: dexAMETHasone sod phosphate 4 MG/ML VIAL 6 MG IVPUSH (09:50)
[2024-02-11] MEDS: vancomycin HCL 1,000 MG in 0.9 % Sodium Chloride 250 ML 270 MG IV ×2 (09:50→22:58)
[2024-02-11] MEDS: Lactated Ringers 1,000 ML 75 ML IVCONT (09:51)
--- NOTE | 2024-02-11 10:04 | MHC.CLN ---
F/U PT IS MODERATELY MALNOURISHED REVIEWED LABS DISCUSSED WITH MD AND PHARMACY PT NOT MEETING NUTRITION NEEDS WITH TUBE FEEDING PT RECEIVED CENTRAL LINE RECOMMEND TPN AT MAX GOAL RATE 45ML/HR WITH 22G LIPIDS TO PROVIDE [id number], 162G DEXTROSE, 54G PROTEIN REPLETE LYTES NEEDED CONTINUE TPN AT MAX GOAL RATE OVER WEEKEND WILL ADJUST RATE TF TOLERANCE INCREASES RD CAN BE REACHED DURING OFF HOURS VIA TIGER CONNECT IF NEEDED
--- NOTE | 2024-02-11 11:00 | CA_ITS ---
Transthoracic Echocardiogram Patient (Last, First, Middle): Anthony Asher, Gender: Male Date of : 1990 Age: 33 Procedure Date: 02/11/2024 Procedure Type: Transthoracic Echocardiogram Location: ICU Height: 142.24 cm Weight: 32.66 kg BSA: 1.15 m2 Heart Rate: 70 bpm BP: 120 / 76 mmHg Ground Crewman: SB Referring MD: Jomar Wright MD Symptoms: Hypoxia with bubble study, to rule out Right to left shunt Study Quality: Adequate ECG Rhythm: Sinus Conclusions: - PFO noted by saline contrast study, otherwise normal study Findings Left Ventricle Normal left ventricular size, thickness, and systolic function. The visually estimated ejection fraction is between 60-65%. Spectral Doppler is indicative of a normal filling pattern. Right Ventricle Normal right ventricular cavity size and systolic function. Atria Both atria are normal in size. Contrast study for right to left shunting is mildly positive. Patent foramen ovale detected using by contrast. Aortic Valve Normal aortic valve structure and function. There is no aortic valve stenosis. There is no aortic valve regurgitation. Mitral Valve Normal mitral valve structure and function. There is trace mitral valve regurgitation. There is no mitral valve stenosis. Pulmonic Valve The pulmonic valve is likely normal. There is trace pulmonic valve regurgitation. Tricuspid Valve Normal tricuspid valve structure. Tricuspid regurgitation envelope is inadequate for calculation of right ventricular systolic pressure. Normal right atrial pressure. Great Vessels All visible segments of the aorta are normal in size. The pulmonary artery was not well visualized. Venous The inferior vena cava is normal in size. Pericardium/Pleural There is no evidence of pericardial effusion. Prior Study Comparison No prior study available for comparison. Measurements 2D Linear Measurements IVSd: 0.54 0.6-0.9/0.6-1.0 cm LVIDd: 3.84 3.9-5.3/4.2-5.9 cm LVIDd Index: 3.34 2.4-3.2/2.2-3.1 cm/m2 LVIDs: 2.29 2.0-3.6 cm LVPWd: 0.70 0.7-1.1 cm LA Diam: 2.10 2.7-3.8/3.0-4.0 cm LAIDs Index: 1.83 1.5-2.3 cm/m2 LV Mass: 76.89 67-162/88-224 g LV Mass Index: 66.86 43-95/49-115 g/m2 LVOT Diam: 1.80 3.0+(-)1.3 cm 2D Systolic Function EF 4C: 71.50 >55% Mitral Valve MV Pk E: 1.14 MV PK A: 0.50 MV Decel Time: 237.00 E/A: 2.30 E'Medial: 9.32 E/E' Med: 12.20 PHT: 69.00 MVA PHT: 3.19 Decel [place]: 4.81 Aortic Valve AoV Pk Bryan: 0.92 AoV Pk Grad: 3.00 OLEG: 2.60 LVOT LVOT Pk Bryan: 0.94 LVOT Mn Bryan: 0.54 LVOT VTI: 0.17 LVOT Pk Grad: 4.00 LVOT Mn Grad: 1.00 LVOT Diam: 1.80 LVOT Area: 2.54 Diastolic Function MV Pk E: 1.14 MV Pk A: 0.50 E/A: 2.30 E'Medial: 9.32 E/E' Med: 12.20 Right Ventricle TAPSE (mm): 24.20 TVS' Bryan: 15.50 Great Vessels Aorta Sinus of Valsalva: 2.60 2.0-3.5 cm Pulmonary Veins Pulm Vein S/D 1.00 Pulmonary Valve PV Pk Bryan: 0.81 Peak PV Grad: 3.00 Updated in Other Vendor System with Status of Final Jua nA Cadena MD electronically signed on 02/11/2024 12:31:04 PM with status of Final
--- NOTE | 2024-02-11 14:33 | MHC.CM.PN ---
Pt to transition to TPN to maximize nutritional support - undetermined duration. Pt has a peg tube but has been having increased coughing with feeds even at lowered rates. Pt is from home w/12/10 family support, [employer] for Home O2, and new [facility] for RN/[employer] needs. Parents are guardians. Will update [facility] and feeding vendor. CM to follow.
--- NOTE | 2024-02-11 15:50 | PC.RT ---
pt. arrived to IM from ICU. RT placed suction catheter kits and cough assist machine in room. Jose set up to wall suction
--- NOTE | 2024-02-11 15:56 | P.EN_ITS ---
Event Note Date of Service: 02/11/24 Event Note: Clinical Summary: The patient, a 33-year-old male with cerebral palsy, dysphagia, severe malnutrition requiring tube feeds, and chronic respiratory failure on home oxygen, presented to the hospital on 02/06 with altered mental status and [id number] hypoxic respiratory failure, presumed secondary to aspiration pneumonia. A chest X-ray revealed multifocal pneumonia involving the lower lobes, raising suspicion for mycobacterial infection. He decompensated shortly after admission, necessitating ICU care with vasopressor support, but has since been weaned off pressors. Due to recurrent aspiration, he has been unable to tolerate tube feeds and is currently maintained on TPN. The patient remains on high-flow oxygen due to difficulty weaning, though he is hemodynamically stable. He is currently in TB isolation, receiving Zosyn for aspiration pneumonia, Sputum culture is growing staph Aureus. Tube feeds remain on hold, and TPN is continued. Peripheral access has been challenging, so central line use is ongoing, with plans to transition to a Cohen catheter for long-term TPN at home. Plan: * Continue TB isolation. * Maintain Zosyn for aspiration pneumonia. Add Vancomycin for Staph in the sp umtum, cannot rule out MRSA at this point per micro * Continue high-flow oxygen and attempt weaning as tolerated. * Hold tube feeds and maintain TPN. * Ensure central line access until Cohen catheter placement is achieved. * Plan for home TPN after Cohen catheter placement. * Discuss care goals and plan with the family, emphasizing ongoing support and long-term management. * plan discussed with family (2 sisters at bedside) Time Spent With Patient Time: Total time managing care of this patient today ____ minutes.
[2024-02-11 19:38] LABS: Vancomycin Random 12.7 mcg/mL (15-20)
[2024-02-11] MEDS: Enoxaparin Sodium 40 MG/0.4 ML SYRINGE SUBCUT (22:57)
[2024-02-12] VITALS (13 sets, daily range): BP systolic 92–107; BP diastolic 47–78; PULSE 48–72; RESP 14–20; TEMP 36.2–36.7; O2SAT 91–100
[2024-02-12] MEDS: Parenteral Nutrition 1,080 ML 45 ML IV ×2 (01:56→21:16)
[2024-02-12] MEDS: Piperacillin Sodium/Tazobactam 4.5 GM in 0.9 % Sodium Chloride 100 ML IV ×4 (01:57→21:17)
[2024-02-12] MEDS: Lactated Ringers 1,000 ML 75 ML IVCONT ×2 (01:57→13:39)
[2024-02-12] MEDS: 0.9 % Sodium Chloride Flush 3 ML SYRINGE IVFLUSH ×4 (01:58→21:45)
[2024-02-12 08:54] LABS: MANUAL DIFF FLAG NO
[2024-02-12 08:55] LABS: Basophils Percent Auto 0.1 % (0-2); Hematocrit 26.2 % (42.0-52.0); Hemoglobin 8.8 g/dl (14.0-18.0); Imm Gran Abs Auto 0.02 X10*3/uL (0.00-0.03); Imm Gran Pct Auto 0.2 % (0.0-0.4); Lymphocytes Absolute Auto 1.2 X10*3/uL (1.2-4.9); Lymphocytes Percent Auto 13.5 % (20-40); Mean Corpuscular HGB Conc 33.6 g/dl (31.0-36.0); Mean Corpuscular Hemoglobin 26.3 pg (27.0-33.0); Mean Corpuscular Volume 78.4 fL (80.0-98.0); Mean Platelet Volume 9.8 fL (9.4-12.4); Monocytes Absolute Auto 0.8 X10*3/uL (0.1-1.2); Monocytes Percent Auto 8.9 % (2-11); Neutrophils Absolute Auto 6.8 x10*3/uL (2.0-8.3); Neutrophils Percent Auto 77.3 % (45-73); Platelet Count 195 X10*3/uL (160-400); Red Blood Count 3.34 X10*6/uL (4.60-5.80); Red Cell Distribution Width 14.8 % (11.0-16.0); White Blood Count 8.8 X10*3/uL (4.8-10.8)
[2024-02-12 09:02] LABS: Venous Blood Gas Refer to POC result
[2024-02-12 09:03] LABS: VBG Base Excess 4.2 mmol/L; VBG HCO3 29 mmol/L (22-26); VBG pCO2 48 mmHg; VBG pH 7.39 (7.32-7.43); VBG pO2 49 mmHg
[2024-02-12 09:19] LABS: Alanine Aminotransferase 11 U/L (0-40); Alkaline Phosphatase 38 U/L (39-117); Anion Gap 11 (12-20); Aspartate Amino Transferase 20 U/L (5-37); Bilirubin Total 0.6 mg/dL (0.0-1.0); Blood Urea Nitrogen 12 mg/dL (9-16); Calcium 9.3 mg/dL (8.4-10.2); Carbon Dioxide 27 mmol/L (22-29); Chloride 104 mmol/L (96-108); Creatinine Clr Calc Pharmacy 71.2; Estimated Glomerular Filt Rate > 60; Glucose Random 135 mg/dL (60-115); Phosphorus 2.4 mg/dL (2.7-4.5); Potassium 3.6 mmol/L (3.3-5.1); Sodium 138 mmol/L (135-145); Total Protein 6.9 g/dL (6.5-8.0)
[2024-02-12 09:22] LABS: Vancomycin Random 16.5 mcg/mL (15-20)
[2024-02-12] MEDS: dexAMETHasone sod phosphate 4 MG/ML VIAL 6 MG IVPUSH (09:51)
[2024-02-12] MEDS: vancomycin HCL 1,000 MG in 0.9 % Sodium Chloride 250 ML 270 MG IV ×2 (09:52→21:16)
[2024-02-12] MEDS: Midodrine HCl 10 MG TABLET G-TUBE ×2 (10:41→17:08)
--- NOTE | 2024-02-12 12:21 | HO.PM.IMPN ---
Subjective Subjective Date of Service: 02/12/24 Interval History: Pt seen and examined, sister at bedside. No issues reported overnight. He remains on on Highflow O2, however is weaning successful Physical Exam Vital Signs: Vital Signs: Last Vital Signs Temp 97.1 F 02/12/24 11:57 Pulse 52 02/12/24 11:57 Resp 18 02/12/24 11:57 BP 106/69 02/12/24 11:57 Pulse Ox 99 02/12/24 11:57 O2 Del Method High Flow Nasal C annula 02/12/24 11:57 O2 Flow Rate 30 02/12/24 11:57 FiO2 35 02/12/24 11:57 BMI result Body Mass Index 16.3 Const: Other: General: alert, not in distress, not able to communicate, malnurouished, frail and skiny Resp: CTA bilateral, normal movement CVS: S1,S2,RRR GI: +BS, NT, no distention Skin: No rash Neuro: motor grossly intact Psych: appropriate affect Objective Data Active Medications Acetaminophen (Acetaminophen 325 Mg Tablet) 650 mg PO Q6H PRN PRN Reason: Pain, Mild (Pain Scale 1-3), fever or headache Last Admin: 02/09/24 08:49 Dose: 650 mg Documented By: MIRIAM Acetylcysteine (Acetylcysteine 10 % 400 Mg/4 Ml Vial) 400 mg INHALE RBID [facility] Last Admin: 02/11/24 20:29 Dose: 400 mg Documented By: LÓPEZ Albuterol Sulfate (Albuterol Sulfate (0.083%) 2.5 Mg/3 Ml Vial.Neb) 5 mg INHALE Q20M PRN PRN Reason: Shortness of Breath Last Admin: 02/09/24 16:00 Dose: 2.5 mg Documented By: ARNEL Calcium Carbonate (Calcium Carbonate 750 Mg Tab.Chew) 750 mg PO Q4H PRN PRN Reason: Heartburn Dexamethasone Sodium Phosphate (Dexamethasone Sod Phosphate 4 Mg/Ml Vial) 6 mg IVPUSH DAILY [facility] Last Admin: 02/12/24 09:51 Dose: 6 mg Documented By: RAEGAN Enoxaparin Sodium (Enoxaparin Sodium 40 Mg/0.4 Ml Syringe) 40 mg SUBCUT Q24H [facility] Last Admin: 02/11/24 22:57 Dose: 40 mg Documented By: VANNESA Hydromorphone HCl (Hydromorphone Hcl 0.5 Mg/0.5 Ml Syringe) 0.25 mg IVPUSH Q4H PRN; Protocol PRN Reason: Pain, Moderate(Pain Scale 4-6) Last Admin: 02/10/24 22:36 Dose: 0.25 mg Documented By: CALDERON Piperacillin Sod/Tazobactam (Sod 4.5 gm/ Sodium Chloride) 100 mls @ 200 mls/hr IV Q6H [facility] Last Infusion: 02/12/24 10:49 Dose: Infused Documented By: RAEGAN Vancomycin HCl 1,000 mg/ (Sodium Chloride) 270 mls @ 270 mls/hr IV Q12H [facility] Last Infusion: 02/12/24 11:02 Dose: Infused Documented By: RAEGAN Lactated Ringer's (Lr) 1,000 mls @ 75 mls/hr IVCONT .[id number] [facility] Last Admin: 02/12/24 11:10 Dose: Not Given Documented By: RAEGAN Non-Admin Reason: IV Running Nutrition (Parenteral) (Parenteral Nutrition) 1,080 mls @ 45 mls/hr IV .Q24H [facility]; Protocol Stop: 02/12/24 20:59 Last Admin: 02/12/24 01:56 Dose: 45 mls/hr Documented By: VANNESA Magnesium Hydroxide (Milk Of Magnesia 30 Ml Oral.Susp) 30 ml PO DAILY PRN PRN Reason: Constipation Melatonin (Melatonin 3 Mg Tablet) 6 mg PO BEDTIME PRN PRN Reason: Insomnia Midodrine (Midodrine Hcl 10 Mg Tablet) 10 mg G-TUBE TIDAC [facility] Last Admin: 02/12/24 10:41 Dose: 10 mg Documented By: RAEGAN Ondansetron HCl (Ondansetron Hcl 4 Mg/2 Ml Vial) 4 mg IVPUSH Q8H PRN PRN Reason: Nausea and Vomiting Pharmacy Consult (Consult Rx Vancomycin Dosing) 1 each MISCELLANE DAILY PRN PRN Reason: Consult order Pharmacy Consult (Consult Rx Parenteral Nutrition Ordering) 1 each MISCELLANE DAILY PRN PRN Reason: Consult order Sodium Chloride (0.9 % Sodium Chloride Flush 3 Ml Syringe) 3 ml IVFLUSH QSHIFT [facility] Last Admin: 02/12/24 09:52 Dose: 3 ml Documented By: RAEGAN Labs 02/12/24 08:47 02/12/24 08:47 Labs: Laboratory Results - last 24 hr 02/11/24 02/12/24 02/12/24 19:14 08:47 08:52 MCV 78.4 L MCH 26.3 L MCHC 33.6 RDW 14.8 Plt Count 195 MPV 9.8 Immature Gran % (Auto) 0.2 Neut % (Auto) 77.3 H Lymph % (Auto) 13.5 L [place] % (Auto) 8.9 Eos % (Auto) 0.0 Baso % (Auto) 0.1 Lymph # (Auto) 1.2 [place] # (Auto) 0.8 Eos # (Auto) 0.0 Baso # (Auto) 0.0 Abs Immat Gran (auto) 0.02 Absolute Neuts (auto) 6.8 Absolute Nucleated RBC 0.000 Nucleated RBC % (auto) 0.0 VBG pH 7.39 VBG pCO2 48 VBG pO2 49 VBG HCO3 29 H VBG O2 Saturation 77.0 VBG Base Excess 4.2 Anion Gap 11 L Estim Creat Clear Calc 71.2 Estimated GFR > 60 Random Glucose 135 H Calcium 9.3 Phosphorus 2.4 L Magnesium 2.0 Total Bilirubin 0.6 AST 20 ALT 11 Alkaline Phosphatase 38 L Total Protein 6.9 Albumin 4.0 Random Vancomycin 12.7 L 16.5 Microbiology Microbiology Results: Microbiology 02/09/24 17:26 Gram Stain - Final Sputum - Suctioned Sputum Culture - Final Methicillin Res Staph Aureus Assessment and Plan (1) Sepsis: Status: Acute (2) Aspiration pneumonia: Status: Acute (3) Hypoxia: Status: Acute Plan The patient, a 33-year-old male with cerebral palsy, dysphagia, severe malnutrition requiring tube feeds, and chronic respiratory failure on home oxygen, presented to the hospital on 02/06 with altered mental status and [id number] hypoxic respiratory failure, presumed secondary to aspiration pneumonia and covid. A chest X-ray revealed multifocal pneumonia involving the lower lobes, raising suspicion for mycobacterial infection. Additional tested positive for covid He decompensated shortly after admission, necessitating ICU care with vasopressor support, but has since been weaned off pressors. Due to recurrent aspiration, he has been unable to tolerate tube feeds and is currently maintained on TPN. The patient remains on high-flow oxygen due to difficulty weaning, though he is hemodynamically stable. He is currently in TB isolation, receiving Zosyn for aspiration pneumonia, Sputum culture is growing staph Aureus (MRSA). Tube feeds remain on hold, and TPN is continued. Peripheral access has been challenging, so central line use is ongoing, with plans to transition to a Cohen catheter for long-term TPN at home. Plan: Finding on CXR likely d/t MRSA PNA, will DC TB isolation per pulmonology recommendation Maintain Zosyn for aspiration pneumonia. Vancomycin for MRSA in the spumtum. Continue high-flow oxygen and attempt weaning as tolerated. Hold tube feeds and maintain TPN. Ensure central line access until Cohen catheter placement is achieved. Plan for home TPN after Cohen catheter placement. Dexametahsone for covid Discuss care goals and plan with the family, emphasizing ongoing support and long-term management. plan discussed with family (2 sisters at bedside) Lovenox for DVT prophyalxis Quality Stroke Does the patient have a stroke diagnosis?: No VTE Prior VTE?: No VTE Risk Level:: Medical - moderate - high VTE Device Contraindication: Treatment Not Indicated VTE Drug Contraindication: N/A - Med Ordered
--- NOTE | 2024-02-12 12:51 | P.CONPL_ITS ---
History of Present Illness History of Present Illness Consult date: 02/12/24 Chief complaint: AMS,fever Narrative: This is an inpatient pulmonary consultation. This is a 33-year-old male with pertinent history of cerebral palsy who is nonverbal at baseline, chronic hypoxemic respiratory failure due to recurrent aspiration on 2.5 L supplemental oxygen who was brought to the emergency department for evaluation of lethargy and increasing oxygen requirements. History obtained with the help of father and sister at bedside. Patient was using 2-1/2 L supplemental oxygen but he was found to be satting 70% on the day of presentation. The sister increased O2 to 4 L but the patient's oxygen saturation was still low. Also he was drowsy and less interactive on the day of presentation so he was brought to the hospital. The father noticed that every time the patient has tube feeding, he coughs. I did review his CT scan of the chest that he had back in beginning of January with some dense consolidations the bases. More recent x-rays demonstrating hazy opacities left more than right. However, I do not see any evidence of any stigmata of tuberculosis or mycobacterial disease. The patient tested positive for COVID 19. Also tested positive for Staph aureus (MRSA). Review of Systems 2 Review of Systems: Yes Unobtainable due to mental condition PMFSH Past Medical History Medical History 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 Surgical History Surgical History S/P percutaneous endoscopic gastrostomy (PEG) tube placement Social History Social History Household Members: Family Housing: House Are you a primary child care sitter to a significant other at home: No Do you presently have visiting nurse or other home services: No Comment: Family member bedside Patient Tobacco Use Status: Never used Tobacco Second Hand Smoke Exposure: No Advance Directives Date on File: 01/20/24 service: No Meds Allergies Allergy/AdvReac Type Severity Reaction Status Date / Time No Known Allergies Allergy Verified 02/07/24 19:46 Active Medications: Current Medications Acetaminophen (Acetaminophen 325 Mg Tablet) 650 mg PO Q6H PRN PRN Reason: Pain, Mild (Pain Scale 1-3), fever or headache Last Admin: 02/09/24 08:49 Dose: 650 mg Acetylcysteine (Acetylcysteine 10 % 400 Mg/4 Ml Vial) 400 mg INHALE RBID [facility] Last Admin: 02/11/24 20:29 Dose: 400 mg Albuterol Sulfate (Albuterol Sulfate (0.083%) 2.5 Mg/3 Ml Vial.Neb) 5 mg INHALE Q20M PRN PRN Reason: Shortness of Breath Last Admin: 02/09/24 16:00 Dose: 2.5 mg Calcium Carbonate (Calcium Carbonate 750 Mg Tab.Chew) 750 mg PO Q4H PRN PRN Reason: Heartburn Dexamethasone Sodium Phosphate (Dexamethasone Sod Phosphate 4 Mg/Ml Vial) 6 mg IVPUSH DAILY [facility] Last Admin: 02/12/24 09:51 Dose: 6 mg Enoxaparin Sodium (Enoxaparin Sodium 40 Mg/0.4 Ml Syringe) 40 mg SUBCUT Q24H [facility] Last Admin: 02/11/24 22:57 Dose: 40 mg Hydromorphone HCl (Hydromorphone Hcl 0.5 Mg/0.5 Ml Syringe) 0.25 mg IVPUSH Q4H PRN; Protocol PRN Reason: Pain, Moderate(Pain Scale 4-6) Last Admin: 02/10/24 22:36 Dose: 0.25 mg Piperacillin Sod/Tazobactam (Sod 4.5 gm/ Sodium Chloride) 100 mls @ 200 mls/hr IV Q6H [facility] Last Infusion: 02/12/24 10:49 Dose: Infused Vancomycin HCl 1,000 mg/ (Sodium Chloride) 270 mls @ 270 mls/hr IV Q12H [facility] Last Infusion: 02/12/24 11:02 Dose: Infused Lactated Ringer's (Lr) 1,000 mls @ 75 mls/hr IVCONT .[id number] [facility] Last Admin: 02/12/24 11:10 Dose: Not Given Nutrition (Parenteral) (Parenteral Nutrition) 1,080 mls @ 45 mls/hr IV .Q24H [facility]; Protocol Stop: 02/12/24 20:59 Last Admin: 02/12/24 01:56 Dose: 45 mls/hr Nutrition (Parenteral) (Parenteral Nutrition) 1,080 mls @ 45 mls/hr IV .Q24H [facility]; Protocol Stop: 02/13/24 20:59 Magnesium Hydroxide (Milk Of Magnesia 30 Ml Oral.Susp) 30 ml PO DAILY PRN PRN Reason: Constipation Melatonin (Melatonin 3 Mg Tablet) 6 mg PO BEDTIME PRN PRN Reason: Insomnia Midodrine (Midodrine Hcl 10 Mg Tablet) 10 mg G-TUBE TIDAC [facility] Last Admin: 02/12/24 10:41 Dose: 10 mg Ondansetron HCl (Ondansetron Hcl 4 Mg/2 Ml Vial) 4 mg IVPUSH Q8H PRN PRN Reason: Nausea and Vomiting Pharmacy Consult (Consult Rx Vancomycin Dosing) 1 each MISCELLANE DAILY PRN PRN Reason: Consult order Pharmacy Consult (Consult Rx Parenteral Nutrition Ordering) 1 each MISCELLANE DAILY PRN PRN Reason: Consult order Sodium Chloride (0.9 % Sodium Chloride Flush 3 Ml Syringe) 3 ml IVFLUSH QSHIFT [facility] Last Admin: 02/12/24 09:52 Dose: 3 ml Home Medications ?Medication ?Instructions ?Recorded ?Confirmed ?Last Taken ?Type acetaminophen 160 mg/5 mL oral 480 mg PO Q6H PRN Fever/Pain 02/07/24 02/07/24 2 Days Ago History liquid ~02/05/24 Physical Exam 2 Vital Signs: Vital Signs: Last Vital Signs Temp 97.1 F 02/12/24 11:57 Pulse 52 02/12/24 11:57 Resp 18 02/12/24 11:57 BP 106/69 02/12/24 11:57 Pulse Ox 99 02/12/24 11:57 O2 Del Method High Flow Nasal C annula 02/12/24 11:57 O2 Flow Rate 30 02/12/24 11:57 FiO2 35 02/12/24 11:57 BMI result Body Mass Index 16.3 Const: Other: General: alert, not in distress, not able to communicate, malnurouished, frail and skiny Resp: normal movement GI: no distention Skin: No rash Neuro: motor grossly intact Psych: appropriate affect Results Laboratory Findings 02/12/24 08:47 02/12/24 08:47 Abnormal lab findings: Abnormal Labs 02/07/24 02/07/24 02/07/24 19:33 19:34 19:59 WBC RBC Hgb 13.5 L Hct 41.7 L MCV MCH 26.0 L Immature Gran % (Auto) Neut % (Auto) 91.0 H Lymph % (Auto) 7.3 L Borden % (Auto) 1.2 L Lymph # (Auto) 0.7 L Abs Immat Gran (auto) Absolute Neuts (auto) 8.9 H ABG pO2 at Pt Temp 74 L VBG pH VBG HCO3 Anion Gap Random Glucose 153 H Lactic Acid 4.3 H* Lactic Acid F/U @ 2Hr Lactic Acid F/U @ 4Hr Phosphorus Total Bilirubin AST 45 H ALT 49 H Alkaline Phosphatase Total Protein 9.7 H Nasal Screen MRSA (PCR) Nasal S. aureus Screen Random Vancomycin SARS-CoV-2 RNA (RT-PCR) 02/07/24 02/08/24 02/08/24 21:50 00:29 05:06 WBC 13.2 H RBC 3.30 L D Hgb 8.7 L D Hct 26.5 L D MCV MCH 26.4 L Immature Gran % (Auto) Neut % (Auto) Lymph % (Auto) Borden % (Auto) Lymph # (Auto) Abs Immat Gran (auto) Absolute Neuts (auto) ABG pO2 at Pt Temp VBG pH VBG HCO3 Anion Gap Random Glucose Lactic Acid Lactic Acid F/U @ 2Hr 3.9 H* Lactic Acid F/U @ 4Hr 2.4 H* Phosphorus Total Bilirubin AST ALT Alkaline Phosphatase Total Protein Nasal Screen MRSA (PCR) Nasal S. aureus Screen Random Vancomycin SARS-CoV-2 RNA (RT-PCR) 02/08/24 02/08/24 02/08/24 10:54 12:30 19:09 WBC 16.1 H RBC 3.25 L Hgb 8.5 L Hct 25.5 L MCV 78.5 L MCH 26.2 L Immature Gran % (Auto) Neut % (Auto) Lymph % (Auto) Borden % (Auto) Lymph # (Auto) Abs Immat Gran (auto) Absolute Neuts (auto) ABG pO2 at Pt Temp VBG pH VBG HCO3 Anion Gap Random Glucose Lactic Acid Lactic Acid F/U @ 2Hr Lactic Acid F/U @ 4Hr Phosphorus Total Bilirubin AST ALT Alkaline Phosphatase Total Protein Nasal Screen MRSA (PCR) POSITIVE A Nasal S. aureus Screen POSITIVE A Random Vancomycin 10.7 L SARS-CoV-2 RNA (RT-PCR) Detected A 02/09/24 02/09/24 02/10/24 04:22 04:29 04:29 WBC 15.7 H RBC 4.01 L D Hgb 10.4 L D Hct 31.4 L D MCV 78.3 L MCH 25.9 L Immature Gran % (Auto) Neut % (Auto) 82.1 H Lymph % (Auto) 13.6 L Borden % (Auto) Lymph # (Auto) Abs Immat Gran (auto) 0.07 H Absolute Neuts (auto) 12.9 H ABG pO2 at Pt Temp VBG pH 7.50 H 7.47 H VBG HCO3 Anion Gap Random Glucose Lactic Acid Lactic Acid F/U @ 2Hr Lactic Acid F/U @ 4Hr Phosphorus Total Bilirubin 1.1 H AST ALT Alkaline Phosphatase Total Protein Nasal Screen MRSA (PCR) Nasal S. aureus Screen Random Vancomycin SARS-CoV-2 RNA (RT-PCR) 02/10/24 02/10/24 02/10/24 04:31 12:36 19:06 WBC 20.9 H RBC 3.96 L Hgb 10.2 L Hct 31.4 L MCV 79.3 L MCH 25.8 L Immature Gran % (Auto) 0.5 H Neut % (Auto) 87.2 H Lymph % (Auto) 8.5 L Borden % (Auto) Lymph # (Auto) Abs Immat Gran (auto) 0.10 H Absolute Neuts (auto) 18.3 H ABG pO2 at Pt Temp 406 H VBG pH VBG HCO3 Anion Gap Random Glucose Lactic Acid Lactic Acid F/U @ 2Hr Lactic Acid F/U @ 4Hr Phosphorus Total Bilirubin AST ALT Alkaline Phosphatase Total Protein Nasal Screen MRSA (PCR) Nasal S. aureus Screen Random Vancomycin 7.3 L SARS-CoV-2 RNA (RT-PCR) 02/11/24 02/11/24 02/11/24 04:05 04:10 04:13 WBC RBC 3.32 L Hgb 8.6 L Hct 26.3 L MCV 79.2 L MCH 25.9 L Immature Gran % (Auto) 0.5 H Neut % (Auto) Lymph % (Auto) Borden % (Auto) Lymph # (Auto) Abs Immat Gran (auto) Absolute Neuts (auto) ABG pO2 at Pt Temp VBG pH 7.44 H VBG HCO3 Anion Gap Random Glucose Lactic Acid Lactic Acid F/U @ 2Hr Lactic Acid F/U @ 4Hr Phosphorus 2.0 L Total Bilirubin 1.2 H AST ALT Alkaline Phosphatase 33 L Total Protein Nasal Screen MRSA (PCR) Nasal S. aureus Screen Random Vancomycin SARS-CoV-2 RNA (RT-PCR) 02/11/24 02/12/24 02/12/24 19:14 08:47 08:52 WBC RBC 3.34 L Hgb 8.8 L Hct 26.2 L MCV 78.4 L MCH 26.3 L Immature Gran % (Auto) Neut % (Auto) 77.3 H Lymph % (Auto) 13.5 L Borden % (Auto) Lymph # (Auto) Abs Immat Gran (auto) Absolute Neuts (auto) ABG pO2 at Pt Temp VBG pH VBG HCO3 29 H Anion Gap 11 L Random Glucose 135 H Lactic Acid Lactic Acid F/U @ 2Hr Lactic Acid F/U @ 4Hr Phosphorus 2.4 L Total Bilirubin AST ALT Alkaline Phosphatase 38 L Total Protein Nasal Screen MRSA (PCR) Nasal S. aureus Screen Random Vancomycin 12.7 L SARS-CoV-2 RNA (RT-PCR) Microbiology: Microbiology 02/09/24 17:26 Sputum - Suctioned Gram Stain - Final 02/09/24 17:26 Sputum - Suctioned Sputum Culture - Final Methicillin Res Staph Aureus 02/07/24 19:34 Blood - Venous Blood Culture - Preliminary No growth after 48 hours. 02/07/24 19:33 Blood - Venous Blood Culture - Preliminary No growth after 48 hours. Assessment and Plan (1) Acute hypoxemic respiratory failure: Status: Acute (2) MRSA pneumonia: Status: Acute (3) COVID-19: Status: Acute (4) Cerebral palsy: Status: Acute (5) Aspiration pneumonia: Status: Acute Plan I do not see any evidence of tuberculosis. The CT scan findings are more suggestive of his postviral bacterial infection and pneumonitis from the COVID along with aspiration risk. The patient already has a diagnosis to explain his symptoms and findings. No need to r/o TB. REC: continue oxugen to keep pox>90% continue Abx coverahe Decadron HOB elevated continue covid precautions, but no need to TB Precautions at this time Procedures Date of Service Date of Service: 02/12/24 Arterial Line Size (Gauge): 20
[2024-02-12] MEDS: Acetylcysteine 10 % 400 MG/4 ML VIAL INHALE (19:50)
[2024-02-12] MEDS: Enoxaparin Sodium 40 MG/0.4 ML SYRINGE SUBCUT (21:40)
[2024-02-13] VITALS (8 sets, daily range): BP systolic 104–122; BP diastolic 63–79; PULSE 45–70; RESP 16–20; TEMP 36.3–37.2; O2SAT 97–100
[2024-02-13] MEDS: Piperacillin Sodium/Tazobactam 4.5 GM in 0.9 % Sodium Chloride 100 ML IV ×4 (01:28→20:59)
[2024-02-13] MEDS: Lactated Ringers 1,000 ML 75 ML IVCONT (01:29)
[2024-02-13 05:18] LABS: TS Negative Control Passed; TS Panel A 0; TS Panel B 0; TS Positive Control Passed; TSpotTB Negative (Negative)
[2024-02-13 07:39] LABS: Creatinine Clr Calc Pharmacy 80.7; Estimated Glomerular Filt Rate > 60
[2024-02-13] MEDS: vancomycin HCL 1,000 MG in 0.9 % Sodium Chloride 250 ML 270 MG IV ×2 (08:09→21:43)
[2024-02-13] MEDS: 0.9 % Sodium Chloride Flush 3 ML SYRINGE IVFLUSH ×2 (08:09→21:18)
[2024-02-13] MEDS: Midodrine HCl 10 MG TABLET G-TUBE ×3 (08:09→16:40)
[2024-02-13] MEDS: Acetylcysteine 10 % 400 MG/4 ML VIAL INHALE ×2 (08:24→20:52)
[2024-02-13] MEDS: dexAMETHasone sod phosphate 4 MG/ML VIAL 6 MG IVPUSH (08:25)
--- NOTE | 2024-02-13 10:38 | P.PNIM_ITS ---
Subjective Subjective Date of Service: 02/13/24 Interval History: Pt seen and examined, sister at bedside. No issues reported overnight. He's transitioned off high flow and now on 4 liter by Nasal canula, breathing is comfortable Physical Exam 2 Vital Signs: Vital Signs: Last Vital Signs Temp 97.5 F 02/13/24 07:47 Pulse 56 02/13/24 08:25 Resp 18 02/13/24 08:25 BP 105/72 02/13/24 07:47 Pulse Ox 100 02/13/24 07:47 O2 Del Method Nasal Cannula 02/13/24 07:47 O2 Flow Rate 5 02/13/24 07:47 FiO2 35 02/12/24 11:57 BMI result Body Mass Index 16.3 Const: Other: General: alert, not in distress, not able to communicate, malnurouished, frail and skiny Resp: normal movement GI: no distention Skin: No rash Neuro: motor grossly intact Psych: appropriate affect Objective Data Active Medications Acetaminophen (Acetaminophen 325 Mg Tablet) 650 mg PO Q6H PRN PRN Reason: Pain, Mild (Pain Scale 1-3), fever or headache Last Admin: 02/09/24 08:49 Dose: 650 mg Documented By: MIRIAM Acetylcysteine (Acetylcysteine 10 % 400 Mg/4 Ml Vial) 400 mg INHALE ID [facility] Last Admin: 02/13/24 08:24 Dose: 400 mg Documented By: GREGG Albuterol Sulfate (Albuterol Sulfate (0.083%) 2.5 Mg/3 Ml Vial.Neb) 5 mg INHALE Q20M PRN PRN Reason: Shortness of Breath Last Admin: 02/09/24 16:00 Dose: 2.5 mg Documented By: ARNEL Calcium Carbonate (Calcium Carbonate 750 Mg Tab.Chew) 750 mg PO Q4H PRN PRN Reason: Heartburn Dexamethasone Sodium Phosphate (Dexamethasone Sod Phosphate 4 Mg/Ml Vial) 6 mg IVPUSH DAILY [facility] Last Admin: 02/13/24 08:25 Dose: 6 mg Documented By: RAEGAN Enoxaparin Sodium (Enoxaparin Sodium 40 Mg/0.4 Ml Syringe) 40 mg SUBCUT Q24H [facility] Last Admin: 02/12/24 21:40 Dose: 40 mg Documented By: VANNESA Hydromorphone HCl (Hydromorphone Hcl 0.5 Mg/0.5 Ml Syringe) 0.25 mg IVPUSH Q4H PRN; Protocol PRN Reason: Pain, Moderate(Pain Scale 4-6) Last Admin: 02/10/24 22:36 Dose: 0.25 mg Documented By: CALDERON Piperacillin Sod/Tazobactam (Sod 4.5 gm/ Sodium Chloride) 100 mls @ 200 mls/hr IV Q6H [facility] Last Infusion: 02/13/24 09:15 Dose: Infused Documented By: RAEGAN Vancomycin HCl 1,000 mg/ (Sodium Chloride) 270 mls @ 270 mls/hr IV Q12H [facility] Last Infusion: 02/13/24 09:15 Dose: Infused Documented By: RAEGAN Nutrition (Parenteral) (Parenteral Nutrition) 1,080 mls @ 45 mls/hr IV .Q24H [facility]; Protocol Stop: 02/13/24 20:59 Last Admin: 02/12/24 21:16 Dose: 45 mls/hr Documented By: VANNESA Magnesium Hydroxide (Milk Of Magnesia 30 Ml Oral.Susp) 30 ml PO DAILY PRN PRN Reason: Constipation Melatonin (Melatonin 3 Mg Tablet) 6 mg PO BEDTIME PRN PRN Reason: Insomnia Midodrine (Midodrine Hcl 10 Mg Tablet) 10 mg G-TUBE TIDAC [facility] Last Admin: 02/13/24 08:09 Dose: 10 mg Documented By: RAEGAN Ondansetron HCl (Ondansetron Hcl 4 Mg/2 Ml Vial) 4 mg IVPUSH Q8H PRN PRN Reason: Nausea and Vomiting Pharmacy Consult (Consult Rx Vancomycin Dosing) 1 each MISCELLANE DAILY PRN PRN Reason: Consult order Pharmacy Consult (Consult Rx Parenteral Nutrition Ordering) 1 each MISCELLANE DAILY PRN PRN Reason: Consult order Sodium Chloride (0.9 % Sodium Chloride Flush 3 Ml Syringe) 3 ml IVFLUSH QSHIFT [facility] Last Admin: 02/13/24 08:09 Dose: 3 ml Documented By: RAEGAN Labs 02/12/24 08:47 02/13/24 07:10 Labs: Laboratory Results - last 24 hr 02/10/24 02/13/24 12:21 07:10 Estim Creat Clear Calc 80.7 Estimated GFR > 60 Random Vancomycin 15.0 TB Test (T-Spot) Com Negative TB Test Nil Control Passed TB Test Panel A 0 TB Test Panel B 0 TB Test Positive Cntrl Passed Microbiology Microbiology Results: Microbiology 02/07/24 19:34 Blood Culture - Final Blood - Venous No growth after 5 days. 02/07/24 19:33 Blood Culture - Final Blood - Venous No growth after 5 days. 02/09/24 17:26 Gram Stain - Final Sputum - Suctioned Sputum Culture - Final Methicillin Res Staph Aureus Assessment and Plan (1) Sepsis: Status: Acute (2) Aspiration pneumonia: Status: Acute (3) Hypoxia: Status: Acute Plan The patient, a 33-year-old male with cerebral palsy, dysphagia, severe malnutrition requiring tube feeds, and chronic respiratory failure on home oxygen, presented to the hospital on 02/06 with altered mental status and [id number] hypoxic respiratory failure, presumed secondary to aspiration pneumonia and covid. A chest X-ray revealed multifocal pneumonia involving the lower lobes, raising suspicion for mycobacterial infection. Additional tested positive for covid He decompensated shortly after admission, necessitating ICU care with vasopressor support, but has since been weaned off pressors. Due to recurrent aspiration, he has been unable to tolerate tube feeds and is currently maintained on TPN. The patient remains on high-flow oxygen due to difficulty weaning, though he is hemodynamically stable. He is currently in TB isolation, receiving Zosyn for aspiration pneumonia, Sputum culture is growing staph Aureus (MRSA). Tube feeds remain on hold, and TPN is continued. Peripheral access has been challenging, so central line use is ongoing, with plans to transition to a Cohen catheter for long-term TPN at home. Pt has intermittent bradycardia without poses Plan: * Finding on CXR likely d/t MRSA PNA, and T spot is negative doesn't need TB isolation per pulmonology recommendation * Maintain Zosyn for aspiration pneumonia. Vancomycin for MRSA in the spumtum. * Continue high-flow oxygen and attempt weaning as tolerated. * Hold tube feeds and maintain TPN. * Ensure central line access until Cohen catheter placement is achieved. * Plan for home TPN after Cohen catheter placement. * Dexametahsone for covid, stop after 7 days. ? remove covid islation, first tested 01/30 * Will discuss changing feeding tube to post pyroric tube to minimize aspiration * Check TSH, mag, and electrolyets for bradycardia * Swelling in foot, likely from fluid, monitor * Discuss care goals and plan with the family, emphasizing ongoing support and long-term management. * plan discussed with family (2 sisters at bedside) * Lovenox for DVT prophyalxis Quality Stroke Does the patient have a stroke diagnosis?: No VTE Prior VTE?: No VTE Risk Level:: Medical - moderate - high VTE Device Contraindication: Treatment Not Indicated VTE Drug Contraindication: N/A - Med Ordered
[2024-02-13 10:59] LABS: Anion Gap 15 (12-20); Carbon Dioxide 22 mmol/L (22-29); Chloride 107 mmol/L (96-108); Potassium 3.3 mmol/L (3.3-5.1); Sodium 141 mmol/L (135-145)
[2024-02-13 12:39] LABS: Phosphorus 2.3 mg/dL (2.7-4.5)
[2024-02-13] MEDS: Albuterol Sulfate (0.083%) 2.5 MG/3 ML VIAL.NEB 5 MG INHALE (20:52)
[2024-02-13] MEDS: Parenteral Nutrition 1,080 ML 45 ML IV (21:05)
[2024-02-13] MEDS: Enoxaparin Sodium 40 MG/0.4 ML SYRINGE SUBCUT (21:16)
[2024-02-14] VITALS (11 sets, daily range): BP systolic 93–117; BP diastolic 57–74; PULSE 50–78; RESP 17–19; TEMP 36.3–36.8; O2SAT 97–100
[2024-02-14] MEDS: Piperacillin Sodium/Tazobactam 4.5 GM in 0.9 % Sodium Chloride 100 ML IV ×4 (02:23→20:02)
[2024-02-14 06:55] LABS: Anion Gap 9 (12-20); Blood Urea Nitrogen 8 mg/dL (9-16); Calcium 8.9 mg/dL (8.4-10.2); Carbon Dioxide 25 mmol/L (22-29); Chloride 105 mmol/L (96-108); Creatinine Clr Calc Pharmacy 80.7; Estimated Glomerular Filt Rate > 60; Glucose Random 116 mg/dL (60-115); Magnesium 2.2 mg/dL (1.6-2.6); Phosphorus 2.6 mg/dL (2.7-4.5); Potassium 3.4 mmol/L (3.3-5.1); Sodium 136 mmol/L (135-145)
--- NOTE | 2024-02-14 07:04 | HO.PM.IMPN ---
Subjective Subjective Date of Service: 02/14/24 Interval History: Pt seen and examined, sister at bedside. No issues reported overnight. Appear comfortable, off maintaining O2 on highflow. Vitals otherwise stable Physical Exam Vital Signs: Vital Signs: Last Vital Signs Temp 97.3 F 02/14/24 04:00 Pulse 52 02/14/24 04:00 Resp 18 02/14/24 04:00 BP 103/61 02/14/24 04:00 Pulse Ox 100 02/14/24 04:00 O2 Del Method Nasal Cannula 02/14/24 04:00 O2 Flow Rate 6 02/14/24 04:00 FiO2 35 02/12/24 11:57 BMI result Body Mass Index 16.3 Const: Other: General: alert, not in distress, not able to communicate, malnurouished, frail and skiny Resp: normal movement cv: rrr, s1s2, mild peripheral pedal edema, sligthly more prominent on right GI: no distention Skin: No rash, Neuro: motor grossly intact Psych: appropriate affect Objective Data Active Medications Acetaminophen (Acetaminophen 325 Mg Tablet) 650 mg PO Q6H PRN PRN Reason: Pain, Mild (Pain Scale 1-3), fever or headache Last Admin: 02/09/24 08:49 Dose: 650 mg Documented By: MIRIAM Acetylcysteine (Acetylcysteine 10 % 400 Mg/4 Ml Vial) 400 mg INHALE RBID [facility] Last Admin: 02/13/24 20:52 Dose: 400 mg Documented By: GLENROY Albuterol Sulfate (Albuterol Sulfate (0.083%) 2.5 Mg/3 Ml Vial.Neb) 5 mg INHALE Q20M PRN PRN Reason: Shortness of Breath Last Admin: 02/13/24 20:52 Dose: 5 mg Documented By: GLENROY Albuterol Sulfate (Albuterol Sulfate 2.5 Mg/0.5 Ml Vial.Neb) 2.5 mg INHALE RBID [facility] Calcium Carbonate (Calcium Carbonate 750 Mg Tab.Chew) 750 mg PO Q4H PRN PRN Reason: Heartburn Dexamethasone Sodium Phosphate (Dexamethasone Sod Phosphate 4 Mg/Ml Vial) 6 mg IVPUSH DAILY [facility] Last Admin: 02/13/24 08:25 Dose: 6 mg Documented By: RAEGAN Enoxaparin Sodium (Enoxaparin Sodium 40 Mg/0.4 Ml Syringe) 40 mg SUBCUT Q24H [facility] Last Admin: 02/13/24 21:16 Dose: 40 mg Documented By: JATINDER Hydromorphone HCl (Hydromorphone Hcl 0.5 Mg/0.5 Ml Syringe) 0.25 mg IVPUSH Q4H PRN; Protocol PRN Reason: Pain, Moderate(Pain Scale 4-6) Last Admin: 02/10/24 22:36 Dose: 0.25 mg Documented By: CALDERON Piperacillin Sod/Tazobactam (Sod 4.5 gm/ Sodium Chloride) 100 mls @ 200 mls/hr IV Q6H [facility] Last Infusion: 02/14/24 03:23 Dose: Infused Documented By: JATINDER Vancomycin HCl 1,000 mg/ (Sodium Chloride) 270 mls @ 270 mls/hr IV Q12H [facility] Last Infusion: 02/13/24 23:53 Dose: Infused Documented By: JATINDER Nutrition (Parenteral) (Parenteral Nutrition) 1,080 mls @ 45 mls/hr IV .Q24H [facility]; Protocol Stop: 02/14/24 20:59 Last Admin: 02/13/24 21:05 Dose: 45 mls/hr Documented By: JATINDER Magnesium Hydroxide (Milk Of Magnesia 30 Ml Oral.Susp) 30 ml PO DAILY PRN PRN Reason: Constipation Melatonin (Melatonin 3 Mg Tablet) 6 mg PO BEDTIME PRN PRN Reason: Insomnia Midodrine (Midodrine Hcl 10 Mg Tablet) 10 mg G-TUBE TIDAC [facility] Last Admin: 02/13/24 16:40 Dose: 10 mg Documented By: RAEGAN Ondansetron HCl (Ondansetron Hcl 4 Mg/2 Ml Vial) 4 mg IVPUSH Q8H PRN PRN Reason: Nausea and Vomiting Pharmacy Consult (Consult Rx Vancomycin Dosing) 1 each MISCELLANE DAILY PRN PRN Reason: Consult order Pharmacy Consult (Consult Rx Parenteral Nutrition Ordering) 1 each MISCELLANE DAILY PRN PRN Reason: Consult order Sodium Chloride (0.9 % Sodium Chloride Flush 3 Ml Syringe) 3 ml IVFLUSH QSHIFT [facility] Last Admin: 02/13/24 21:18 Dose: 3 ml Documented By: JATINDER Labs 02/12/24 08:47 02/14/24 06:16 Labs: Laboratory Results - last 24 hr 02/13/24 02/13/24 02/14/24 07:10 12:09 06:16 Anion Gap 15 9 L Estim Creat Clear Calc 80.7 80.7 Estimated GFR > 60 > 60 Random Glucose 116 H Calcium 8.9 Phosphorus 2.3 L 2.6 L Magnesium 2.0 2.2 Random Vancomycin 15.0 Assessment and Plan (1) Sepsis: Status: Acute (2) Septic shock: Status: Acute (3) COVID-19: Status: Acute (4) Aspiration pneumonia: Status: Acute (5) MRSA pneumonia: Status: Acute (6) Severe protein-calorie malnutrition: Status: Acute Plan 33-year-old male with cerebral palsy, dysphagia, severe malnutrition requiring tube feeds, and chronic respiratory failure on home oxygen, presented to the hospital on 02/06 with altered mental status and [id number] hypoxic respiratory failure, presumed secondary to aspiration pneumonia and covid. A chest X-ray revealed multifocal pneumonia involving the lower lobes, raising suspicion for mycobacterial infection. Additional tested positive for covid He decompensated shortly after admission, necessitating ICU care with vasopressor support, but has since been weaned off pressors. Due to recurrent aspiration, he has been unable to tolerate tube feeds and is currently maintained on TPN. The patient remains on high-flow oxygen due to difficulty weaning, though he is hemodynamically stable. He is currently in TB isolation, receiving Zosyn for aspiration pneumonia, Sputum culture is growing staph Aureus (MRSA). Tube feeds remain on hold, and TPN is continued. He has severe protein calory malnutrition. Peripheral access has been challenging, so central line use is ongoing, with plans to transition to a Cohen catheter for long-term TPN at home. Pt has intermittent bradycardia without poses Plan: Finding on CXR likely d/t MRSA PNA, and T spot is negative doesn't need TB isolation per pulmonology recommendation Maintain Zosyn for aspiration pneumonia. Vancomycin for MRSA in the spumtum. Continue Oxygen by nasal canula and wean as dhara Holding tube feeds and maintain TPN. Will discuss with surgery or IR re post pyloric feeding tube Ensure central line access until Cohen catheter placement is achieved. Plan for home TPN after Cohen catheter placement. Dexametahsone for covid, stop after 7 days. ? remove covid islation, first tested 01/30 Will discuss changing feeding tube to post pyroric tube to minimize aspiration Check TSH, mag, and electrolyets for bradycardia Swelling in foot, likely from fluid, monitor Discuss care goals and plan with the family, emphasizing ongoing support and long-term management. plan discussed with family adjust electrolytes and divalents in TPN based on lab Lovenox for DVT prophyalxis Quality Stroke Does the patient have a stroke diagnosis?: No VTE Prior VTE?: No VTE Risk Level:: Medical - moderate - high VTE Device Contraindication: Treatment Not Indicated VTE Drug Contraindication: N/A - Med Ordered
[2024-02-14 08:31] LABS: Thyroid Stimulating Hormone 2.25 uIU/mL (0.32-4.0)
[2024-02-14] MEDS: Albuterol Sulfate (0.083%) 2.5 MG/3 ML VIAL.NEB 5 MG INHALE (08:31)
[2024-02-14] MEDS: Acetylcysteine 10 % 400 MG/4 ML VIAL INHALE ×2 (08:32→21:25)
[2024-02-14] MEDS: Midodrine HCl 10 MG TABLET G-TUBE ×2 (09:21→13:11)
[2024-02-14] MEDS: vancomycin HCL 1,000 MG in 0.9 % Sodium Chloride 250 ML 270 MG IV ×2 (09:21→20:39)
[2024-02-14] MEDS: 0.9 % Sodium Chloride Flush 3 ML SYRINGE IVFLUSH ×3 (09:21→22:00)
[2024-02-14] MEDS: dexAMETHasone sod phosphate 4 MG/ML VIAL 6 MG IVPUSH (09:22)
--- NOTE | 2024-02-14 09:53 | MHC.CLN ---
F/U REVIEWED LABS DISCUSSED WITH PHARMACY NPO MAINTAINED CONTINUE TPN AT MAX GOAL RATE 45ML/HR WITH 22G LIPIDS PROVIDES 987KCALS (30KCALS/KG), 162G DEXTROSE, 54G PROTEIN (1.6G/KG) REPLETE LYTES NEEDED PENDING IYER CATHETER
--- NOTE | 2024-02-14 14:29 | MHC.CM.PN ---
EMR reviewed and per MD rounds, pt is not medically cleared for discharge due to management of aspiration pneumonia, with pt receiving TPN until g-tube is matured enough to convert to a post-pyloric feeding tube.
[2024-02-14] MEDS: Parenteral Nutrition 1,080 ML 45 ML IV (21:49)
[2024-02-14] MEDS: Enoxaparin Sodium 40 MG/0.4 ML SYRINGE SUBCUT (21:58)
[2024-02-15] VITALS (9 sets, daily range): BP systolic 91–115; BP diastolic 57–70; PULSE 45–62; RESP 17–19; TEMP 36.3–37.1; O2SAT 95–100
[2024-02-15] MEDS: Piperacillin Sodium/Tazobactam 4.5 GM in 0.9 % Sodium Chloride 100 ML IV ×4 (03:12→20:25)
[2024-02-15] MEDS: Acetylcysteine 10 % 400 MG/4 ML VIAL INHALE ×2 (07:49→19:02)
[2024-02-15] MEDS: Albuterol Sulfate 2.5 MG/0.5 ML VIAL.NEB INHALE (07:50)
[2024-02-15 08:09] LABS: Vancomycin Random 13.4 mcg/mL (15-20)
[2024-02-15 08:12] LABS: Anion Gap 12 (12-20); Blood Urea Nitrogen 11 mg/dL (9-16); Calcium 9.2 mg/dL (8.4-10.2); Carbon Dioxide 23 mmol/L (22-29); Chloride 103 mmol/L (96-108); Creatinine Clr Calc Pharmacy 79.4; Estimated Glomerular Filt Rate > 60; Glucose Random 97 mg/dL (60-115); Magnesium 2.4 mg/dL (1.6-2.6); Phosphorus 3.4 mg/dL (2.7-4.5); Potassium 3.9 mmol/L (3.3-5.1); Sodium 134 mmol/L (135-145)
[2024-02-15] MEDS: dexAMETHasone sod phosphate 4 MG/ML VIAL 6 MG IVPUSH (08:13)
[2024-02-15] MEDS: vancomycin HCL 1,000 MG in 0.9 % Sodium Chloride 250 ML 270 MG IV ×2 (08:13→21:37)
[2024-02-15] MEDS: Midodrine HCl 10 MG TABLET G-TUBE ×3 (08:14→16:50)
[2024-02-15] MEDS: 0.9 % Sodium Chloride Flush 3 ML SYRINGE IVFLUSH ×2 (08:14→21:34)
--- NOTE | 2024-02-15 09:33 | MHC.CLN ---
F/U REVIEWED LABS DISCUSSED WITH PHARMACY NPO MAINTAINED CONTINUE TPN AT MAX GOAL RATE 45ML/HR WITH 22G LIPIDS PROVIDES 987KCALS (30KCALS/KG), 162G DEXTROSE, 54G PROTEIN (1.6G/KG) REPLETE LYTES NEEDED FOLLOWING WITH TEAM
--- NOTE | 2024-02-15 09:42 | P.PICC_ITS ---
PICC Line Insertion NPICC Diagnosis: FTT Indication: TPN Pertinent Labs: Reviewed Technique: Following informed consent including risks, benefits and alternatives and using sterile technique including cap and mask, sterile gown, glove and drape, the right arm was prepped and draped in the usual sterile fashion of full barrier technique with CHG. Following completion of [place] Protocol the skin and soft tissues were anesthetized with 1% Lidocaine plain. Using ultrasound guidance, right brachial vein access was obtained. Over an 0.018 wire through peel-away sheath, a 5FR double lumen PASV PICC line was positioned. Catheter length is 38cm internal length, 0cm external length, for a total trimmed length of 38cm. The procedure was performed in 272. Tip verification was performed by Ta Guadalupe with Sherlock 3CG. Tip located in SVC. Ultrasound was used to document vein patency and for needle entry. A formal ultrasound picture and cardiac rhythm strip was recorded. [facility] [employer] has released the line for use and it is currently dressed with a StatLock, Tegaderm, and CHG disc. Verification has been performed for blood return and line patency. Arm Circumference: 21cm Equipment: [employer] POWERPICC SOLO catheter with Sherlock 3CG tip Catheter Type: 5FR double lumen PASV PICC Catheter Lot #: [id number]
[2024-02-15] MEDS: 0.9 % Sodium Chloride Flush 10 ML SYRINGE 5 ML IVFLUSH (14:31)
--- NOTE | 2024-02-15 15:21 | MHC.CM.PN ---
Addendum entered by Krista Marte, RN 02/15/24 15:39: CM ATTEMPTDE TO CONTACT [facility],AT 3:37PM, DETAILED MESSAGE LEFT W/REQUEST FOR CALL BACK. Original Note: EMR REVIEWED, CM CONTACTED [facility] LIAISON BRIAN AT [phone], PER BRIAN THEY CAN MANAGE TPN/PICC LINE HOWEVER DO NOT TYPICALLY CROSSOVER W/VNA'S EXCEPT FOR [facility] THEY DO NOT DO IV'S, CM TO FOLLOW UP W/INTERNATIONAL PT HAS NO OFFERS AT THIS TIME, CM WILL CONT TO FOLLOW DC NEEDS.
--- NOTE | 2024-02-15 17:38 | P.PNIM_ITS ---
Subjective Subjective Date of Service: 02/15/24 Interval History: pneumonia Review of Systems seems comfortable no new c/o. Physical Exam 2 Vital Signs: Vital Signs: Last Vital Signs Temp 97.9 F 02/15/24 16:00 Pulse 45 L 02/15/24 16:00 Resp 17 02/15/24 16:00 BP 91/57 L 02/15/24 16:00 Pulse Ox 100 02/15/24 16:00 O2 Del Method Room Air 02/15/24 16:00 O2 Flow Rate 4 02/14/24 20:00 FiO2 35 02/12/24 11:57 BMI result Body Mass Index 16.3 General: alert, not in distress, not able to communicate, malnurouished, frail and skiny Resp: normal movement cv: rrr, s1s2, mild peripheral pedal edema, sligthly more prominent on right GI: no distention Skin: No rash, Neuro: motor grossly intact Psych: appropriate affect Objective Data Active Medications Acetaminophen (Acetaminophen 325 Mg Tablet) 650 mg PO Q6H PRN PRN Reason: Pain, Mild (Pain Scale 1-3), fever or headache Last Admin: 02/09/24 08:49 Dose: 650 mg Documented By: MIRIAM Acetylcysteine (Acetylcysteine 10 % 400 Mg/4 Ml Vial) 400 mg INHALE ID [facility] Last Admin: 02/15/24 07:49 Dose: 400 mg Documented By: GREGG Albuterol Sulfate (Albuterol Sulfate 2.5 Mg/0.5 Ml Vial.Neb) 2.5 mg INHALE RBID [facility] Last Admin: 02/15/24 07:50 Dose: 2.5 mg Documented By: GREGG Calcium Carbonate (Calcium Carbonate 750 Mg Tab.Chew) 750 mg PO Q4H PRN PRN Reason: Heartburn Dexamethasone Sodium Phosphate (Dexamethasone Sod Phosphate 4 Mg/Ml Vial) 6 mg IVPUSH DAILY [facility] Last Admin: 02/15/24 08:13 Dose: 6 mg Documented By: RAEGAN Enoxaparin Sodium (Enoxaparin Sodium 40 Mg/0.4 Ml Syringe) 40 mg SUBCUT Q24H [facility] Last Admin: 02/14/24 21:58 Dose: 40 mg Documented By: BRIAN Hydromorphone HCl (Hydromorphone Hcl 0.5 Mg/0.5 Ml Syringe) 0.25 mg IVPUSH Q4H PRN; Protocol PRN Reason: Pain, Moderate(Pain Scale 4-6) Last Admin: 02/10/24 22:36 Dose: 0.25 mg Documented By: CALDERON Piperacillin Sod/Tazobactam (Sod 4.5 gm/ Sodium Chloride) 100 mls @ 200 mls/hr IV Q6H [facility] Last Infusion: 02/15/24 15:10 Dose: Infused Documented By: RAEGAN Vancomycin HCl 1,000 mg/ (Sodium Chloride) 270 mls @ 270 mls/hr IV Q12H [facility] Last Infusion: 02/15/24 11:47 Dose: Infused Documented By: RAEGAN Nutrition (Parenteral) (Parenteral Nutrition) 1,080 mls @ 45 mls/hr IV .Q24H [facility]; Protocol Stop: 02/15/24 20:59 Last Infusion: 02/15/24 10:27 Dose: 45 mls/hr Documented By: RAEGAN Nutrition (Parenteral) (Parenteral Nutrition) 1,080 mls @ 45 mls/hr IV .Q24H [facility]; Protocol Stop: 02/16/24 20:59 Magnesium Hydroxide (Milk Of Magnesia 30 Ml Oral.Susp) 30 ml PO DAILY PRN PRN Reason: Constipation Melatonin (Melatonin 3 Mg Tablet) 6 mg PO BEDTIME PRN PRN Reason: Insomnia Midodrine (Midodrine Hcl 10 Mg Tablet) 10 mg G-TUBE TIDAC [facility] Last Admin: 02/15/24 16:50 Dose: 10 mg Documented By: RAEGAN Ondansetron HCl (Ondansetron Hcl 4 Mg/2 Ml Vial) 4 mg IVPUSH Q8H PRN PRN Reason: Nausea and Vomiting Pharmacy Consult (Consult Rx Vancomycin Dosing) 1 each MISCELLANE DAILY PRN PRN Reason: Consult order Pharmacy Consult (Consult Rx Parenteral Nutrition Ordering) 1 each MISCELLANE DAILY PRN PRN Reason: Consult order Sodium Chloride (0.9 % Sodium Chloride Flush 3 Ml Syringe) 3 ml IVFLUSH QSHIFT [facility] Last Admin: 02/15/24 15:10 Dose: Not Given Documented By: RAEGAN Non-Admin Reason: IV Running Sodium Chloride (0.9 % Sodium Chloride Flush 10 Ml Syringe) 5 ml IVFLUSH TID [facility] Last Admin: 02/15/24 14:31 Dose: 5 ml Documented By: RAEGAN Labs 02/12/24 08:47 02/15/24 07:45 Labs: Laboratory Results - last 24 hr 02/15/24 07:45 Anion Gap 12 Estim Creat Clear Calc 79.4 Estimated GFR > 60 Random Glucose 97 Calcium 9.2 Phosphorus 3.4 Magnesium 2.4 Random Vancomycin 13.4 L Microbiology Microbiology Results: Microbiology 02/09/24 17:25 Direct Acid Fast Bacilli Smear - Final Sputum - Suctioned Assessment and Plan (1) Severe protein-calorie malnutrition: Status: Acute (2) COVID-19: Status: Acute (3) MRSA pneumonia: Status: Acute Plan 33-year-old male with cerebral palsy, dysphagia, severe malnutrition requiring tube feeds, and chronic respiratory failure on home oxygen, presented to the hospital on 02/06 with altered mental status and [id number] hypoxic respiratory failure, presumed secondary to aspiration pneumonia and covid. A chest X-ray revealed multifocal pneumonia involving the lower lobes, raising suspicion for mycobacterial infection. Additional tested positive for covid He decompensated shortly after admission, necessitating ICU care with vasopressor support, but has since been weaned off pressors. Due to recurrent aspiration, he has been unable to tolerate tube feeds and is currently maintained on TPN. The patient remains on high-flow oxygen due to difficulty weaning, though he is hemodynamically stable. He is currently in TB isolation, receiving Zosyn for aspiration pneumonia, Sputum culture is growing staph Aureus (MRSA). Tube feeds remain on hold, and TPN is continued. He has severe protein calory malnutrition. Peripheral access has been challenging, so central line use is ongoing, with plans to transition to a Cohen catheter for long-term TPN at home. Pt has intermittent bradycardia without poses Plan: * Finding on CXR likely d/t MRSA PNA, and T spot is negative doesn't need TB isolation per pulmonology recommendation * Maintain Zosyn for aspiration pneumonia. Vancomycin for MRSA in the spumtum. * Continue Oxygen by nasal canula and wean as dhara * Holding tube feeds and maintain TPN. Will discuss with surgery or IR re post pyloric feeding tube * Ensure central line access until Cohen catheter placement is achieved. * Plan for home TPN after Cohen catheter placement. * Dexametahsone for covid, stop after 7 days. ? remove covid islation, first tested 01/30 * Will discuss changing feeding tube to post pyroric tube to minimize aspiration * Check TSH, mag, and electrolyets for bradycardia * Swelling in foot, likely from fluid, monitor * Discuss care goals and plan with the family, emphasizing ongoing support and long-term management. * plan discussed with family * adjust electrolytes and divalents in TPN based on lab * Lovenox for DVT prophyalxis Quality Stroke Does the patient have a stroke diagnosis?: No VTE Prior VTE?: No VTE Risk Level:: Medical - moderate - high VTE Device Contraindication: Treatment Not Indicated VTE Drug Contraindication: N/A - Med Ordered
[2024-02-15] MEDS: Parenteral Nutrition 1,080 ML 45 ML IV (21:33)
[2024-02-15] MEDS: Enoxaparin Sodium 40 MG/0.4 ML SYRINGE SUBCUT (21:37)
[2024-02-15] MEDS: Acetaminophen 325 MG TABLET 650 MG PO (21:37)
[2024-02-16] VITALS (9 sets, daily range): BP systolic 95–120; BP diastolic 56–87; PULSE 51–64; RESP 18–20; TEMP 36.1–36.7; O2SAT 4–100
[2024-02-16] MEDS: Piperacillin Sodium/Tazobactam 4.5 GM in 0.9 % Sodium Chloride 100 ML IV ×4 (02:21→19:40)
[2024-02-16] MEDS: Acetaminophen 325 MG TABLET 650 MG PO ×2 (03:40→18:28)
[2024-02-16 07:18] LABS: Anion Gap 13 (12-20); Blood Urea Nitrogen 12 mg/dL (9-16); Calcium 9.2 mg/dL (8.4-10.2); Carbon Dioxide 23 mmol/L (22-29); Chloride 104 mmol/L (96-108); Creatinine Clr Calc Pharmacy 80.7; Estimated Glomerular Filt Rate > 60; Glucose Random 91 mg/dL (60-115); Magnesium 2.3 mg/dL (1.6-2.6); Phosphorus 3.8 mg/dL (2.7-4.5); Potassium 3.7 mmol/L (3.3-5.1); Sodium 136 mmol/L (135-145)
[2024-02-16] MEDS: Albuterol Sulfate 2.5 MG/0.5 ML VIAL.NEB INHALE ×2 (07:51→20:08)
[2024-02-16] MEDS: Acetylcysteine 10 % 400 MG/4 ML VIAL INHALE ×2 (07:51→20:08)
[2024-02-16] MEDS: 0.9 % Sodium Chloride Flush 10 ML SYRINGE 5 ML IVFLUSH ×2 (09:29→22:26)
[2024-02-16] MEDS: vancomycin HCL 1,000 MG in 0.9 % Sodium Chloride 250 ML 270 MG IV ×2 (09:29→22:17)
[2024-02-16] MEDS: dexAMETHasone sod phosphate 4 MG/ML VIAL 6 MG IVPUSH (09:29)
[2024-02-16] MEDS: Midodrine HCl 10 MG TABLET G-TUBE ×3 (09:30→16:22)
--- NOTE | 2024-02-16 14:17 | MHC.CM.PN ---
Per rounds, pt is not ready for DC. He is using TPN for feeding, [facility] can assist at home with this, but needs a VNA to be in as well, no VNA accepting at this time. Pt. will need the TPN through a PICC line for a few more weeks, CM has referred to [facility] to determine if they could assist for short term.
--- NOTE | 2024-02-16 16:07 | P.PNIM_ITS ---
Subjective Subjective Date of Service: 02/16/24 Interval History: pneumonia Review of Systems seems comfortable no new c/o. Physical Exam 2 Vital Signs: Vital Signs: Last Vital Signs Temp 97.4 F 02/16/24 12:00 Pulse 53 02/16/24 12:00 Resp 18 02/16/24 12:00 BP 95/87 02/16/24 12:00 Pulse Ox 100 02/16/24 12:00 O2 Del Method Nasal Cannula 02/16/24 12:00 O2 Flow Rate 3 02/16/24 12:00 FiO2 35 02/12/24 11:57 BMI result Body Mass Index 16.3 General: alert, not in distress, not able to communicate, malnurouished, frail and skiny Resp: normal movement cv: rrr, s1s2, mild peripheral pedal edema, sligthly more prominent on right GI: no distention Skin: No rash, Neuro: motor grossly intact Psych: appropriate affect Objective Data Active Medications Acetaminophen (Acetaminophen 325 Mg Tablet) 650 mg PO Q6H PRN PRN Reason: Pain, Mild (Pain Scale 1-3), fever or headache Last Admin: 02/16/24 03:40 Dose: 650 mg Documented By: DAVID Acetylcysteine (Acetylcysteine 10 % 400 Mg/4 Ml Vial) 400 mg INHALE RBID [facility] Last Admin: 02/16/24 07:51 Dose: 400 mg Documented By: MARY Albuterol Sulfate (Albuterol Sulfate 2.5 Mg/0.5 Ml Vial.Neb) 2.5 mg INHALE RBID [facility] Last Admin: 02/16/24 07:51 Dose: 2.5 mg Documented By: MARY Calcium Carbonate (Calcium Carbonate 750 Mg Tab.Chew) 750 mg PO Q4H PRN PRN Reason: Heartburn Dexamethasone Sodium Phosphate (Dexamethasone Sod Phosphate 4 Mg/Ml Vial) 6 mg IVPUSH DAILY [facility] Last Admin: 02/16/24 09:29 Dose: 6 mg Documented By: AREGAN Enoxaparin Sodium (Enoxaparin Sodium 40 Mg/0.4 Ml Syringe) 40 mg SUBCUT Q24H [facility] Last Admin: 02/15/24 21:37 Dose: 40 mg Documented By: DAVID Piperacillin Sod/Tazobactam (Sod 4.5 gm/ Sodium Chloride) 100 mls @ 200 mls/hr IV Q6H [facility] Last Infusion: 02/16/24 13:30 Dose: Infused Documented By: RAEGAN Vancomycin HCl 1,000 mg/ (Sodium Chloride) 270 mls @ 270 mls/hr IV Q12H [facility] Last Infusion: 02/16/24 12:00 Dose: Infused Documented By: RAEGAN Nutrition (Parenteral) (Parenteral Nutrition) 1,080 mls @ 45 mls/hr IV .Q24H [facility]; Protocol Stop: 02/16/24 20:59 Last Admin: 02/15/24 21:33 Dose: 45 mls/hr Documented By: DAVID Nutrition (Parenteral) (Parenteral Nutrition) 1,080 mls @ 45 mls/hr IV .Q24H [facility]; Protocol Stop: 02/17/24 20:59 Magnesium Hydroxide (Milk Of Magnesia 30 Ml Oral.Susp) 30 ml PO DAILY PRN PRN Reason: Constipation Melatonin (Melatonin 3 Mg Tablet) 6 mg PO BEDTIME PRN PRN Reason: Insomnia Midodrine (Midodrine Hcl 10 Mg Tablet) 10 mg G-TUBE TIDAC [facility] Last Admin: 02/16/24 12:34 Dose: 10 mg Documented By: RAEGAN Ondansetron HCl (Ondansetron Hcl 4 Mg/2 Ml Vial) 4 mg IVPUSH Q8H PRN PRN Reason: Nausea and Vomiting Pharmacy Consult (Consult Rx Vancomycin Dosing) 1 each MISCELLANE DAILY PRN PRN Reason: Consult order Pharmacy Consult (Consult Rx Parenteral Nutrition Ordering) 1 each MISCELLANE DAILY PRN PRN Reason: Consult order Sodium Chloride (0.9 % Sodium Chloride Flush 3 Ml Syringe) 3 ml IVFLUSH QSHIFT [facility] Last Admin: 02/16/24 15:34 Dose: Not Given Documented By: RAEGAN Non-Admin Reason: Duplicate Order Sodium Chloride (0.9 % Sodium Chloride Flush 10 Ml Syringe) 5 ml IVFLUSH TID [facility] Last Admin: 02/16/24 15:34 Dose: Not Given Documented By: RAEGAN Non-Admin Reason: IV Running Labs 02/12/24 08:47 02/16/24 06:29 Labs: Laboratory Results - last 24 hr 02/08/24 02/16/24 07:40 06:29 Anion Gap 13 Estim Creat Clear Calc 80.7 Estimated GFR > 60 Random Glucose 91 Calcium 9.2 Phosphorus 3.8 Magnesium 2.3 Viral Specimen Source Cancelled Viral Culture Comments Cancelled Assessment and Plan (1) Severe protein-calorie malnutrition: Status: Acute (2) COVID-19: Status: Acute (3) MRSA pneumonia: Status: Acute Plan 33-year-old male with cerebral palsy, dysphagia, severe malnutrition requiring tube feeds, and chronic respiratory failure on home oxygen, presented to the hospital on 02/06 with altered mental status and syhhk-mv-hmesogr hypoxic respiratory failure, presumed secondary to aspiration pneumonia and covid. A chest X-ray revealed multifocal pneumonia involving the lower lobes, raising suspicion for mycobacterial infection. Additional tested positive for covid He decompensated shortly after admission, necessitating ICU care with vasopressor support, but has since been weaned off pressors. Due to recurrent aspiration, he has been unable to tolerate tube feeds and is currently maintained on TPN. The patient remains on high-flow oxygen due to difficulty weaning, though he is hemodynamically stable. He is currently in TB isolation, receiving Zosyn for aspiration pneumonia, Sputum culture is growing staph Aureus (MRSA). Tube feeds remain on hold, and TPN is continued. He has severe protein calory malnutrition. Peripheral access has been challenging, so central line use is ongoing, with plans to transition to a Cohen catheter for long-term TPN at home. Pt has intermittent bradycardia without poses Plan: * Finding on CXR likely d/t MRSA PNA, and T spot is negative doesn't need TB isolation per pulmonology recommendation * Maintain Zosyn for aspiration pneumonia. Vancomycin for MRSA in the spumtum. * Continue Oxygen by nasal canula and wean as dhara * Holding tube feeds and maintain TPN. Will discuss with surgery or IR re post pyloric feeding tube * Ensure central line access until Cohen catheter placement is achieved. * Plan for home TPN after Cohen catheter placement. * Dexametahsone for covid, stop after 7 days. ? remove covid islation, first tested 01/30 * Will discuss changing feeding tube to post pyroric tube to minimize aspiration * Check TSH, mag, and electrolyets for bradycardia * Swelling in foot, likely from fluid, monitor * Discuss care goals and plan with the family, emphasizing ongoing support and long-term management. * plan discussed with family * adjust electrolytes and divalents in TPN based on lab * Lovenox for DVT prophyalxis Quality Stroke Does the patient have a stroke diagnosis?: No VTE Prior VTE?: No VTE Risk Level:: Medical - moderate - high VTE Device Contraindication: Treatment Not Indicated VTE Drug Contraindication: N/A - Med Ordered
[2024-02-16] MEDS: Parenteral Nutrition 1,080 ML 45 ML IV (22:22)
[2024-02-16] MEDS: Enoxaparin Sodium 40 MG/0.4 ML SYRINGE SUBCUT (22:25)
[2024-02-16] MEDS: 0.9 % Sodium Chloride Flush 3 ML SYRINGE IVFLUSH (22:25)
[2024-02-17] VITALS (10 sets, daily range): BP systolic 88–106; BP diastolic 53–61; PULSE 64–92; RESP 18–20; TEMP 36.4–37.1; O2SAT 97–100
--- NOTE | 2024-02-17 00:32 | P.CNID_ITS ---
History of Present Illness Data of Consult Service Date: 02/16/24 Requesting physician: Chelle Romano Primary Care Provider: Mila Vazquez NP HPI Reason for consult: pneumonia,aspiration He presents with shortness of breath. He has aspiration pneumonia. He has CP and is on 3 1/2 liters oxygen. Review of Systems 2 Review of Systems: Yes Unobtainable due to mental condition PMFSH Past Medical History Medical History 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 Surgical History Surgical History S/P percutaneous endoscopic gastrostomy (PEG) tube placement Social History Social History Household Members: Family Housing: House Are you a primary janitor caretaker to a significant other at home: No Do you presently have visiting nurse or other home services: No Comment: Family member bedside Patient Tobacco Use Status: Never used Tobacco Second Hand Smoke Exposure: No Advance Directives Date on File: 01/20/24 service: No Meds Allergies Allergy/AdvReac Type Severity Reaction Status Date / Time No Known Allergies Allergy Verified 02/07/24 19:46 Active Medications: Current Medications Acetaminophen (Acetaminophen 325 Mg Tablet) 650 mg PO Q6H PRN PRN Reason: Pain, Mild (Pain Scale 1-3), fever or headache Last Admin: 02/16/24 18:28 Dose: 650 mg Acetylcysteine (Acetylcysteine 10 % 400 Mg/4 Ml Vial) 400 mg INHALE RBID [facility] Last Admin: 02/16/24 20:08 Dose: 400 mg Albuterol Sulfate (Albuterol Sulfate 2.5 Mg/0.5 Ml Vial.Neb) 2.5 mg INHALE RBID [facility] Last Admin: 02/16/24 20:08 Dose: 2.5 mg Calcium Carbonate (Calcium Carbonate 750 Mg Tab.Chew) 750 mg PO Q4H PRN PRN Reason: Heartburn Dexamethasone Sodium Phosphate (Dexamethasone Sod Phosphate 4 Mg/Ml Vial) 6 mg IVPUSH DAILY [facility] Last Admin: 02/16/24 09:29 Dose: 6 mg Enoxaparin Sodium (Enoxaparin Sodium 40 Mg/0.4 Ml Syringe) 40 mg SUBCUT Q24H [facility] Last Admin: 02/16/24 22:25 Dose: 40 mg Piperacillin Sod/Tazobactam (Sod 4.5 gm/ Sodium Chloride) 100 mls @ 200 mls/hr IV Q6H [facility] Last Infusion: 02/16/24 20:21 Dose: Infused Vancomycin HCl 1,000 mg/ (Sodium Chloride) 270 mls @ 270 mls/hr IV Q12H [facility] Last Infusion: 02/16/24 23:35 Dose: Infused Nutrition (Parenteral) (Parenteral Nutrition) 1,080 mls @ 45 mls/hr IV .Q24H [facility]; Protocol Stop: 02/17/24 20:59 Last Admin: 02/16/24 22:22 Dose: 45 mls/hr Magnesium Hydroxide (Milk Of Magnesia 30 Ml Oral.Susp) 30 ml PO DAILY PRN PRN Reason: Constipation Melatonin (Melatonin 3 Mg Tablet) 6 mg PO BEDTIME PRN PRN Reason: Insomnia Midodrine (Midodrine Hcl 10 Mg Tablet) 10 mg G-TUBE TIDAC [facility] Last Admin: 02/16/24 16:22 Dose: 10 mg Ondansetron HCl (Ondansetron Hcl 4 Mg/2 Ml Vial) 4 mg IVPUSH Q8H PRN PRN Reason: Nausea and Vomiting Pharmacy Consult (Consult Rx Vancomycin Dosing) 1 each MISCELLANE DAILY PRN PRN Reason: Consult order Pharmacy Consult (Consult Rx Parenteral Nutrition Ordering) 1 each MISCELLANE DAILY PRN PRN Reason: Consult order Sodium Chloride (0.9 % Sodium Chloride Flush 3 Ml Syringe) 3 ml IVFLUSH QSHIFT [facility] Last Admin: 02/16/24 22:25 Dose: 3 ml Sodium Chloride (0.9 % Sodium Chloride Flush 10 Ml Syringe) 5 ml IVFLUSH TID [facility] Last Admin: 02/16/24 22:26 Dose: 5 ml Home Medications ?Medication ?Instructions ?Recorded ?Confirmed ?Last Taken ?Type acetaminophen 160 mg/5 mL oral 480 mg PO Q6H PRN Fever/Pain 02/07/24 02/07/24 2 Days Ago History liquid ~02/05/24 Physical Exam 2 Vital Signs: Vital Signs: Last Vital Signs Temp 98.6 F 02/17/24 00:00 Pulse 69 02/17/24 00:00 Resp 18 02/17/24 00:00 BP 106/61 02/17/24 00:00 Pulse Ox 99 02/17/24 00:00 O2 Del Method Nasal Cannula 02/17/24 00:00 O2 Flow Rate 4 02/17/24 00:00 FiO2 35 02/12/24 11:57 BMI result Body Mass Index 16.3 Const: General: cooperative HEENT: Head: Yes normal to inspection Face and sinus: Yes normal facial exam Mouth: Normal oral and palatal mucosa present Teeth and gingiva: d entition normal Eyes: General: appearance normal, both eyes and all related structures P upils: Equal, round and reactive pupils present Resp: Effort & Inspection: normal respiratory effort Cardio: Rate: regular rate Rhythm: regular rhythm GI: Palpation (GI): Soft to palpation and nontender : General: Yes no CVA tenderness Back/Spine/Pelvis: Back: no CVA tenderness Skin: General skin exam: no rashes or lesions noted Neuro: General: moves all extremities Cranial nerves: Yes Equal, round and reactive pupils present Extrem: General: Yes normal to inspection Psych: Appearance: grossly normal Results Labs 02/12/24 08:47 02/16/24 06:29 Labs: BMP 02/16/24 06:29 Sodium 136 Potassium 3.7 Chloride 104 Carbon Dioxide 23 BUN 12 Creatinine 0.60 Calcium 9.2 Microbiology Microbiology Results: Microbiology 02/09/24 17:25 Sputum - Suctioned Direct Acid Fast Bacilli Smear - Final 02/07/24 19:34 Blood - Venous Blood Culture - Final No growth after 5 days. 02/07/24 19:33 Blood - Venous Blood Culture - Final No growth after 5 days. 02/09/24 17:26 Sputum - Suctioned Gram Stain - Final 02/09/24 17:26 Sputum - Suctioned Sputum Culture - Final Methicillin Res Staph Aureus Procedures Arterial Line Size (Gauge): 20 Assessment and Plan (1) Acute hypoxemic respiratory failure: Status: Acute (2) Septic shock: Status: Acute Plan He has recurrent aspiration pneumonia He has been in hospital for 9 days. He has positive MRSA sputum Would stop antibiotics at this time.
[2024-02-17] MEDS: Piperacillin Sodium/Tazobactam 4.5 GM in 0.9 % Sodium Chloride 100 ML IV ×2 (01:58→09:20)
[2024-02-17 06:55] LABS: Vancomycin Random 21.4 mcg/mL (15-20)
[2024-02-17 06:58] LABS: Anion Gap 15 (12-20); Blood Urea Nitrogen 13 mg/dL (9-16); Calcium 9.8 mg/dL (8.4-10.2); Carbon Dioxide 22 mmol/L (22-29); Chloride 104 mmol/L (96-108); Creatinine Clr Calc Pharmacy 66.3; Estimated Glomerular Filt Rate > 60; Glucose Random 83 mg/dL (60-115); Magnesium 2.3 mg/dL (1.6-2.6); Phosphorus 3.8 mg/dL (2.7-4.5); Potassium 3.9 mmol/L (3.3-5.1); Sodium 137 mmol/L (135-145)
--- NOTE | 2024-02-17 07:09 | HE.PHANOTE ---
RE: SHAYNEO Large decline in renal function. Trough returned at 21.4. Holding dose at 0900, dose was reduced 750mg Q12h with predicted AUC 461, predicted trough of 12.2 to resume at 2100. Random trough put in tonight to confirm pt is clearing before dosing him again.
[2024-02-17] MEDS: Midodrine HCl 10 MG TABLET G-TUBE ×2 (07:55→16:41)
[2024-02-17] MEDS: Albuterol Sulfate 2.5 MG/0.5 ML VIAL.NEB INHALE ×2 (08:46→19:13)
[2024-02-17] MEDS: Acetylcysteine 10 % 400 MG/4 ML VIAL INHALE ×2 (08:47→19:11)
[2024-02-17] MEDS: 0.9 % Sodium Chloride Flush 3 ML SYRINGE IVFLUSH (09:19)
[2024-02-17] MEDS: 0.9 % Sodium Chloride Flush 10 ML SYRINGE 5 ML IVFLUSH ×2 (09:20→22:53)
[2024-02-17] MEDS: dexAMETHasone sod phosphate 4 MG/ML VIAL 6 MG IVPUSH (09:21)
--- NOTE | 2024-02-17 11:39 | HO.PM.IMPN ---
Subjective Subjective Date of Service: 02/17/24 Interval History: pneumonia/covid Review of Systems seems comfortable no fevers Physical Exam Vital Signs: Vital Signs: Last Vital Signs Temp 97.5 F 02/17/24 08:00 Pulse 92 02/17/24 08:48 Resp 18 02/17/24 08:48 BP 96/60 02/17/24 09:21 Pulse Ox 99 02/17/24 08:00 O2 Del Method Room Air 02/17/24 08:00 O2 Flow Rate 3 02/17/24 03:39 FiO2 35 02/12/24 11:57 BMI result Body Mass Index 16.3 General: alert, not in distress, not able to communicate, malnurouished, frail and skin Resp: normal movement cv: rrr, s1s2, mild peripheral pedal edema, sligthly more prominent on right GI: no distention Skin: No rash, Neuro: motor grossly intact Psych: appropriate affect Objective Data Active Medications Acetaminophen (Acetaminophen 325 Mg Tablet) 650 mg PO Q6H PRN PRN Reason: Pain, Mild (Pain Scale 1-3), fever or headache Last Admin: 02/16/24 18:28 Dose: 650 mg Documented By: RAEGAN Acetylcysteine (Acetylcysteine 10 % 400 Mg/4 Ml Vial) 400 mg INHALE RBID [facility] Last Admin: 02/17/24 08:47 Dose: 400 mg Documented By: AALIYAH Albuterol Sulfate (Albuterol Sulfate 2.5 Mg/0.5 Ml Vial.Neb) 2.5 mg INHALE RBID [facility] Last Admin: 02/17/24 08:46 Dose: 2.5 mg Documented By: AALIYAH Calcium Carbonate (Calcium Carbonate 750 Mg Tab.Chew) 750 mg PO Q4H PRN PRN Reason: Heartburn Dexamethasone Sodium Phosphate (Dexamethasone Sod Phosphate 4 Mg/Ml Vial) 6 mg IVPUSH DAILY [facility] Last Admin: 02/17/24 09:21 Dose: 6 mg Documented By: YAMIL Enoxaparin Sodium (Enoxaparin Sodium 40 Mg/0.4 Ml Syringe) 40 mg SUBCUT Q24H [facility] Last Admin: 02/16/24 22:25 Dose: 40 mg Documented By: DAVID Piperacillin Sod/Tazobactam (Sod 4.5 gm/ Sodium Chloride) 100 mls @ 200 mls/hr IV Q6H [facility] Last Infusion: 02/17/24 09:58 Dose: Infused Documented By: YAMIL Nutrition (Parenteral) (Parenteral Nutrition) 1,080 mls @ 45 mls/hr IV .Q24H [facility]; Protocol Stop: 02/17/24 20:59 Last Admin: 02/16/24 22:22 Dose: 45 mls/hr Documented By: DAVID Vancomycin HCl 750 mg/ Sodium (Chloride) 265 mls @ 265 mls/hr IV Q12H [facility] Magnesium Hydroxide (Milk Of Magnesia 30 Ml Oral.Susp) 30 ml PO DAILY PRN PRN Reason: Constipation Melatonin (Melatonin 3 Mg Tablet) 6 mg PO BEDTIME PRN PRN Reason: Insomnia Midodrine (Midodrine Hcl 10 Mg Tablet) 10 mg G-TUBE TIDAC [facility] Last Admin: 02/17/24 09:21 Dose: Not Given Documented By: YAMIL Non-Admin Reason: low BP Ondansetron HCl (Ondansetron Hcl 4 Mg/2 Ml Vial) 4 mg IVPUSH Q8H PRN PRN Reason: Nausea and Vomiting Pharmacy Consult (Consult Rx Vancomycin Dosing) 1 each MISCELLANE DAILY PRN PRN Reason: Consult order Pharmacy Consult (Consult Rx Parenteral Nutrition Ordering) 1 each MISCELLANE DAILY PRN PRN Reason: Consult order Sodium Chloride (0.9 % Sodium Chloride Flush 3 Ml Syringe) 3 ml IVFLUSH QSHIFT [facility] Last Admin: 02/17/24 09:19 Dose: 3 ml Documented By: YAMIL Sodium Chloride (0.9 % Sodium Chloride Flush 10 Ml Syringe) 5 ml IVFLUSH TID [facility] Last Admin: 02/17/24 09:20 Dose: 5 ml Documented By: YAMIL Labs 02/12/24 08:47 02/17/24 05:58 Labs: Laboratory Results - last 24 hr 02/17/24 02/17/24 05:58 06:15 Hold Purple Top SEE NOTE Anion Gap 15 Estim Creat Clear Calc 66.3 Estimated GFR > 60 Random Glucose 83 Calcium 9.8 D Phosphorus 3.8 Magnesium 2.3 Random Vancomycin 21.4 H Assessment and Plan (1) Severe protein-calorie malnutrition: Status: Acute (2) COVID-19: Status: Acute (3) MRSA pneumonia: Status: Acute Plan 33-year-old male with cerebral palsy, dysphagia, severe malnutrition requiring tube feeds, and chronic respiratory failure on home oxygen, presented to the hospital on 02/06 with altered mental status and gtrjf-[id number] hypoxic respiratory failure, presumed secondary to aspiration pneumonia and covid. A chest X-ray revealed multifocal pneumonia involving the lower lobes, raising suspicion for mycobacterial infection. Additional tested positive for covid He decompensated shortly after admission, necessitating ICU care with vasopressor support, but has since been weaned off pressors. Due to recurrent aspiration, he has been unable to tolerate tube feeds and is currently maintained on TPN. The patient remains on high-flow oxygen due to difficulty weaning, though he is hemodynamically stable. He is currently in TB isolation, receiving Zosyn for aspiration pneumonia, Sputum culture is growing staph Aureus (MRSA). Tube feeds remain on hold, and TPN is continued. He has severe protein calory malnutrition. Peripheral access has been challenging, so central line use is ongoing, with plans to transition to a Cohen catheter for long-term TPN at home. Pt has intermittent bradycardia without poses Possible Finding on CXR likely d/t MRSA PNA, and T spot is negative doesn't need TB isolation per pulmonology recommendation: received Maintain Zosyn / Vancomycin for MRSA in the spumtum, Continue Oxygen by nasal canula and wean as tolerated .has picc line , Holding tube feeds and maintain TPN. Will discuss with surgery or IR re post pyloric feeding tube.vanco trough is 21 . completed dexametasone. renal function seems fine. seen by Id- off antibiotics . MODERATELY MALNOURISHED:continue TPN and discuss changing feeding tube to post pyroric tube to minimize aspiration. Check TSH, mag, and electrolyets -seems fine adjust electrolytes and divalents in TPN based on lab. ch anemia : h/h is stable around 8.8/26.2. Lovenox for DVT prophyalxis. Hospitlisation need : malnutrition -need tpn , need electrolytic abnormalities ,elevated vanco levels , moniter repiratory status Quality Stroke Does the patient have a stroke diagnosis?: No VTE Prior VTE?: No VTE Risk Level:: Medical - moderate - high VTE Device Contraindication: Treatment Not Indicated VTE Drug Contraindication: N/A - Med Ordered
[2024-02-17] MEDS: 0.9 % Sodium Chloride 1,000 ML 80 ML IVCONT (12:18)
[2024-02-17] MEDS: Famotidine 20 MG TABLET G-TUBE (12:19)
[2024-02-17 12:59] LABS: Hematocrit 27.8 % (42.0-52.0); Hemoglobin 9.3 g/dl (14.0-18.0)
[2024-02-17 13:14] LABS: Iron 32 mcg/dL (45-160); Percent Iron Saturation 14 % (15-50); Total Iron Binding Capacity 225 mcg/dL (228-428); Unsaturated Iron Binding 193 ug/dL
[2024-02-17 13:28] LABS: Ferritin 246 ng/mL (20-250)
[2024-02-17 13:42] LABS: Vitamin B12 1247 pg/mL (200-900)
--- NOTE | 2024-02-17 17:22 | P.EN_ITS ---
Event Note Date of Service: 02/17/24 Event Note: Asked to see patient secondary to relative to have hypotension with systolic blood pressure of 80. Patient with a history of cerebral palsy... Talked to patient and he was alert and smiling nonverbal. This radio script writer repeated the blood pressure and got 92/60. Follow clinically; patient likely runs soft all the time. Discussed with nursing Time Spent With Patient Time: Total time managing care of this patient today ____ minutes.
[2024-02-17] MEDS: Parenteral Nutrition 1,080 ML 45 ML IV (21:06)
[2024-02-17] MEDS: Enoxaparin Sodium 40 MG/0.4 ML SYRINGE SUBCUT (22:53)
[2024-02-18] VITALS (8 sets, daily range): BP systolic 87–116; BP diastolic 58–72; PULSE 68–96; RESP 12–18; TEMP 36–37.6; O2SAT 95–98
[2024-02-18] MEDS: 0.9 % Sodium Chloride 1,000 ML 80 ML IVCONT ×2 (01:00→14:01)
[2024-02-18] MEDS: Albuterol Sulfate 2.5 MG/0.5 ML VIAL.NEB INHALE ×2 (07:57→19:28)
[2024-02-18] MEDS: Acetylcysteine 10 % 400 MG/4 ML VIAL INHALE ×2 (07:57→19:17)
[2024-02-18 10:02] LABS: Albumin Level 4.3 g/dL (3.5-5.0); Anion Gap 16 (12-20); Blood Urea Nitrogen 13 mg/dL (9-16); Calcium 9.5 mg/dL (8.4-10.2); Carbon Dioxide 20 mmol/L (22-29); Chloride 103 mmol/L (96-108); Creatinine Clr Calc Pharmacy 73.3; Estimated Glomerular Filt Rate > 60; Glucose Random 91 mg/dL (60-115); Magnesium 2.2 mg/dL (1.6-2.6); Phosphorus 3.2 mg/dL (2.7-4.5); Potassium 3.9 mmol/L (3.3-5.1); Sodium 135 mmol/L (135-145)
[2024-02-18 10:35] LABS: Anion Gap 13 (12-20); Blood Urea Nitrogen 14 mg/dL (9-16); Calcium 9.4 mg/dL (8.4-10.2); Carbon Dioxide 23 mmol/L (22-29); Chloride 104 mmol/L (96-108); Creatinine Clr Calc Pharmacy 72.2; Estimated Glomerular Filt Rate > 60; Glucose Random 89 mg/dL (60-115); Magnesium 2.1 mg/dL (1.6-2.6); Phosphorus 3.2 mg/dL (2.7-4.5); Potassium 3.7 mmol/L (3.3-5.1); Sodium 136 mmol/L (135-145)
[2024-02-18] MEDS: Albumin Human 25 % 100 ML IV ×2 (10:54→12:23)
[2024-02-18] MEDS: Acetaminophen 325 MG TABLET 650 MG PO (11:09)
[2024-02-18] MEDS: Midodrine HCl 10 MG TABLET G-TUBE ×3 (11:10→16:56)
[2024-02-18] MEDS: Famotidine 20 MG TABLET G-TUBE (11:10)
[2024-02-18] MEDS: 0.9 % Sodium Chloride Flush 3 ML SYRINGE IVFLUSH ×2 (11:10→17:03)
--- NOTE | 2024-02-18 11:16 | MHC.CLN ---
F/U PATIENT CONTINUES NPO WITH TPN. REVIEWED LABS. COMMUNICATED WITH PHARMACY. CONTINUE TPN AT MAX GOAL RATE 45ML/HR WITH 22G LIPIDS PROVIDES 987KCALS (30KCALS/KG), 162G DEXTROSE, 54G PROTEIN (1.6G/KG) REPLETE LYTES NEEDED FOLLOW FOR TPN TOLERANCE AND PLAN OF CARE.
[2024-02-18] MEDS: 0.9 % Sodium Chloride Flush 10 ML SYRINGE 5 ML IVFLUSH ×2 (11:24→16:56)
--- NOTE | 2024-02-18 15:08 | MHC.CM.PN ---
This CM spoke with liaison Kait from [facility] home infusion to inquire about TPN being set up. Per Kait pt would need an multiple labs drawn and sent to them prior to them being able to set up the TPN orders and send them to us to be signed, additionally, they would need to come to provide an in person teach. Per Kait all of this would not be able to be set up prior to Wednesday. Hospitalist aware that pt cannot DC at this time due to TPN not being able to be set up.
--- NOTE | 2024-02-18 16:23 | MHC.SL.SWA ---
Speech Pathologist Impression: Risk of Aspiration Due to: Lethargy Medically Fragile Neurological Condition History of Pneumonia Poor PO Intake Reduced Cognition Weak Cough Weak Voice Dysphasia Diet Status: CONCRETE GRINDER OPERATOR will continue to follow to evaluate for supplemental PO feedings, dysphagia treatment. Liquid Consistency and Strategies for Safe Swallow: Liquid Intake Recommendation: NPO Liquid Intake Strategies: Solid Food Consistency: Dietary Recommendations: NPO Oral Medication Intake: NPO Please contact the pharmacy regarding appropriate crushable or liquid drug formulations that are available whenever modified delivery is recommended. Compensatory Strategies and Precautions to be Taken for Safe Swallow: Sitting Upright (90 deg) Supervision While Eating and Drinking for Safe Swallow: PO with CONCRETE GRINDER OPERATOR Foods to Avoid: Swallowing Recommended Treatments: Compens. Strategy Educat. Recommendation for Speech: Inpatient Speech Therapy Comment: If Family wishes to provide him with PO I would reconsider changing his Code status. He is currently Full Code. From today's interaction Family is well trained in aspiration precautions, however his performance and other medical conditions make it so that he is not safe for any PO at this time. I would suggest the family revisit this if his medical condition improves. Frequency/Duration: Daily Date Range for Service Req: Admission Timeline to reassess: PRN Logistics Planning Engineer Clinican/Clinical Fellow: No Supervisory Statement: I have reviewed and agree with the student/clinical fellow's documentation: N/A Speech Language Pathologist: Junaid Alcala M.A., CCC-CONCRETE GRINDER OPERATOR
[2024-02-18] MEDS: Enoxaparin Sodium 40 MG/0.4 ML SYRINGE SUBCUT (20:47)
[2024-02-18] MEDS: Parenteral Nutrition 1,080 ML 45 ML IV (20:48)
[2024-02-19] VITALS (11 sets, daily range): BP systolic 93–111; BP diastolic 55–66; PULSE 52–96; RESP 16–20; TEMP 36.3–36.9; O2SAT 96–100
[2024-02-19] MEDS: 0.9 % Sodium Chloride 1,000 ML 80 ML IVCONT (02:15)
[2024-02-19 07:40] LABS: Anion Gap 14 (12-20); Blood Urea Nitrogen 18 mg/dL (9-16); Calcium 9.7 mg/dL (8.4-10.2); Carbon Dioxide 22 mmol/L (22-29); Chloride 106 mmol/L (96-108); Creatinine Clr Calc Pharmacy 70.1; Estimated Glomerular Filt Rate > 60; Glucose Random 88 mg/dL (60-115); Magnesium 2.3 mg/dL (1.6-2.6); Phosphorus 3.7 mg/dL (2.7-4.5); Potassium 4.1 mmol/L (3.3-5.1); Sodium 138 mmol/L (135-145)
[2024-02-19] MEDS: Midodrine HCl 10 MG TABLET G-TUBE ×3 (07:52→16:17)
[2024-02-19] MEDS: Famotidine 20 MG TABLET G-TUBE (07:53)
[2024-02-19] MEDS: Albuterol Sulfate 2.5 MG/0.5 ML VIAL.NEB INHALE ×2 (08:32→20:02)
[2024-02-19] MEDS: Acetylcysteine 10 % 400 MG/4 ML VIAL INHALE ×2 (08:32→20:01)
--- NOTE | 2024-02-19 14:12 | P.PNIM_ITS ---
Subjective Subjective Date of Service: 02/19/24 Interval History: date of service: 02/18/24 pneumonia/covid Review of Systems seems better no new c/o Physical Exam 2 Vital Signs: Vital Signs: Last Vital Signs BMI result Body Mass Index 16.3 vitals are reviewed from 02/18/24 General: alert, not in distress, not able to communicate, malnurouished, frail and skin Resp: normal movement cv: rrr, s1s2, mild peripheral pedal edema, sligthly more prominent on right GI: no distention Skin: No rash, Neuro: motor grossly intact Psych: appropriate affect Objective Data Active Medications Acetaminophen (Acetaminophen 325 Mg Tablet) 650 mg PO Q6H PRN PRN Reason: Pain, Mild (Pain Scale 1-3), fever or headache Last Admin: 02/18/24 11:09 Dose: 650 mg Documented By: KELSI Acetylcysteine (Acetylcysteine 10 % 400 Mg/4 Ml Vial) 400 mg INHALE RBID [facility] Last Admin: 02/19/24 08:32 Dose: 400 mg Documented By: MARY Albuterol Sulfate (Albuterol Sulfate 2.5 Mg/0.5 Ml Vial.Neb) 2.5 mg INHALE RBID [facility] Last Admin: 02/19/24 08:32 Dose: 2.5 mg Documented By: MARY Calcium Carbonate (Calcium Carbonate 750 Mg Tab.Chew) 750 mg PO Q4H PRN PRN Reason: Heartburn Enoxaparin Sodium (Enoxaparin Sodium 40 Mg/0.4 Ml Syringe) 40 mg SUBCUT Q24H [facility] Last Admin: 02/18/24 20:47 Dose: 40 mg Documented By: VINICIUS Famotidine (Famotidine 20 Mg Tablet) 20 mg G-TUBE DAILY [facility] Last Admin: 02/19/24 07:53 Dose: 20 mg Documented By: YAMIL Nutrition (Parenteral) (Parenteral Nutrition) 1,080 mls @ 45 mls/hr IV .Q24H [facility]; Protocol Stop: 02/19/24 20:59 Last Admin: 02/18/24 20:48 Dose: 45 mls/hr Documented By: VINICIUS Nutrition (Parenteral) (Parenteral Nutrition) 1,080 mls @ 45 mls/hr IV .Q24H [facility]; Protocol Stop: 02/20/24 20:59 Magnesium Hydroxide (Milk Of Magnesia 30 Ml Oral.Susp) 30 ml PO DAILY PRN PRN Reason: Constipation Melatonin (Melatonin 3 Mg Tablet) 6 mg PO BEDTIME PRN PRN Reason: Insomnia Midodrine (Midodrine Hcl 10 Mg Tablet) 10 mg G-TUBE TIDAC [facility] Last Admin: 02/19/24 13:12 Dose: 10 mg Documented By: YAMIL Ondansetron HCl (Ondansetron Hcl 4 Mg/2 Ml Vial) 4 mg IVPUSH Q8H PRN PRN Reason: Nausea and Vomiting Pharmacy Consult (Consult Rx Parenteral Nutrition Ordering) 1 each MISCELLANE DAILY PRN PRN Reason: Consult order Sodium Chloride (0.9 % Sodium Chloride Flush 3 Ml Syringe) 3 ml IVFLUSH QSHIFT [facility] Last Admin: 02/19/24 07:52 Dose: Not Given Documented By: YAMIL Non-Admin Reason: IV Running Sodium Chloride (0.9 % Sodium Chloride Flush 10 Ml Syringe) 5 ml IVFLUSH TID [facility] Last Admin: 02/19/24 07:52 Dose: Not Given Documented By: YAMIL Non-Admin Reason: IV Running Labs 02/17/24 12:21 02/19/24 06:45 Labs: Laboratory Results - last 24 hr 02/19/24 06:45 Hold Purple Top SEE NOTE Anion Gap 14 Estim Creat Clear Calc 70.1 Estimated GFR > 60 Random Glucose 88 Calcium 9.7 Phosphorus 3.7 Magnesium 2.3 Assessment and Plan (1) Severe protein-calorie malnutrition: Status: Acute (2) COVID-19: Status: Acute (3) MRSA pneumonia: Status: Acute Plan 33-year-old male with cerebral palsy, dysphagia, severe malnutrition requiring tube feeds, and chronic respiratory failure on home oxygen, presented to the hospital on 02/06 with altered mental status and jeeje-[id number]-jzxnxny hypoxic respiratory failure, presumed secondary to aspiration pneumonia and covid. A chest X-ray revealed multifocal pneumonia involving the lower lobes, raising suspicion for mycobacterial infection. Additional tested positive for covid He decompensated shortly after admission, necessitating ICU care with vasopressor support, but has since been weaned off pressors. Due to recurrent aspiration, he has been unable to tolerate tube feeds and is currently maintained on TPN. The patient remains on high-flow oxygen due to difficulty weaning, though he is hemodynamically stable. He is currently in TB isolation, receiving Zosyn for aspiration pneumonia, Sputum culture is growing staph Aureus (MRSA). Tube feeds remain on hold, and TPN is continued. He has severe protein calory malnutrition. Peripheral access has been challenging, so central line use is ongoing, with plans to transition to a Cohen catheter for long-term TPN at home. Pt has intermittent bradycardia without poses Possible Finding on CXR likely d/t MRSA PNA, and T spot is negative doesn't need TB isolation per pulmonology recommendation: received Maintain Zosyn / Vancomycin for MRSA in the spumtum, Continue Oxygen by nasal canula and wean as tolerated .has picc line , Holding tube feeds and maintain TPN. Will discuss with surgery or IR re post pyloric feeding tube.vanco trough is 21 . completed dexametasone. renal function seems fine.seen by Id- off antibiotics . MODERATELY MALNOURISHED:continue TPN and discuss changing feeding tube to post pyroric tube to minimize aspiration. Check TSH, mag, and electrolyets -seems fine adjust electrolytes and divalents in TPN based on lab. ch anemia : h/h is stable around 9.3/27.8. Bp boderline -? baseline continue midodrine Lovenox for DVT prophyalxis. Hospitlisation need : malnutrition -need tpn , need electrolytes monitering ,need vna arrangement for tpn. Quality Stroke Does the patient have a stroke diagnosis?: No VTE Prior VTE?: No VTE Risk Level:: Medical - moderate - high VTE Device Contraindication: Treatment Not Indicated VTE Drug Contraindication: N/A - Med Ordered
--- NOTE | 2024-02-19 14:18 | P.PNIM_ITS ---
Subjective Subjective Date of Service: 02/19/24 Interval History: tpn , possible need for advancement of g tube Review of Systems seems comfortable no fevers Physical Exam 2 Vital Signs: Vital Signs: Last Vital Signs Temp 97.4 F 02/19/24 11:10 Pulse 56 02/19/24 11:10 Resp 20 02/19/24 11:10 BP 94/61 02/19/24 13:12 Pulse Ox 100 02/19/24 11:10 O2 Del Method Nasal Cannula 02/19/24 11:10 O2 Flow Rate 3 02/19/24 11:10 FiO2 35 02/12/24 11:57 BMI result Body Mass Index 16.3 General: alert, not in distress, not able to communicate, malnurouished, frail and skin Resp: normal movement cv: rrr, s1s2 GI: no distention Skin: No rash, Neuro: motor grossly intact Psych: appropriate affect Objective Data Active Medications Acetaminophen (Acetaminophen 325 Mg Tablet) 650 mg PO Q6H PRN PRN Reason: Pain, Mild (Pain Scale 1-3), fever or headache Last Admin: 02/18/24 11:09 Dose: 650 mg Documented By: KELSI Acetylcysteine (Acetylcysteine 10 % 400 Mg/4 Ml Vial) 400 mg INHALE RBID [facility] Last Admin: 02/19/24 08:32 Dose: 400 mg Documented By: MARY Albuterol Sulfate (Albuterol Sulfate 2.5 Mg/0.5 Ml Vial.Neb) 2.5 mg INHALE RBID [facility] Last Admin: 02/19/24 08:32 Dose: 2.5 mg Documented By: MARY Calcium Carbonate (Calcium Carbonate 750 Mg Tab.Chew) 750 mg PO Q4H PRN PRN Reason: Heartburn Enoxaparin Sodium (Enoxaparin Sodium 40 Mg/0.4 Ml Syringe) 40 mg SUBCUT Q24H [facility] Last Admin: 02/18/24 20:47 Dose: 40 mg Documented By: VINICIUS Famotidine (Famotidine 20 Mg Tablet) 20 mg G-TUBE DAILY [facility] Last Admin: 02/19/24 07:53 Dose: 20 mg Documented By: YAMIL Nutrition (Parenteral) (Parenteral Nutrition) 1,080 mls @ 45 mls/hr IV .Q24H [facility]; Protocol Stop: 02/19/24 20:59 Last Admin: 02/18/24 20:48 Dose: 45 mls/hr Documented By: VINICIUS Nutrition (Parenteral) (Parenteral Nutrition) 1,080 mls @ 45 mls/hr IV .Q24H [facility]; Protocol Stop: 02/20/24 20:59 Magnesium Hydroxide (Milk Of Magnesia 30 Ml Oral.Susp) 30 ml PO DAILY PRN PRN Reason: Constipation Melatonin (Melatonin 3 Mg Tablet) 6 mg PO BEDTIME PRN PRN Reason: Insomnia Midodrine (Midodrine Hcl 10 Mg Tablet) 10 mg G-TUBE TIDAC [facility] Last Admin: 02/19/24 13:12 Dose: 10 mg Documented By: YAMIL Ondansetron HCl (Ondansetron Hcl 4 Mg/2 Ml Vial) 4 mg IVPUSH Q8H PRN PRN Reason: Nausea and Vomiting Pharmacy Consult (Consult Rx Parenteral Nutrition Ordering) 1 each MISCELLANE DAILY PRN PRN Reason: Consult order Sodium Chloride (0.9 % Sodium Chloride Flush 3 Ml Syringe) 3 ml IVFLUSH QSHIFT [facility] Last Admin: 02/19/24 07:52 Dose: Not Given Documented By: YAMIL Non-Admin Reason: IV Running Sodium Chloride (0.9 % Sodium Chloride Flush 10 Ml Syringe) 5 ml IVFLUSH TID [facility] Last Admin: 02/19/24 07:52 Dose: Not Given Documented By: YAMIL Non-Admin Reason: IV Running Labs 02/17/24 12:21 02/19/24 06:45 Labs: Laboratory Results - last 24 hr 02/19/24 06:45 Hold Purple Top SEE NOTE Anion Gap 14 Estim Creat Clear Calc 70.1 Estimated GFR > 60 Random Glucose 88 Calcium 9.7 Phosphorus 3.7 Magnesium 2.3 Assessment and Plan (1) Severe protein-calorie malnutrition: Status: Acute (2) COVID-19: Status: Acute (3) MRSA pneumonia: Status: Acute Plan 33-year-old male with cerebral palsy, dysphagia, severe malnutrition requiring tube feeds, and chronic respiratory failure on home oxygen, presented to the hospital on 02/06 with altered mental status and carmp-wa-threbjk hypoxic respiratory failure, presumed secondary to aspiration pneumonia and covid. A chest X-ray revealed multifocal pneumonia involving the lower lobes, raising suspicion for mycobacterial infection. Additional tested positive for covid He decompensated shortly after admission, necessitating ICU care with vasopressor support, but has since been weaned off pressors. Due to recurrent aspiration, he has been unable to tolerate tube feeds and is currently maintained on TPN. The patient remains on high-flow oxygen due to difficulty weaning, though he is hemodynamically stable. He is currently in TB isolation, receiving Zosyn for aspiration pneumonia, Sputum culture is growing staph Aureus (MRSA). Tube feeds remain on hold, and TPN is continued. He has severe protein calory malnutrition. Peripheral access has been challenging, so central line use is ongoing, with plans to transition to a Cohen catheter for long-term TPN at home. Pt has intermittent bradycardia without poses Possible Finding on CXR likely d/t MRSA PNA, and T spot is negative doesn't need TB isolation per pulmonology recommendation: received Maintain Zosyn / Vancomycin for MRSA in the spumtum, Continue Oxygen by nasal canula and wean as tolerated .has picc line , Holding tube feeds and maintain TPN. Will discuss with surgery or IR re post pyloric feeding tube.vanco trough is 21 . completed dexametasone. renal function seems fine.seen by Id- off antibiotics . MODERATELY MALNOURISHED:continue TPN and discuss changing feeding tube to post pyroric tube to minimize aspiration. Check TSH, mag, and electrolyets -seems fine adjust electrolytes and divalents in TPN based on lab. ch anemia : h/h is stable around 9.3/27.8. Bp boderline -? baseline continue midodrine Lovenox for DVT prophyalxis. Hospitlisation need : malnutrition -need tpn , need electrolytes monitering ,need vna arrangement for tpn. Quality Stroke Does the patient have a stroke diagnosis?: No VTE Prior VTE?: No VTE Risk Level:: Medical - moderate - high VTE Device Contraindication: Treatment Not Indicated VTE Drug Contraindication: N/A - Med Ordered
[2024-02-19] MEDS: 0.9 % Sodium Chloride Flush 10 ML SYRINGE 5 ML IVFLUSH ×2 (16:16→21:13)
[2024-02-19] MEDS: 0.9 % Sodium Chloride Flush 3 ML SYRINGE IVFLUSH ×2 (16:17→23:34)
[2024-02-19] MEDS: Parenteral Nutrition 1,080 ML 45 ML IV (20:55)
[2024-02-19] MEDS: Enoxaparin Sodium 40 MG/0.4 ML SYRINGE SUBCUT (20:57)
[2024-02-20] VITALS (11 sets, daily range): BP systolic 93–127; BP diastolic 54–86; PULSE 52–93; RESP 15–18; TEMP 36.2–36.8; O2SAT 98–100
[2024-02-20] MEDS: Midodrine HCl 10 MG TABLET G-TUBE ×3 (07:41→17:03)
[2024-02-20] MEDS: Famotidine 20 MG TABLET G-TUBE (07:41)
[2024-02-20] MEDS: 0.9 % Sodium Chloride Flush 10 ML SYRINGE 5 ML IVFLUSH ×3 (07:42→20:20)
[2024-02-20] MEDS: 0.9 % Sodium Chloride Flush 3 ML SYRINGE IVFLUSH ×2 (07:42→17:03)
[2024-02-20] MEDS: Albuterol Sulfate 2.5 MG/0.5 ML VIAL.NEB INHALE ×2 (08:23→21:34)
[2024-02-20] MEDS: Acetylcysteine 10 % 400 MG/4 ML VIAL INHALE ×2 (08:23→21:34)
[2024-02-20 08:25] LABS: Anion Gap 12 (12-20); Blood Urea Nitrogen 16 mg/dL (9-16); Calcium 9.8 mg/dL (8.4-10.2); Carbon Dioxide 22 mmol/L (22-29); Chloride 104 mmol/L (96-108); Creatinine Clr Calc Pharmacy 76.8; Estimated Glomerular Filt Rate > 60; Glucose Random 105 mg/dL (60-115); Magnesium 2.3 mg/dL (1.6-2.6); Phosphorus 2.8 mg/dL (2.7-4.5); Potassium 3.9 mmol/L (3.3-5.1); Sodium 134 mmol/L (135-145)
[2024-02-20 08:31] LABS: Vancomycin Random < 2.0 mcg/mL (15-20)
--- NOTE | 2024-02-20 13:46 | HO.PM.IMPN ---
Subjective Subjective Date of Service: 02/20/24 Interval History: tpn , possible need for advancement of g tube Review of Systems seems comfortable no fevers Physical Exam Vital Signs: Vital Signs: Last Vital Signs Temp 98.1 F 02/20/24 11:55 Pulse 75 02/20/24 11:55 Resp 18 02/20/24 11:55 BP 127/76 02/20/24 11:55 Pulse Ox 100 02/20/24 11:55 O2 Del Method Nasal Cannula 02/20/24 11:55 O2 Flow Rate 4 02/20/24 11:55 FiO2 35 02/12/24 11:57 BMI result Body Mass Index 16.3 General: alert, not in distress, not able to communicate, malnurouished, frail and skin Resp: normal movement cv: rrr, s1s2 GI: no distention Skin: No rash, Neuro: motor grossly intact Psych: appropriate affect Objective Data Active Medications Acetaminophen (Acetaminophen 325 Mg Tablet) 650 mg PO Q6H PRN PRN Reason: Pain, Mild (Pain Scale 1-3), fever or headache Last Admin: 02/18/24 11:09 Dose: 650 mg Documented By: KELSI Acetylcysteine (Acetylcysteine 10 % 400 Mg/4 Ml Vial) 400 mg INHALE RBID [facility] Last Admin: 02/20/24 08:23 Dose: 400 mg Documented By: MARY Albuterol Sulfate (Albuterol Sulfate 2.5 Mg/0.5 Ml Vial.Neb) 2.5 mg INHALE RBID [facility] Last Admin: 02/20/24 08:23 Dose: 2.5 mg Documented By: MARY Calcium Carbonate (Calcium Carbonate 750 Mg Tab.Chew) 750 mg PO Q4H PRN PRN Reason: Heartburn Enoxaparin Sodium (Enoxaparin Sodium 40 Mg/0.4 Ml Syringe) 40 mg SUBCUT Q24H [facility] Last Admin: 02/19/24 20:57 Dose: 40 mg Documented By: VINICIUS Famotidine (Famotidine 20 Mg Tablet) 20 mg G-TUBE DAILY [facility] Last Admin: 02/20/24 07:41 Dose: 20 mg Documented By: YAMIL Nutrition (Parenteral) (Parenteral Nutrition) 1,080 mls @ 45 mls/hr IV .Q24H [facility]; Protocol Stop: 02/20/24 20:59 Last Admin: 02/19/24 20:55 Dose: 45 mls/hr Documented By: VINICIUS Nutrition (Parenteral) (Parenteral Nutrition) 1,080 mls @ 45 mls/hr IV .Q24H [facility]; Protocol Stop: 02/21/24 20:59 Magnesium Hydroxide (Milk Of Magnesia 30 Ml Oral.Susp) 30 ml PO DAILY PRN PRN Reason: Constipation Melatonin (Melatonin 3 Mg Tablet) 6 mg PO BEDTIME PRN PRN Reason: Insomnia Midodrine (Midodrine Hcl 10 Mg Tablet) 10 mg G-TUBE TIDAC [facility] Last Admin: 02/20/24 11:22 Dose: 10 mg Documented By: YAMIL Ondansetron HCl (Ondansetron Hcl 4 Mg/2 Ml Vial) 4 mg IVPUSH Q8H PRN PRN Reason: Nausea and Vomiting Pharmacy Consult (Consult Rx Parenteral Nutrition Ordering) 1 each MISCELLANE DAILY PRN PRN Reason: Consult order Sodium Chloride (0.9 % Sodium Chloride Flush 3 Ml Syringe) 3 ml IVFLUSH QSHIFT [facility] Last Admin: 02/20/24 07:42 Dose: 3 ml Documented By: YAMIL Sodium Chloride (0.9 % Sodium Chloride Flush 10 Ml Syringe) 5 ml IVFLUSH TID [facility] Last Admin: 02/20/24 07:42 Dose: 5 ml Documented By: YAMIL Labs 02/17/24 12:21 02/20/24 07:31 Labs: Laboratory Results - last 24 hr 02/20/24 07:31 Hold Purple Top SEE NOTE Anion Gap 12 Estim Creat Clear Calc 76.8 Estimated GFR > 60 Random Glucose 105 Calcium 9.8 Phosphorus 2.8 Magnesium 2.3 Random Vancomycin < 2.0 L Assessment and Plan (1) Severe protein-calorie malnutrition: Status: Acute (2) COVID-19: Status: Acute (3) MRSA pneumonia: Status: Acute Plan 33-year-old male with cerebral palsy, dysphagia, severe malnutrition requiring tube feeds, and chronic respiratory failure on home oxygen, presented to the hospital on 02/06 with altered mental status and ptapu-dw-tstvlfe hypoxic respiratory failure, presumed secondary to aspiration pneumonia and covid. A chest X-ray revealed multifocal pneumonia involving the lower lobes, raising suspicion for mycobacterial infection. Additional tested positive for covid He decompensated shortly after admission, necessitating ICU care with vasopressor support, but has since been weaned off pressors. Due to recurrent aspiration, he has been unable to tolerate tube feeds and is currently maintained on TPN. The patient remains on high-flow oxygen due to difficulty weaning, though he is hemodynamically stable. He is currently in TB isolation, receiving Zosyn for aspiration pneumonia, Sputum culture is growing staph Aureus (MRSA). Tube feeds remain on hold, and TPN is continued. He has severe protein calory malnutrition. Peripheral access has been challenging, so central line use is ongoing, with plans to transition to a Cohen catheter for long-term TPN at home. Pt has intermittent bradycardia without poses Possible Finding on CXR likely d/t MRSA PNA, and T spot is negative doesn't need TB isolation per pulmonology recommendation: received Maintain Zosyn / Vancomycin for MRSA in the spumtum, Continue Oxygen by nasal canula and wean as tolerated .has picc line , Holding tube feeds and maintain TPN. Will discuss with surgery or IR re post pyloric feeding tube.vanco trough is 21 . completed dexametasone. renal function seems fine.seen by Id- off antibiotics . MODERATELY MALNOURISHED:continue TPN and discuss changing feeding tube to post pyroric tube to minimize aspiration. Check TSH, mag, and electrolyets -seems fine adjust electrolytes and divalents in TPN based on lab. ch anemia : h/h is stable around 9.3/27.8. Bp boderline -? baseline continue midodrine Lovenox for DVT prophyalxis. Hospitlisation need : malnutrition -need tpn , need electrolytes monitering ,need vna arrangement for tpn. Quality Stroke Does the patient have a stroke diagnosis?: No VTE Prior VTE?: No VTE Risk Level:: Medical - moderate - high VTE Device Contraindication: Treatment Not Indicated VTE Drug Contraindication: N/A - Med Ordered
[2024-02-20] MEDS: Parenteral Nutrition 1,080 ML 45 ML IV (20:20)
[2024-02-20] MEDS: Enoxaparin Sodium 40 MG/0.4 ML SYRINGE SUBCUT (23:00)
[2024-02-21] VITALS (9 sets, daily range): BP systolic 87–108; BP diastolic 57–69; PULSE 51–85; RESP 15–20; TEMP 36.2–37.2; O2SAT 97–100
[2024-02-21] MEDS: Acetaminophen 325 MG TABLET 650 MG PO ×2 (06:37→16:46)
[2024-02-21 07:01] LABS: Anion Gap 14 (12-20); Blood Urea Nitrogen 17 mg/dL (9-16); Calcium 9.8 mg/dL (8.4-10.2); Carbon Dioxide 23 mmol/L (22-29); Chloride 104 mmol/L (96-108); Creatinine Clr Calc Pharmacy 79.4; Estimated Glomerular Filt Rate > 60; Glucose Random 89 mg/dL (60-115); Magnesium 2.2 mg/dL (1.6-2.6); Sodium 137 mmol/L (135-145)
[2024-02-21] MEDS: Acetylcysteine 10 % 400 MG/4 ML VIAL INHALE ×2 (08:13→21:19)
[2024-02-21] MEDS: Midodrine HCl 10 MG TABLET G-TUBE ×3 (08:46→16:36)
[2024-02-21] MEDS: Famotidine 20 MG TABLET G-TUBE (08:46)
[2024-02-21] MEDS: 0.9 % Sodium Chloride Flush 10 ML SYRINGE 5 ML IVFLUSH (08:47)
--- NOTE | 2024-02-21 11:38 | MHC.CM.PN ---
Per rounds, pt will be trialled with current feeding tube today and if he does well, can DC to home tomorrow. He may not need TPN, therefore no need for HI services. Will update VNA.
--- NOTE | 2024-02-21 12:32 | HO.PM.IMPN ---
Subjective Subjective Date of Service: 02/21/24 Interval History: tpn will try peg feeding spoke to family -possible aspirational episode related to po feeding Review of Systems as above. Physical Exam Vital Signs: Vital Signs: Last Vital Signs Temp 97.7 F 02/21/24 11:30 Pulse 51 02/21/24 11:30 Resp 18 02/21/24 11:30 BP 99/66 02/21/24 11:30 Pulse Ox 100 02/21/24 11:30 O2 Del Method Nasal Cannula 02/21/24 11:30 O2 Flow Rate 4 02/21/24 11:30 FiO2 35 02/12/24 11:57 BMI result Body Mass Index 16.3 General: alert, not in distress, not able to communicate, malnurouished, frail and skin Resp: normal movement cv: rrr, s1s2 GI: no distention Skin: No rash, Neuro: motor grossly intact Psych: appropriate affect Objective Data Active Medications Acetaminophen (Acetaminophen 325 Mg Tablet) 650 mg PO Q6H PRN PRN Reason: Pain, Mild (Pain Scale 1-3), fever or headache Last Admin: 02/21/24 06:37 Dose: 650 mg Documented By: VANNESA Acetylcysteine (Acetylcysteine 10 % 400 Mg/4 Ml Vial) 400 mg INHALE RBID [facility] Last Admin: 02/21/24 08:13 Dose: 400 mg Documented By: GREGG Calcium Carbonate (Calcium Carbonate 750 Mg Tab.Chew) 750 mg PO Q4H PRN PRN Reason: Heartburn Enoxaparin Sodium (Enoxaparin Sodium 40 Mg/0.4 Ml Syringe) 40 mg SUBCUT Q24H [facility] Last Admin: 02/20/24 23:00 Dose: 40 mg Documented By: VANNESA Famotidine (Famotidine 20 Mg Tablet) 20 mg G-TUBE DAILY [facility] Last Admin: 02/21/24 08:46 Dose: 20 mg Documented By: BENNETT Nutrition (Parenteral) (Parenteral Nutrition) 1,080 mls @ 45 mls/hr IV .Q24H [facility]; Protocol Stop: 02/21/24 20:59 Last Admin: 02/20/24 20:20 Dose: 45 mls/hr Documented By: VANNESA Nutrition (Parenteral) (Parenteral Nutrition) 1,080 mls @ 45 mls/hr IV .Q24H [facility]; Protocol Stop: 02/22/24 20:59 Magnesium Hydroxide (Milk Of Magnesia 30 Ml Oral.Susp) 30 ml PO DAILY PRN PRN Reason: Constipation Melatonin (Melatonin 3 Mg Tablet) 6 mg PO BEDTIME PRN PRN Reason: Insomnia Midodrine (Midodrine Hcl 10 Mg Tablet) 10 mg G-TUBE TIDAC [facility] Last Admin: 02/21/24 11:17 Dose: 10 mg Documented By: BENNETT Ondansetron HCl (Ondansetron Hcl 4 Mg/2 Ml Vial) 4 mg IVPUSH Q8H PRN PRN Reason: Nausea and Vomiting Pharmacy Consult (Consult Rx Parenteral Nutrition Ordering) 1 each MISCELLANE DAILY PRN PRN Reason: Consult order Sodium Chloride (0.9 % Sodium Chloride Flush 3 Ml Syringe) 3 ml IVFLUSH QSHIFT [facility] Last Admin: 02/21/24 08:47 Dose: Not Given Documented By: BENNETT Non-Admin Reason: Previously Administered Sodium Chloride (0.9 % Sodium Chloride Flush 10 Ml Syringe) 5 ml IVFLUSH TID [facility] Last Admin: 02/21/24 08:47 Dose: 5 ml Documented By: BENNETT Labs 02/17/24 12:21 02/21/24 06:34 Labs: Laboratory Results - last 24 hr 02/21/24 06:34 Anion Gap 14 Estim Creat Clear Calc 79.4 Estimated GFR > 60 Random Glucose 89 Calcium 9.8 Phosphorus 3.0 Magnesium 2.2 Assessment and Plan (1) Severe protein-calorie malnutrition: Status: Acute (2) COVID-19: Status: Acute Plan 33-year-old male with cerebral palsy, dysphagia, severe malnutrition requiring tube feeds, and chronic respiratory failure on home oxygen, presented to the hospital on 02/06 with altered mental status and jxxbs-cb-wzayzsg hypoxic respiratory failure, presumed secondary to aspiration pneumonia and covid. A chest X-ray revealed multifocal pneumonia involving the lower lobes, raising suspicion for mycobacterial infection. Additional tested positive for covid He decompensated shortly after admission, necessitating ICU care with vasopressor support, but has since been weaned off pressors. Due to recurrent aspiration, he has been unable to tolerate tube feeds and is currently maintained on TPN. The patient remains on high-flow oxygen due to difficulty weaning, though he is hemodynamically stable. He is currently in TB isolation, receiving Zosyn for aspiration pneumonia, Sputum culture is growing staph Aureus (MRSA). Tube feeds remain on hold, and TPN is continued. He has severe protein calory malnutrition. Peripheral access has been challenging, so central line use is ongoing, with plans to transition to a Cohen catheter for long-term TPN at home. Pt has intermittent bradycardia without poses Possible Finding on CXR likely d/t MRSA PNA, and T spot is negative doesn't need TB isolation per pulmonology recommendation: received Maintain Zosyn / Vancomycin for MRSA in the spumtum, Continue Oxygen by nasal canula and wean as tolerated .has picc line , Holding tube feeds and maintain TPN. Will discuss with surgery or IR re post pyloric feeding tube.vanco trough repeated <2. completed dexametasone. renal function seems fine.seen by Id- off antibiotics . MODERATELY MALNOURISHED:continue TPN and discuss changing feeding tube to post pyroric tube to minimize aspiration. TSH normal, mag, and electrolyets -seems fine moniter electrolytes and divalents. d/w family -strict no po feeds , will try peg feeding for next 24 hrs and taper tpn. ch anemia : h/h is stable around 9.3/27.8. Bp boderline -? baseline continue midodrine Lovenox for DVT prophyalxis. Hospitlisation need : malnutrition -need tpn , need electrolytes monitering ,trial of peg feeding. above is d/w patient father in detail. Quality Stroke Does the patient have a stroke diagnosis?: No VTE Prior VTE?: No VTE Risk Level:: Medical - moderate - high VTE Device Contraindication: Treatment Not Indicated VTE Drug Contraindication: N/A - Med Ordered
--- NOTE | 2024-02-21 13:11 | MHC.CLN ---
F/U DISCUSSED WITH PHARMACY AND MD REVIEWED LABS CURRENTLY NPO RECEIVING TPN MD REQUEST TO RE-START TF RECOMMEND JEVITY 1.0 AT MAX GOAL RATE 45ML/HR WITH 120ML FREE WATER FLUSHES Q 8HRS TO PROVIDE 1145KCALS (35KCALS/KG), 48G PROTEIN (1.45G/KG), 1262ML TOTAL WATER FROM FORMULA AND FLUSHES (38ML/KG) MONITOR TOLERANCE AND LYTES TPN TO DECREASE TO 45ML/HR, HOLDING LIPIDS TO PROVIDE 767KCALS, 162G DEXTROSE, 54G PROTEIN REPLETE LYTES NEEDED WILL TITRATE TPN DOWN TF INCREASES TO GOAL
--- NOTE | 2024-02-21 16:40 | MHC.SLORD ---
Speech Language Pathology Order Status: Pt sister present at bedside when PACKING MACHINE TENDER arrived. RN providing care for G tube. Pt sister requested to step into hallway as she did not want pt to overhear that he remains NPO strict. Pt continues to ask when he can eat again. PACKING MACHINE TENDER reviewed POC, including NPO strict recc, pharyngeal strengthening protocol, recc ongoing dysphagia treatment and need for MBS when appropriate in the future to assess pt functional swallow. Pt sister verbalized understanding and agreed with POC. PACKING MACHINE TENDER intervention remains daily during inpatient stay, anticipate continued PACKING MACHINE TENDER intervention upon d/c.
[2024-02-21] MEDS: Enoxaparin Sodium 40 MG/0.4 ML SYRINGE SUBCUT (20:52)
[2024-02-21] MEDS: Parenteral Nutrition 1,080 ML 45 ML IV (20:52)
[2024-02-22] VITALS (8 sets, daily range): BP systolic 88–108; BP diastolic 50–71; PULSE 60–86; RESP 16–20; TEMP 36.4–36.9; O2SAT 95–100
[2024-02-22 07:31] LABS: Anion Gap 12 (12-20); Blood Urea Nitrogen 17 mg/dL (9-16); Calcium 9.6 mg/dL (8.4-10.2); Carbon Dioxide 25 mmol/L (22-29); Chloride 104 mmol/L (96-108); Creatinine Clr Calc Pharmacy 76.8; Estimated Glomerular Filt Rate > 60; Glucose Random 84 mg/dL (60-115); Magnesium 2.2 mg/dL (1.6-2.6); Phosphorus 3.1 mg/dL (2.7-4.5); Potassium 4.2 mmol/L (3.3-5.1); Sodium 137 mmol/L (135-145)
[2024-02-22] MEDS: Famotidine 20 MG TABLET G-TUBE (08:21)
[2024-02-22] MEDS: Midodrine HCl 10 MG TABLET G-TUBE ×3 (08:21→17:08)
[2024-02-22] MEDS: Acetaminophen 325 MG TABLET 650 MG PO (08:33)
[2024-02-22] MEDS: Acetylcysteine 10 % 400 MG/4 ML VIAL INHALE ×2 (09:01→19:05)
--- NOTE | 2024-02-22 10:45 | MHC.CLN ---
F/U DISCUSSED WITH NURSING REVIEWED LABS NURSING REPORTED PT TOLERATING TF AT MAX GOAL RATE AND DOING WELL DISCUSSED WITH PHARMACY TO D/C TPN PT TOLERATING TF JEVITY 1.0 AT MAX GOAL RATE 45ML/HR WITH 120ML FREE WATER FLUSHES Q 8HRS PROVIDES 1145KCALS (35KCALS/KG), 48G PROTEIN (1.45G/KG), 1262ML TOTAL WATER FROM FORMULA AND FLUSHES (38ML/KG) MONITOR TOLERANCE AND LYTES UPON D/C; DO NOT RECOMMEND SWITCHING PT TO BOLUS FEEDINGS FAILED PREVIOUS TRIALS
--- NOTE | 2024-02-22 11:05 | P.DS_ITS ---
DS: Providers Provider Date of Service: 02/23/24 Date of admission: 02/07/24 21:16 Date of discharge: 02/23/24 Primary care physician: Mila Vazquez NP Consults: 02/12/24 08:53 Consult to Pulmonology Routine Consulting Provider: [facility] Pul[facility]ology Services Reason for consultation: acute respiratory failure, ? TB MRSA pneumonia 02/15/24 13:14 Consult to Infectious Diseases Routine Consulting Provider: [facility] Infect[facility] Reason for consultation: aspirational pneumonia/covid Has provider been notified: No Attending physician on discharge: Chelle Romano Discharging clinician: Chelle Romano DS: Diagnosis Discharge Diagnosis (1) Severe protein-calorie malnutrition: Status: Acute (2) COVID-19: Status: Acute DS: Summary Hospital Course Hospital Course: Date of service and discharge: 02/23/24 HPI: 33-year-old male with pertinent history of cerebral palsy who is nonverbal at baseline, chronic hypoxemic respiratory failure due to recurrent aspiration on 2.5 L supplemental oxygen who was brought to the emergency department for evaluation of lethargy and increasing oxygen requirements. History obtained with the help of father and sister at bedside. Patient was using 2-1/2 L supplemental oxygen but he was found to be satting 70% on the day of presentation. The sister increased O2 to 4 L but the patient's oxygen saturation was still low. Also he was drowsy and less interactive on the day of presentation so he was brought to the hospital. The father noticed that every time the patient has tube feeding, he coughs. They only gave him p.o. feeding once maybe and he was coughing and choking with it. Unable to obtain review of systems. In the emergency department, patient was found to be septic and requiring high- flow nasal cannula to maintain normal oxygen saturation Hospital course:33-year-old male with cerebral palsy, dysphagia, severe malnutrition requiring tube feeds, and chronic respiratory failure on home oxygen, presented to the hospital on 02/06 with altered mental status and ftflv-[id number]-ahljslr hypoxic respiratory failure, presumed secondary to aspiration pneumonia and covid. A chest X-ray revealed multifocal pneumonia involving the lower lobes, raising suspicion for mycobacterial infection. Additional tested positive for covid.He decompensated shortly after admission, necessitating ICU care with vasopressor support, but has since been weaned off pressors. Due to recurrent aspiration episodes: Discussed with the family in detail it seems like he was getting fed p.o. at home even though was recommended not to do that.Patient also completed antibiotic therapy for pneumonia, currently at his baseline. 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 due to this severe disease state ,patient would benefit from a cough assist. Please repeat chest imaging in 3-4 weeks to see resolution pneumonia. Patient family strictly advised not to give p.o. had 1 episode of low grade fever around midnight , no other episode afterwards ,patient seems at his baseline , new new symptoms. Patient TPN was stopped , monitored on PEG feeding for 24 hour no signs of aspiration noted so far.Patient will be going home with PEG feeding. Currently no need to advance bag since look like above aspiration episode probably related to p.o. intake. Plan: Strictly advised not for p.o. intake. PEG feeding continue as instructed. Above management discussed with the patient family is further at bedside in detail length. Time Attestation Total time managing care of this patient today: 40 mintues. Discharge Coordination Time (in mins): 40 min Quality: Safe Use of Opioids Does Pt have an Active Cancer Diagnosis on the Problem List?: No Quality: Stroke Does the patient have a stroke diagnosis?: No Physical Exam Vital Signs: Vital Signs: Last Vital Signs Temp 97.5 F 02/22/24 07:28 Pulse 60 02/22/24 09:12 Resp 18 02/22/24 09:12 BP 102/50 L 02/22/24 07:28 Pulse Ox 100 02/22/24 07:28 O2 Del Method Nasal Cannula, Hu midified O2 02/22/24 07:28 O2 Flow Rate 4 02/22/24 07:28 FiO2 35 02/12/24 11:57 BMI result Body Mass Index 16.3 General: alert, not in distress, not able to communicate, malnurouished, frail and skin Resp: normal movement cv: rrr, s1s2 GI: no distention Skin: No rash, Neuro: motor grossly intact Psych: appropriate affect DS: Data Data Completed and Pending Completed studies during hospitalization [Text1]: Procedures Insertion of Feeding Device into Stomach, Percutaneous Approach (01/20/24) Labs on day of discharge: Laboratory Results - last 24 hr 02/22/24 06:10 Sodium 137 Potassium 4.2 Chloride 104 Carbon Dioxide 25 Anion Gap 12 BUN 17 H Creatinine 0.63 Estim Creat Clear Calc 76.8 Estimated GFR > 60 Random Glucose 84 Calcium 9.6 Phosphorus 3.1 Magnesium 2.2 Imaging Chest x-ray: Radiologist's impression: ITS Impressions Chest X-Ray 02/07/24 19:15 IMPRESSION: No acute cardiopulmonary abnormalities. Electronically signed by: Tony Norman MD 02/08/2024 12:15 AM EST RP Chest CT 02/08/24 06:19 IMPRESSION: Multifocal pneumonia, lower lung lobes. Mycobacterium etiology should be considered. Fleischner guidelines were followed. Electronically signed by: John Salvador MD 02/08/2024 07:06 AM EST RP Chest X-Ray 02/09/24 15:48 IMPRESSION: Patchy bilateral lower lobe airspace opacities, similar when compared to the prior CT. Electronically signed by: Emigdio Glass MD 02/09/2024 04:25 PM EST RP Chest X-Ray 02/10/24 10:50 IMPRESSION: Multifocal pneumonia with likely left-sided pleural effusion, moderate volume. Electronically signed by: John Salvador MD 02/10/2024 11:21 AM EST RP Chest X-Ray 02/10/24 17:40 IMPRESSION: 1. Right-sided central venous catheter with the tip in the region of the SVC. 2. Stable layering left-sided pleural effusion and patchy right basilar opacities. No increasing airspace consolidation. Electronically signed by: Emigdio Glass MD 02/10/2024 08:36 PM EST RP Chest X-Ray 02/12/24 09:45 IMPRESSION: Improving but persistent retrocardiac infiltrate. Electronically signed by: Emir Olmos MD 02/12/2024 12:00 PM EST RP Discharge Plan Discharge Anticipated Discharge Date/Time: 02/22/24 12:56 Patient Disposition: Home Health Service Discharge Diagnosis: Aspiration pneumonia probably likely due to p.o. intake. [facility] - 1 Week [facility] [Outside] - 1 Week Mila Vazquez NP [Primary Care Provider] - 1 Week Discharge Medications: New famotidine 20 mg Tablet 20 mg G-tube DAILY Qty: 30 0RF midodrine 10 mg Tablet 10 mg G-tube TIDAC Qty: 90 0RF Continued acetaminophen 160 mg/5 mL liquid 480 mg PO Q6H PRN (Reason: Fever/Pain) Discharge Orders: Discharge Order (Routine); Ordered 02/22/24 Ordered By: Chelle Romano Diet: Advance to usual diet Activity on Discharge: As tolerated Stand Alone Forms: Patient Portal Discharge page Print Language: Surinamese Care Plan Goals: 33-year-old male with cerebral palsy, dysphagia, severe malnutrition requiring tube feeds, and chronic respiratory failure on home oxygen, presented to the hospital on 02/06 with altered mental status and ldwuy-ph-lfeyqtd hypoxic respiratory failure, presumed secondary to aspiration pneumonia and covid. A chest X-ray revealed multifocal pneumonia involving the lower lobes, raising suspicion for mycobacterial infection. Additional tested positive for covid. He decompensated shortly after admission, necessitating ICU care with vasopressor support, but has since been weaned off pressors. Patient also completed antibiotic therapy for pneumonia, currently at his baseline. Please repeat chest imaging in 3-4 weeks to see resolution pneumonia. Patient family strictly advised not to give p.o. Patient TPN was stopped , monitored on PEG feeding for 24 hour no signs of aspiration noted so far. Patient will be going home with PEG feeding. Cough assisted device also ordered as above. Patient family has home oxygen already, they also know p.r.n. suctioning if needed. Health Concerns: as above. Plan of Treatment: as above. Assessment: as above. Patient Instructions: Pneumonia (DC)
--- NOTE | 2024-02-22 11:41 | MHC.SLORD ---
Speech Language Pathology Order Status: After conferring with MD, CHILI MAKER in agreement to discharge at this time. Continue to recommend NPO Strict. Pt will benefit from CHILI MAKER re-evaluation at his next level of care.
--- NOTE | 2024-02-22 13:30 | MHC.CLN ---
F/U PT D/C HOME TODAY D/C INSTRUCTIONS PER MD REQUEST: PT TOLERATING TF JEVITY 1.0 AT MAX GOAL RATE 45ML/HR WITH 120ML FREE WATER FLUSHES Q 8HRS PROVIDES 1145KCALS (35KCALS/KG), 48G PROTEIN (1.45G/KG), 1262ML TOTAL WATER FROM FORMULA AND FLUSHES (38ML/KG) MONITOR TOLERANCE AND LYTES CONTINUE CONTINUOUS FEEDINGS UPON D/C; DO NOT RECOMMEND SWITCHING PT TO BOLUS FEEDINGS FAILED PREVIOUS TRIALS AT HOME STRICT NPO; NOTHING BY MOUTH -FAMILY AWARE POSITIONING DURING FEEDING: ? DO NOT lie flat when feeding ? For night feeds ? minimum 30 degrees propped up if sleeping (2 pillows) ? PT may sit up in a chair or propped up in bed at 45 DEGREES ? Stay upright for at least 30 minutes after feed is finished MONITOR WEEKLY WEIGHTS-HEALTHY WT GAIN 1-2# PER WEEK
--- NOTE | 2024-02-22 15:05 | P.PNIM_ITS ---
Subjective Subjective Date of Service: 02/22/24 Interval History: malnutrition Review of Systems tolerating peg feeding spoke to family -possible aspirational episode related to po feeding Physical Exam 2 Vital Signs: Vital Signs: Last Vital Signs Temp 98.4 F 02/22/24 11:25 Pulse 69 02/22/24 11:25 Resp 20 02/22/24 11:25 BP 108/71 02/22/24 11:25 Pulse Ox 98 02/22/24 11:25 O2 Del Method Nasal Cannula 02/22/24 11:25 O2 Flow Rate 2 02/22/24 11:25 FiO2 35 02/12/24 11:57 BMI result Body Mass Index 16.3 General: alert, not in distress, not able to communicate, malnurouished, frail and skin Resp: normal movement cv: rrr, s1s2 GI: no distention Skin: No rash, Neuro: motor grossly intact Psych: appropriate affect Objective Data Active Medications Acetaminophen (Acetaminophen 325 Mg Tablet) 650 mg PO Q6H PRN PRN Reason: Pain, Mild (Pain Scale 1-3), fever or headache Last Admin: 02/22/24 08:33 Dose: 650 mg Documented By: VISHNU Acetylcysteine (Acetylcysteine 10 % 400 Mg/4 Ml Vial) 400 mg INHALE RBID [facility] Last Admin: 02/22/24 09:01 Dose: 400 mg Documented By: DANIEL Calcium Carbonate (Calcium Carbonate 750 Mg Tab.Chew) 750 mg PO Q4H PRN PRN Reason: Heartburn Enoxaparin Sodium (Enoxaparin Sodium 40 Mg/0.4 Ml Syringe) 40 mg SUBCUT Q24H [facility] Last Admin: 02/21/24 20:52 Dose: 40 mg Documented By: VANNESA Famotidine (Famotidine 20 Mg Tablet) 20 mg G-TUBE DAILY [facility] Last Admin: 02/22/24 08:21 Dose: 20 mg Documented By: VISHNU Magnesium Hydroxide (Milk Of Magnesia 30 Ml Oral.Susp) 30 ml PO DAILY PRN PRN Reason: Constipation Melatonin (Melatonin 3 Mg Tablet) 6 mg PO BEDTIME PRN PRN Reason: Insomnia Midodrine (Midodrine Hcl 10 Mg Tablet) 10 mg G-TUBE TIDAC [facility] Last Admin: 02/22/24 12:57 Dose: 10 mg Documented By: VISHNU Ondansetron HCl (Ondansetron Hcl 4 Mg/2 Ml Vial) 4 mg IVPUSH Q8H PRN PRN Reason: Nausea and Vomiting Pharmacy Consult (Consult Rx Parenteral Nutrition Ordering) 1 each MISCELLANE DAILY PRN PRN Reason: Consult order Sodium Chloride (0.9 % Sodium Chloride Flush 3 Ml Syringe) 3 ml IVFLUSH QSHIFT [facility] Last Admin: 02/22/24 08:21 Dose: Not Given Documented By: VISHNU Non-Admin Reason: IV Running Sodium Chloride (0.9 % Sodium Chloride Flush 10 Ml Syringe) 5 ml IVFLUSH TID [facility] Last Admin: 02/22/24 09:32 Dose: Not Given Documented By: VISHNU Non-Admin Reason: IV Running Labs 02/17/24 12:21 02/22/24 06:10 Labs: Laboratory Results - last 24 hr 02/22/24 06:10 Anion Gap 12 Estim Creat Clear Calc 76.8 Estimated GFR > 60 Random Glucose 84 Calcium 9.6 Phosphorus 3.1 Magnesium 2.2 Assessment and Plan (1) Severe protein-calorie malnutrition: Status: Acute (2) COVID-19: Status: Acute Plan 33-year-old male with cerebral palsy, dysphagia, severe malnutrition requiring tube feeds, and chronic respiratory failure on home oxygen, presented to the hospital on 02/06 with altered mental status and [id number] hypoxic respiratory failure, presumed secondary to aspiration pneumonia and covid. A chest X-ray revealed multifocal pneumonia involving the lower lobes, raising suspicion for mycobacterial infection. Additional tested positive for covid He decompensated shortly after admission, necessitating ICU care with vasopressor support, but has since been weaned off pressors. Due to recurrent aspiration, he has been unable to tolerate tube feeds and is currently maintained on TPN. The patient remains on high-flow oxygen due to difficulty weaning, though he is hemodynamically stable. He is currently in TB isolation, receiving Zosyn for aspiration pneumonia, Sputum culture is growing staph Aureus (MRSA). Tube feeds remain on hold, and TPN is continued. He has severe protein calory malnutrition. Peripheral access has been challenging, so central line use is ongoing, with plans to transition to a Cohen catheter for long-term TPN at home. Pt has intermittent bradycardia without poses Possible Finding on CXR likely d/t MRSA PNA, and T spot is negative doesn't need TB isolation per pulmonology recommendation: received Maintain Zosyn / Vancomycin for MRSA in the spumtum, Continue Oxygen by nasal canula and wean as tolerated .has picc line , Holding tube feeds and maintain TPN. Will discuss with surgery or IR re post pyloric feeding tube.vanco trough repeated <2. completed dexametasone. renal function seems fine.seen by Id- off antibiotics . MODERATELY MALNOURISHED:continue TPN and discuss changing feeding tube to post pyroric tube to minimize aspiration. TSH normal, mag, and electrolyets -seems fine moniter electrolytes and divalents. d/w family -strict no po feeds , will try peg feeding for next 24 hrs and taper tpn. ch anemia : h/h is stable around 9.3/27.8. Bp boderline -? baseline continue midodrine Lovenox for DVT prophyalxis. Hospitlisation need : malnutrition -need tpn , need electrolytes monitering ,trial of peg feeding. above is d/w patient father in detail. Quality Stroke Does the patient have a stroke diagnosis?: No VTE Prior VTE?: No VTE Risk Level:: Medical - moderate - high VTE Device Contraindication: Treatment Not Indicated VTE Drug Contraindication: N/A - Med Ordered
[2024-02-22] MEDS: 0.9 % Sodium Chloride Flush 3 ML SYRINGE IVFLUSH (17:08)
[2024-02-22] MEDS: Enoxaparin Sodium 40 MG/0.4 ML SYRINGE SUBCUT (21:41)
[2024-02-23] VITALS (7 sets, daily range): BP systolic 97–113; BP diastolic 49–70; PULSE 82–111; RESP 16–20; TEMP 36.1–38.2; O2SAT 95–99
[2024-02-23] MEDS: 0.9 % Sodium Chloride Flush 3 ML SYRINGE IVFLUSH ×2 (00:15→11:11)
[2024-02-23] MEDS: Morphine Sulfate 2 MG/ML CARTRIDGE IVPUSH (00:39)
[2024-02-23] MEDS: Metoprolol Tartrate 5 MG/5 ML VIAL IVPUSH ×2 (02:08→02:21)
[2024-02-23] MEDS: 0.9 % Sodium Chloride 1,000 ML 999 ML IVCONT (02:10)
[2024-02-23] MEDS: Acetaminophen 325 MG TABLET 650 MG PO (02:14)
[2024-02-23 07:07] LABS: Anion Gap 12 (12-20); Blood Urea Nitrogen 16 mg/dL (9-16); Calcium 9.5 mg/dL (8.4-10.2); Carbon Dioxide 22 mmol/L (22-29); Chloride 105 mmol/L (96-108); Creatinine Clr Calc Pharmacy 73.3; Estimated Glomerular Filt Rate > 60; Glucose Random 101 mg/dL (60-115); Magnesium 1.9 mg/dL (1.6-2.6); Phosphorus 2.3 mg/dL (2.7-4.5); Potassium 4.1 mmol/L (3.3-5.1); Sodium 135 mmol/L (135-145)
[2024-02-23] MEDS: Acetylcysteine 10 % 400 MG/4 ML VIAL INHALE (07:44)
[2024-02-23] MEDS: Midodrine HCl 10 MG TABLET G-TUBE ×2 (11:11→12:33)
[2024-02-23] MEDS: Famotidine 20 MG TABLET G-TUBE (11:11)
--- NOTE | 2024-02-23 11:11 | MHC.CM.PN ---
Second IMM 02/22/24, Pt has been medically cleared for DC. He will go home via family, and have care from family, [facility] [place] [facility], and [facility] home infusion.
[2024-02-23] MEDS: 0.9 % Sodium Chloride Flush 10 ML SYRINGE 5 ML IVFLUSH (11:12)
--- NOTE | 2024-02-23 11:32 | PC.RT ---
pt has home 02 and suctioning already provided from prior visit at [facility]. Unable to get the cough assist machine at this time due to authorization approval from [employer]. It should be approved this week or next week and will be delivered to his house when it is approved.
--- NOTE | 2024-02-23 12:15 | W.MHC.F2F ---
Service Date Service Date: 02/23/24 Encounter Date of encounter: 02/23/24 Encounter: malnutrition Reasons for Services Signs and symptoms assessed: new sings of aspiratiin, sob, hypoxia Reason for senior care: CV/CP assess and/or care, medication management, medication treatment and teach disease management MD Overseeing Care: Mila Vazquez Homebound: Leaving the home is medically contraindicated at this time without the asist of a device and/or another person due th the listed conditions above and below. Reason homebound: weakness related to hospital stay Homebound supporting statement: patient is generalised weak post hospitilisation stay - need help with med managemnet ; tube feeding , appointments Certification: Based on the above findings, I certify that this patient is confined to the home and needs intermittent senior care care, physical therapy and/or speech therapy, or continues to need occupational therapy. The patient is under my care, and I have initiated the establishment of the plan of care. The patient will be followed by a physician who will periodically review the plan of care. Time Spent With Patient Time: Total time managing care of this patient today ____ minutes.
--- NOTE | 2024-02-23 13:45 | PC.NURSE ---
Picc line removed from R upper arm, 38cm catheter intact, site assessed no redness or swelling noted, patient tolerated procedure well,
== END 2024-02-23 14:13 | disposition home health service (06) | DRG 871 ==
LOC: HO.ED 21:32 → HO.EDOVER 21:36 → HO.ICU 02-08 05:55 → HO.IMC 02-11 11:19
PROVIDERS: Family Medicine; Internal Medicine; Internal Medicine Critical Care Medicine; Physician Assistant Medical; Admitting Provider Student in an Organized Health Care Education/Training Program; Emergency Provider Emergency Medicine Emergency Medical Services; PCP Nurse Practitioner Family; Visit Provider Internal Medicine
DX: A41.9 Sepsis, unspecified organism (principal); E43 Unspecified severe protein-calorie malnutrition; J96.21 Acute and chronic respiratory failure with hypoxia; U07.1 COVID-19; J15.212 Pneumonia due to Methicillin resistant Staphylococcus aureus; J69.0 Pneumonitis due to inhalation of food and vomit; Z74.01 Bed confinement status; R65.20 Severe sepsis without septic shock; D64.9 Anemia, unspecified; G80.9 Cerebral palsy, unspecified; Z93.1 Gastrostomy status; Z99.81 Dependence on supplemental oxygen; Z79.899 Other long term (current) drug therapy
CPT/HCPCS: 36415; 36573; 36600; 71045; 71260; 80048; 80051; 80053; 80076; 80202; 82040; 82565; 82607; 82728; 82746; 82803; 83540; 83605; 83735; 84100; 84443; 84478; 84484; 85014; 85018; 85025; 85027; 86481; 87040; 87070; 87077; 87116; 87186; 87205; 87206; 87252; 87633; 87640; 87641; 92610; 93005; 93306; 94640; 99285; C1751; C1894; J0131; J0692; J1100; J1171; J1650; J1940; J2270; J2543; J3370; J3475; J7120; P9047; Q9967

== ENCOUNTER → 2024-02-07 19:15 | Outpatient (BNV) | payer MEDICARE, SELFPAY | PROVIDERS: Admitting Provider Student in an Organized Health Care Education/Training Program; Emergency Provider Emergency Medicine Emergency Medical Services; Visit Provider Internal Medicine Cardiovascular Disease | DX: R94.31 Abnormal electrocardiogram [ECG] [EKG] (principal) | CPT/HCPCS: 93010 ==

== ENCOUNTER 2024-02-07 21:16 | Outpatient (BNV) | payer MEDICARE, SELFPAY | END 2024-02-08 06:19 | PROVIDERS: Admitting Provider Student in an Organized Health Care Education/Training Program; Emergency Provider Emergency Medicine Emergency Medical Services; Visit Provider Radiology Diagnostic Radiology | DX: R09.02 Hypoxemia (principal) | CPT/HCPCS: 71260 ==

== ENCOUNTER 2024-02-07 21:16 | Outpatient (BNV) | payer OTHER, SELFPAY | END 2024-02-11 11:00 | PROVIDERS: Admitting Provider Student in an Organized Health Care Education/Training Program; Emergency Provider Emergency Medicine Emergency Medical Services; PCP Nurse Practitioner Family; Visit Provider Internal Medicine Cardiovascular Disease | DX: Q21.12 Patent foramen ovale (principal) | CPT/HCPCS: 93303; 93320; 93325 ==

== ENCOUNTER 2024-02-07 21:16 | Outpatient (BNV) | payer OTHER, SELFPAY | END 2024-02-10 10:50 | PROVIDERS: Admitting Provider Student in an Organized Health Care Education/Training Program; Emergency Provider Emergency Medicine Emergency Medical Services; PCP Nurse Practitioner Family; Visit Provider Radiology Diagnostic Radiology | DX: R09.02 Hypoxemia (principal) | CPT/HCPCS: 71045 ==

== ENCOUNTER → 2024-02-07 21:16 | Outpatient (BNV) | payer MEDICARE, SELFPAY | PROVIDERS: Admitting Provider Student in an Organized Health Care Education/Training Program; Emergency Provider Emergency Medicine Emergency Medical Services; Visit Provider Student in an Organized Health Care Education/Training Program | DX: U07.1 COVID-19 (principal); E43 Unspecified severe protein-calorie malnutrition | CPT/HCPCS: 99223; 99231; 99232; 99233; 99239; 99499; G0180 ==

== ENCOUNTER → 2024-02-07 21:16 | Outpatient (BNV) | payer MEDICARE, SELFPAY | PROVIDERS: Admitting Provider Student in an Organized Health Care Education/Training Program; Emergency Provider Emergency Medicine Emergency Medical Services; Visit Provider Internal Medicine Critical Care Medicine | DX: G80.9 Cerebral palsy, unspecified (principal); A41.9 Sepsis, unspecified organism; R65.21 Severe sepsis with septic shock; B37.0 Candidal stomatitis | CPT/HCPCS: 36556; 36620; 99291 ==

== ENCOUNTER → 2024-02-07 21:16 | Outpatient (BNV) | payer OTHER, SELFPAY | PROVIDERS: Admitting Provider Student in an Organized Health Care Education/Training Program; Emergency Provider Emergency Medicine Emergency Medical Services; PCP Nurse Practitioner Family; Visit Provider Internal Medicine | DX: J96.01 Acute respiratory failure with hypoxia (principal); A41.9 Sepsis, unspecified organism; R65.21 Severe sepsis with septic shock | CPT/HCPCS: 99222 ==

== ENCOUNTER → 2024-02-07 21:16 | Outpatient (BNV) | payer OTHER, SELFPAY | PROVIDERS: Admitting Provider Student in an Organized Health Care Education/Training Program; Emergency Provider Emergency Medicine Emergency Medical Services; PCP Nurse Practitioner Family; Visit Provider Hospitalist | DX: J96.01 Acute respiratory failure with hypoxia (principal); J15.212 Pneumonia due to Methicillin resistant Staphylococcus aureus; U07.1 COVID-19; J69.0 Pneumonitis due to inhalation of food and vomit; G80.9 Cerebral palsy, unspecified | CPT/HCPCS: 36620; 99223 ==

== ENCOUNTER → 2024-05-03 08:17 | Outpatient (BNVA) | payer OTHER, SELFPAY | PROVIDERS: PCP Nurse Practitioner Family; Visit Provider Surgery ==

== ENCOUNTER 2024-07-05 15:01 | Outpatient (AMB) | payer OTHER, SELFPAY ==
--- NOTE | 2024-07-05 15:02 | A.OFFVIS_ITS ---
Vital Signs 07/05/24 15:10 Weight 84 lb BP 102/69 Blood Pressure Location Rt radial Position Sitting Intake Visit Reasons: Peg tube check Intake Note: Patient here for Peg tube check. Patient brought to appointment by father and sister. They report current tube is loose. J-Peg placement: 01-24-2024. Tallow Maker Required: No Accompanied by: father and sister Ifrah Allergies No Known Allergies Allergy (Verified 07/05/24 15:14) Medication List - Last Reconciled 07/05/24 by Laci Finnegan MD acetaminophen 480 mg PO Q6H PRN famotidine 20 mg G-tube DAILY midodrine 10 mg G-tube TIDAC HPI HPI Peg tube check: Details: He is here for a PEG tube check. I had done his PEG tube placement last January,. This was done in view of his worsening neurologic condition. 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 He had been developing worsening symptoms similar to cerebral palsy for the past few years. He is requiring 24 hour care because of this. The PEG tube has been working well. However, the attachment to the feeding line seems to be loose so whenever they start to feed him, this leaks on this port site. There has been no changes with regards to his neurologic condition. He has been tolerating PEG tube feeds well. [facility] Medical History (Updated 07/05/24 @ 15:24 by Laci Finnegan MD) PEG tube malfunction 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 Surgical History S/P percutaneous endoscopic gastrostomy (PEG) tube placement Social History Household Members: Family Housing: House Are you a primary md do resident urgent care to a significant other at home: No Do you presently have visiting nurse or other home services: No Comment: bedbound pt Patient Tobacco Use Status: Never used Tobacco Second Hand Smoke Exposure: No Advance Directives Date on File: 01/20/24 service: No Review of Systems Const Denies chills and Denies fever(s) Card Denies chest pain Resp Denies cough GI Denies abdominal pain Physical Exam Const Other: Not verbally communicative, on wheelchair and appears very frail General: comfortable and no acute distress Resp Effort & Inspection: normal respiratory effort Cardio Rate: regular rate GI Other: Peg tube in place, clean Palpation (GI): Soft to palpation, not firm and nontender Assessment & Plan Assessment & Plan (1) PEG tube malfunction: Code(s): K94.23 - Gastrostomy malfunction Category: Medical Plan: The PEG tube is actually working well but the problem is with the attachment with the feeding line . This seemed to have loosened for the past few months and they said that they have to put tape around this whenever they start the feeding I offered to change the whole feeding tube today with a replacement chelle tube. However, the family does not want this done yet. They do not want him to have ?pain? with the replacement. They said that they will come back to the office once they feel ready to have the tube replaced. They will continue to just try to tighten the port around the feeding line during his feeds. Coding Level of Care Code Est Pt Level 3 (70816) Diagnoses PEG tube malfunction K94.23
[2024-07-05 15:10] VITALS: BP 102/69
--- OUTSIDE RECORDS SUMMARY | 2024-07-05 17:42 | XMS_ITS ---
Author Name [facility] Organization Unknown Care Team Organization Name Specialty Phone Email Start Date End [facility]
--- OUTSIDE RECORDS SUMMARY | 2024-07-05 17:42 | XMS_ITS | Data Portability ---
Author Organization [facility] Address [address] [place] [id number] Care Team Providers Care Income Tax Consultant Name Role Phone HIM CCA Referring Provider [phone] [facility] OTHER Assessment Encounter Date Assessment Date Assessment LastModified by Organization Details LastModified Time 07/05/2023 07/05/2023 I have reviewed and agree with the assessment and plan as documented by the gym teacher. I provided real-time medical direction for this encounter and was immediately available to provide additional phone-based assistance as needed. 32M with cerebral palsy, presenting with 3 days of URI, cough. No fever. No congestion. Able to stay hydrated. Pt well appearing, no distress noted. Respiratory exam normal, no wheezing. COVID/Flu negative. Suspect viral URI, no indication for antibiotics. Recommend supportive care, hydration, Tylenol PRN. Red flags discussed. paysola Not available 07/05/2023 20:32:16 03/06/2024 03/06/2024 As noted, we were called to see this patient regarding concerns of possible infection around the PEG tube site Evaluation in the field was performed by my gym teacher colleague, as noted above, I provided real-time direction and supervision for this visit. The evaluation revealed a 33 y/o male patient with past medical hx of spasticity, dysphagia, kyphosis, intellectual disability Who we were called out to see for concerns about infection around his peg tube site. The patient unfortunately has been deteriorating. His spasticity has gotten worse. Patient was hospitalized for aspiration pneumonia. It was decided at that time that he should get a peg tube. The patient had a peg tube placed seven weeks ago. The patient has had mild redness to the stoma of the peg tube. The patient was seen by visiting nurse today and she replaced the peg tube. There was a little bit of bleeding afterwards. The visiting nurse was not concerned about infection. The patient has not had any fever. He does not seem to be in pain. Vital signs are stable. Per the gym teacher there's no abdominal tenderness. The patient is not exhibiting any respiratory distress. The gym teacher uploaded some pictures of the peg tube site. Impression: Concerns for Peg tube site infection Plan: 1) I evaluated the pictures and I do not believe the patient has infection of the peg tube site. I discussed this with the patient's mother over the phone. The gym teacher also does not believe This site is infected. We discussed if the area of redness is getting increased or the patient develops fever then he needs to be evaluated again. Primary care, consider recheck peg tube site to see if any worsening redness Disposition: stay at home We discussed the diagnostic uncertainty of home visits and the risk associated with this. In this case, the patient and I felt this to be an acceptable and reasonable amount of risk given the benefit of avoiding an ED visit. We discussed the need to seek care urgently/emergen tly in the setting of any new or worsening serious symptoms, particularly fever, worsening redness, abdominal pain [id number] Not available 03/06/2024 12:41:01 Plan of Treatment Reminders Order Date Submit Date Provider Last Modified By Organization Details Last Modified Time Details Appointments None record ed. Lab None record ed. Referral None record ed. Procedures None record ed. Surgeries None record ed. Imaging None record ed. Medication Orders None record ed. Patient TargetsNo targets recorded. Patient InstructionsNo instructions recorded. Reason for Referral None Reported. Medical Equipment None Reported. Allergies No known drug allergies Medications Name Sig Start Date Stop Date Status Note LastModified by Organization Details LastModified Time acetaminophe n 325 mg tablet TAKE 2 TABLET BY MOUTH EVERY 6 HOURS NEEDED FOR PAIN OR FEVER, ALTERNATE WITH IBUPROFEN active Not Available Not Available No t Available sulfamethoxa zole 800 mg-trimethop rim 160 mg tablet TAKE 1 TABLET BY MOUTH TWICE A DAY FOR 5 DAYS active Not Available Not Available No t Available benzonatate 100 mg capsule TAKE 1 CAPSULE BY MOUTH 3 TIMES A DAY FOR 7 DAYS active Not Available Not Available N ot Available oxybutynin chloride ER 5 mg tablet,exten ded release 24 hr TAKE 1 TABLET BY MOUTH EVERY DAY FOR URINARY FREQUENCY active Not Available Not Available No t Available scopolamine 1 mg over 3 days transdermal patch APPLY 1 PATCH BEHIND THE EAR EVERY 3 DAYS NEEDED FOR MOTION SICKNESS active Not Available Not Available No t Available A and D Diaper Rash Cream 1 %-10 % topical APPLY 1 APPLICATION TOPICALLY 4 TIMES A DAY. APPLY IN BETWEEN DIAPER CHANGES TO PROTECT SKIN. active Not Available Not Available No t Available Gavilax 17 gram/dose oral powder TAKE 17 GM BY MOUTH DAILY,DISSO LVE IN WATER BEFORE TAKING active Not Available Not Available No t Available Myrbetriq 25 mg tablet,exten ded release TAKE 1 TABLET BY MOUTH DAILY, DO NOT CRUSH OR CHEW FOR URINARY INCONTINENC E TO REPLACE OXYBUTININE active Not Available Not Available Not Available Mucus D 60 mg-600 mg tablet,exten ded release TAKE 1 TABLET BY MOUTH 2 TIMES A DAY NEEDED FOR COLD SYMPTOMS DRUG NOT COVRED active Not Available Not Available No t Available baclofen 5 mg tablet TAKE 1 TABLET BY MOUTH 3 TIMES A DAY,X14 DAYS NEEDED FOR MUSCLE TREMOR OR SPASM active Not Available Not Available No t Available Vitals Date Recorded Heart rate Body temperature Oxygen saturation Oxygen saturation in Arterial blood by Pulse oximetry Respiratory rate Systolic blood pressure Diastolic blood pressure Provider Name and Address Organization Details Last Updated DateTime 4 82 /min 98.6 [degF] 97 % 97 % 16 /min 110 mm[Hg] 64 mm[Hg] Not Available [employer] 4 18:15:43 Date Recorded Respiratory rate Body weight Body temperature Body height Heart rate Oxygen saturation Oxygen saturation in Arterial blood by Pulse oximetry Systolic blood pressure Diastolic blood pressure Provider Name and Address Organization Details Last Updated DateTime 4 12 /min 38083.4 g 98.1 [degF] 167.64 cm 60 /min 98 % 98 % 100 mm[Hg] 60 mm[Hg] Not Available [facility] 4 11:55:45 Date Recorded Body weight Respiratory rate Heart rate Body temperature Oxygen saturation Oxygen saturation in Arterial blood by Pulse oximetry Systolic blood pressure Diastolic blood pressure Provider Name and Address Organization Details Last Updated DateTime 3 18224.7 52 g 18 /min 76 /min 98.2 [degF] 98 % 98 % 101 mm[Hg] 64 mm[Hg] Not Available [employer] 3 15:38:00 Social History None recorded. Functional Status None recorded. Mental Status None recorded. Family History Nothing Reported. Medical History No medical history recorded. Past Encounters Encounter ID Performer Location Encounter Start Date Encounter Closed Date Diagnosis/Indication Diagnosis SNOMED-CT Code Diagnosis ICD10 Code Diagnosis Note [id number] Laurel Longoria MD [facility] [address] [place] [phone] 08/02/2022 15:37:56 08/05/2022 09:14:30 Nausea and vomiting 41973006 R11.2 1x episode of n/v yesterday with RUQ pain, now resolved without interventi on. Today no pain reproducib le on exam. Currently stooling normally and has normal PO intake. Overall unclear etiology- ddx biliary colic, gastritis, gastroente ritis etc. Advised pt to trial gentle/dilshad nd diet (eg BRAT diet) and call PCP in the AM. Discussed warning s/sx to present to ED. [id number] Zoraida Fraga MD [facility] [address] [place] [id number] 07/05/2023 18:15:41 07/05/2023 22:17:17 Viral upper respiratory tract infection 167110608 J06.9 [id number] AZEB COATES MD [facility] [address] [place] [phone] 03/06/2024 11:55:36 03/06/2024 14:44:59 Attention to gastrostomy 381069374 Z43.1 Health Concerns Section Related Observation LastModified by Organization Detai ls LastModified Time None Recorded Concern Status LastModified by Organization Details LastModified Time None Recorded Advance Directives Directive None Recorded Payers Encounter Date Sequence Insurance Name Policy Number Policy Tai Covered Member ID Tai Member ID Guarantor Name 08/02/2022 1 [facility] - DOS PRIOR TO 2022 - DUAL ELIGIBLE (MEDICARE REPLACEMENT/ADV ANTAGE - HMO) Anthony Ahser [id number] Anthony Asher 07/05/2023 1 [facility] - DOS ON OR AFTER 2022 - DUAL ELIGIBLE - LONGTERM OPTIONS AND ONE CARE (MEDICARE REPLACEMENT/ADV ANTAGE - HMO) Anthony Asher [id number] Anthony Asher 03/06/2024 1 [facility] - DOS ON OR AFTER 2022 - DUAL ELIGIBLE - LONGTERM OPTIONS AND ONE CARE (MEDICARE REPLACEMENT/ADV ANTAGE - HMO) Dawoodsavita Asher [id number] Anthony sAher Notes Date Note Type Note Provider Name and Address Organization Details Recorded Time 08/02/2022 text/html [facility] Nursing Assessment: Patient Reports: Nausea with or without vomiting Chief Complaints: Nausea/Vomiting PMH: Other Allergies: No Known Comments: Mother calling on behalf of member with request for [facility] visit for complaints of nausea/vomiting last night poor po intake today. No OTC's Deny fever/chill. Verify member name/- .................. .................. .................. .................. .................. .................. .................. ............... Sea Captain Note From Jorge Luis Nelson: Pt presents A@Ox4 pink warm and dry. Pt is non verbal. Pt c/o vomiting x1 yesterday evening and loss of appetite. Today patient able to keep food down and water with no vomiting or nausea. Pt sts to mother with thumbs up that he feels ok but had pain in upper right quad. Pt denies CP SOB fever. Pt having regular bowel movements. Baseline vitals assessed and recorded. abdomen assessed pt muscles very tense due to his condition so very difficult to accurately assess for distention or pain. [facility] contacted and advised to monitor symptoms and contact PCP for imaging if continues. Pt family educated on signs that would indicate the ED .................. .................. .................. .................. .................. .................. .................. ............... Disposition: Fulfilled Laurel Longoria MD [address] [facility],[address], [place], [phone], [facility] 08/04/2022 14:59:09 07/05/2023 text/html HPI: RN calling for member, sister called RN with productive cough, weakness since Wednesday, denies any sob, wheezing, fever/ chills. Member is vomiting mucus, did not report the color. Sister denies any other symptoms. Member has not been given him anything OTC PMH > quad , cerebral palsy .................. .................. .................. .................. .................. .................. .................. ............... [facility] Nurse Triage Notes (Shalini Guillen): Comments: [facility] reviewed .................. .................. .................. .................. .................. .................. .................. ............... Sea Captain Note From Roberto Pastor: Dispatched to the call for the male with a cough. Pts family (Pt non-verbal at baseline secondary to CP) states that Pt has been sleeping more lately and a productive cough. They advise the sputum is clear. Pt has been able to maintain PO hydration and has been taking Mucinex with good effect. Family denies fevers. Pt was found laying on couch, DUMONT to name, airway open and patent, breathing non labored, able to speak in full sentences, -JVD, -HEENT, skin PWD with good turgor, abd soft non tender/distended with good bowel sounds, mucous membranes pink and moist, pupils PERRL, A-Febrile, lung sounds clear and equal bilaterally, Rapid Covid/flu (-). [facility] consulted. Pt and family advised of red flags. ALL times are approx. .................. .................. .................. .................. .................. .................. .................. ............... Disposition: Fulfilled Zoraida Fraga MD [address] [place] [address],[address], [place], [phone], [facility] 07/05/2023 20:32:36 03/06/2024 text/html HPI: S: PEG site- infection suspectedB: pt reports stoma looks infected x 2 days? * pt has new PEG ? f amily has concerns r/t stoma infection? s cant bleeding? a jeff is tender, erythema present? V NA said stoma was wnl; caller wants or MARQUES galdamez? t ube is patent, pt is getting continuous feeds via pump? p t has PMH CP w/ spasticity, dysphagia, kyphosis, intellectual disability? d enies fever, drainage, tube obstruction, edema, severe pain, vomiting, abd distention, leakage at site ? u nable to triage pt directly, caller denies acute resp or other distress at this timeA: Per protocol, OV today/tomorrow. Override to [facility] now as no appts available within dispo. Caller is agreeable to plan of care and agrees to be by the phone for a scheduling call from [facility]. [facility].Caller given home care advice and advised on s/s requiring call back and /or emergent intervention- caller states understanding. Caller agrees to ED for fever, shaking chills. ?R: Message routed to PCP as FYI and to [facility] w/ referral. Thank you. .................. .................. .................. .................. .................. .................. .................. ............... [facility] Nurse Triage Notes (Shalini Guillen - RN): Chief Complaints: Wound care, Abdominal pain PMH: Para or Quadriplegia Comments: PMH reviewed .................. .................. .................. .................. .................. .................. .................. ............... Sea Captain Note From Adonis Camarena: family called for 33 yo M who is bedbound, due to some neurological condition, slight language barrier. About 7 weeks ago, condition worsen where pt was unable to swallow, aspirated and developed pneumonia. Pneumonia treated, and for prevention, a G-Tube placed for feeding. Family called today after then noted some blood around the stoma about 2-3 days ago and were concerned for infection. Pictures taken and uploaded. Pt had no signs of infection, slight redness around the opening, appears typical, no discharged noted or blood. Tube was changed this morning by visiting RN - who also was not concerned. Family spoke to MD on phone. Discussed red flags with family and what to look out for. .................. .................. .................. .................. .................. .................. .................. ............... [facility] Consulted: Azeb Coates .................. .................. .................. .................. .................. .................. .................. ............... Disposition: Fulfilled AZEB COATES MD [address] [facility],[address], [place], [address], [facility] - NAT[facility]OL[facility] 03/06/2024 12:42:18
== END 2024-07-05 15:37 | disposition home or self-care (01) ==
LOC: HO.HGS 15:01
PROVIDERS: PCP Nurse Practitioner Family; Visit Provider Surgery
DX: K94.23 Gastrostomy malfunction (principal)
CPT/HCPCS: 99213

== ENCOUNTER → 2024-07-05 15:01 | Outpatient (BNVA) | payer OTHER, SELFPAY | PROVIDERS: PCP Nurse Practitioner Family; Visit Provider Surgery | DX: K94.23 Gastrostomy malfunction (principal) | CPT/HCPCS: 99212 ==

== ENCOUNTER → 2024-08-07 10:45 | Outpatient (BNV) | payer OTHER, SELFPAY | PROVIDERS: Visit Provider Internal Medicine Medical Oncology | DX: D64.9 Anemia, unspecified (principal) | CPT/HCPCS: 99204 ==

== ENCOUNTER 2024-10-06 22:48 | Emergency (ER) | payer OTHER, SELFPAY ==
[2024-10-06 22:58] VITALS: BP 92/64; PULSE 78; RESP 16; TEMP 36.1; O2SAT 97; BMI 14.0
--- NOTE | 2024-10-06 23:18 | ED.GENADULT ---
HPI - General Adult General Chief complaint: General Medical Stated complaint: G Tube came out Time Seen by Provider: 10/06/24 23:01 Source: family (Father) Mode of arrival: ambulatory Limitations: other (The patient is nonverbal) History of Present Illness ED Provider: Dr. Kwabena Ritter HPI narrative: 33-year-old male with a history of cerebral palsy history of aspiration pneumonia history of G-tube placement by Dr. Finnegan 01/24/2024 for aspiration pneumonia, to malfunction and was changed by Dr. Finnegan on 07/05/2024. According to the patient's family the patient was on the sofa and when they turned him over the G-tube got caught on a cushion and was accidentally dislodged. This occurred a proximally 1 hour prior to coming to the emergency department. Related Data Home Medications ?Medication ?Instructions ?Recorded ?Confirmed acetaminophen 160 mg/5 mL oral 480 mg PO Q6H PRN Fever/Pain 02/07/24 08/07/24 liquid Previous Rx's ?Medication ?Instructions ?Recorded famotidine 20 mg tablet 20 mg G-tube DAILY #30 tabs 02/22/24 midodrine 10 mg tablet 10 mg G-tube TIDAC #90 tabs 02/22/24 famotidine 20 mg tablet 20 mg PO DAILY #90 tabs 08/07/24 midodrine 10 mg tablet 10 mg PO TID #90 tabs 08/07/24 Allergies Allergy/AdvReac Type Severity Reaction Status Date / Time No Known Allergies Allergy Verified 10/06/24 22:59 [facility] Past Medical History Medical History (Updated 10/06/24 @ 23:20 by Kwabena Ritter MD) PEG tube malfunction 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 Surgical History S/P percutaneous endoscopic gastrostomy (PEG) tube placement Social History Social History Household Members: Family Housing: House Are you a primary care aide to a significant other at home: No Do you presently have visiting nurse or other home services: No Comment: bedbound pt Patient Tobacco Use Status: Never used Tobacco Second Hand Smoke Exposure: No Advance Directives Date on File: 01/20/24 service: No Physical Exam ED Vital Signs: Vital Signs - 24 hr 10/06/24 22:58 Temperature 97.0 F Pulse Rate 78 Respiratory Rate 16 Blood Pressure 92/64 Pulse Oximetry 97 Oxygen Delivery Method Room Air BMI result Body Mass Index 14.0 Vital signs were normal Exam General: The patient is nonverbal Abdomen: G-tube stoma has some granulation tissue that is protruding from the opening, there is small amount of blood around the opening. Procedures Feeding Tube Replacement Type of Tube: gastrostomy Insertion Site Prior to Procedure: other (Small amount of blood noted, granulation tissue protruding from the opening) Tube Used for Reinsertion: other (Avanos JONATAN gastrostomy feeding tube Micronesian with 7-10 mL balloon) Micronesian Tube Size (F): 18 Balloon size (mL): 10 Verification of Placement: auscultation Tube Secured by: tape/dressing Patient Tolerated Procedure: well Complications: pain (Pain with the initial insertion) Medical Decision Making Medical Decision Making MDM Narrative: 33-year-old male with a history of cerebral palsy history of aspiration pneumonia history of G-tube placement by Dr. Finnegan 01/24/2024 for aspiration pneumonia, to malfunction and was changed by Dr. Finnegan on 07/05/2024. According to the patient's family the patient was on the sofa and when they turned him over the G-tube got caught on a cushion and was accidentally dislodged. This occurred a proximally 1 hour prior to coming to the emergency department. Exam is consistent with G-tube stoma with some slight bleeding and granulation tissue protruding from the opening Differential diagnosis: ?Includes but is not limited to dislodged G-tube, stomal hemorrhage Course: 23:25 The patient 18 Micronesian G-tube was replaced with a another 18 Micronesian G-tube by me. The balloon was inflated with 10 cc of water. We were able to withdraw small amount of gastric fluid and the tube was easily flush edible with water. Patient was discharged home in the care of his family. Discharge Plan Discharge Clinical Impression: Dislodged gastrostomy tube Patient Disposition: Home, Self-Care Additional Instructions: I replaced your G-tube with an 18 Micronesian G-tube. The balloon was filled with 10 mL of water. You can use the G-tube tonight. Apply a gauze underneath the G-tube and take the G-tube down for the next week. If you have any issues with the G-tube, return to the emergency department for re-evaluation. Prescriptions: No Action acetaminophen 160 mg/5 mL liquid 480 mg PO Q6H PRN (Reason: Fever/Pain) famotidine 20 mg Tablet 20 mg G-tube DAILY Qty: 30 0RF midodrine 10 mg Tablet 10 mg G-tube TIDAC Qty: 90 0RF midodrine 10 mg Tablet 10 mg PO TID Qty: 90 4RF Rx Instructions: do not give last dose of day after 6PM or within 4 hrs of bedtime. Via G-tube. famotidine 20 mg Tablet 20 mg PO DAILY Qty: 90 4RF Rx Instructions: via G-tube, AC daily. Print Language: Mongolian
--- OUTSIDE RECORDS SUMMARY | 2024-10-06 23:28 | XMS_ITS | Data Portability ---
Author Organization [place] [facility] Address [place] [address] Care Team Providers Care Medical Territory Manager Name Role Phone [facility] OTHER [phone] Assessment Encounter Date Assessment Date Assessment LastModified by Organization Details LastModified Time 03/11/2018 03/11/2018 Overview/History : 27 yo male with cerebral palsy who presents with complains of fever of 100.3, nasal congestion, sore throat, ear pain and pressure, headache dry cough, fatigue; vomiting twice yesterday; increased frequency of urination for 2 days. History is obtained from sister who was present on scene. Patient is non verbal at baseline but understands some Swedish and able to communicate. Denied nausea or vomiting today, abdominal pain, back/flank pain, dizziness, nasal discharge, ear discharge Exam: young male with cerebral palsy, appears tired not otherwise non-toxic or acutely ill. He is non verbal but able to communicate and answer questions no acute distress PERRLA, mucous membranes are midly dry, tenderness with palpation over frontal and maxillary sinuses; back of the throat with mild erythema, post-nasal drip; no exudate or cobblestoning; ear canals are clear without erythema bilaterally; TMs intact No nasal discharge No cervical adenopathy Lungs are clear to auscultation bilterally heart RRR. no murmur abdomen soft non tender non distended; bowel sounds are normal; no CVA tenderness DDx considered, but not limited to: Sinusitis - most likely diagnosis based on presenting tenderness with palpation over sinuses viral infection - possible based on duration of symptoms pharyngitis - possible UTI - possible based on increased frequency of urination otitis media - unlikely Bronchitis - unlikely Pneumonia - unlikely Work up/Results: Rapid Flu - negative Rapid strep -negative Urine dipstick - negative Plan/Discussion: - Based on PE findings sinusitis is the most likely diagnosis - I discussed the patient case with Dr. Lala and under their direction they prescribed the following medications: Augmentin 875-125 PO BID x5 days - IV NS 500mL given on scene for rehydration - salt water gargles every 30-60 min for sore throat - Ibuprofen or Tylenol for fever - saline spray for nasal congestion - follow up with PCP if symptoms do not improve within 4-5 days - seek immediate medical attention if symptoms worsen or develop fever not responding to tylenol, nausea, vomiting, abdominal pain, confusion or any other concerning symptoms Time On Scene with Patient: 01:09:05 maria esther Not available 03/12/2018 14:32:30 03/13/2018 03/13/2018 1130: Repeat vit al signs: 97.9 PO, pulse 92, resp 17, 118/78, O2 sat 97% RA, Pt denies further abdominal pain. BBS: clear, ABD: soft and non tender, BS x 4, Time On Scene with Patient: 01:27:07 27 year-old male, history of CP, called to his home by family for concern of nausea, vomiting and fevers. Symptoms began Feb. He started with sore throat followed by nausea and vomiting. On the , he continued with sore throat, had a fever, cough, nasal congestion. He was evaluated by DH that evening. Neg UA, strep and flu, Concern for sinus infection with facial tenderness. Augmentin RX given. Pt started this yesterday afternoon. AFterwards began with abdominal pain. Given 2nd dose about 5 hours after first but promptly vomited it up. Also noted to have fevers as high as 102 last night. Vomited about 5 times until 1 am. This morning no fevers but complains of nausea, diffuse abdominal pain, slight headache and feeling weak. Decreased appetite for the past 2 days. No diarrhea. No urinary symptoms. No rashes. Upon evaluation, Resp easy without tachypnea, No rashes, HEENT: No lymphadenopathy, No facial tenderness. Throat without erythema, exudate or lesion.Nasal congestion with clear secretions noted. BBS: clear without wheezes and no accessory muscle use, ABD: soft with BS x 4, tenderness upper abdomen mild. At this time DDX: PNA - less likely given lack of respiratory symptoms. Cough dry and non-productive, more related to postnasal drip. Consider appendicitis, viral GI illness - Non focal exam, tolerating small amounts of PO fluids. Labs and UA unremarkable. IV fluids, toradol and zofran given - pt feels much better. Repeat eval: VS with HR of 92, resp 17, O2 sat 97 RA, BP 118/76, ABD: soft and no further pain. BS x 4. Discussed with patient, father and sister of patient that further fevers, nausea, vomitng, abdominal pain, shortness of breath or worsening symptoms would need evaluation in the ED> Also advised to stop Augmentin as patient had no facial tenderness or findings. Unsure if this contributed to patient's nausea and vomiting. Pt laura follow up with Dr. Crispin Zamora - call Wednesday morning for appointment. TO the ED for further evaluation if worse. Not available 03/13/2018 11:43:22 08/02/2019 08/02/2019 Overview/History : 28-year-old male with CP 1 week of cough, some sinus congestion, cough is noted to be productive. Sister notes over the last 2 days patient has been weaker. States usually he walks with assistance however has not been able to lift his legs up or walk much at all over the last 2 days. States has been using Tylenol and cough syrup for the fat with little effect. Denies fevers, chest pain, shortness of breath, ear pain, sore throat, nausea. Exam: Comfortable appearing, thin male, afebrile. Heart sounds regular, lungs clear, mild frontal and maxillary sinus tenderness noted. Ear canals with cerumen, visualized portions of TMs normal. No cervical lymphadenopathy noted. Chem-7 within normal limits. DDx considered, but not limited to: Consider viral respiratory infection given 10 course. Consider pneumonia allow patient is a febrile and lungs are clear however could be causing some weakness. Consider bacterial upper respiratory infection although given time course, this appears less likely. Work up/Results: Chem-7 within normal limits Plan/Discussion: Likely viral due to time course. Will obtain chest xray and CBC to evaluate, further orders pending results. Saline nasal spray throughout the day as needed. Drink plenty of fluids. Patient instructed to call if symptoms worsen or do not improve; patient acknowledges understands and agrees with plan. Note created with voice recognition software and may contain grammatical errors due to this. Patients PCP contacted and updated on patient status. Patient verbalized understanding of discharge instructions and when to follow up with PCP/911/ED as needed. Patient in agreement with current plan and treatment. Proper Personal Protective Equipment (PPE), including gloves, eye protection, masks, and gowns, shoe covers were donned and doffed appropriately and all equipment cleaned using approved technique with germicidal disposable wipes prior to and after care of this patient according to [facility]'s infection prevention protocols. In order to obtain further information and compare any laboratory results/values, I have accessed old patient records. This information was pertinent in my medical decision making today. [email or web address] Not available 08/02/2019 19:46:43 02/08/2020 02/08/2020 Overview/History : 29 y/o M with PMHx sig for cerebral palsy, known to , but new to this provider, who presents due to sister's concerns of cough productive of greyish white mucus x1.5 weeks. She reports no other symptoms and states he has had a good appetite, no choking. Normal bowel movements and UOP. No sick contacts. Had televisit with PCP yesterday and was started on Augmentin for history of aspiration pneumonia and requested CXR and COVID test after assessment with . Exam: afebrile, RRR, normotensive, normal resps, O2 sat 98% on RA, non-toxic and well appearing. GENERAL: well developed, well nourished, appears stated age, sitting comfortably in no acute distress. HEENT: normocephalic, atraumatic, sinuses nontender, PERRL, EOMI, sclera anicteric, no conjunctival injection, nares patent, posterior pharynx without lesions, or erythema, mmm. NECK: trachea midline, no masses, cervical lymphadenopathy, or thyromegaly. RESP: uncooperative respiratory exam, good respiratory effort, breathing non-labored, no accessory muscle use, possible mild crackles and decreased breath sounds in LLL, no wheezes, rhonchi, or rales. CARDIO: RRR, normal S1, S2, no murmurs, rubs, or gallops, radial pulses 2+ bilaterally. DDx considered, but not limited to: aspiration PNA - possible w/ h/o dysphagia but sister denies recent choking episodes CAP - less likely without recent sick contacts COVID/URI - less likely without sick contacts, afebrile, no URI sxs foreign body - unlikely w/o choking or wheeze bronchitis - less likely w/o wheeze Work up/Results: COVID test and CXR pending. Plan/Discussion: [facility] came to evaluate your productive cough with concerns for possible aspiration pneumonia. Your vital signs are stable. There may be decreased breath sounds and crackles in the left lower lung. I have ordered a chest xray, [facility] will call you and perform the xray within 24 hours. Your COVID test should result in 3-5 days. We will call you with the results and fax everything over to your PCP. You should quarantine for 10 days since you are symptomatic, must be without symptoms or fever without medication for at least 48 hours to break quarantine. Continue antibiotic as prescribed by PCP and follow up with PCP in 2-3 days. Per PCP request I called and discussed that patient's current clinical status and exam findings, PCP was notified of above and would like CXR and COVID results faxed to her office, I have cc'd her office in the orders. If abnormal findings, please call his provider back on their cell [phone]. In order to obtain further information and compare any laboratory results/values, I have accessed reviewed records with the PCP. This information was pertinent in my medical decision making today. [email or web address] Not available 02/08/2020 13:29:04 Plan of Treatment Reminders Order Date Submit Date Provider Last Modified By Organization Details Last Modified Time Details Appointments None recorded. 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), QL, nursery school teacher-PCR, respiratory specimen 2019 [email or web address] [facility] (Centralized Electronic Ordering - All Locations), Patient Can Go To The Location Of Their Choice, [id number] 1 15:03:24 6+ iStat 2019 020 [facility], [address] [place], [address], 0 19:32:50 creatinine, blood 2019 020 [facility], [address], [place], [address], 0 19:32:50 CBC w/ auto diff 2019 020 JESSICA [facility] (Centralized Electronic Ordering - All Locations), Patient Can Go To The Location Of Their Choice, [id number] 0 01:39:34 urinalysis, dipstick 2017 018 JESSICA [facility], [address] [place], [address], 8 10:59:52 BMP + ionized calcium, serum or plasma 2017 018 [email or web address] [facility], [address] [place], [address], 8 10:54:58 rapid flu (A+B) 2017 018 [email or web address], [address] [place], [address], 8 21:29:21 urinalysis, dipstick 2017 018 [email or web address], [address] [place], [address], 8 21:29:21 rapid strep group A, throat 2017 018 [email or web address], [address] [place], [address], 8 21:29:21 Referral None recorded. Procedures None recorded. Surgeries None recorded. Imaging XR, chest, 2 view 2019 020 [email or web address] [facility] [address] [facility], [place], [address], 0 18:20:54 XR, chest, 2 view - [facility] 2019 020 JESSICA [facility], [address] [facility], [place], [address], 0 10:12:18 Medication Orders sodium chloride 0.9 % intravenous solution 2017 018 [email or web address] Not available 0 19:08:03 Zofran 2 mg/mL intravenous solution 2017 018 [email or web address] Not available 0 19:08:07 ketorolac 30 mg/mL (1 mL) injection solution 2017 018 [email or web address] Not available 0 19:08:00 Zofran 4 mg tablet 2017 018 [id number], [address] [place] [address], [address], 0 19:08:11 sodium chloride 0.9 % intravenous solution 2017 018 [id number], [address] [place], [address], 0 19:08:03 Patient TargetsNo targets recorded. Patient Instructions Encounter Date Encounter Id Patient Instructions Last Modified By Organization Details Last Modified Time 03/11/2018 [id number] YOU WERE EVAUATE D FOR POSSIBLE FLU SYMPTOMS. YOUR FLU TEST WAS NEGATIVE. STREP TEST WAS NEGATIVE. URINE TEST SHOWED NO INFECTION. I GAVE YOU FLUIDS FOR REHYDRATION. I SUSPECT YOU HAVE SINUS INFECTION AND WILL SENT PRESCRIPTION FOR ANTIBIOTICS TO YOUR PHARMACY. PLEASE, TAKE DIRECTED AND MAKE SURE TO FINISH ALL MEDICATION EVEN IF YOU FEEL BETTER. TAKE TYLENOL OR IBUPROFEN FOR FEVER SALT WATER GURRGLES [id number] FOR SORE TROAT SALINE SPRAY FOR NASAL CONGESTION FOLLOW UP WITH YOUR PRIMARY CARE DOCTOR IF YOUR SYMPTOMS DO NOT IMPROVE WITHIN 4-5 DAYS. SEEK IMMEDIATE MEDICAL ATTENTION OR CALL 911 IF YOU DEVELOP FEVER THAT DOES NOT RESPOND TO TYLENOL, NAUSEA, VOMITING, CONFUSION, COUGH, CHEST PAIN, SHORTNESS OF BREATH OR ANY OTHER CONCERNING SYMPTOMS BASIC INFORMATION A viral infection can range anywhere between a common cold and influenza. Most viruses will respond to a combination of time and supportive care. Viruses are eliminated by the bodies immune system and do not respond to antibiotics. Viruses can cause many different symptoms including runny stuffy nose, sore throat, headache, fever, body aches, cough, nausea, vomiting,diarrhea. Most of the viral illnesses are spread by hand to face contact, and the rest are spread through sneezing and coughing which releases virus into the air. Over the counter medications can help to relieve annoying symptoms. Occasionally having a virus may cause a secondary bacterial infection such as ear infections, pneumonia, sinusitis. INSTRUCTIONS Keeping your body as healthy as possible will help to limit your illness. Get plenty of rest Drink lots of fluids (water, herbal tea, gatorade) Reduce your risk of getting or giving a cold by avoiding touching your face with your hands. When you cough and sneeze cover your mouth/nose by placing your elbow or upper arm over the area rather than using your hand. Use a teaspoon of honey(avoid organic honey in infants and small children < 1 year) at bedtime to soothe your throat and ease cough. Sleep with head of bed elevated to promote drainage of secretions. Hot showers and humidifiers can help to loosen secretions. Tylenol over the counter can be helpful for aches and fever. Suck on hard, sugar-free candy during the day to keep the throat moist. MEDICATIONS Over the counter remedies are not recommended for young children, but can help relieve symptoms temporarily in adults. In general it is better to take only the medication you need rather than using combination products that contain ingredients that are unnecessary and may cause side effects. 1. Antihistamines (Benadryl, Chlor-Trimeton, Zyrtec, Claritin, Cass) reduce secretions, but can cause drowsiness and sedation, do not drink alcohol or drive while taking these medications. 2. Decongestants (Phenylephrine, Sudafed) can help to shrink swollen nasal passages and dry secretions, but may cause palpitations, anxiety,and are not safe for people with High blood pressure or heart arrhythmias. 3. Topical Decongestants (Afrin/Devon-synephr ine) can be very helpful for acute relief of nasal swelling and runny nose, HOWEVER they should not be used regularly for more than 3 days as they will cause rebound congestion if over-used. 4. Cough aids generally contain DM( Dextromethorphan) which is a cough suppressant and Guaifenesin which is an expectorant. While the DM portion can be helpful for suppressing the cough, guaifenesin, particularly as dosed in Mucinex like products has minimal effect and may cause nausea. 5. Tamiflu an anti-viral agent may be prescribed if you are diagnosed with influenza. Viral symptoms usually last between 5-10 days, it is not uncommon to have a mild cough for up to 6 weeks afterward. If you have been diagnosed with influenza you should minimize your contact with others. You may return to work/school after 24 hours of being fever free without medication (usually 5-10 days). FOLLOW UP if your symptoms are not improving in 7-10 days If you have severe ear pain, sinus pain, cough productive large amounts of mucus, wheezing. You have underlying medical problems that may become worse as a result of your viral illness (asthma, diabetes, COPD) and need to follow up to ensure you are improving. SEEK CARE IMMEDIATELY IF 1 Severe headache unresponsive to Tylenol or severe neck stiffness 2. Confusion 3. Severe chest pain 4. Difficulty breathing 5. Persistent vomiting 6. Cough productive large amounts of sputum or blood 7. Inability to keep liquids down 8. Fever unresponsive to medication over 102 If you develop any new or worsening symptoms and need after hours care, please go to nearest ER and/or call 911. If you have additional concerns or develop a change in your condition between 8am-10pm, please call [facility] at [phone] to help navigate your care. [email or web address] Not available 03/11/2018 21:37:40 03/13/2018 [id number] We came to your home to evaluate you for nausea, vomiting and fevers. This is the second time we have come to your home. These symptoms started on the 10 of March. You did not have a fever today but had one last night. You did not have any shortness of breath or chest pain. The cough and nasal congestion are present. We checked your labs and urine. They were all unremarkable. the crew that saw you 2 days ago checked for flu, strep and also checked your urine. They did not find a cause for your symptoms. We treated you as if you have a virus. You were given IV fluids, toradol and zofran. This seemed to help your symptoms. Your nose is very congested You should call Dr Zamora for re-evaluation this week. You can call Wednesday morning for follow up. If you develop worsening fevers, chills, shortness of breath, nausea and vomiting even after zofran, or you feel worse, you will need to go to the ED. We gave you a prescription for zofran for nausea. Not available 03/13/2018 11:08:36 02/08/2020 [id number] [facility] came to evaluate your productive cough with concerns for possible aspiration pneumonia. Your vital signs are stable. There may be decreased breath sounds and crackles in the left lower lung. I have ordered a chest xray, [facility] will call you and perform the xray within 24 hours. Your COVID test should result in 3-5 days. We will call you with the results and fax everything over to your PCP. You should quarantine for 10 days since you are symptomatic, must be without symptoms or fever without medication for at least 48 hours to break quarantine. Continue antibiotic as prescribed by PCP and follow up with PCP in 2-3 days. The company we have partnered with that will be completing the exam listed above is: [employer] While you wait comfortably at home, you can expect a [employer] technologist to call you 30-45 minutes prior to arrival. Should you need to make special scheduling arrangements please call the number listed above and ask to speak with a [employer] dispatcher. For your convenience, you can also request your technologist s Estimated Time of Arrival (ETA) by calling the number listed above. Once requested, a [employer] dispatcher will call you back to let you know what time frame to expect the technologist to arrive within. Once your x-ray is completed, a radiologist will evaluate the test and interpret the results. Once the final report is received by [email or web address] from the reading radiologist a [email or web address] provider will call with the results. Thank you for your visit with [email or web address] today. We cannot always find the exact cause of your symptoms during your initial visit. Please follow up with your primary care provider or specialist to be rechecked or seek medical attention if your symptoms do not go away or get worse. If you develop any new or worsening symptoms and need after hours care, please go to nearest ER and/or call 911. If you have additional concerns or develop a change in your condition between 8am-10pm, please call [email or web address] at [phone] to help navigate your care. [email or web address] Not available 02/08/2020 12:56:09 Reason for Referral None Reported. Results Created Date Observation Date Name Description Value Unit Range Abnormal Flag Note LastModifiedBy Organization Detail LastModifiedTime 08/02/1908/02/2019 creat inine , blood crea 0.7 mg/dL 0.6-1. 3 Not Available [facility] [address] [place], [address], 08/02/2019 19:20:08 08/02/1908/02/2019 6+ iStat Na 142 mmol/ L 138-14 6 Not Available [facility] [address] [place], [address], 08/02/2019 19:20:05 08/02/1908/02/2019 6+ iStat K 4.0 mmol/ L 3.5-4. 9 Not Available [facility] [address] [place], [address], 08/02/2019 19:20:05 08/02/1908/02/2019 6+ iStat cL 105 mmol/ L 98-109 Not Available [facility] [address] [place], [address], 08/02/2019 19:20:05 08/02/19 20 08/02/2019 6+ iStat BUN 12 mg/dL 8-26 Not Available [facility] [address] [place], [address], 08/02/2019 19:20:05 08/02/1908/02/2019 6+ iStat glu 73 mg/dL 70-105 Not Available [facility] [address] [place], [address], 08/02/2019 19:20:05 08/02/1908/02/2019 6+ iStat HCT 40 %_pcv 37-47 Not Available [facility] [address] [place], [address], 08/02/2019 19:20:05 08/02/19 20 08/02/2019 6+ iStat Hb 13.6 g/dL 03-07 Not Available [facility] [address] [place], [address], 08/02/2019 19:20:05 03/11/20 18 03/11/2018 urina lysis , dipst ick Appearance clear Not Available [facility] [address] [place], [address], 03/11/2018 20:40:11 03/11/20 18 03/11/2018 urina lysis , dipst ick Color yellow Not Available [facility] [address] [place], [address], 03/11/2018 20:40:11 03/11/20 18 03/11/2018 urina lysis , dipst ick Glucose negati ve Not Available [facility] [address] [place], [address], 03/11/2018 20:40:11 03/11/20 18 03/11/2018 urina lysis , dipst ick Bilirubin negati ve Not Available [facility] [address] [place], [address], 03/11/2018 20:40:11 03/11/20 18 03/11/2018 urina lysis , dipst ick Ketones NEG Not Available [facility] [address] [place], [address], 03/11/2018 20:40:11 03/11/20 18 03/11/2018 urina lysis , dipst ick Sp. [place] 1.015 Not Available [facility] [address] [place], [address], 03/11/2018 20:40:11 03/11/20 18 03/11/2018 urina lysis , dipst ick Blood NEG Not Available [facility] [address] [place], [address], 03/11/2018 20:40:11 03/11/20 18 03/11/2018 urina lysis , dipst ick pH 5.0 Not Available [facility] [address] [place], [address], 03/11/2018 20:40:11 03/11/20 18 03/11/2018 urina lysis , dipst ick Protein negati ve Not Available [facility] [address] [place], [address], 03/11/2018 20:40:11 03/11/20 18 03/11/2018 urina lysis , dipst ick Urobilirubin negati ve Not Available [facility] - [facility] [address] [place], [address], 03/11/2018 20:40:11 03/11/20 18 03/11/2018 urina lysis , dipst ick Nitrites NEG Not Available Spr - [facility] [address] [place], [address], 03/11/2018 20:40:11 03/11/20 18 03/11/2018 urina lysis , dipst ick Leukocytes NEG Not Available [facility] - [facility] [address] [place], [address], 03/11/2018 20:40:11 03/11/20 18 03/11/2018 rapid flu (A+B) Flu A negati ve Not Available [facility] [address] [place], [address], 03/11/2018 20:40:11 03/11/20 18 03/11/2018 rapid flu (A+B) Flu B negati ve Not Available [facility] [address] [place], [address], 03/11/2018 20:40:11 03/11/20 18 03/11/2018 rapid strep group A, throa t Strep negati ve Not Available [facility] [address] [place], [address], 03/11/2018 21:19:19 03/13/20 18 03/13/2018 urina lysis , dipst ick Appearance clear Not Available Spr - H ome [address] [place], [address], 03/13/2018 10:42:50 03/13/20 18 03/13/2018 urina lysis , dipst ick Color yellow Not Available Spr - Home [address] [place], [address], 03/13/2018 10:42:50 03/13/20 18 03/13/2018 urina lysis , dipst ick Glucose negati ve Not Available Spr - Home [address] [place], [address], 03/13/2018 10:42:50 03/13/20 18 03/13/2018 urina lysis , dipst ick Bilirubin negati ve Not Available Spr - Home [address] [place], [address], 03/13/2018 10:42:50 03/13/20 18 03/13/2018 urina lysis , dipst ick Ketones NEG Not Available Spr - Home [address] [place], [address], 03/13/2018 10:42:50 03/13/20 18 03/13/2018 urina lysis , dipst ick Sp. [place] 1.030 Not Available Spr - Home [address] [place], [address], 03/13/2018 10:42:50 03/13/20 18 03/13/2018 urina lysis , dipst ick Blood NEG Not Available Spr - Home [address] [place], [address], 03/13/2018 10:42:50 03/13/20 18 03/13/2018 urina lysis , dipst ick pH 5.0 Not Available Spr - Home [address] [place], [address], 03/13/2018 10:42:50 03/13/20 18 03/13/2018 urina lysis , dipst ick Protein positi ve Not Available Spr - Home [address] [place], [address], 03/13/2018 10:42:50 03/13/20 18 03/13/2018 urina lysis , dipst ick Urobilirubin negati ve Not Available Spr - Home [address] [place], [address], 03/13/2018 10:42:50 03/13/20 18 03/13/2018 urina lysis , dipst ick Nitrites NEG Not Available Spr - [facility] e [address] [place], [address], 03/13/2018 10:42:50 03/13/20 18 03/13/2018 urina lysis , dipst ick Leukocytes NEG Not Available Spr - H ome [address] [place], [address], 03/13/2018 10:42:50 03/13/20 18 03/13/2018 BMP + ioniz ed calci um, serum or plasm a Na 139 mmol/ L 136-14 5 Not Available Spr - Home [address] [place], [address], 03/13/2018 10:54:42 03/13/20 18 03/13/2018 BMP + ioniz ed calci um, serum or plasm a K 3.6 mmol/ L 3.5-5. 1 Not Available Spr - Home [address] [place], [address], 03/13/2018 10:54:42 03/13/20 18 03/13/2018 BMP + ioniz ed calci um, serum or plasm a cL 101 mmol/ L 96-111 Not Available Spr - Home [address] [place], [address], 03/13/2018 10:54:42 03/13/20 18 03/13/2018 BMP + ioniz ed calci um, serum or plasm a ica 1.21 mmol/ L 1.1-1. 4 Not Available Spr - Home [address] [place], [address], 03/13/2018 10:54:42 03/13/20 18 03/13/2018 BMP + ioniz ed calci um, serum or plasm a TCO2 26 mmol/ L 20-30 Not Available Spr - Home [address] [place], [address], 03/13/2018 10:54:42 03/13/20 18 03/13/2018 BMP + ioniz ed calci um, serum or plasm a glu 98 mg/dL 70-115 Not Available Spr - Home [address] [place], [address], 03/13/2018 10:54:42 03/13/20 18 03/13/2018 BMP + ioniz ed calci um, serum or plasm a BUN 8 mg/dL 6-24 Not Available Spr - Home [address] [place], [address], 03/13/2018 10:54:42 03/13/20 18 03/13/2018 BMP + ioniz ed calci um, serum or plasm a crea 0.7 mg/dL .65-1. 36 Not Available Spr - Home [address] [place], [address], 03/13/2018 10:54:42 03/13/20 18 03/13/2018 BMP + ioniz ed calci um, serum or plasm a HCT 43 %_pcv 40.6-5 0.3 Not Available Spr - Home [address] [place], [address], 03/13/2018 10:54:42 03/13/20 18 03/13/2018 BMP + ioniz ed calci um, serum or plasm a Hb 14.6 g/dL 13.9-1 7.4 Not Available Spr - Home [address] [place], [address], 03/13/2018 10:54:42 03/13/20 18 03/13/2018 BMP + ioniz ed calci um, serum or plasm a angap 17 mmol/ L 6-18 Not Available Spr - Home [address], [place], [address], 03/13/2018 10:54:42 08/02/1908/03/2019 CBC w/ auto diff WBC 6.5 K/mm3 (4.0-1 1.0) Not Available [facility] (Centralized Electronic Ordering - All Locations) Patient Can Go To The Location Of Their Choice, 08/03/2019 01:39:34 08/02/1908/03/2019 CBC w/ auto diff RBC 4.84 M/mm3 (4.70- 6.10) Not Available [facility] (Centralized Electronic Ordering - All Locations) Patient Can Go To The Location Of Their Choice, 08/03/2019 01:39:34 08/02/1908/03/2019 CBC w/ auto diff HGB 13.0 gm/dL (13.7- 17.1) low Not Available [facility] (Centralized Electronic Ordering - All Locations) Patient Can Go To The Location Of Their Choice, 08/03/2019 01:39:34 08/02/1908/03/2019 CBC w/ auto diff HCT 41.4 % (40.5- 50.0) Not Available [facility] (Centralized Electronic Ordering - All Locations) Patient Can Go To The Location Of Their Choice, 08/03/2019 01:39:34 08/02/1908/03/2019 CBC w/ auto diff MCV 85.5 fL (80.0- 94.0) Not Available [facility] (Centralized Electronic Ordering - All Locations) Patient Can Go To The Location Of Their Choice, 08/03/2019 01:39:34 08/02/1908/03/2019 CBC w/ auto diff MCH 26.9 pg (27.0- 34.0) low Not Available [facility] (Centralized Electronic Ordering - All Locations) Patient Can Go To The Location Of Their Choice, 08/03/2019 01:39:34 08/02/1908/03/2019 CBC w/ auto diff MCHC 31.4 g/dL (33.0- 37.0) low Not Available [facility] (Centralized Electronic Ordering - All Locations) Patient Can Go To The Location Of Their Choice, 08/03/2019 01:39:34 08/02/1908/03/2019 CBC w/ auto diff plt 277 K/mm3 (150-4 60) Not Available [facility] (Centralized Electronic Ordering - All Locations) Patient Can Go To The Location Of Their Choice, 08/03/2019 01:39:34 08/02/1908/03/2019 CBC w/ auto diff RDW-SD 39.0 fL (<47.0 ) Not Available [facility] (Centralized Electronic Ordering - All Locations) Patient Can Go To The Location Of Their Choice, 08/03/2019 01:39:34 08/02/1908/03/2019 CBC w/ auto diff MPV 10.9 fL (9.4-1 2.4) Not Available [facility] (Centralized Electronic Ordering - All Locations) Patient Can Go To The Location Of Their Choice, 08/03/2019 01:39:34 08/02/1908/03/2019 CBC w/ auto diff automated NRBC 0.0 #/100 _WBC' s Not Available [facility] (Centralized Electronic Ordering - All Locations) Patient Can Go To The Location Of Their Choice, 08/03/2019 01:39:34 08/02/1908/03/2019 CBC w/ auto diff abs. NRBC 0.0 K/mm3 Not Available [facility] (Centralized Electronic Ordering - All Locations) Patient Can Go To The Location Of Their Choice, 08/03/2019 01:39:34 08/02/1908/03/2019 CBC w/ auto diff neut # 3.5 K/mm3 (1.3-7 .0) Not Available [facility] (Centralized Electronic Ordering - All Locations) Patient Can Go To The Location Of Their Choice, 08/03/2019 01:39:34 08/02/1908/03/2019 CBC w/ auto diff lymph # 2.1 K/mm3 (0.8-3 .1) Not Available [facility] (Centralized Electronic Ordering - All Locations) Patient Can Go To The Location Of Their Choice, 08/03/2019 01:39:34 08/02/1908/03/2019 CBC w/ auto diff mono# 0.6 K/mm3 (0.4-1 .3) Not Available [facility] (Centralized Electronic Ordering - All Locations) Patient Can Go To The Location Of Their Choice, 08/03/2019 01:39:34 08/02/1908/03/2019 CBC w/ auto diff eo # 0.2 K/mm3 (0.0-0 .4) Not Available [facility] (Centralized Electronic Ordering - All Locations) Patient Can Go To The Location Of Their Choice, 08/03/2019 01:39:34 08/02/1908/03/2019 CBC w/ auto diff baso # 0.0 K/mm3 (0.0-0 .1) Not Available [facility] (Centralized Electronic Ordering - All Locations) Patient Can Go To The Location Of Their Choice, 08/03/2019 01:39:34 08/02/1908/03/2019 CBC w/ auto diff abs. imm gran 0.0 K/mm3 Not Available [facility] (Centralized Electronic Ordering - All Locations) Patient Can Go To The Location Of Their Choice, 08/03/2019 01:39:34 08/02/1908/03/2019 CBC w/ auto diff neut 54.1 % (44-76 ) Not Available [facility] (Centralized Electronic Ordering - All Locations) Patient Can Go To The Location Of Their Choice, 08/03/2019 01:39:34 08/02/1908/03/2019 CBC w/ auto diff lymph 32.9 % (15-43 ) Not Available [facility] (Centralized Electronic Ordering - All Locations) Patient Can Go To The Location Of Their Choice, 08/03/2019 01:39:34 08/02/1908/03/2019 CBC w/ auto diff monocyte 8.6 % (4.5-1 0.5) Not Available [facility] (Centralized Electronic Ordering - All Locations) Patient Can Go To The Location Of Their Choice, 08/03/2019 01:39:34 08/02/1908/03/2019 CBC w/ auto diff eo 3.7 % (0-6) Not Available [facility] (Centralized Electronic Ordering - All Locations) Patient Can Go To The Location Of Their Choice, 08/03/2019 01:39:34 08/02/1908/03/2019 CBC w/ auto diff baso 0.5 % (0-2) Not Available [facility] (Centralized Electronic Ordering - All Locations) Patient Can Go To The Location Of Their Choice, 08/03/2019 01:39:34 08/02/1908/03/2019 CBC w/ auto diff imm gran 0.2 % Not Available [facility] (Centralized Electronic Ordering - All Locations) Patient Can Go To The Location Of Their Choice, 08/03/2019 01:39:34 08/03/1908/03/2019 XR, chest , 2 view XRAY CHEST 2 VIEW FINDIN GS: The lungs are clear and well inflat ed. No pneumo reny, effusi on, or conges tion is seen. The heart and medias tinum are normal . No acute bony abnorm ality is presen t. CONCLU AILYN: Normal chest exam. ELECTR ONICAL LY SIGNED BY MANUELA HERNÁNDEZ M.D. 10:00: 49 AM EDT. XRAY CHEST 2 VIEW Result s: The lungs are clear and well inflat ed. No pneumo reny, effusi on, or conges tion is seen. The heart and medias tinum are normal . No acute bony abnorm ality is presen t. Conclu ailyn: Normal chest exam. Electr onical ly signed by MANUELA HERNÁNDEZ M.D. 10:00: 49 AM EDT. [email or web address] [place] [address] [facility], [place], [address], 08/04/2019 09:22:54 09/04/19 XR, chest , 2 view No observ ation record ed. [email or web address] [address], [place], [address], 09/09/2019 12:34:07 02/09/2002/09/2020 XR, chest , 2 view XRAY CHEST 1 VIEW FINDIN GS: There is no tuberc ulosis . The lungs are free of active pulmon victoriano diseas e. The medias tinum shows no adenop athy or mass. The heart is normal and the osseou s struct ures are also normal . There is no active diseas e. CONCLU AILYN: Normal chest with no eviden ce of tuberc ulosis no change from ELECTR ONICAL LY SIGNED BY JAYNA THAO M.D. 2019 12:02: 56 PM EST. XRAY CHEST 1 VIEW Result s: There is no tuberc ulosis . The lungs are free of active pulmon victoriano diseas e. The medias tinum shows no adenop athy or mass. The heart is normal and the osseou s struct ures are also normal . There is no active diseas e. Conclu ailyn: Normal chest with no eviden ce of tuberc ulosis no change from Electr onical ly signed by JAYNA THAO M.D. 2019 12:02: 56 PM EST. [email or web address] [facility] [address] , [place], [address], 02/21/2020 18:20:54 Result Notes Documentation Provider Name and Address Organization Details Recorded Time Xr, Chest, 2 View : XRAY CHEST 2 VIEW FINDINGS: The lungs are clear and well inflated. No pneumonia, effusion, or congestion is seen. The heart and mediastinum are normal. No acute bony abnormality is present. CONCLUSION: Normal chest exam. ELECTRONICALLY SIGNED BY MANUELA JESUS M.D. 08/03/2019 10:00:49 AM EDT. XRAY CHEST 2 VIEW Results: The lungs are clear and well inflated. No pneumonia, effusion, or congestion is seen. The heart and mediastinum are normal. No acute bony abnormality is present. Conclusion: Normal chest exam. Electronically signed by MANUELA JESUS M.D. 08/03/2019 10:00:49 AM EDT. TERESO ZELAYA NP [address] [place] [address], [address], [place] [facility] 08/04/2019 09:22:54 Xr, Chest, 2 View : XRAY CHEST 1 VIEW FINDINGS: There is no tuberculosis. The lungs are free of active pulmonary disease. The mediastinum shows no adenopathy or mass. The heart is normal and the osseous structures are also normal. There is no active disease. CONCLUSION: Normal chest with no evidence of tuberculosis no change from 08/03/2019 ELECTRONICALLY SIGNED BY JAYNA THAO M.D. 02/09/2020 12:02:56 PM EST. XRAY CHEST 1 VIEW Results: There is no tuberculosis. The lungs are free of active pulmonary disease. The mediastinum shows no adenopathy or mass. The heart is normal and the osseous structures are also normal. There is no active disease. Conclusion: Normal chest with no evidence of tuberculosis no change from 08/03/2019 Electronically signed by JAYNA THAO M.D. 02/09/2020 12:02:56 PM EST. Tiffanie Guillermo [facility] [place] [facility] 02/21/2020 18:20:54 Procedures Surgical History Date Name Laterality Status Provider Name and Address Organization Details Recorded Time 08/02/19 20 Venipuncture - completed SALLY MINER [address] [place], [address], [place] [facility] 08/02/2019 19:18:35 03/13/20 18 IV Start Procedure - completed HARISH RAJPUT NP [address], [place], [address], [place] [facility] 03/13/2018 11:09:42 03/11/20 18 IV Start Procedure - completed SALYL FRANKS [address], [place], [address], [place] [facility] 03/12/2018 09:43:54 Imaging Results None recorded. Procedure Notes None recorded. Medical Equipment None Reported. Allergies No known drug allergies Medications Name Sig Start Date Stop Date Status Note LastModified by Organization Details LastModified Time amoxicillin 500 mg capsule TAKE 1 CAPSULE BY MOUTH EVERY 8 HOURS UNTIL FINISHED active Not Available Not Available No t Available ketoconazol e 2 % shampoo APPLY TO AFFECTED AREA EVERY 3 DAYS NEEDED FOR SCALP FLAKING active Not Available Not Available No t Available ketorolac 30 mg/mL (1 mL) injection solution 15 mg IV administe red on scene. Time administe red: 1055 08/01 completed Not Available Not Available Not Available amoxicillin 500 mg tablet TAKE 1 TABLET EVERY 8 HOURS UNTIL FINISHED active Not Available Not Available No t Available Zofran 4 mg tablet Take 1 tablet every 6-8 hours by oral route as needed for 2 days. 08/01 completed Not Available Not Available Not Available triamcinolo ne acetonide 0.025 % topical cream active Not Available Not Available Not Available acyclovir 5 % topical ointment APPLY TO AFFECTED AREA EVERY 4 HOURS active Not Available Not Available No t Available sodium chloride 0.9 % intravenous solution 1000 ml administe red on scene. Time administe red: 1050 08/01 completed Not Available Not Available Not Available ibuprofen 100 mg/5 mL oral suspension TAKE 20ML BY MOUTH EVERY 6 HOURS NEEDED FOR PAIN active Not Available Not Available No t Available Zofran 2 mg/mL intravenous solution 4 mg IV administe red on scene. Time administe red: 1050 08/01 completed Not Available Not Available Not Available DentaGel 1.1 % active Not Available Not Available Not Available ciclopirox 1 % shampoo active Not Available Not Available Not Available chlorhexidi ne gluconate 0.12 % mouthwash RINSE TWICE DAILY active Not Available Not Available No t Available Anni-carmen 8.6 mg tablet 03/11 completed Not Available Not Available Not Available Vitals Date Recorded Heart rate Respiratory rate Body temperature Oxygen saturation Oxygen saturation in Arterial blood by Pulse oximetry Systolic And Diastolic Provider Name and Address Organization Details Last Updated DateTime 0 69 /min 18 /min 98.5 [degF] 96 % 96 % 108/72 mm[Hg] Not Available [facility] 0 19:24:12 Date Recorded Respiratory rate Heart rate Oxygen saturation Oxygen saturation in Arterial blood by Pulse oximetry Body temperature Respiratory rate Respiratory rate Systolic And Diastolic Provider Name and Address Organization Details Last Updated DateTime 0 7 /min 76 /min 98 % 98 % 97.8 [degF] 76 /min 16 /min 102/62 mm[Hg] Not Available [facility] 0 12:47:31 Date Recorded Respiratory rate Heart rate Oxygen saturation Oxygen saturation in Arterial blood by Pulse oximetry Body temperature Systolic And Diastolic Provider Name and Address Organization Details Last Updated DateTime 8 24 /min 96 /min 97 % 97 % 99.5 [degF] 100/64 mm[Hg] Not Available [facility] 8 20:39:52 Date Recorded Heart rate Respiratory rate Oxygen saturation Oxygen saturation in Arterial blood by Pulse oximetry Body temperature Heart rate Oxygen saturation Oxygen saturation in Arterial blood by Pulse oximetry Respiratory rate Body temperature Systolic And Diastolic Systolic And Diastolic Provider Name and Address Organization Details Last Updated DateTime 8 90 /min 12 /min 98 % 98 % 98.1 [degF] 93 /min 97 % 97 % 17 /min 97.9 [degF] 112/78 mm[Hg] 118/78 mm[Hg] Not Available [facility] 8 11:26:48 Social History Question Answer Notes LastModified by Organizat ion Details LastModified Time Tobacco Smoking Status Never Smoker SALLY FRANKS [address], [place], [address], [place] [facility] 03/11/2018 20:38:12 What Is Your Code Status? Full Code Information not available 03/11/2018 How Many Days In The Past Year Have You Had A Heavy Drinking Consumption (4+ Female, 5+ Male)? 0 Information not available 03/11/2018 Marital Status Single Informatio n not available 03/11/2018 What Was The Date Of Your Most Recent Tobacco Screening? 03/11/2018 Information not available 10/13/2018 Sex: Unknown Functional Status None recorded. Mental Status None recorded. Family History Relationship Description Onset Age of this Age Resolved Age Notes LastModified by Organization Details LastModified Time Father No current problems or disability [email or web address] Not available 03/11 20:38:06 Mother No current problems or disability [email or web address] Not available 03/11 20:38:06 Medical History Condition Response Diabetes N Coronary Artery Disease N High Cholesterol N Pulmonary Embolism N Cancer N Hypertension N Stroke N Asthma N COPD N Depression N Kidney Disease N Past Encounters Encounter ID Performer Location Encounter Start Date Encounter Closed Date Diagnosis/Indication Diagnosis SNOMED-CT Code Diagnosis ICD10 Code Diagnosis Note [id number] SALLY FRANKS [facility] - HOME [address] [place] [address] 03/11/2018 20:29:01 03/18/2018 11:26:35 Fever 788023132 R50.9 Sinusitis 79508121 J32.9 [id number] HARISH RAJPUT NP [facility] - [facility] [address] [place] [address] 03/13/2018 09:52:09 03/13/2018 11:28:09 Nausea and vomiting 44677752 R11.2 [id number] SALLY MINER [facility] [address] [facility] [place] [address] 08/02/2019 19:06:43 08/04/2019 08:51:51 Acute upper respiratory infection 56422462 J06.9 Weakness present 4240092 07 M62.81 [id number] SALLY NAVARRO [facility] - [facility] [address] [place] [address] 02/08/2020 12:44:22 02/08/2020 13:35:37 Aspiration pneumonia 406253388 J69.0 Health Concerns Section Related Observation LastModified by Organization Detai ls LastModified Time None Recorded Concern Status LastModified by Organization Details LastModified Time None Recorded Advance Directives Directive None Recorded Payers Insurance Date Sequence Insurance Name Policy Number Policy Tai Covered Member ID Tai Member ID Guarantor Name 03/14/2018 1 [facility] [id number] Anthony Asher [id number] Pito Asher 03/14/2018 1 [facility] (MEDICAID REPLACEMENT - HMO) [id number] Anthony Asher [id number] Pito Asher 03/14/2018 1 [place] [facility] Anthony Asher [id number] Pito Asher 03/14/2018 1 [facility] (MEDICAID HMO) [id number] Anthony Asher [id number] Pito Asher 03/14/2018 1 [facility] (MEDICAID HMO) Anthony Asher [id number] Pito Asher 03/14/2018 1 [facility] (MEDICAID HMO) [id number] Anthony Asher [id number] Pito Asher 03/11/2018 1 *SELF PAY* Anthony Asher [id number] Pito Asher 03/14/2018 1 [facility] (MEDICAID HMO) [id number] Anthony Camposk [id number] Pito Camposk 03/18/2018 1 [facility] (MEDICAID REPLACEMENT - HMO) [id number] Anthony Camposk [id number] Pito Camposk 03/11/2018 1 [facility] (MEDICAID HMO) Anthony Camposk [id number] Pito Coellozak 08/04/2019 1 [facility] (MEDICAID HMO) [id number] Mohneftalyd Modezak [id number] Axelor Modezak 03/14/2018 1 [facility] [id number] Mohammad Modezak [id number] Axelor Modezak 02/08/2020 1 [facility] (MEDICAID HMO) [id number] Anthony Camposk [id number] Pito Coellozak 08/04/2019 1 [facility] (MEDICAID HMO) [id number] Anthony Camposk [id number] Pito Asher Notes Date Note Type Note Provider Name and Address Organization Details Recorded Time 03/11/2018 text/html Mr. Asher is a 27yo male [facility] and this provider. Patient has cerebral palsy, non-verbal but able to communicate. He understands some Swedish but the majority of communicationwas done with the help of his sister present on scene. Family called because patient complained ofcold like symptoms X2 days. Symtoms include: fever of 100.3, nasal congestion, sore throat, ear pain and pressure, headache dry cough, fatigue; vomiting twice yesterday; increased frequency of urination. Sister states that Nyquil was given twice yesterday and today. Also reports that several family members recently had a mild cold symptoms. She reports that patient has been complaining of nasal congestion for a while now but is not able to recall how long.Denied nausea or vomiting today, abdominal pain, back/flank pain, dizziness, nasal discharge, ear discharge. SALLY FRANKS [address], [place], [address], [place] [facility] 03/12/2018 14:32:55 03/13/2018 text/html 27 year-old male , history of CP, called to his home by family for concern of nausea, vomiting and fevers. Symptoms began Feb. He started with sore throat followed by nausea and vomiting. On the , he continued with sore throat, had a fever, cough, nasal congestion. He was evaluated by that evening. Neg UA, strep and flu, Concern for sinus infection with facial tenderness. Augmentin RX given. Pt started this yesterday afternoon. AFterwards began with abdominal pain. Given 2nd dose about 5 hours after first but promptly vomited it up. Also noted to have fevers as high as 102 last night. Vomited about 5 times until 1 am. This morning no fevers but complains of nausea, diffuse abdominal pain, slight headache and feeling weak. Decreased appetite for the past 2 days. No diarrhea. No urinary symptoms. No rashes. HARISH RAJPUT NP [address], [place], [address], [place] [facility] 03/13/2018 11:43:38 08/02/2019 text/html 28-year-old male with CP presents with his sister for evaluation. Reports usually he is able to walk with an assist but over the last 2 days is not able to lift his feel or walk. Denies fever. Reports one week of wet cough, some sinus congestion. Denies chest pain, shortness of breath, dizziness, sore throat, ear pain, nausea. Using Tylenol and cough syrup for relief without effect. Denies sick contacts. SALLY MINER [address], [place], [address], [place] [facility] 08/02/2019 19:46:50 02/08/2020 text/html 29 y/o M with PM Hx sig for cerebral palsy, known to , but new to this provider, who presents due to sister's concerns of cough productive of greyish white mucus x1.5 weeks. She reports no other symptoms and states he has had a good appetite, no choking. Normal bowel movements and UOP. No sick contacts.Had televisit with PCP yesterday and was started on Augmentin for history of aspiration pneumonia and requested CXR and COVID test after assessment with . SALLY NAVARRO [address], [place], [address], [place] [facility] 02/08/2020 13:29:11
--- OUTSIDE RECORDS SUMMARY | 2024-10-06 23:28 | XMS_ITS | Clinical Summary ---
Author Organization 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 Not on bridgett e 07/16/2022 Are you concerned about learning? Not on file 07/16/2022 No 07/16/2022 No 07/16/2022 Digital Access Answer Date Recorded No 08/17/2022 No 08/17/2022 No 08/17/2022 Reliable internet access at home? Not on file 08/17/2022 Device with a working camera? Not on file Sex and Gender Information Value Date Recorded Sex Assigned at Not on file Legal Sex Male 8:04 PM EST Gender Identity Not on file Sexual Orientation Not on file Last Filed Vital Signs Vital Sign Reading Time Taken Comments Blood Pressure 103/59 02/08/2017 1:47 PM EST Pulse 73 02/08/2017 1:47 PM EST Temperature 36.7 C (98 F) 02/08/2017 1:47 PM EST Respiratory Rate - - Oxygen Saturation 96% 02/08/2017 1:47 PM EST Inhaled Oxygen Concentration - - Weight 48.1 kg (106 lb) 07/20/2016 3:08 PM EDT Height 167.6 cm (5' 6 ) 07/20/2016 3:08 PM EDT Body Mass Index 17.11 07/20/2016 3:08 PM EDT Plan of Treatment Health Maintenance Due Date Last Done Comments Adult Td,Tdap Booster 1989 DEPRESSION SCREENING 2001 HEPATITIS C SCREENING 12/27/2007 HIV ONE-TIME SCREENING (18-6 5 YEARS) 12/27/2007 COVID-19 VACCINE (2 - 2023-2 5 season) 2023 07/04/2020 SMOKING STATUS SCREENING (On ce After 26 Yrs) Completed 02/08/2017 HEPATITIS A VACCINES Aged Out No long er eligible based on patient's age to complete this topic HIB VACCINES Aged Out No longer eligi ble based on patient's age to complete this topic MENINGOCOCCAL VACCINES (ACWY) Aged Out No longer eligible based on patient's age to complete this topic MENINGOCOCCAL VACCINES (B) Aged Out N o longer eligible based on patient's age to complete this topic PNEUMOCOCCAL VACCINES (0-49 years) Aged Out No longer eligible based on patient's age to complete this topic Medical Devices Not on file Insurance O O O O O O O O [facility] HMO Care Teams Crm Marketing Executive Relationship Specialty Start Date End Date Crispin Zamora MD PCP - General Family Medicine 09/01/16 Additional Source Comments The information contained in this document represents components of the legal health record. It is not the complete legal health record.[facility]
[2024-10-06 23:33] VITALS: BP 101/59; PULSE 77; RESP 16; TEMP 36.1; O2SAT 97
[2024-10-06 23:34] VITALS: BP 101/59; PULSE 77; RESP 16; TEMP 36.1; O2SAT 97
== END 2024-10-06 23:34 | disposition home or self-care (01) ==
PROVIDERS: Emergency Provider Emergency Medicine Emergency Medical Services; PCP Nurse Practitioner Family
DX: K94.23 Gastrostomy malfunction (principal); G80.9 Cerebral palsy, unspecified; Z79.899 Other long term (current) drug therapy
CPT/HCPCS: 43762; 99284

== ENCOUNTER 2025-02-21 08:15 | Outpatient (AMB) | payer OTHER, SELFPAY ==
--- OUTSIDE RECORDS SUMMARY | 2025-02-21 08:23 | XMS_ITS ---
Author Name [facility] Organization Unknown Care Team Organization Name Specialty Phone Email Start Date End [facility]
--- OUTSIDE RECORDS SUMMARY | 2025-02-21 08:23 | XMS_ITS | Clinical Summary ---
Author Organization [facility] Address [address] [place] [address] Phone Care Team Providers Care Senior Manager Asset Protection Name Role Phone Rabia Fraser MD Primary Care Provider [phone] Rabia Fraser MD Unavailable [phone] Rabia Fraser MD Unavailable [phone] Social History Tobacco Use Types Packs/Day Years Used Date Smoking Tobacco: Never Assessed Sex and Gender Information Value Date Recorded Sex Assigned at Not on file Legal Sex Male 8:07 PM EDT Gender Identity Not on file Sexual Orientation Not on file Plan of Treatment Not on file Care Teams Senior Manager Asset Protection Relationship Specialty Start Date End Date Rabia Fraser MD [address] [id number] PCP - General 08/06/10 Rabia Fraser MD [address] [address] PCP - Clinical PCP 08/06/10 Rabia Fraser MD [address] [address] PCP - Insurance PCP 08/06/10
--- OUTSIDE RECORDS SUMMARY | 2025-02-21 08:23 | XMS_ITS | Clinical Summary ---
Author Organization [facility] Address [address] [facility] [address] [place] [id number] Phone Care Team Providers Care Home School Coordinator Name Role Phone Crispin Zamora MD Primary [...] Last Done Comments Adult Td,Tdap Booster 1989 LIPID PANEL 1989 DEPRESSION SCREENING 2001 HEPATITIS C SCREENING 12/27/2007 HIV ONE-TIME SCREENING (18-6 5 YEARS) 12/27/2007 INFLUENZA VACCINE (#1) 2024 COVID-19 VACCINE (2 - 2024-2 6 season) 2024 07/04/2020 SMOKING STATUS SCREENING (On ce After 26 Yrs) Completed 02/08/2017 HEPATITIS A VACCINES Aged Out No long er eligible based on patient's age to complete this topic HIB VACCINES Aged Out No longer eligi ble based on patient's age to complete this topic IPV VACCINES Aged Out No longer eligi ble [...] O O O O O O O [facility] HMO Care Teams Home School Coordinator Relationship Specialty Start Date End Date Crispin Zamora MD PCP - General Family Medicine 09/01/16 Additional Source Comments The information contained in this document represents components of the legal health record. It is not the complete legal health record.[facility]
--- OUTSIDE RECORDS SUMMARY | 2025-02-21 08:23 | XMS_ITS | Clinical Summary ---
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, CMS/HCC V28) (Primary Dx) from Last 3 Months Social History Tobacco Use Types Packs/Day Years Used Date Smoking Tobacco: Never Assessed Sex and Gender Information Value Date Recorded Sex Assigned at Not on file Legal Sex Male 4:05 AM EST Gender Identity Not on file Sexual Orientation Not on file Plan of Treatment Health Maintenance Due Date Last Done Comments HPV Vaccines (1 - 3-dose SCDM series) 2016 Depression Screening 03/22/2024 COVID-19 Vaccine ( season) 2024 04/24/2021, 07/25/2020, 07/04/2020 Cholesterol Screening (Lipid Panel) 12/28/2024 HIV Screening 12/28/2024 Hepatitis C Screening 12/28/2024 Medicare Annual Wellness Visit 12/28/2024 Social Influencers of Health Screening 12/28/2024 DTaP,Tdap,and Td Vaccines (8 - Td or Tdap) 05/12/2028 05/12/2018, 02/01/2011, 05/30/2010, Additional history exists RSV Immunization Adult Patients (1 - 1-dose 75+ series) 2064 Varicella Vaccines Aged Out 01/26/2000 No longer eligible based on patient's age to complete this topic MMR Vaccines Completed 12/04/2002, 11/19/1997 Hepatitis B Vaccines Completed 05/24/2003, 01/04/2003, 12/04/2002 IPV Vaccines Completed 06/26/2010, 12/20, 04/22/1998, Additional history exists Meningococcal ACWY Vaccine Aged Out 04/23/2011 N o longer eligible based on patient's age to complete this topic Pneumococcal Vaccine: Pediatrics (0 to 5 Years) and At-Risk Patients (6 to 49 Years) Aged Out 03/13/2015 No longer eligible based on patient's age to complete this topic Influenza Vaccine Completed 12/27/2024, , 12/20/2019, Additional history exists HIB Vaccines Aged Out No longer eligi ble based on patient's age to complete this topic Hepatitis A Vaccines Aged Out No long er eligible based on patient's age to complete this topic Meningococcal B Vaccine Aged Out No l onger eligible based on patient's age to complete this topic RSV Immunization Patients Under 20 months Aged Out No longer eligible based on patient's age to complete this topic Insurance [facility] MEDICARE Member Subscriber Plan / Payer (Ef fective 2021-Present) Name:LIO ASHER Relation to Subscriber:Self Name:Lio Asher Payer ID:[id number] Group ID:[id number] Type:Not on file Address: [address] [place] [id number] Care Teams Publisher Assistant Relationship Specialty Start Date End Date Mila Vazquez [address] [place] [id number] PCP - General Family Medicine 12/28/24
--- NOTE | 2025-02-21 08:27 | MHC.OFFVIS ---
Vital Signs 02/21/25 08:27 Weight 83 lb 12.41 oz Intake Visit Reasons: Peg tube replacement/ ok per FM Intake Note: Pt per for a PEG-tube replacement. Pt's father c/o; PEG-tube leakage. Air Defence Officer Required: No Accompanied by: Father Allergies No Known Allergies Allergy (Verified 02/21/25 08:33) Medication List - Last Reconciled 02/21/25 by Laci Finnegan MD acetaminophen 480 mg PO Q6H PRN famotidine 20 mg G-tube DAILY famotidine 20 mg PO DAILY midodrine 10 mg G-tube TIDAC midodrine 10 mg PO TID HPI HPI Peg tube replacement/ ok per FM: Details: He is here for a PEG tube malfunction. According to his father, the PEG tube has been leaking with feeds. I would place the PEG tube last January,. 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 He has been tolerating his tube feeds well otherwise. COUNT INCLUDES THE [facility] Medical History PEG tube malfunction 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 Surgical History S/P percutaneous endoscopic gastrostomy (PEG) tube placement Social History Household Members: Family Housing: House Are you a primary acute care physician to a significant other at home: No Do you presently have visiting nurse or other home services: No Comment: bedbound pt Patient Tobacco Use Status: Never used Tobacco Second Hand Smoke Exposure: No Advance Directives Date on File: 01/20/24 service: No Review of Systems Const Denies chills and Denies fever(s) Card Denies dyspnea Resp Denies dyspnea GI Denies vomiting Physical Exam Const Other: No acute distress, nonverbal, wheelchair-bound Resp Effort & Inspection: normal respiratory effort Cardio Rate: regular rate GI Other: Peg tube in place, seen to be leaking at the very distal end Palpation (GI): Soft to palpation Office Procedures Procedure Thyroid Biopsy Procedural Documentation: Procedure: PEG tube replacement The old PEG tube was removed by desufflating the balloon. I replaced this with a 18 chelle tube without difficulty. I insufflated the balloon to 10 cc. He tolerated procedure well. There were no immediate complications. He had a well-formed tract. Assessment & Plan Assessment & Plan (1) PEG tube malfunction: Code(s): K94.23 - Gastrostomy malfunction Category: Medical Plan: I removed the old PEG tube. I replaced with a new 18 [place] chelle tube. The balloon was insufflated with 10 cc of saline. He tolerated procedure well. There was no difficulty with insertion. There was note of a well-formed tract. He can follow up on a p.r.n. basis. Coding Level of Care Code Est Pt Level 3 (44274) Diagnoses PEG tube malfunction K94.23
== END 2025-02-21 09:05 | disposition home or self-care (01) ==
LOC: HO.HGS 08:16
PROVIDERS: PCP Nurse Practitioner Family; Visit Provider Surgery
DX: K94.23 Gastrostomy malfunction (principal)
CPT/HCPCS: 99213

== ENCOUNTER → 2025-02-21 08:15 | Outpatient (BNVA) | payer OTHER, SELFPAY | PROVIDERS: PCP Nurse Practitioner Family; Visit Provider Surgery | DX: K94.23 Gastrostomy malfunction (principal); R13.10 Dysphagia, unspecified; M62.81 Muscle weakness (generalized); Z99.3 Dependence on wheelchair | CPT/HCPCS: 43762; 99212 ==